=== PATIENT | male | born 1945 | race African-American/Black ===

== ENCOUNTER 2017-01-02 21:20 | Inpatient (IN) | payer OTHER ==
[~2017-01-02] VITALS: Ht 172.7 cm; Wt 103.9 kg
--- NOTE | ~2017-01-02 | O ---
[facility] [place] [address] OPERATIVE REPORT Name: LAURA PEÑA Room #: 241-P ADM IN M.R.#: [id number] Admission: 01/03/17 Attend Phys: Ulises Fall MD Discharge: Date of : 45 Report #: [id number] THIS REPORT FOR: //name// CC: Ava Fall DATE OF SERVICE: 01/12/2017 PREOPERATIVE DIAGNOSES: 1. Abdominal sepsis, status post sigmoid diverticular perforation. 2. Open abdomen. 3. Coronary artery disease. 4. Ischemic cardiomyopathy with decreased ejection fraction. 5. Chronic obstructive pulmonary disease. 7. Obstructive sleep apnea. 8. Left lung mass, suspected to be cancer, status post radiation therapy. 9. Remote history of prostate cancer, status post pelvic irradiation. 10. Obesity. POSTOPERATIVE DIAGNOSES: 1. Abdominal sepsis, status post sigmoid diverticular perforation. 2. Open abdomen. 3. Coronary artery disease. 4. Ischemic cardiomyopathy with decreased ejection fraction. 5. Chronic obstructive pulmonary disease. 7. Obstructive sleep apnea. 8. Left lung mass, suspected to be cancer, status post radiation therapy. 9. Remote history of prostate cancer, status post pelvic irradiation. 10. Obesity. 11. Necrotic cecum. PROCEDURES PERFORMED: 1. Second look exploratory laparotomy with washout. 2. Right hemicolectomy without reestablishment of bowel continuity. 3. Placement of an open abdominal wound VAC (ABThera). SURGEON: Umu Frances MD SUPERVISOR FIBERGLASS BOAT ASSEMBLY: None. ANESTHESIA: General endotracheal anesthesia. ESTIMATED BLOOD LOSS: 20 mL. COMPLICATIONS: None appreciated. [facility] [address] [place] [address] OPERATIVE REPORT Name: LAURA PEÑA Room #: 241-P ADM IN M.R.#: [id number] Admission: 01/03/17 Attend Phys: Ulises Fall MD Discharge: Date of : 45 Report #: [id number] SPECIMEN: Right colon to pathology. INDICATIONS: The patient is a 71-year-old obese -[place] male with the above listed comorbidities who underwent an emergent exploratory laparotomy 2 days ago for perforated sigmoid diverticulitis and intra-abdominal sepsis. The patient was managed with sigmoid colectomy and an open abdomen wound VAC and has been undergoing aggressive resuscitation in the intensive care unit. The patient has made significant improvement over the past 24 hours having come down off of all pressor agents as well as making increased urine and his creatinine is improved. As such, indication was for repeat exploration today with intraoperative findings of patchy necrosis throughout the cecum, which was markedly distended today that necessitated a right hemicolectomy and washout with replacement of the open abdomen wound VAC with plans to repeat operative intervention in 48 hours once again. PROCEDURE: After explaining the risks, benefits and alternatives of the procedure with the patient in detail in the preoperative holding area and obtaining written consent, the patient was brought to the operating room and placed supine on the operating room table. After conducting a thorough timeout procedure, verifying correct patient and procedure, the patient was given general endotracheal anesthesia via his indwelling orotracheal tube. The patient's SCDs were hooked up to pneumatic compression device and he was already on an inpatient regimen of IV antibiotic therapy, which is all in line with the SCIP protocol. The patient's open abdominal wound VAC was now removed leaving just the inner plastic lining, enveloping the intra-abdominal contents. The abdominal domain was then prepped and draped in the standard surgical sterile fashion. Once we were draped out, a sterile blue towel was placed on the abdomen abutting the open wound and the inner plastic lining was removed and thrown in the trash and passed off the field. I now proceeded to reevaluate the intra-abdominal domain. All interloop adhesions were taken down with finger fracture technique, being careful not to injure the small-bowel in any way. There was a moderate amount of murky ascites widespread throughout the abdominal domain once again and this was all suctioned out. Evaluation of the descending colon showed widespread diverticulosis, but no ongoing contamination otherwise. The rectal stump was healthy. The pelvic tissues were markedly woody likely secondary to the acute inflammatory response as well as the desmoplastic response from the external beam pelvic irradiation. Evaluation of the stomach and duodenum appeared healthy. The small-bowel from the ligament of Treitz distally appeared healthy and uninjured all the way down to the distal ileum where the cecum was identified and had overt patchy necrosis throughout a moderately dilated cecum. The appendix was extremely elongated and dilated as well. As there was patchy necrosis, this necessitated resection and I proceeded to perform a formal right hemicolectomy. An appropriate point on the distal ileum was identified and a window was made in the mesentery with electrocautery. A VENUS blue load 75 mm stapler was used to transect the small-bowel at this location. Electrocautery was now used to score along the white line of [place] in [facility] [address] [place] [address] OPERATIVE REPORT Name: CASEY,HILDREN Room #: 241-P ADM IN M.R.#: [id number] Admission: 01/03/17 Attend Phys: Ulises Fall MD Discharge: Date of : 45 Report #: [id number] the right abdomen, which allowed me to medialize the right colon. An appropriate point at the mid transverse colon was identified and a window was made with electrocautery through the mesentery again. Another firing of a VENUS blue load 75 mm stapler was carried out at this location to transect the transverse colon. The LigaSure Impact device was now used to take down all mesentery of the right colon for hemostasis and the specimen was passed off the field. I was able to identify the right ureter in full and it was uninjured and well away from my dissection at all times. The duodenum was seen and was healthy in the retrocolic space near the hepatic flexure. Evaluation of the intra-abdominal domain at this juncture showed a markedly dilated gallbladder, but no other pathology was seen. I copiously irrigated the abdomen with 5 liters of normal saline ensuring that I washed thoroughly in the right and left upper quadrants as well as low in the pelvis. At this juncture, the patient was not suitable for abdominal closure due to the murky contamination and it was my opinion he would necessitate one return trip to the operating room for definitive management. As such, I proceeded to replace the new ABThera device on the abdominal domain. The inner plastic lining was used to envelop the intra-abdominal contents. The blue sponges were then applied as were the Tegaderms in standard fashion. The suction tubing was attached and hooked up to the negative pressure canister and we had excellent suction without a leak to negative 125 mmHg. The patient made 50 mL of slightly concentrated urine, but clear urine throughout the course of the procedure. At the end of the procedure, all instrument, needle, and sponge counts were correct. The patient tolerated the procedure without incident, was transitioned back to the intensive care unit, still intubated and ventilated in stabilizing condition with no apparent complications. <ELECTRONICALLY SIGNED> By: Umu Frances MD, FACS 01/13/17 [id number] Umu Frances MD, FACS /nt
--- NOTE | ~2017-01-02 | S ---
[facility] [place] [address] SURGICAL PATH RPT PROCEDURE Name: CHAY MANZO Room #: 241-P ADM IN M.R.#: [id number] Admission: 01/03/17 Date of : 45 Discharge: Report #: [id number] Path Case #: [id number] PATHOLOGY REPORT COLLECTION DATE: 01/10/2017 RECEIVED DATE: 01/13/2017 SUBMITTING PHYS: Dr. Umu Frances OTHER PHYS: Dr. Ulises Herron SPECIMEN(S) RECEIVED: A.Sigmoid colon * * * * * * * * * * * * FINAL DIAGNOSIS: Colon, sigmoid, segmental resection: - Segment of colon with multiple diverticula with focal perforation and associated acute and chronic serositis. - Viable mucosa present at proximal and distal margins. - Two adjacent lymph nodes with no significant histopathologic diagnosis PATHOLOGIST: Jo Ann Ospina M.D. REPORT ELECTRONICALLY SIGNED BY: Jo Ann Ospina M.D. DATE/TIME: 01/16/2017 10:24 * * * * * * * * * * * * GROSS PATHOLOGY: Received in formalin, labeled "Chay Manzo-sigmoid colon" is a 28 cm segment of forde-brown tissue grossly consistent with colon, ranging in diameter from approximately 2.4 cm up to approximately 4.0 cm. The specimen displays a central area of slight stricture. The serosa features adherent green-forde apparent fibrinous exudate. The attached yellow-harry lobular mesentery displays a focally indurated and ragged appearance. The specimen is opened along the antimesenteric aspect to reveal 2 apparent areas of transmural perforation, located 4.9 cm from the closest resection margin. The tissue surrounding one apparent perforation is inked green, and the tissue surrounding the other apparent perforation is inked blue. Additionally, the specimen reveals numerous engorged diverticula. No discrete masses are grossly identified. The attached mesenteric tissue is palpated to reveal 2 possible lymph nodes. Customer Service Correspondence Clerk sections are submitted as follows: T3-S1-ejwndnwb resection margins I1-J3-jkmorvmjpfimog sections adjacent to aforementioned areas of apparent perforation [address] [address] SURGICAL PATH RPT PROCEDURE Name: CHAY MANZO Room #: 241-P ADM IN M.R.#: [id number] Admission: 01/03/17 Date of : 45 Discharge: Report #: [id number] Path Case #: [id number] A5-additional community service representative section of the specimen A6-2 possible lymph nodes (MORGAN; 01/14/2017) CLINICAL HISTORY: Abdominal sepsis with perforated sigmoid colon INITIAL CPT CODE(S): A; 56485 Professional services performed by [employer], [address] [place] [id number]. Technical services performed by [facility], [address] [place] [address], [address], [place] [address]. [facility] [address] PHONE: [phone] DIRECTOR: Jarocho Ybarra M.D. * * * END OF REPORT * * *
--- NOTE | ~2017-01-02 | S ---
[facility] [place] [address] SURGICAL PATH RPT PROCEDURE Name: CHAY MANZO Room #: 241-P ADM IN M.R.#: [id number] Admission: 01/03/17 Date of : 45 Discharge: Report #: [id number] Path Case #: [id number] PATHOLOGY REPORT COLLECTION DATE: 01/12/2017 RECEIVED DATE: 01/13/2017 SUBMITTING PHYS: Dr. Umu Frances OTHER PHYS: Dr. Ulises Herron SPECIMEN(S) RECEIVED: A.Right hemicolectomy * * * * * * * * * * * * FINAL DIAGNOSIS: Colon, right, hemicolectomy: - Segment of colon with acute and chronic serositis. - Diverticula, multiple, with no definitive evidence of perforation. - Attached segment of small bowel with focal stricture. - Attached omental adipose tissue with focal acute abscess and focal fat necrosis. - Viable mucosa present at margins. - Attached appendix with no pathologic diagnosis. - Four pericolonic lymph nodes with no significant histopathologic diagnosis. PATHOLOGIST: Jo Ann Ospina M.D. REPORT ELECTRONICALLY SIGNED BY: Jo Ann Ospina M.D. DATE/TIME: 01/15/2017 15:36 * * * * * * * * * * * * GROSS PATHOLOGY: Received in formalin, labeled "Chay Manzo-right hemicolectomy" is a 35 cm segment of ascending colon, ranging in diameter from approximately 4 cm up to approximately 10 cm at the cecum. There is an attached segment of terminal ileum measuring 13.5 cm in length by 1.8 cm in average diameter. The serosa is forde-brown, smooth and glistening with areas of apparent adherent pale yellow fibrinous exudate. The specimen is opened along the antimesenteric aspect to reveal numerous diverticula. No discrete masses or areas of perforation are identified grossly. The small bowel grossly appears strictured. Attached to the distal aspect of the specimen, there is a portion of lobular yellow-brown tissue grossly consistent with omentum measuring approximately 18 x 14 by up to 2.5 cm. The apparent omental tissue is sectioned, and no discrete masses are grossly identified. [address] [address] SURGICAL PATH RPT PROCEDURE Name: CHAY MANZO Room #: 241-P ADM IN .R.#: [id number] Admission: 01/03/17 Date of : 45 Discharge: Report #: [id number] Path Case #: [id number] Attached to the base of the cecum, there is a 7.1 cm vermiform appendix, ranging in diameter from 0.7 cm up to 1.1 cm. The appendix is sectioned to reveal a dilated lumen filled with brown fecal material. No discrete masses or areas of perforation are identified grossly. The attached mesenteric tissue is palpated to reveal four possible lymph nodes. Regular sections are submitted as follows: A1-colonic resection margin, en face A2-ileal resection margin, en face T0-F5-nvuiqocblfnhwl sections of diverticula A5-retail sales representative sections of ileum A6-retail sales representative sections of apparent omentum A7-retail sales representative sections of appendix (proximal aspect inked blue) A8-4 possible lymph nodes (MORGAN; 01/14/2017) CLINICAL HISTORY: Bowel perforation INITIAL CPT CODE(S): A; 78178 Professional services performed by [facility] at [facility] [address], [place] [address] Technical services performed by [facility] at [address] [place] [address], [address], [place] [address]. [facility] [address] [place] [address] PHONE: [phone] DIRECTOR: Jarocho Ybarra M.D. * * * END OF REPORT * * *
--- NOTE | ~2017-01-02 | O ---
[facility] [place] [address] OPERATIVE REPORT Name: LAURA PEÑA Room #: 241-P ADM IN M.R.#: [id number] Admission: 01/03/17 Attend Phys: Ulises Fall MD Discharge: Date of : 45 Report #: [id number] THIS REPORT FOR: //name// CC: Ava Fall DATE OF SERVICE: 01/10/2017 PREOPERATIVE DIAGNOSES: 1. Abdominal sepsis with perforated viscus. 2. Coronary artery disease, status post multiple myocardial infarctions. 3. Ischemic cardiomyopathy with significantly decreased ejection fraction. 4. Chronic obstructive pulmonary disease, oxygen dependent at night. 5. Obstructive sleep apnea. 6. Left lung mass, suspected to be cancerous, status post radiation therapy. 7. Remote history of prostatic cancer, status post pelvic radiation. 8. Obesity. POSTOPERATIVE DIAGNOSES: 1. Abdominal sepsis with perforated sigmoid colon. 2. Coronary artery disease, status post multiple myocardial infarctions. 3. Ischemic cardiomyopathy with significantly decreased ejection fraction. 4. Chronic obstructive pulmonary disease, oxygen dependent at night. 5. Obstructive sleep apnea. 6. Left lung mass, suspected to be cancerous, status post radiation therapy. 7. Remote history of prostatic cancer, status post pelvic radiation. 8. Obesity. 9. Dense desmoplastic/inflammatory reaction in the pelvis from perforation and radiation. 10. Umbilical hernia. PROCEDURES PERFORMED: 1. Exploratory laparotomy with washout. 2. Lysis of adhesions. 3. Sigmoid colectomy. 4. Placement of an open abdominal wound VAC device (ABThera). SURGEON: Umu Frances M.D. DISASTER RECOVERY ANALYST: None. ANESTHESIA: General endotracheal anesthesia. ESTIMATED BLOOD LOSS: 200 mL. COMPLICATIONS: None appreciated. [address] [address] OPERATIVE REPORT Name: LAURA PEÑA Room #: 241-P [facility] IN .R.#: [id number] Admission: 01/03/17 Attend Phys: Ulises Fall MD Discharge: Date of : 45 Report #: [id number] SPECIMENS: 1. Culture swabs to microbiology times 2. 2. Sigmoid colon to pathology. COMPLICATIONS: None appreciated. INDICATIONS: The patient is a 71-year-old obese -Nigerien male with a past history of coronary artery disease, status post multiple MIs, as well as resultant ischemic cardiomyopathy with an ejection fraction bordering on 20%. The patient was admitted several days ago for acute exacerbation of his COPD and throughout the course of his hospitalization, began complaining of right lower quadrant abdominal pain for which a CT scan of the abdomen and pelvis was obtained. My partner, Dr. Eliu Palmer saw the patient in consultation 3 days ago with findings of sigmoid diverticulitis, with small microperforation, that was recurrent in nature, as he had been treated on 2 prior occasions as an outpatient by Gastroenterology for acute sigmoid diverticulitis with oral antibiotic therapy. The patient was initiated on IV antibiotic therapy and bowel rest, and Infectious Disease was asked to assist in management of the antibiotics. 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 He was extremely tachycardic and began to become hypotensive, and his labs returned white blood cell count low at 2800 as opposed to it being slightly high yesterday, which is an early indicator of significant sepsis. Stat abdominal x-ray showed free air under the diaphragm and immediately obtained stat CT scan showed, a large amount of free pneumoperitoneum, as well as free fluid. As such, indication was for emergent exploration today with findings of sigmoid colon perforation with marked intra-abdominal contamination and significant adhesions, low in the pelvis that were both inflammatory and desmoplastic, likely secondary to the acute inflammatory response, as well as radiation changes from his prostate cancer. The sigmoid colon was intimately plastered to the left pelvic side wall, as well as to the bladder, and in the face of massive contamination with obesity and a large amount of intra-abdominal fat, it was extremely difficult to identify discrete structures. Indication was for sigmoid colectomy with the washout and due to his overwhelming critical illness, necessitating 3 pressor agents intraoperatively, indication was for washout and open abdomen wound VAC placement with continued resuscitation in the Intensive Care Unit. Now, that the overt offending agent had been removed. DESCRIPTION OF PROCEDURE: After explaining the risks, benefits, and alternatives of the procedure in detail with the patient and obtaining consent, the patient was brought emergently to the operating room and placed supine on the operating room table. After conducting a thorough timeout procedure verifying correct patient and procedure, the patient was given general endotracheal anesthesia. Once adequate anesthesia was obtained, his SCDs were [address] [address] OPERATIVE REPORT Name: LAURA PEÑA Room #: 241-P ADM IN M.R.#: [id number] Admission: 01/03/17 Attend Phys: Ulises Fall MD Discharge: Date of : 45 Report #: [id number] hooked up to pneumatic compression device. He was given his preoperative dose of antibiotics, as it was time for his regularly scheduled inpatient regimen of IV antibiotic therapy, and a Bean catheter was placed. The patient's abdomen was now prepped and draped in the standard surgical sterile fashion. #10 bladed scalpel was used to create a longitudinal midline incision from the subxiphoid location to the suprapubic location, carried to the right of the patient's umbilicus. Electrocautery was used to carry this down through the skin and subcutaneous tissues to ensure hemostasis. Once I arrived upon the fascia, I was able to easily obtain intra-abdominal access through a small umbilical hernia defect. I was able to gain entry into the abdomen through a small umbilical hernia defect and was able to open the fascia in a controlled fashion with my finger in the abdomen to prevent injury to the underlying structures from electrocautery thermal burn. Once I had attained complete entry into the abdominal cavity, there was overt diarrheal stool, widespread throughout the abdominal cavity. A pool suction device was now used to evacuate approximately 1.5 liters of stool, free flowing throughout the abdominal domain. Care was taken to suction out all fluid in the right and left upper quadrants, as well as low in the pelvis and throughout the mid abdomen. The patient was now placed in Trendelenburg position due to hypotension, as well as to allow gravity to shift the bowels into the upper abdomen. Placement of an NG tube was confirmed within the gastric lumen appropriately, and it was secured in place by Anesthesia. Evaluation of the intra-abdominal compartment showed a markedly dilated cecum, containing firm stool; however, I did not see any overt evidence of perforation of the sigmoid or transverse colons. The small bowel was identified, the ligament of Treitz and run distally, breaking up all interloop adhesions. As there was a significant inflammatory response of omentum, plastered to the loops of bowel, as well as interloop adhesions. These were taken down with finger fracture technique, and the bowel was evaluated on 3 separate occasions from the ligament of Treitz to this ileocecal valve to ensure no injury. The small bowel appeared healthy throughout. Evaluation of the descending and sigmoid colon showed that the sigmoid colon was markedly redundant and plastered to the left pelvic side wall, as well as to the bladder, which had both inflammatory changes with edema, as well as more dense desmoplastic reaction consistent with prior radiation changes for his prostate cancer. This was an extremely difficult dissection, necessitated placement of a Bookwalter retractor due to his obesity to attain adequate visualization. Once a Bookwalter was placed, and then bowel was packed in the upper abdomen and the pelvic side wall was splayed out with appropriate retractors. I was able to identify the rectum, and this appeared healthy. At the rectosigmoid juncture, I was able to score the rectum on each side with electrocautery and passed a window through the perirectal tissues posteriorly. I then used the contour stapler with a green load to transect the bowel at the rectosigmoid juncture. I now identified a position at the junction of the descending and sigmoid colons where it appeared healthy, and made a window in the mesentery with electrocautery. A single firing of a VENUS blue load 75 mm stapler was carried out to transect the colon [address] [address] OPERATIVE REPORT Name: LAURA PEÑA Room #: 241-P [facility] IN M.R.#: [id number] Admission: 01/03/17 Attend Phys: Ulises Fall MD Discharge: Date of : 45 Report #: [id number] at this juncture. I now packed the descending colon in the upper abdomen as well, and proceeded to attempt to elevate the sigmoid colon into the abdominal cavity. This was intimately plastered to the dome of the bladder, as well as the left pelvic side wall and careful tedious dissection was undertaken with a combination of finger fracture technique, as well as electrocautery to try and roll this away from any potential structures, such as the left ureter and the bladder itself. There was a very large abscess cavity with a very thick rind, emanating from an overt perforation that was approximately 3 x 3 cm in diameter from the sigmoid colon. I was able to eventually roll this sigmoid colon up and out and transect the mesentery with the LigaSure impact device for hemostasis. There were few areas on the edematous mesentery that had difficulty in maintaining hemostasis with advanced energy, and as such 3-0 PDS sutures were placed in [id number] fashion at those areas of oozing to obtain complete hemostasis along the mesentery. I then also placed FloSeal and gelfoam on top of those areas to assist in hemostasis. Evaluation of the bladder and the left pericolic gutter at this juncture showed no evidence of damage to any critical structures, although the area was so edematous and desmoplastic, it was extremely difficult to identify one structure from another. The urine in the patient's Bean catheter while concentrated and only making 50 mL of urine through the course of the procedure, did not show any evidence of blood tinging whatsoever. There was no evidence of fluid building up in the abdomen as well. I now copiously irrigated the abdomen with 5 liters of normal saline, and suctioned the patient dry, ensuring that all dependent areas in the pelvis, the mid abdomen, as well as both right and left upper quadrants were devoid of contamination. As the patient was critically ill on 3 vasopressors, all while being in Trendelenburg position and receiving 4 liters of fluid intraoperatively. I did elect to place an open abdomen wound VAC device at this juncture for experience and transition back to the Intensive Care Unit for further resuscitation. The inner plastic lining was placed in the standard fashion to envelop the intra-abdominal contents. The blue sponges were then placed on top of that in the subcutaneous wound. The drapes were now let down and removed, and I proceeded to place the large Tegaderms over the abdomen in appropriate fashion. A hole was cut out in the Tegaderm overlying the sponge, and the suction device was attached, and hooked up to the negative suction canister. We had negative suction to 125 mmHg with no evidence of leak. At the completion of the procedure, all instrument, needle, and sponge counts were correct. The patient remained intubated and was transitioned to the Intensive Care Unit directly while mechanically ventilated, still critically ill, where he will necessitate repeat washouts prior to formal placement of an end colostomy in a Anette's procedure fashion, for definitive care, provided his cardiopulmonary status will allow for moving forward. <ELECTRONICALLY SIGNED> By: Umu Frances MD, FACS 01/11/17 [id number] Umu Frances MD, FACS /nt
--- NOTE | ~2017-01-02 | O ---
[facility] [place] [address] OPERATIVE REPORT Name: LAURA PEÑA Room #: 241-P ADM IN M.R.#: [id number] Admission: 01/03/17 Attend Phys: Glenn Saunders MD Discharge: Date of : 45 Report #: [id number] THIS REPORT FOR: //name// CC: Ava Fall DATE OF SERVICE: 01/14/2017 PREOPERATIVE DIAGNOSES: 1. Abdominal sepsis, status post sigmoid diverticular perforation. 2. Open abdomen. 3. Coronary artery disease. 4. Ischemic cardiomyopathy with a decreased ejection fraction. 5. Chronic obstructive pulmonary disease. 6. Obstructive sleep apnea. 7. Left lung mass, suspected to be cancer, status post radiation therapy. 8. Remote history of prostate cancer, status post pelvic radiation. 9. Obesity. 10. Status post right hemicolectomy for necrotic cecum. 11. Ischemic distal ileum with patchy necrosis of remaining colon. PROCEDURES PERFORMED: 1. Third look exploratory laparotomy with washout. 2. Segmental small bowel resection. 3. Completion subtotal colectomy with end ileostomy. 4. Placement of a topical wound VAC device (Prevena). SURGEON: Umu Frances MD. LANDSCAPE ARCHITECT: Eliu Palmer MD. ANESTHESIA: General endotracheal anesthesia. ESTIMATED BLOOD LOSS: 100 mL. COMPLICATIONS: None appreciated. SPECIMENS: 1. Segment of distal ileum to pathology. 2. Completion subtotal colectomy specimen to pathology. INDICATIONS: The patient is a 71-year-old obese -Scottish male with the above listed comorbid conditions, who underwent an emergent exploratory laparotomy, 4 days ago for perforated sigmoid diverticulitis and overt sepsis. The patient was managed with a segmental sigmoid colectomy and an open abdomen wound VAC, and underwent aggressive resuscitative efforts. The patient [address] [address] OPERATIVE REPORT Name: LAURA PEÑA Room #: 241-P [facility] IN M.R.#: [id number] Admission: 01/03/17 Attend Phys: Glenn Saunders MD Discharge: Date of : 45 Report #: [id number] surprisingly made significant improvement in light of his multitude of comorbid conditions and was taken back to the operating room for a second look laparotomy 2 days ago, whereby he was found to have patchy necrosis of the cecum that necessitated a limited right hemicolectomy. At the time of that repeat exploration, I performed a thorough washout of his intra-abdominal domain and replaced the open abdomen wound VAC and indication was for repeat exploration once again today. Intraoperative findings of ischemic distal ileum with the end of the ileum being purple were found that required a segmental small bowel resection in addition to the completion subtotal colectomy, as there was patchy necrosis throughout the remaining colon present. The patient was then left with an end ileostomy in the right mid abdomen with a healthy vascularized rectal stump intact. DESCRIPTION OF PROCEDURE: After explaining the risks, benefits, and alternatives of the procedure with the patient and the patient's family in the preoperative holding area and obtaining consent, the patient was brought to the operating room and placed supine on the operating room table. After conducting a thorough timeout procedure, verifying correct patient and procedure, the patient was given general endotracheal anesthesia via his indwelling orotracheal tube. The patient's SCDs were hooked up to the pneumatic compression device, and he was already on an inpatient regimen of IV antibiotic therapy, which is all in line with the SCIP protocol. The patient's open abdominal wound VAC was now removed leaving just the inner plastic lining that enveloped the intra-abdominal contents in place. The abdominal domain was then prepped and draped in the standard surgical sterile fashion. Once we were fully draped out, sterile blue towel was placed on the abdomen abutting the open edge of the wound and inner plastic lining was removed and thrown into trash and passed off the field. I now proceeded to reevaluate the intra-abdominal domain. All interloop adhesions were taken down with finger fracture technique, being careful not to injure the small bowel in any way. There was much less murky ascites seen throughout the abdominal domain, and this was all suctioned out. Evaluation of the remaining colon showed patchy duskiness, consistent with impending necrosis with widespread diverticulosis throughout. The rectal stump was evaluated. It was healthy and vascularized. The pelvic tissues continued to be markedly woody, secondary to the acute inflammatory response, as well as the desmoplastic response from his external pelvic beam of radiation. Stomach and duodenum appeared healthy once again. The small bowel was now run from the ligament of Treitz distally, which appeared healthy and uninjured, all the way down to the distal ileum, where the distal most 5 cm was overtly dusky, consistent with ischemia. As such, this too necessitate a segmental resection. The VENUS-75 mm stapler with a blue load was now used to transect the unhealthy end of the terminal ileum, was passed off the field as segmental small bowel resection. The remaining small bowel appeared healthy throughout. The colon again was evaluated showing patchy ischemic findings, and widespread diverticulosis, and we elected to perform a completion subtotal colectomy at this time with findings of an extremely high splenic flexure with marked edema in the mesentery [facility] [address] [place] [address] OPERATIVE REPORT Name: LAURA PEÑA Room #: 241-P [facility] IN [facility].#: [id number] Admission: 01/03/17 Attend Phys: Glenn Saunders MD Discharge: Date of : 45 Report #: [id number] throughout. I proceeded to score along the white line of Toldt, on the left lateral pericolic gutter with electrocautery. The EnSeal X1 device was now used to transect the mesentery, staying right along the bowel edge for hemostasis. Once I had came around the splenic flexure, a large amount of omentum remained attached to the colon. We stayed well away from the stomach when coming through the gastrocolic ligament. This freed the entirety of the remaining subtotal colectomy, specimen was passed off the field. Hemostasis was assured throughout. The left pericolic gutter had a few areas of gentle oozing, but no discrete bleeding, and a piece of Surgicel was placed over this for assistance with long-term hemostasis. I now proceeded to copiously irrigate the intra-abdominal domain, using 5 liters of normal saline until it ran clear throughout. One final evaluation of the entire intra-abdominal domain showed healthy stomach and small bowel along its entirety with no serosal injuries, defects, or enterotomies whatsoever. The subtotal colectomy had been performed with a healthy rectal stump. I now selected an appropriate place in the right upper quadrant for an end-ileostomy. This was grasped at the skin level with a Anthony clamp, and a skin defect was made with a #10 bladed scalpel. Electrocautery was used to carry this down through the skin and subcutaneous tissues, until I arrived upon the anterior rectus fascial plain. This was scored in cruciate fashion, revealing the right rectus muscle posteriorly. A tonsil clamp was used to penetrate into the intra-abdominal domain, and I proceeded to dilate the tract to 2 fingerbreadths spread. A Flaco clamp was then placed through this tract, and the distal staple line of the distal ileum was grasped and pulled through, maintaining orientation to prevent twisting to the small bowel. I now placed two 19-Honduran round Gerardo-Wellington drains, one emanating from the left lower quadrant. The other from the right lower quadrant. Both drains were secure to the skin using 2-0 nylon in standard fashion. Both drains were placed low in the pelvis crossing over and running up the opposite pericolic gutter, hence the drain emanating from the left lower quadrant, crossed low in the pelvis, and ran up the right pericolic gutter, and vice versa for the drain emanating from the right lower quadrant. Evaluation of the fascial edges at this time point showed that they could easily be brought together down the midline without tension. I now used two separate looped #1 PDS sutures to close the midline fascial wound in standard running fashion. The first suture was started in the suprapubic location, and run [address], and the second one was started in the subxiphoid location, running inferior to where the 2 sutures met, where they were tied together. Skin wound was copiously irrigated and then closed with skin chauncey. The midline wound was now covered with a blue towel, and the distal staple line of the small bowel was grasped with Allis clamps and was transected with curved Mancera scissors. This revealed a slightly diminutive distal ileum with a very edematous mesentery. Electrocautery was used for hemostasis along the mesentery. I now proceeded to mature the ileostomy in standard [place] fashion using four sutures of 3-0 Vicryl in standard interrupted fashion, for imbricating sutures at the 12, 3, 6, and 9 o'clock positions by grabbing bites of dermis, as well as a seromuscular approach as low on the bowel edge and then full thickness bite on [place] [id number] OPERATIVE REPORT Name: LAURA PEÑA Room #: 241-P [facility] IN .R.#: [id number] Admission: 01/03/17 Attend Phys: Glenn Saunders MD Discharge: Date of : 45 Report #: [id number] the cut edge of the distal ileum. These were each tied down providing a slight [place] appearance to the ileostomy. Each of the four resultant quadrants were then closed at the mucocutaneous junction with short runs of 3-0 Vicryl suture in standard fashion. Digital finger intubation of the ileostomy showed it to be patent to a subfascial level, and it was pink, healthy, and vascularized throughout. Abdominal domain was now cleaned off, and I proceeded to apply topical wound VAC (Prevena) device to the midline wound in standard fashion. A sterile ostomy appliance was then applied to the ostomy. At the end of the procedure, all instrument, needle, and sponge counts were correct. The patient tolerated the procedure without incident and remained intubated and was transitioned back to the Intensive Care Unit in stabilizing condition with no apparent complications. <ELECTRONICALLY SIGNED> By: Umu Frances MD, FACS 01/15/17 [id number] Umu Frances MD, FACS /nt
--- NOTE | ~2017-01-02 | S ---
[facility] [place] [address] SURGICAL PATH RPT PROCEDURE Name: LAURA PEÑA Room #: 204-P ADM IN M.R.#: [id number] Admission: 01/03/17 Date of : 45 Discharge: Report #: [id number] Path Case #: [id number] PATHOLOGY REPORT COLLECTION DATE: 01/14/2017 RECEIVED DATE: 01/15/2017 SUBMITTING PHYS: Dr. Umu Frances OTHER PHYS: Dr. Ulises Herron SPECIMEN(S) RECEIVED: A.Left colon B.Small bowel * * * * * * * * * * * * FINAL DIAGNOSIS: A. "Left colon", resection: - Diverticulosis and diverticulitis with patchy acute serositis with acute and chronic inflammation, necrosis and subserosal fat necrosis; surgical margins without significant inflammation. - Lymph nodes (2) with hyperplasia (2 nodes). B. "Small bowel", resection: - Small bowel mucosa, submucosa and muscular wall with patchy acute serositis showing acute and chronic inflammation, necrosis, reactive mesothelial hyperplasia and dense serosal adhesions; surgical margins with mild acute serositis and reactive mesothelial hyperplasia. PATHOLOGIST: Sydnee Gooden M.D. REPORT ELECTRONICALLY SIGNED BY: Sydnee Gooden M.D. DATE/TIME: 01/19/2017 23:07 * * * * * * * * * * * * GROSS PATHOLOGY: A. The specimen is received in formalin, labeled "Anais, left colon," and consists of a tortuous segment of large bowel with some attached pericolic and mesenteric soft tissue weighing 1652 g. The bowel segment measures 65 cm in length and varies in circumference from 6 to7.5 cm. The bowel segment is unoriented. Serosal surface has has multiple hemorrhagic areas and scattered overlying yellow-harry exudate. The bowel segment is opened to reveal multiple scattered prominent diverticula without polyps or mass lesions. The mucosa is a mottled pink-harry and has a congested red-brown area near one and measuring about 15.5 cm in length which is circumferential. Several diverticula contain impacted fecal material. A definite perforation site is not identified. A few prominent apparent lymph nodes are [address] [address] SURGICAL PATH RPT PROCEDURE Name: LAURA PEÑA Room #: 204-P ADM IN M.R.#: [id number] Admission: 01/03/17 Date of : 45 Discharge: Report #: [id number] Path Case #: [id number] identified within the attached mesenteric soft tissues. Pediatric Clinical Dietician sections are submitted as follows: En face sections of one colonic end resection margin A1, en face sections of opposite end colonic resection margin A2, several diverticula A3-A6, paracolic soft tissue with hemorrhagic areas and overlying exudate A7 and 2 mesenteric apparent lymph nodes in entirety A8. B. The specimen is received in formalin, labeled "Anais, small bowel and consists of a segment of small bowel with some attached fibrofatty tissue weighing 26 g and measuring 3 cm in length and 3.5 cm in circumference. Serosal surface has some scattered hemorrhagic areas and overlying exudate. The bowel lumen is patent and the mucosa is pale-harry without significant gross abnormalities. No lymph nodes are identified within the attached mesenteric soft tissue. Pediatric Clinical Dietician sections are submitted as follows: En face section of one and resection margin B1, en face section of opposite resection margin B2, sections of the bowel wall B3 and mesenteric soft tissue B4. (CWM; 01/16/2017) CLINICAL HISTORY: Pre-op diagnosis: Abdominal sepsis Postop diagnosis: Same INITIAL CPT CODE(S): A; 04300 B; 75911 Professional services performed by [employer] at [facility] [address], [place] [address] Technical services performed by [employer] at [address] [place] [address], [address], [place] [address]. [employer] [address] [place] [address] PHONE: [phone] DIRECTOR: Jarocho Ybarra M.D. * * * END OF REPORT * * *
--- NOTE | ~2017-01-02 | HC ---
[facility] [place] [address] CONSULTATION Name: LAURA PEÑA Room #: 444-P ADM IN M.R.#: [id number] Admission: 01/03/17 Attend Phys: Ulises Fall MD Discharge: Date of : 45 Report #: [id number] THIS REPORT FOR: //name// CC: Ava Fall DATE OF SERVICE: 01/03/2017 REFERRING PROVIDER: , Dr. Ava Herron and Dr. Claritza Nogeuira. REASON FOR CONSULTATION: COPD exacerbation. CHIEF COMPLAINT: Shortness of breath. HISTORY OF PRESENT ILLNESS: Our group was asked to see the patient in consultation while hospitalized at [facility], a pleasant 71-year-old male with a past pulmonary history significant for COPD with an asthmatic component Dulera inhaler twice daily and bronchodilators as well as nocturnal hypoxemia for which he wears supplemental oxygen and nocturnal CPAP for obstructive sleep apnea, been diagnosed with a lung cancer by report. The patient states it was a presumed malignancy, did not feel comfortable biopsying a left lung mass due to patient presumably being high risk for complications, subsequently underwent radiation therapy. He states in late 2014 states most recent evaluation by his oncologist shows of findings. Over the last 2-3 days had increasing shortness of breath, some cough that has been nonproductive. No fevers, chills or sweats, not relieved with use of his nebulized bronchodilators, presented to the Emergency Department yesterday evening, subsequently started on systemic steroids, bronchodilators and Levaquin with some improvement overall to this point. He is able to speak in full sentences, does not appear in any distress at this time. ALLERGIES: No known drug allergies. PAST MEDICAL HISTORY: 1. History of lung mass, presumed to be cancer, status post radiation therapy. 2. Chronic obstructive pulmonary disease. 3. History of prostate cancer. 4. History of coronary artery disease. 5. History of ischemic cardiomyopathy. 6. History of pacemaker placement. 7. Obstructive sleep apnea. 8. Chronic back pain with multiple back surgeries. 9. History of diverticulosis with most recent diverticulitis, sounds like in August of this year. SOCIAL HISTORY: Ex-smoker. 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 [facility] [address] [place] [address] CONSULTATION Name: LAURA PEÑA Room #: 444-P [facility] IN M.R.#: [id number] Admission: 01/03/17 Attend Phys: Ulises Fall MD Discharge: Date of : 45 Report #: [id number] FAMILY HISTORY: Negative for any pulmonary disease. REVIEW OF SYSTEMS: CONSTITUTIONAL: Denies any fevers, chills, sweats, change in weight or appetite. ENT: No upper respiratory congestion, rhinorrhea or dysphagia. CARDIOVASCULAR: No chest pains or palpitations. GASTROINTESTINAL: Diverticulitis earlier this year in August. No nausea, vomiting, diarrhea, constipation or abdominal pain. GENITOURINARY: No dysuria, no frequency. INTEGUMENT: Denies any new rash. MUSCULOSKELETAL: Generalized weakness. No new joint pains or swelling. PHYSICAL EXAMINATION: VITAL SIGNS: Afebrile, pulse 60s, respiratory rate 20, blood pressure 114/50, oxygen saturation 94% on room air. GENERAL: This is a pleasant elderly male, in no distress. HEENT: Mallampati 3 airway, no thrush. NECK: Supple, no lymphadenopathy. LUNGS: Diminished with expiratory wheezes noted throughout. CARDIOVASCULAR: Heart regular. No murmurs noted. ABDOMEN: Soft, nontender, no masses, no hepatosplenomegaly. EXTREMITIES: Without edema. INTEGUMENT: Without rash. LABORATORY DATA: CT scan of the chest for PE protocol did reveal some emphysema, some chronic lingular changes which appears similar on prior radiographs noted, questionable cystic mass in the head of the pancreas. The patient notes has previously been seen, no evidence of pulmonary embolism. White blood cell count 5000, hemoglobin 13, hematocrit 39, platelet count 178. Sodium 139, potassium 4.5, chloride 105, bicarbonate 26, BUN 11, creatinine 1.1, glucose 285. Troponin is negative. Arterial blood gas on room air revealed pH 7.39, pCO2 of 50, pO2 of 62, bicarbonate 30. IMPRESSION: 1. Acute exacerbation of chronic obstructive pulmonary disease. 2. Possible lingular pneumonia, although CT findings seem to correlate with prior history of radiation therapy. Chest radiograph done on 01/02/2017 compared to late August's chest radiograph appears very similar. 3. Emphysema. 4. Obstructive sleep apnea. SUGGESTIONS: 1. Continue with steroid taper. 2. Bronchodilators. [address] [address] CONSULTATION Name: LAURA PEÑA Room #: 444-P ADM IN M.R.#: [id number] Admission: 01/03/17 Attend Phys: Ulises Fall MD Discharge: Date of : 45 Report #: [id number] 3. Finish course of Levaquin. 4. Follow up chest radiographs. 5. Nocturnal CPAP. 6. Ambulate as tolerated. 7. Additional recommendations to follow. Thank you for requesting our suggestions. <ELECTRONICALLY SIGNED> By: Guillermo Medina MD 01/05/17 1454 1835 2333 Guillermo Medina MD /nt
--- NOTE | ~2017-01-02 | HC ---
[facility] [place] [address] CONSULTATION Name: LAURA PEÑA Room #: 241-P ADM IN M.R.#: [id number] Admission: 01/03/17 Attend Phys: Ulises Fall MD Discharge: Date of : 45 Report #: [id number] THIS REPORT FOR: //name// CC: Ava Fall DATE OF SERVICE: 01/07/2017 HISTORY OF PRESENT ILLNESS: I have been asked to evaluate this 71-year-old male who initially presented to the Emergency Room with a chief complaint of shortness of breath. The patient too has a past history of lung cancer, COPD and hypertension. He was admitted 3 to 4 days ago, he was in the process of being evaluated for discharge when he began to complain of worsening and progressive right lower quadrant abdominal pain. The patient has some obstipation and has not been passing flatus for last 24 hours. He denies vomiting. He also denies chills. He has been treated intermittently over the past 2-3 months by GI medicine for recurrent diverticulitis. PAST MEDICAL HISTORY: Consistent with hypertension, COPD, lung cancer, congestive heart failure. Also, reports diverticulosis with recurrent antibiotic therapy x [address] Emiliano Ospina. PAST SURGICAL HISTORY: Includes carpal tunnel syndrome in the 80s, back surgery, has had a heart catheterization, medical illnesses, congestive heart failure, COPD, hypertension, a known pancreatic mass followed by Dr. Vincent at [facility]. He has had a left rotator cuff surgery and knee surgery. Left inguinal hernia repair in the 80s, also prostate cancer in 2008 with multiple radiation therapy treatments. The patient also has dyslipidemia, GERD and multiple MIs, last reported 2014. MEDICATIONS: Are multiple. ALLERGIES: No known drug allergies. SOCIAL HISTORY: and does use alcohol intermittently. REVIEW OF SYSTEMS: A 10-point review of systems, CARDIOPULMONARY: Shortness of breath is improving. ABDOMEN: He denies passing flatus or stool in the last 24 hours. He is somewhat obstipated, has a previous history of diverticulitis with antibiotic therapy, does not remember when he had his last colonoscopy. PHYSICAL EXAMINATION: GENERAL: Reveals -Stateless male who is overweight, afebrile. VITAL SIGNS: Stable. HEENT: Pupils are equal, round, react to light. No scleral icterus. [facility] [address] [place] [address] CONSULTATION Name: LAURA PEÑA Room #: 241-P [facility] IN M.R.#: [id number] Admission: 01/03/17 Attend Phys: Ulises Fall MD Discharge: Date of : 45 Report #: [id number] LUNGS: Clear at the bases bilaterally with some decreased breath sounds. CARDIOVASCULAR: Regular rate and rhythm. ABDOMEN: Obese, tenderness in the right lower quadrant, mild in the right upper quadrant. No tenderness in the left upper quadrant suggestion of mild tenderness in the left lower quadrant. RECTAL: Not performed. NEUROLOGIC: He is oriented x 3, resting comfortably. LABORATORY DATA: Review of laboratory demonstrates slight elevation of the leukocytosis with a left shift of the WBCs. I would recommend proceeding with a CT scan of the abdomen and pelvis with oral contrast today. DIAGNOSTIC IMPRESSION: Probable exacerbation and recurrence of diverticulitis. Thank you for allowing us to participate in his care and we will follow him with you. I would recommend n.p.o. status and IV antibiotics at this time. <ELECTRONICALLY SIGNED> By: Eliu Palmer MD, FACS 01/13/17 0900 1709 0350 Eliu Palmer MD, FACS /nt
--- NOTE | ~2017-01-02 | EKG ---
[address] [address] ELECTROCARDIOGRAM REPORT Name: LAURA PEÑA Room #: 444-P ADM IN M.R.#: [id number] Admission: 01/03/17 Attend Phys: Ulises Fall MD Discharge: Date of : 45 Report #: [id number] THIS REPORT FOR: //name// [facility] ED Test Date: 2017-01-02 Test Time: 21:22:38 Pat Name: LAURA PEÑA Department: Room: [facility] Gender: M Veterinary Epidemiologist: SANDY : 1945 Requested By: Matt Ferrera Order Number: [id number] MD: Dalton Hernandez Measurements Intervals [place] Rate: 91 P: 85 CA: 138 QRS: 132 QRSD: 163 T: 40 QT: 407 QTc: 501 Interpretive Statements Marked baseline artifact Probable Sinus rhythm RBBB and LPFB Compared to ECG 09/12/2016 00:39:50 No significant change was found Electronically Signed On 01-04-2017 11:45:00 CDT by Dalton Hernandez [email or web address] <ELECTRONICALLY SIGNED> By: Dalton Hernandez MD, [facility] 01/04/17 1145 21 21 Dalton Hernandez MD, [facility] /EPI
--- NOTE | ~2017-01-02 | HC ---
[facility] [place] [address] CONSULTATION Name: LAURA PEÑA Room #: 241-P ADM IN M.R.#: [id number] Admission: 01/03/17 Attend Phys: Ulises Fall MD Discharge: Date of : 45 Report #: [id number] THIS REPORT FOR: //name// CC: Ava Fall REASON FOR CONSULTATION: I was asked to evaluate concerning peritonitis. HISTORY OF PRESENT ILLNESS: The patient is a 71-year-old with underlying history of left lung cancer, prostate cancer remotely. Treatment of his left lung mass, presumed cancer, radiation in 2014. He has been relatively stable since then. He was evaluated in the emergency room on 01/03/2017, with exacerbation of his underlying COPD. He remains on inhalers and oxygen 1 liter per nasal cannula at home. He has intermittent doses of corticosteroids. None in the recent past. He has had no significant travel. Placed on Levaquin. Placed on Solu-Medrol. Yesterday early a.m., noticed acute abdominal pain. CT showed evidence of free air in the abdomen. He had inflammatory changes involving the descending and sigmoid colon. Also note, his pancreatic mass has increased in size from his previous CAT scan. This was to be worked up prior to his admission with an ERCP. The patient has had no weight loss. Intermittent nausea, minimal vomiting. He had a normal stool last week, but had a very small stool 2 days ago. PAST MEDICAL HISTORY: Left lung mass, suspected cancer, status post radiation; COPD, remote prostate cancer, coronary artery disease with ischemic cardiomyopathy and permanent pacemaker, obstructive sleep apnea, and diverticular disease. ALLERGIES: None. MEDICATIONS: As noted on his MAR, now on Zosyn and metronidazole, still on Solu-Medrol. FAMILY HISTORY: Noncontributory. SOCIAL HISTORY: Past smoker, no significant alcohol intake. 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 No tuberculosis history. REVIEW OF SYSTEMS: Negative other than that has been described above. PHYSICAL EXAMINATION: VITAL SIGNS: Afebrile, hemodynamically stable. GENERAL: He is alert and cooperative on 1 liter per nasal cannula. He is moderately obese. HEENT: Unremarkable. LUNGS: Decreased breath sounds bilaterally, no consolidation. HEART: Regular, without murmur. [facility] [address] [place] [address] [facility] Room #: [address] [place] [address] IN M.R.#: [id number] Admission: 01/03/17 Attend Phys: Ulises Fall MD Discharge: Date of : 45 Report #: [id number] ABDOMEN: Tympanitic, diffusely tender with rebound, fullness to the right mid lateral abdomen, ecchymosis across the left lower quadrant region. No other masses identified. RECTAL: Not performed. EXTREMITIES: Unremarkable. LABORATORY STUDIES: Sodium 139, potassium 4.5, bicarb of 32, creatinine 1, and blood glucose less than 200. Liver function tests normal. Albumin 3.4. INR 1.1. Hemoglobin 12.9, white count 11.8, platelet count 154,000. Differential, 89% segs, 1% band. Blood cultures pending. Abdominal x-ray today shows free air beneath the right hemidiaphragm, gas and stool seen throughout the entire colon, suspected ileus. IMPRESSION: A 71-year-old with exacerbation of chronic obstructive pulmonary disease, chronic left lung infiltrate, scarring with now acute abdomen with perforation, suspected diverticular disease in etiology. He has had an endoscopy within the last several years with no evidence of cancer. He also has a pancreatic mass concerning for malignancy. General surgery has evaluated and plans observation at this time. Recommend tapering steroids as much as possible. I suspect this is masking some of his toxicity. We will continue with broad antibiotic coverage to include Zosyn for both aerobic and anaerobic coverage. Follow his laboratory studies and x-ray. Discussed with pulmonary medicine. <ELECTRONICALLY SIGNED> By: Fazal Mckeon MD 01/12/17 1003 1024 1338 Fazal Mckeon MD /nt
--- NOTE | ~2017-01-02 | HC ---
[facility] [place] [address] CONSULTATION Name: LAURA PEÑA Room #: 204-P ADM IN M.R.#: [id number] Admission: 01/03/17 Attend Phys: Glenn Saunders MD Discharge: Date of : 45 Report #: [id number] THIS REPORT FOR: //name// CC: Ava Fall HISTORY OF PRESENT ILLNESS: The patient is a 71-year-old male who is known to my partner, Dr. Hernandez, Dr. Quezada. It looks like the patient asked me help medical care here. He is status post a bowel perforation. It looks like he had been in the hospital for one week. He has been followed by Dr. Hernandez for what is predominantly and idiopathic cardiomyopathy and had a pacemaker defibrillator placed by Dr. Quezada. Apparently, he has been finding some sort of GI issue for some time according to his and daughter who I was speaking with here and subsequently admitted and placed on IV antibiotics, developed a painful rigid abdomen and taken emergently to surgery this morning by Dr. Frances. Dr. Quezada looks like he placed a device an ICD in 05/2016 for an ejection fraction of 35%, echo was last done in August of this year with an EF of 25%. Moderate pulmonary hypertension and nuclear stress test was done last February. He is having some issues with blood pressure. He remains borderline tachycardic, but he is on Levophed and vasopressin with an open abdominal wound and a wound VAC. He is responsive, intubated, and partially sedated. There are no complaints of chest pain, but he again only partially responsive. 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 SOCIAL HISTORY: He is . He is retired, he has a and multiple children. Not a current tobacco user. FAMILY HISTORY: Negative for premature coronary disease. ALLERGIES: Negative or no known medical allergies, it looks like he had at some point. MEDICATIONS: Looks like he at some point been on Coreg and lisinopril. Currently those are being held. PHYSICAL EXAMINATION: VITAL SIGNS: Blood pressure has been 90-100, pulse is 100-105, on Levophed and vasopressin drips. He does respond partially sedated. He is on ventilator. HEENT: Pharynx is clear. Eyes: No xanthelasmas. NECK: Upstrokes are preserved. LUNGS: Clear anteriorly. [facility] [address] [place] [address] CONSULTATION Name: LAURA PEÑA Room #: 204-P [facility] IN M.R.#: [id number] Admission: 01/03/17 Attend Phys: Glenn Saunders MD Discharge: Date of : 45 Report #: [id number] ABDOMEN: Open wound with VAC in place. EXTREMITIES: There is mild trace edema. Distal pulses diminished. NEUROLOGIC: Nonfocal. SKIN: Warm and dry with the exception of the abdominal wound and drain. ASSESSMENT: 1. Status post perforated bowel with emergent surgery, now open abdominal wound. 2. Pending sepsis with resultant hypotension, requiring significant pressor support. 3. 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 4. Hypertension. 5. Diabetes. 6. Hypercholesterolemia. RECOMMENDATIONS AND PLAN: He has obviously required significant fluids 7-10 liters so cancino with pressor support. All blood pressure medications and Lasix obviously held, Flagyl, Zosyn, vancomycin, antibiotics. Cardiac priest, I do not have a lot to offer regarding further pressor support here. Urine output is marginal and he is followed by Nephrology. Prognosis is certainly guarded here. I did have some discussion with the and one of the daughters. We will continue to follow with you from cardiac perspective, may repeat the echo after this holiday weekend, although it will not change current regimen and already we know that he is moderately to severely depressed. ADDENDUM: LABORATORY DATA: Sodium 140, potassium 5.2, BUN 35, creatinine 1.5, glucose 229. Liver function tests, total protein 4.5, albumin 1.5, SGPT 14. INR 1.15, fibrinogen 395.5. H and H is 12.7, white count 12.2, platelets 162. We will continue to follow with you. <ELECTRONICALLY SIGNED> By: Chaim Bustamante MD, FACC 01/19/17 1544 09 22 Chaim Bustamante MD, FACC /nt
--- NOTE | ~2017-01-02 | EKG ---
[address] [address] ELECTROCARDIOGRAM REPORT Name: LAURA PEÑA Room #: 444- ADM IN M.R.#: [id number] Admission: 01/03/17 Attend Phys: Ulises Fall MD Discharge: Date of : 45 Report #: [id number] THIS REPORT FOR: //name// [facility] Test Date: 2017-01-07 Test Time: 18:01:06 Pat Name: LAURA PEÑA Department: Room: 444 Gender: M Iphone Developer: Shamika BLANCHARD : 1945 Requested By: Eliu Palmer Order Number: [id number] MD: Dalton Hernandez Measurements Intervals [place] Rate: 90 P: 74 ND: 130 QRS: 152 QRSD: 162 T: 67 QT: 414 QTc: 507 Interpretive Statements Sinus rhythm Probable left atrial enlargement Nonspecific intraventricular conduction delay Compared to ECG 01/02/2017 21:22:38 Premature ventricular complexes no longer present Electronically Signed On 01-08-2017 7:49:56 CDT by Dalton Hernandez [email or web address] <ELECTRONICALLY SIGNED> By: Dalton Hernandez MD, [facility] 01/08/17 0749 180 180 Dalton Hernandez MD, [facility] /EPI
[~2017-01-02 21:20] MED LIST: ACETAMINOPHEN325 M1 PO; ADULT LOW DOSE81 MG PO; ALBUTEROL2.5 MG/0.1 INH; ALBUTEROL2.5 MG/31 INH; ALDACTONE25 MG PO; ALEVE220 MG; ALEVE220 MG PO; ALLEGRA-D 12 H1 EAC1 PO; AMARYL1 MG PO; AMARYL2 MG PO; AMOXICILLIN 50500 M1 PO; ASPIR 8181 M1 PO; ASPIRIN EC81 M1 PO; AVELOX 400 MG400 MG PO; AZITHROMYCIN 2250 MG PO; BENAZEPRIL HCL20 MG PO; CARDIZEM CD120 MG PO; CARTIA XT120 M1 PO; CARVEDILOL12.5 MG PO; CARVEDILOL25 MG; CARVEDILOL25 MG PO; CIPROFLOXACIN500 M1 PO; CIPROFLOXACIN500 M3 PO; COMBIVENT INH; COMBIVENT PO; COREG PO; COREG6.25 MG PO; D-20002000 UNIT PO; DIABETA 5MG TABL5 MG PO; DOXYCYCLINE 10100 M1 PO; DUONEB 2.5-0.5 M3 ML INH; FLAGYL500 MG PO; FLEXERIL PO; FLONASE 0.05%50 MCG NASAL; FUROSEMIDE 40 M40 M1 PO; GLUCOPHAGE500 MG PO; GLYBURIDE 5 MG T5 M1 PO; HYDROCODON-ACE1 EAC4 PO; HYDROCODONE BI473 ML PO; LASIX 20 MG TAB20 MG PO; LEVAQUIN 500 M500 M2 PO; LEVAQUIN 500 M500 M4 PO; LISINOPRIL2.5 MG PO; LISINOPRIL20 MG PO; LOPRESSOR25 PO; MEDROL DOSPAK21 TAB PO; MEDROLDOSEPACK PO; METAMUCIL PAC1 UDPK1 PO; METFORMIN HCL500 MG PO; MIRALAX255 GM PO; MUCINEX600 MG PO; NORCO 5-325 TA1 EACH PO; OMEPRAZOLE20 M2 PO; PERCOCET 10-321 EACH PO; PREDNISONE 10 M10 M1 PO; PREDNISONE 10 M10 MG PO; PREDNISONE 20 M20 MG PO; PROAIR HFA8.5 GM INH; SPIRIVA INH; SPIRONOLACTONE; SYMBICORT160 MCG/4. INH; SYMBICORT80 MCG/4.1; TYLENOL325 MG PO; ULTRAM 50MG TAB50 MG PO; VICODIN 5-5001 EACH PO; VITAMIN B-1001 EACH PO; VITAMIN B-1100 M1 PO; VITAMIN B-12500 MCG PO; VITAMIN E400 UNIT PO; ZESTRIL2.5 MG PO; ZOCOR 20 MG TAB20 M1 PO; ZPAK PO
[2017-01-02 21:29] VITALS: BP 107/83
[2017-01-02 22:11] LABS: HEMATOCRIT 38.5 % (42.0-52.0); MCHC 33.8 g/dL (28.0-37.0); MCV 100.8 fL (80.0-100.0); PLATELET COUNT 180 thou/uL (150-400); RBC 3.81 mil/uL (4.50-6.00); WBC 4.9 thou/uL (4.0-11.0)
[2017-01-02 22:13] LABS: MANUAL DIFF YES
[2017-01-02 22:21] LABS: ANION GAP 7 mmol/L (7-16); BUN 13 mg/dL (7-18); CALCIUM 8.7 mg/dL (8.5-10.1); CHLORIDE 105 mmol/L (98-107); CO2 28 mmol/L (21-32); CREATININE 0.9 mg/dL (0.7-1.3); GLUCOSE 217 mg/dL (74-106); POTASSIUM 4.1 mmol/L (3.5-5.1); SODIUM 140 mmol/L (136-145)
[2017-01-02 22:32] LABS: ALBUMIN 3.5 g/dL (3.4-5.0); ALKALINE PHOSPHATASE 83 U/L (46-116); NT-PRO BRAIN NAT PEPTIDE 192 pg/mL (<300); SGOT 16 U/L (15-37); SGPT 19 U/L (30-65); TOTAL BILIRUBIN 0.6 mg/dL (<0.1-1.0); TOTAL PROTEIN 6.9 g/dL (6.4-8.2); TROPONIN-I < 0.04 ng/mL (<0.04-0.07)
[2017-01-02 22:38] LABS: ABSOLUTE NEUTROPHILS 3.3 thou/uL (1.4-8.2); TOTAL CELL COUNT 100
[2017-01-02 22:54] LABS: ABG SAMPLE TYPE ARTERIAL; BE(vivo) 3.5 mmol/L (-2 to +3); HCO3 29.5 mmol/L (22.0-26.0); LACTATE 1.66 mmol/L (0.5-2.0); O2(CT) 17.1 mL/dL (15.0-23.0); O2Hb 90.7 % (92.0-98.0); PCO2 50.2 mmHg (35.0-45.0); PO2 62.1 mmHg (80.0-100.0); pH 7.387 (7.360-7.450); sO2 91.3 % (92.0-98.0)
[2017-01-02 22:55] LABS: FIO2 21 %; STICK SITE R.RADIAL
[2017-01-03 01:45] VITALS: BP 122/78
[2017-01-03 04:00] VITALS: BP 147/798
[2017-01-03 04:38] LABS: HEMATOCRIT 39.4 % (42.0-52.0); HEMOGLOBIN 13.2 gm/dL (14.0-18.0); MCH 34.2 pg (26.0-34.0); MCHC 33.5 g/dL (28.0-37.0); MCV 102.1 fL (80.0-100.0); RBC 3.86 mil/uL (4.50-6.00); RDW 13.1 % (10.5-14.5)
[2017-01-03 09:13] VITALS: BP 125/83
[2017-01-03 10:36] LABS: ANION GAP 8 mmol/L (7-16); BUN 11 mg/dL (7-18); CALCIUM 8.8 mg/dL (8.5-10.1); CHLORIDE 105 mmol/L (98-107); CO2 26 mmol/L (21-32); CREATININE 1.1 mg/dL (0.7-1.3); GLUCOSE 285 mg/dL (74-106); POTASSIUM 4.5 mmol/L (3.5-5.1); SODIUM 139 mmol/L (136-145); TROPONIN-I < 0.04 ng/mL (<0.04-0.07)
[2017-01-03 16:21] VITALS: BP 114/50
[2017-01-03 20:02] VITALS: BP 129/58
[2017-01-04 04:10] VITALS: BP 120/58
[2017-01-04 05:34] LABS: POTASSIUM 4.6 mmol/L (3.5-5.1)
[2017-01-04 08:43] VITALS: BP 126/66
[2017-01-04 16:43] VITALS: BP 117/61
[2017-01-04 20:22] VITALS: BP 127/76
[2017-01-05 02:55] VITALS: BP 106/57
[2017-01-05 05:58] LABS: HEMATOCRIT 38.3 % (42.0-52.0); HEMOGLOBIN 12.5 gm/dL (14.0-18.0); MCH 33.5 pg (26.0-34.0); MCHC 32.7 g/dL (28.0-37.0); MCV 102.3 fL (80.0-100.0); PLATELET COUNT 177 thou/uL (150-400); RBC 3.74 mil/uL (4.50-6.00); RDW 12.9 % (10.5-14.5); WBC 15.5 thou/uL (4.0-11.0)
[2017-01-05 06:00] LABS: MANUAL DIFF YES
[2017-01-05 06:08] LABS: CALCIUM 8.9 mg/dL (8.5-10.1); POTASSIUM 4.5 mmol/L (3.5-5.1)
[2017-01-05 08:00] VITALS: BP 144/74
[2017-01-05 08:04] LABS: ABSOLUTE NEUTROPHILS 14.1 thou/uL (1.4-8.2); METAMYELOCYTES 1 %; TOTAL CELL COUNT 100
[2017-01-05 08:05] LABS: ANISOCYTOSIS SLIGHT
[2017-01-05 15:53] VITALS: BP 104/66
[2017-01-05 19:58] VITALS: BP 127/63
[2017-01-06 05:10] VITALS: BP 109/64
[2017-01-06 05:25] LABS: HEMATOCRIT 39.6 % (42.0-52.0); HEMOGLOBIN 13.3 gm/dL (14.0-18.0); MCH 34.3 pg (26.0-34.0); MCHC 33.7 g/dL (28.0-37.0); MCV 101.8 fL (80.0-100.0); RBC 3.89 mil/uL (4.50-6.00); RDW 12.8 % (10.5-14.5); WBC 15.5 thou/uL (4.0-11.0)
[2017-01-06 05:44] LABS: CALCIUM 9.3 mg/dL (8.5-10.1); POTASSIUM 4.2 mmol/L (3.5-5.1)
[2017-01-06 09:27] VITALS: BP 144/77
[2017-01-06 16:13] VITALS: BP 130/57
[2017-01-06 20:06] VITALS: BP 120/81
[2017-01-07 04:00] VITALS: BP 145/88
[2017-01-07 07:44] VITALS: BP 118/61
[2017-01-07] MEDS ORDERED: LEVAQUIN 500 M500 M2 PO (09:44)
[2017-01-07] MEDS ORDERED: PREDNISONE 10 M10 MG PO (09:44)
[2017-01-07 16:21] VITALS: BP 129/78
[2017-01-07 18:44] LABS: HEMATOCRIT 44.2 % (42.0-52.0); HEMOGLOBIN 14.7 gm/dL (14.0-18.0); MANUAL DIFF YES; MCH 33.6 pg (26.0-34.0); MCHC 33.3 g/dL (28.0-37.0); MCV 100.6 fL (80.0-100.0); PLATELET COUNT 199 thou/uL (150-400); RBC 4.39 mil/uL (4.50-6.00); WBC 13.9 thou/uL (4.0-11.0)
[2017-01-07 18:54] LABS: INR 1.1
[2017-01-07 19:02] LABS: ALBUMIN 3.4 g/dL (3.4-5.0); CALCIUM 9.4 mg/dL (8.5-10.1); POTASSIUM 4.5 mmol/L (3.5-5.1); TOTAL BILIRUBIN 0.8 mg/dL (<0.1-1.0); TOTAL PROTEIN 7.3 g/dL (6.4-8.2)
[2017-01-07 19:18] VITALS: BP 126/75
[2017-01-07 19:23] LABS: ABSOLUTE NEUTROPHILS 12.1 thou/uL (1.4-8.2); TOTAL CELL COUNT 100
[2017-01-07 19:24] LABS: ANISOCYTOSIS 1+; POLYCHROMASIA OCCASIONAL
[2017-01-08 05:40] VITALS: BP 131/93
[2017-01-08 06:07] LABS: HEMATOCRIT 44.9 % (42.0-52.0); HEMOGLOBIN 15.1 gm/dL (14.0-18.0); MCH 33.6 pg (26.0-34.0); MCHC 33.6 g/dL (28.0-37.0); RBC 4.49 mil/uL (4.50-6.00); WBC 11.1 thou/uL (4.0-11.0)
[2017-01-08 06:08] LABS: POTASSIUM 4.4 mmol/L (3.5-5.1)
[2017-01-08 08:00] VITALS: BP 128/78
[2017-01-08 16:00] VITALS: BP 97/67
[2017-01-08 20:58] VITALS: BP 102/64
[2017-01-09] VITALS: BP 98/51
[2017-01-09 04:30] VITALS: BP 107/46
[2017-01-09 06:28] LABS: HEMATOCRIT 39.7 % (42.0-52.0); MCH 33.5 pg (26.0-34.0); MCHC 32.6 g/dL (28.0-37.0); PLATELET COUNT 154 thou/uL (150-400); RBC 3.85 mil/uL (4.50-6.00); RDW 12.9 % (10.5-14.5); WBC 11.8 thou/uL (4.0-11.0)
[2017-01-09 06:29] LABS: HEMOGLOBIN 12.9 gm/dL (14.0-18.0); MANUAL DIFF YES
[2017-01-09 06:41] LABS: CALCIUM 8.5 mg/dL (8.5-10.1); POTASSIUM 4.5 mmol/L (3.5-5.1)
[2017-01-09 08:00] VITALS: BP 120/81
[2017-01-09 08:08] LABS: ABSOLUTE NEUTROPHILS 10.6 thou/uL (1.4-8.2); MACROCYTES 1+; TOTAL CELL COUNT 100
[2017-01-09 16:00] VITALS: BP 123/63
[2017-01-09 19:35] VITALS: BP 127/68
[2017-01-10] VITALS (26 sets, daily range): BP systolic 65–150; BP diastolic 24–84
[2017-01-10 03:14] LABS: HEMATOCRIT 42.7 % (42.0-52.0); HEMOGLOBIN 14.1 gm/dL (14.0-18.0); MCH 33.7 pg (26.0-34.0); MCHC 33.1 g/dL (28.0-37.0); MCV 101.8 fL (80.0-100.0); PLATELET COUNT 149 thou/uL (150-400); RBC 4.19 mil/uL (4.50-6.00); WBC 2.8 thou/uL (4.0-11.0)
[2017-01-10 03:18] LABS: MANUAL DIFF YES
[2017-01-10 03:22] LABS: CALCIUM 8.3 mg/dL (8.5-10.1); CREATININE 0.8 mg/dL (0.7-1.3); POTASSIUM 4.5 mmol/L (3.5-5.1)
[2017-01-10 04:07] LABS: ABSOLUTE NEUTROPHILS 2.2 thou/uL (1.4-8.2); TOTAL CELL COUNT 100
[2017-01-10 11:03] LABS: HEMATOCRIT 35.6 % (42.0-52.0); MCH 33.9 pg (26.0-34.0); MCV 102.6 fL (80.0-100.0); RBC 3.47 mil/uL (4.50-6.00); RDW 12.8 % (10.5-14.5); WBC 5.7 thou/uL (4.0-11.0)
[2017-01-10 11:06] LABS: HEMOGLOBIN 11.8 gm/dL (14.0-18.0)
[2017-01-10 11:09] LABS: CALCIUM 6.7 mg/dL (8.5-10.1); CREATININE 1.1 mg/dL (0.7-1.3); POTASSIUM 4.1 mmol/L (3.5-5.1)
[2017-01-10 11:13] LABS: ALBUMIN 1.4 g/dL (3.4-5.0); PHOSPHORUS 2.7 mg/dL (2.5-4.9); TOTAL BILIRUBIN 0.7 mg/dL (<0.1-1.0); TOTAL PROTEIN 3.8 g/dL (6.4-8.2)
[2017-01-10 11:23] LABS: APTT 27.9 Seconds (24.5-32.8); INR 1.1; PROTIME 11.9 Seconds (9.3-11.4)
[2017-01-10 11:42] LABS: FIBRINOGEN 395.5 mg/dL (210-360)
[2017-01-10 11:56] LABS: ABG SAMPLE TYPE ARTERIAL; BE(vivo) -4.5 mmol/L (-2 to +3); HCO3 24.8 mmol/L (22.0-26.0); LACTATE 1.72 mmol/L (0.5-2.0); O2(CT) 19.2 mL/dL (15.0-23.0); O2Hb 97.7 % (92.0-98.0); PO2 189.7 mmHg (80.0-100.0); STICK SITE LINE; TIDAL VOLUME 600 ml; pH 7.199 (7.360-7.450); tCO2 26.8 mmol/L (24.0-30.0)
[2017-01-10 13:42] LABS: ABG SAMPLE TYPE ARTERIAL; BE(vivo) -5.6 mmol/L (-2 to +3); HCO3 22.1 mmol/L (22.0-26.0); LACTATE 1.63 mmol/L (0.5-2.0); O2(CT) 17.6 mL/dL (15.0-23.0); PCO2 52.9 mmHg (35.0-45.0); PO2 210.7 mmHg (80.0-100.0); pH 7.239 (7.360-7.450); sO2 99.2 % (92.0-98.0); tCO2 23.7 mmol/L (24.0-30.0)
[2017-01-10 13:43] LABS: STICK SITE LINE; TIDAL VOLUME 600 ml
[2017-01-10 18:46] LABS: HEMATOCRIT 38.8 % (42.0-52.0); HEMOGLOBIN 12.7 gm/dL (14.0-18.0); MCH 33.4 pg (26.0-34.0); MCHC 32.7 g/dL (28.0-37.0); MCV 102.2 fL (80.0-100.0); RBC 3.8 mil/uL (4.50-6.00); RDW 13.3 % (10.5-14.5); WBC 12.2 thou/uL (4.0-11.0)
[2017-01-10 19:01] LABS: ALBUMIN 1.5 g/dL (3.4-5.0); CALCIUM 6.9 mg/dL (8.5-10.1); CREATININE 1.5 mg/dL (0.7-1.3); PHOSPHORUS 3.9 mg/dL (2.5-4.9); TOTAL BILIRUBIN 0.7 mg/dL (<0.1-1.0); TOTAL PROTEIN 4.5 g/dL (6.4-8.2)
[2017-01-10 19:05] LABS: POTASSIUM 5.2 mmol/L (3.5-5.1)
[2017-01-11] VITALS (26 sets, daily range): BP systolic 80–109; BP diastolic 47–88
[2017-01-11 05:32] LABS: ABG SAMPLE TYPE ARTERIAL; BE(vivo) -6.5 mmol/L (-2 to +3); LACTATE 1.92 mmol/L (0.5-2.0); O2(CT) 16.8 mL/dL (15.0-23.0); O2Hb 95.2 % (92.0-98.0); PO2 91.4 mmHg (80.0-100.0); sO2 95.6 % (92.0-98.0); tCO2 22.5 mmol/L (24.0-30.0)
[2017-01-11 05:33] LABS: HEMATOCRIT 36.2 % (42.0-52.0); HEMOGLOBIN 11.7 gm/dL (14.0-18.0); MCH 33.7 pg (26.0-34.0); MCHC 32.3 g/dL (28.0-37.0); MCV 104.6 fL (80.0-100.0); RBC 3.47 mil/uL (4.50-6.00); RDW 13.3 % (10.5-14.5); STICK SITE LINE; TIDAL VOLUME 600 ml; WBC 17.7 thou/uL (4.0-11.0); pH 7.241 (7.360-7.450)
[2017-01-11 05:53] LABS: ALBUMIN 1.4 g/dL (3.4-5.0); CALCIUM 7.3 mg/dL (8.5-10.1); CREATININE 2.1 mg/dL (0.7-1.3); POTASSIUM 5.5 mmol/L (3.5-5.1); TOTAL BILIRUBIN 0.6 mg/dL (<0.1-1.0); TOTAL PROTEIN 4.9 g/dL (6.4-8.2)
[2017-01-12] VITALS (53 sets, daily range): BP systolic 85–138; BP diastolic 63–97
[2017-01-12 05:25] LABS: HEMATOCRIT 29.4 % (42.0-52.0); HEMOGLOBIN 9.8 gm/dL (14.0-18.0); MCH 34.1 pg (26.0-34.0); MCHC 33.4 g/dL (28.0-37.0); MCV 101.9 fL (80.0-100.0); RBC 2.89 mil/uL (4.50-6.00); RDW 13.1 % (10.5-14.5); WBC 11.7 thou/uL (4.0-11.0)
[2017-01-12 05:34] LABS: ABG SAMPLE TYPE ARTERIAL; BE(vivo) -6.7 mmol/L (-2 to +3); HCO3 17.3 mmol/L (22.0-26.0); LACTATE 0.94 mmol/L (0.5-2.0); O2(CT) 10.6 mL/dL (15.0-23.0); PCO2 28.8 mmHg (35.0-45.0); PO2 76.1 mmHg (80.0-100.0); pH 7.397 (7.360-7.450); sO2 95.5 % (92.0-98.0); tCO2 18.2 mmol/L (24.0-30.0)
[2017-01-12 05:35] LABS: ABG COMMENT A/C MODE; STICK SITE LINE; TIDAL VOLUME 600 ml
[2017-01-12 05:41] LABS: ALBUMIN 1.3 g/dL (3.4-5.0); CALCIUM 7.8 mg/dL (8.5-10.1); CREATININE 1.8 mg/dL (0.7-1.3); POTASSIUM 4.3 mmol/L (3.5-5.1); TOTAL BILIRUBIN 0.6 mg/dL (<0.1-1.0); TOTAL PROTEIN 4.9 g/dL (6.4-8.2)
[2017-01-13] VITALS (20 sets, daily range): BP systolic 89–134; BP diastolic 62–120
[2017-01-13 05:17] LABS: ALBUMIN 1.1 g/dL (3.4-5.0); CALCIUM 7.8 mg/dL (8.5-10.1); CREATININE 1.6 mg/dL (0.7-1.3); MAGNESIUM 2.7 mg/dL (1.8-2.4); POTASSIUM 4.4 mmol/L (3.5-5.1); TOTAL BILIRUBIN 0.7 mg/dL (<0.1-1.0); TOTAL PROTEIN 4.6 g/dL (6.4-8.2)
[2017-01-13 05:27] LABS: ABG SAMPLE TYPE ARTERIAL; BE(vivo) 7.2 mmol/L (-2 to +3); HCO3 31.7 mmol/L (22.0-26.0); LACTATE 1.57 mmol/L (0.5-2.0); O2(CT) 15.8 mL/dL (15.0-23.0); O2Hb 92.7 % (92.0-98.0); PCO2 44.1 mmHg (35.0-45.0); PO2 69.3 mmHg (80.0-100.0); pH 7.474 (7.360-7.450); sO2 94.8 % (92.0-98.0)
[2017-01-13 05:28] LABS: ABG COMMENT AC18 600 +5 30%; STICK SITE RRA; TIDAL VOLUME 600 ml
[2017-01-13 05:51] LABS: HEMATOCRIT 30.3 % (42.0-52.0); HEMOGLOBIN 10.1 gm/dL (14.0-18.0); MCH 34.1 pg (26.0-34.0); MCHC 33.2 g/dL (28.0-37.0); MCV 102.6 fL (80.0-100.0); PLATELET COUNT 116 thou/uL (150-400); RBC 2.95 mil/uL (4.50-6.00); RDW 13.1 % (10.5-14.5); WBC 13.1 thou/uL (4.0-11.0)
[2017-01-13 05:53] LABS: MANUAL DIFF YES
[2017-01-13 06:41] LABS: ABSOLUTE NEUTROPHILS 11.9 thou/uL (1.4-8.2); TOTAL CELL COUNT 100; TOXIC GRANULATION 2+
[2017-01-13 06:43] LABS: LARGE PLATELETS FEW
[2017-01-14] VITALS (35 sets, daily range): BP systolic 78–171; BP diastolic 66–132
[2017-01-14 07:21] LABS: HEMATOCRIT 23.7 % (42.0-52.0); MCH 34.4 pg (26.0-34.0); MCHC 33.6 g/dL (28.0-37.0); MCV 102.2 fL (80.0-100.0); PLATELET COUNT 103 thou/uL (150-400); RBC 2.32 mil/uL (4.50-6.00); RDW 13.9 % (10.5-14.5); WBC 10.7 thou/uL (4.0-11.0)
[2017-01-14 07:23] LABS: MANUAL DIFF YES
[2017-01-14 07:36] LABS: CALCIUM 6.7 mg/dL (8.5-10.1); CREATININE 1.2 mg/dL (0.7-1.3); MAGNESIUM 2.5 mg/dL (1.8-2.4); POTASSIUM 3.5 mmol/L (3.5-5.1); TOTAL BILIRUBIN 0.5 mg/dL (<0.1-1.0)
[2017-01-14 08:40] LABS: ABSOLUTE NEUTROPHILS 10.2 thou/uL (1.4-8.2); METAMYELOCYTES 1 %; TOTAL CELL COUNT 100
[2017-01-15] VITALS (42 sets, daily range): BP systolic 90–141; BP diastolic 52–96
[2017-01-15 05:25] LABS: HEMOGLOBIN 10.2 gm/dL (14.0-18.0); MCH 33.6 pg (26.0-34.0); MCHC 32.7 g/dL (28.0-37.0); MCV 102.5 fL (80.0-100.0); PLATELET COUNT 155 thou/uL (150-400); RBC 3.03 mil/uL (4.50-6.00); RDW 13.5 % (10.5-14.5); WBC 14.6 thou/uL (4.0-11.0)
[2017-01-15 05:26] LABS: MANUAL DIFF YES
[2017-01-15 05:32] LABS: CALCIUM 7.4 mg/dL (8.5-10.1); CREATININE 1.7 mg/dL (0.7-1.3); MAGNESIUM 2.9 mg/dL (1.8-2.4); POTASSIUM 4.8 mmol/L (3.5-5.1)
[2017-01-15 06:57] LABS: ABSOLUTE NEUTROPHILS 12.3 thou/uL (1.4-8.2); ANISOCYTOSIS SLIGHT; HYPOCHROMASIA SLIGHT; MACROCYTES SLIGHT; MYELOCYTES 1 %; TOTAL CELL COUNT 100
[2017-01-15 09:14] LABS: ALBUMIN 1.2 g/dL (3.4-5.0); PHOSPHORUS 3.3 mg/dL (2.5-4.9)
[2017-01-15 09:53] LABS: ABG SAMPLE TYPE ARTERIAL; BE(vivo) 5.4 mmol/L (-2 to +3); O2(CT) 14.6 mL/dL (15.0-23.0); O2Hb 95.2 % (92.0-98.0); PCO2 44.4 mmHg (35.0-45.0); PO2 90.5 mmHg (80.0-100.0); pH 7.448 (7.360-7.450); sO2 97.2 % (92.0-98.0); tCO2 31.4 mmol/L (24.0-30.0)
[2017-01-15 09:54] LABS: ABG COMMENT CPAP TRIAL.; Pressure Support 8 cm H20; STICK SITE L.RADIAL
[2017-01-16] VITALS (18 sets, daily range): BP systolic 104–154; BP diastolic 72–96
[2017-01-16 05:07] LABS: HEMATOCRIT 24.7 % (42.0-52.0); MCH 33.6 pg (26.0-34.0); MCHC 32.3 g/dL (28.0-37.0); MCV 104.1 fL (80.0-100.0); PLATELET COUNT 135 thou/uL (150-400); RBC 2.38 mil/uL (4.50-6.00); RDW 13.4 % (10.5-14.5); WBC 13.8 thou/uL (4.0-11.0)
[2017-01-16 05:14] LABS: CALCIUM 7.5 mg/dL (8.5-10.1); CREATININE 1.2 mg/dL (0.7-1.3); MAGNESIUM 2.9 mg/dL (1.8-2.4); POTASSIUM 4.5 mmol/L (3.5-5.1)
[2017-01-16 05:30] LABS: MANUAL DIFF YES
[2017-01-16 07:27] LABS: ABSOLUTE NEUTROPHILS 13.1 thou/uL (1.4-8.2); PLATELET ESTIMATE SLIGHTLY DECREASED; TOTAL CELL COUNT 100
[2017-01-16 07:28] LABS: MACROCYTES 1+
[2017-01-17 03:59] VITALS: BP 139/74
[2017-01-17 05:56] LABS: HEMATOCRIT 25.1 % (42.0-52.0); HEMOGLOBIN 8.2 gm/dL (14.0-18.0); MCH 33.6 pg (26.0-34.0); MCHC 32.5 g/dL (28.0-37.0); MCV 103.4 fL (80.0-100.0); PLATELET COUNT 168 thou/uL (150-400); RBC 2.43 mil/uL (4.50-6.00); RDW 13.6 % (10.5-14.5); WBC 15.2 thou/uL (4.0-11.0)
[2017-01-17 05:57] LABS: MANUAL DIFF YES
[2017-01-17 06:22] LABS: ALBUMIN 1.3 g/dL (3.4-5.0); CALCIUM 7.7 mg/dL (8.5-10.1); CREATININE 1.1 mg/dL (0.7-1.3); MAGNESIUM 2.9 mg/dL (1.8-2.4); PHOSPHORUS 2.2 mg/dL (2.5-4.9); POTASSIUM 4.8 mmol/L (3.5-5.1); TOTAL BILIRUBIN 0.5 mg/dL (<0.1-1.0); TOTAL PROTEIN 4.9 g/dL (6.4-8.2)
[2017-01-17 08:00] VITALS: BP 153/86
[2017-01-17 08:28] LABS: ABSOLUTE NEUTROPHILS 14.6 thou/uL (1.4-8.2); TOTAL CELL COUNT 100
[2017-01-17 08:29] LABS: MACROCYTES 1+
[2017-01-17 11:18] LABS: URINE BILIRUBIN NEGATIVE (Negative); URINE BLOOD TRACE (Negative); URINE COLOR YELLOW; URINE GLUCOSE-RANDOM* NEGATIVE (Negative); URINE KETONES NEGATIVE (Negative); URINE LEUKOCYTES-REFLEX NEGATIVE (Negative); URINE PROTEIN (DIPSTICK) NEGATIVE (Negative); URINE SPECIFIC GRAVITY 1.015 (1.003-1.035); URINE UROBILINOGEN 0.2 E.U./dl (0.2-1.0)
[2017-01-17 12:00] VITALS: BP 154/93
[2017-01-17 16:00] VITALS: BP 144/68
[2017-01-17 19:29] VITALS: BP 148/96
[2017-01-17 23:18] VITALS: BP 130/77
[2017-01-18 03:56] VITALS: BP 154/65
[2017-01-18 06:54] LABS: CALCIUM 7.6 mg/dL (8.5-10.1); CREATININE 1.1 mg/dL (0.7-1.3); MAGNESIUM 2.7 mg/dL (1.8-2.4); PHOSPHORUS 2.1 mg/dL (2.5-4.9); POTASSIUM 4.7 mmol/L (3.5-5.1)
[2017-01-18 08:40] VITALS: BP 146/86
[2017-01-18 13:45] VITALS: BP 139/93
[2017-01-18 17:30] VITALS: BP 143/92
[2017-01-18 19:44] VITALS: BP 123/81
[2017-01-19 05:01] VITALS: BP 140/89
[2017-01-19 05:51] LABS: HEMATOCRIT 25.4 % (42.0-52.0); HEMOGLOBIN 8.3 gm/dL (14.0-18.0); MCH 33.7 pg (26.0-34.0); MCHC 32.7 g/dL (28.0-37.0); MCV 102.9 fL (80.0-100.0); PLATELET COUNT 186 thou/uL (150-400); RBC 2.47 mil/uL (4.50-6.00); RDW 13.1 % (10.5-14.5); WBC 20.2 thou/uL (4.0-11.0)
[2017-01-19 05:54] LABS: MANUAL DIFF YES
[2017-01-19 06:07] LABS: ALBUMIN 1.3 g/dL (3.4-5.0); CALCIUM 7.6 mg/dL (8.5-10.1); CREATININE 1.1 mg/dL (0.7-1.3); MAGNESIUM 2.4 mg/dL (1.8-2.4); PHOSPHORUS 2.6 mg/dL (2.5-4.9); POTASSIUM 4.7 mmol/L (3.5-5.1); TOTAL BILIRUBIN 0.6 mg/dL (<0.1-1.0); TOTAL PROTEIN 4.9 g/dL (6.4-8.2)
[2017-01-19 08:20] VITALS: BP 151/98
[2017-01-19 08:51] LABS: ABSOLUTE NEUTROPHILS 18.8 thou/uL (1.4-8.2); ANISOCYTOSIS 1+; MACROCYTES 2+; PLATELET ESTIMATE NORMAL; TOTAL CELL COUNT 100
[2017-01-19 16:16] VITALS: BP 110/65
[2017-01-19 19:51] VITALS: BP 115/72
[2017-01-20 03:51] VITALS: BP 113/62
[2017-01-20 03:57] LABS: HEMATOCRIT 22.5 % (42.0-52.0); HEMOGLOBIN 7.3 gm/dL (14.0-18.0); MCH 33.6 pg (26.0-34.0); MCHC 32.3 g/dL (28.0-37.0); MCV 103.8 fL (80.0-100.0); PLATELET COUNT 178 thou/uL (150-400); RBC 2.17 mil/uL (4.50-6.00)
[2017-01-20 03:58] LABS: MANUAL DIFF YES
[2017-01-20 04:12] LABS: CALCIUM 7.6 mg/dL (8.5-10.1); POTASSIUM 4.2 mmol/L (3.5-5.1)
[2017-01-20 04:59] LABS: METAMYELOCYTES 1 %; TOTAL CELL COUNT 100
[2017-01-20 05:00] LABS: LARGE PLATELETS RARE; MACROCYTES 1+
[2017-01-20 07:35] VITALS: BP 119/62
[2017-01-20 12:04] VITALS: BP 108/54
[2017-01-20 16:50] VITALS: BP 114/70
[2017-01-20 19:42] VITALS: BP 114/68
[2017-01-21 04:43] VITALS: BP 113/64
[2017-01-21 05:26] LABS: MCV 102.9 fL (80.0-100.0)
[2017-01-21 05:27] LABS: HEMATOCRIT 20.9 % (42.0-52.0); MCH 33.6 pg (26.0-34.0); MCHC 32.6 g/dL (28.0-37.0); PLATELET COUNT 179 thou/uL (150-400); RBC 2.03 mil/uL (4.50-6.00); RDW 13.4 % (10.5-14.5); WBC 12.8 thou/uL (4.0-11.0)
[2017-01-21 05:35] LABS: CALCIUM 7.7 mg/dL (8.5-10.1); POTASSIUM 3.7 mmol/L (3.5-5.1)
[2017-01-21 06:03] LABS: HEMOGLOBIN 6.8 gm/dL (14.0-18.0); MANUAL DIFF YES
[2017-01-21 07:34] VITALS: BP 120/75
[2017-01-21 07:39] LABS: ABSOLUTE NEUTROPHILS 11.8 thou/uL (1.4-8.2); METAMYELOCYTES 1 %; TOTAL CELL COUNT 100
[2017-01-21 07:40] LABS: ANISOCYTOSIS 1+; HYPOCHROMASIA 1+; LARGE PLATELETS FEW
[2017-01-21 09:13] LABS: HEMATOCRIT 21.8 % (42.0-52.0); HEMOGLOBIN 7.3 gm/dL (14.0-18.0)
[2017-01-21 11:24] LABS: MAGNESIUM 1.8 mg/dL (1.8-2.4); PHOSPHORUS 2.7 mg/dL (2.5-4.9)
[2017-01-21 11:38] VITALS: BP 120/71
[2017-01-21 15:10] VITALS: BP 121/78
[2017-01-21 19:15] VITALS: BP 142/83
[2017-01-21 23:27] VITALS: BP 119/77
[2017-01-22 02:43] VITALS: BP 124/78
[2017-01-22 06:12] LABS: HEMATOCRIT 23.5 % (42.0-52.0); HEMOGLOBIN 7.6 gm/dL (14.0-18.0); MCH 33.4 pg (26.0-34.0); MCHC 32.4 g/dL (28.0-37.0); PLATELET COUNT 207 thou/uL (150-400); RBC 2.28 mil/uL (4.50-6.00); RDW 13.6 % (10.5-14.5); WBC 12.3 thou/uL (4.0-11.0)
[2017-01-22 06:14] LABS: MANUAL DIFF YES
[2017-01-22 06:39] LABS: CREATININE 1.1 mg/dL (0.7-1.3)
[2017-01-22 07:10] VITALS: BP 127/78
[2017-01-22 07:52] LABS: ABSOLUTE NEUTROPHILS 10.9 thou/uL (1.4-8.2); METAMYELOCYTES 3 %; TOTAL CELL COUNT 100
[2017-01-22 07:53] LABS: ANISOCYTOSIS 1+; POLYCHROMASIA OCCASIONAL
[2017-01-22 07:54] LABS: MACROCYTES 1+
[2017-01-22 11:11] VITALS: BP 110/80
[2017-01-22 11:56] LABS: MAGNESIUM 1.9 mg/dL (1.8-2.4); PHOSPHORUS 2.6 mg/dL (2.5-4.9)
[2017-01-22 16:10] VITALS: BP 108/75
[2017-01-22 19:29] VITALS: BP 107/72
[2017-01-23 04:09] VITALS: BP 109/68
[2017-01-23 06:35] LABS: HEMATOCRIT 21.2 % (42.0-52.0); MCHC 32.9 g/dL (28.0-37.0); MCV 103.4 fL (80.0-100.0); RBC 2.06 mil/uL (4.50-6.00); RDW 13.8 % (10.5-14.5); WBC 10.5 thou/uL (4.0-11.0)
[2017-01-23 06:37] LABS: MANUAL DIFF YES
[2017-01-23 06:47] LABS: ALBUMIN 1.3 g/dL (3.4-5.0); CALCIUM 7.9 mg/dL (8.5-10.1); MAGNESIUM 1.9 mg/dL (1.8-2.4); PHOSPHORUS 3.2 mg/dL (2.5-4.9); POTASSIUM 3.8 mmol/L (3.5-5.1); TOTAL BILIRUBIN 0.8 mg/dL (<0.1-1.0); TOTAL PROTEIN 4.6 g/dL (6.4-8.2)
[2017-01-23 07:24] LABS: ABSOLUTE NEUTROPHILS 9.2 thou/uL (1.4-8.2); TOTAL CELL COUNT 100
[2017-01-23 07:25] LABS: ANISOCYTOSIS 1+; MACROCYTES 1+; POLYCHROMASIA OCCASIONAL
[2017-01-23 07:48] VITALS: BP 116/74
[2017-01-23 07:50] LABS: PLATELET COUNT 162 thou/uL (150-400)
[2017-01-23 11:52] VITALS: BP 110/61
[2017-01-23 17:47] VITALS: BP 99/61
[2017-01-23 20:06] VITALS: BP 100/62
[2017-01-24 04:47] VITALS: BP 91/63
[2017-01-24 05:36] LABS: ABG SAMPLE TYPE ARTERIAL; HCO3 34.4 mmol/L (22.0-26.0); LACTATE 1.13 mmol/L (0.5-2.0); O2(CT) 8.6 mL/dL (15.0-23.0); O2Hb 84.6 % (92.0-98.0); PCO2 46.8 mmHg (35.0-45.0); PO2 53.3 mmHg (80.0-100.0); pH 7.484 (7.360-7.450); sO2 89.6 % (92.0-98.0); tCO2 35.8 mmol/L (24.0-30.0)
[2017-01-24 05:40] LABS: STICK SITE L.RADIAL
[2017-01-24 07:15] VITALS: BP 100/67
[2017-01-24 10:25] LABS: HEMATOCRIT 21.5 % (42.0-52.0); HEMOGLOBIN 7.1 gm/dL (14.0-18.0); MCH 33.4 pg (26.0-34.0); MCV 101.2 fL (80.0-100.0); PLATELET COUNT 196 thou/uL (150-400); RBC 2.13 mil/uL (4.50-6.00); RDW 13.7 % (10.5-14.5); WBC 7.8 thou/uL (4.0-11.0)
[2017-01-24 10:31] LABS: CALCIUM 7.8 mg/dL (8.5-10.1); POTASSIUM 3.4 mmol/L (3.5-5.1)
[2017-01-24 10:32] LABS: MANUAL DIFF YES
[2017-01-24 11:30] VITALS: BP 103/61
[2017-01-24 11:55] LABS: ABSOLUTE NEUTROPHILS 7.1 thou/uL (1.4-8.2); HYPOCHROMASIA 1+; TOTAL CELL COUNT 100
[2017-01-24 11:57] LABS: ANISOCYTOSIS SLIGHT
[2017-01-24 16:10] VITALS: BP 104/64
[2017-01-24 21:10] VITALS: BP 92/59
[2017-01-25] VITALS (8 sets, daily range): BP systolic 97–125; BP diastolic 62–81
[2017-01-25 06:08] LABS: WBC 7.6 thou/uL (4.0-11.0)
[2017-01-25 06:10] LABS: MCH 32.9 pg (26.0-34.0); MCHC 32.8 g/dL (28.0-37.0); MCV 100.4 fL (80.0-100.0); PLATELET COUNT 220 thou/uL (150-400); RBC 1.97 mil/uL (4.50-6.00)
[2017-01-25 06:14] LABS: MANUAL DIFF YES
[2017-01-25 06:15] LABS: HEMATOCRIT 19.8 % (42.0-52.0); HEMOGLOBIN 6.5 gm/dL (14.0-18.0)
[2017-01-25 06:19] LABS: CALCIUM 7.7 mg/dL (8.5-10.1); POTASSIUM 3.6 mmol/L (3.5-5.1)
[2017-01-25 07:01] LABS: ABSOLUTE NEUTROPHILS 7.2 thou/uL (1.4-8.2); TOTAL CELL COUNT 100
[2017-01-25 07:02] LABS: ANISOCYTOSIS 2+; POLYCHROMASIA OCCASIONAL
[2017-01-25 07:06] LABS: HEMATOCRIT 19.9 % (42.0-52.0); HEMOGLOBIN 6.8 gm/dL (14.0-18.0)
[2017-01-26 03:51] VITALS: BP 116/70
[2017-01-26 06:01] LABS: HEMATOCRIT 25.2 % (42.0-52.0); HEMOGLOBIN 8.6 gm/dL (14.0-18.0); MCH 32.7 pg (26.0-34.0); MCHC 34.1 g/dL (28.0-37.0); MCV 95.9 fL (80.0-100.0); PLATELET COUNT 222 thou/uL (150-400); RBC 2.63 mil/uL (4.50-6.00); RDW 16.4 % (10.5-14.5); WBC 8.6 thou/uL (4.0-11.0)
[2017-01-26 06:17] LABS: ALBUMIN 1.2 g/dL (3.4-5.0); CALCIUM 7.7 mg/dL (8.5-10.1); MAGNESIUM 1.6 mg/dL (1.8-2.4); PHOSPHORUS 2.9 mg/dL (2.5-4.9); POTASSIUM 4.1 mmol/L (3.5-5.1); TOTAL PROTEIN 5.3 g/dL (6.4-8.2)
[2017-01-26 06:19] LABS: MANUAL DIFF YES
[2017-01-26 08:00] VITALS: BP 122/81
[2017-01-26 08:03] LABS: ABSOLUTE NEUTROPHILS 7.3 thou/uL (1.4-8.2); ANISOCYTOSIS 1+; TOTAL CELL COUNT 100
[2017-01-26 12:40] VITALS: BP 122/77
[2017-01-26 17:05] VITALS: BP 109/74
[2017-01-26 20:02] VITALS: BP 105/67
[2017-01-27 04:30] VITALS: BP 92/66
[2017-01-27 05:44] LABS: CALCIUM 8.1 mg/dL (8.5-10.1); CREATININE 0.9 mg/dL (0.7-1.3); MAGNESIUM 1.8 mg/dL (1.8-2.4); POTASSIUM 4.6 mmol/L (3.5-5.1)
[2017-01-27 08:25] VITALS: BP 100/68
[2017-01-27] MEDS ORDERED: ONDANSETRON HCL4 M1 IV PUSH (11:30)
[2017-01-27] MEDS ORDERED: SENOKOT-S1 TA1 PO (11:30)
[2017-01-27] MEDS ORDERED: HUMALOG100 UNIT/1 SUBQ (11:30)
[2017-01-27] MEDS ORDERED: DILAUDID1 MG/1 ML IV PUSH (11:30)
[2017-01-27] MEDS ORDERED: MEROPENEM500 MG IV (11:31)
[2017-01-27] MEDS ORDERED: MYCAMINE100 MG IV (11:31)
[2017-01-27 12:00] VITALS: BP 96/64
== END 2017-01-27 14:25 | DRG 853 ==
LOC: ER 21:20 → 4S 01-03 01:20 → 3N 01-03 01:29 → ICU 01-03 01:29 → 4S 01-03 01:29 → ICU 01-10 10:07 → 2N 01-16 12:58
PROVIDERS: Hospitalist; Internal Medicine; Internal Medicine Endocrinology, Diabetes & Metabolism; Internal Medicine Pulmonary Disease; Nurse Practitioner Family; Physician Assistant; Student in an Organized Health Care Education/Training Program; Surgery
PROC: 03HY32Z Insertion of Monitoring Device into Upper Artery, Percutaneous Approach (ICD-10-PCS; 2017-01-10)
PROC: 02HV33Z Insertion of Infusion Device into Superior Vena Cava, Percutaneous Approach (ICD-10-PCS; 2017-01-10)
PROC: B548ZZA Ultrasonography of Superior Vena Cava, Guidance (ICD-10-PCS; 2017-01-10)
PROC: 5A09357 Assistance with Respiratory Ventilation, Less than 24 Consecutive Hours, Continuous Positive Airway Pressure (ICD-10-PCS; 2017-01-10)
PROC: 0BH17EZ Insertion of Endotracheal Airway into Trachea, Via Natural or Artificial Opening (ICD-10-PCS; 2017-01-10)
PROC: 0DNS0ZZ (ICD-10-PCS; 2017-01-10)
PROC: 0DTN0ZZ Resection of Sigmoid Colon, Open Approach (ICD-10-PCS; 2017-01-10)
PROC: 3E0436Z Introduction of Nutritional Substance into Central Vein, Percutaneous Approach (ICD-10-PCS; 2017-01-10)
PROC: 5A1955Z Respiratory Ventilation, Greater than 96 Consecutive Hours (ICD-10-PCS; 2017-01-10)
PROC: 0DTF0ZZ Resection of Right Large Intestine, Open Approach (ICD-10-PCS; principal; 2017-01-12)
PROC: 0D1B0Z4 Bypass Ileum to Cutaneous, Open Approach (ICD-10-PCS; 2017-01-14)
PROC: 0DBN0ZZ Excision of Sigmoid Colon, Open Approach (ICD-10-PCS; 2017-01-14)
PROC: 0DN80ZZ Release Small Intestine, Open Approach (ICD-10-PCS; 2017-01-14)
PROC: 0DBB0ZZ Excision of Ileum, Open Approach (ICD-10-PCS; 2017-01-14)
PROC: 0DNS0ZZ (ICD-10-PCS; 2017-01-14)
PROC: 30233N1 Transfusion of Nonautologous Red Blood Cells into Peripheral Vein, Percutaneous Approach (ICD-10-PCS; 2017-01-25)
DX: A41.9 Sepsis, unspecified organism (principal); J18.9 Pneumonia, unspecified organism; J96.00 Acute respiratory failure, unspecified whether with hypoxia or hypercapnia; R65.21 Severe sepsis with septic shock; K57.80 Diverticulitis of intestine, part unspecified, with perforation and abscess without bleeding; I42.0 Dilated cardiomyopathy; N17.9 Acute kidney failure, unspecified; D62 Acute posthemorrhagic anemia; E87.0 Hyperosmolality and hypernatremia; J44.0 Chronic obstructive pulmonary disease with (acute) lower respiratory infection; E78.00 Pure hypercholesterolemia, unspecified; G47.33 Obstructive sleep apnea (adult) (pediatric); D69.6 Thrombocytopenia, unspecified; E11.22 Type 2 diabetes mellitus with diabetic chronic kidney disease; N18.9 Chronic kidney disease, unspecified; R65.20 Severe sepsis without septic shock; K86.9 Disease of pancreas, unspecified; D64.9 Anemia, unspecified; E87.6 Hypokalemia; Z95.810 Presence of automatic (implantable) cardiac defibrillator; Z79.899 Other long term (current) drug therapy; Z79.82 Long term (current) use of aspirin
CPT/HCPCS: 10078; 10081; 10100; 27000; 50093; 50101; 50290; 50331; 50386; 50455; 50612; 50804; 50820; 50953; 51412; 51708; 51712; 51751; 56525; 56527; 56529; 56639; 57092; 62110; 62900; 65002; 65020; 65040; 65043

== ENCOUNTER 2017-01-31 14:36 | Inpatient (IN) | payer OTHER ==
[~2017-01-31] VITALS: Ht 172.7 cm; Wt 101.1 kg
--- NOTE | ~2017-01-31 | HC ---
[facility] [place] [place] [address] CONSULTATION Name: LAURA PEÑA Room #: 443-P ADM IN M.R.#: [id number] Admission: 01/31/17 Attend Phys: Davie Black DO Discharge: Date of : 45 Report #: [id number] THIS REPORT FOR: //name// CC: Ava Black DATE OF SERVICE: 02/01/2017 CHIEF COMPLAINT: Small-bowel obstruction. HISTORY OF PRESENT ILLNESS: the patient is a 71-year-old male patient, very well known to general surgery service, having undergone exploratory laparotomy times [address] Frances at the end of December 2016 for perforated sigmoid diverticulitis and peritonitis. He had subsequently been transferred to long-term acute care facility at [facility]. The patient had been recovering and had been weaned off vasopressor support with intraabdominal Rudy drain still in place. Unfortunately, the patient began to develop worsened abdominal distention with decreased output from his ileostomy. This was associated with some shortness of breath and patient has known history of severe COPD. CT scan of the abdomen and pelvis performed at that facility demonstrated a small-bowel obstruction with transition point near the distal ileum. There were also several fluid collections intraabdominal, which were concerning for intraabdominal abscess. The patient had also developed a new leukocytosis, therefore he was transferred back to [facility] for further evaluation and treatment. CT scan was printed on to a CD-ROM disc for evaluation by radiologist at [facility]. General surgery was consulted for small-bowel obstruction and potential intra-abdominal abscess. PAST MEDICAL HISTORY: Positive for nonischemic cardiomyopathy, lung cancer with previous gamma knife therapy, pancreatic mass which has been stable, obstructive sleep apnea, COPD, hypertension, prostate cancer, gastritis, gastroparesis, diabetes mellitus, hyperlipidemia, gastroesophageal reflux disease, dysphagia, previous myocardial infarction with severe coronary artery disease, previous lower GI bleed, previous SVT. PAST SURGICAL HISTORY: Positive for carpal tunnel release, spinal surgery multiple, previous cardiac catheterizations, right knee and left rotator cuff orthopedic surgery, left inguinal hernia repair, previous placement of pacemaker defibrillator, recent exploratory laparotomy with take back times 2 for subtotal colectomy and end ileostomy after development of acute peritonitis from sigmoid diverticulitis with perforation, previous hemodialysis catheter for acute renal failure requiring hemodialysis. ALLERGIES: No known drug allergies. MEDICATIONS: Per the report from long-term acute care facility include TPN, [facility] [address] [place] [address] CONSULTATION Name: LAURA PEÑA Room #: 443-P [facility]#: [id number] Admission: 01/31/17 Attend Phys: Davie Black DO Discharge: Date of : 45 Report #: [id number] zinc sulfate, vitamin C, sliding scale insulin, senna, carvedilol, oxycodone, aspirin, atorvastatin, lisinopril, albuterol, DuoNebs. SOCIAL HISTORY: The patient was a previous smoker, quit in 2007, previous ETOH abuse. The patient now only drinks weekly on a social basis, negative history for illicit drug use. FAMILY HISTORY: Positive for hypertension, asthma, diabetes, COPD. REVIEW OF SYSTEMS: Ten-point review of systems otherwise negative except for that mentioned in the HPI. PHYSICAL EXAMINATION: GENERAL: The patient was uncomfortable and nontoxic in appearance. He is awake, but somnolent. The gives a great deal of the history. VITAL SIGNS: The patient is maintaining saturation on room air. HEENT: Head is atraumatic, normocephalic. No icterus is appreciated. Mucosae are pink and moist. NECK: Supple, no jugular venous distention. HEART: Regular rate and rhythm. LUNGS: Slightly coarse bilateral. ABDOMEN: Distended and mildly diffusely tender to palpation. No andria peritoneal signs. Midline incision well approximated. Ileostomy viable with approximately 50 mL of liquid brown stool. EXTREMITIES: 1+ edema. Distal pulses are intact. Skin of extremities well perfused. NEUROLOGIC: No focal deficits. LABORATORY DATA: Reviewed. Creatinine of 1, AST of 20, ALT of 22, alkaline phosphatase 97, potassium 4.6. White count of 8.2, hemoglobin of 7.6, platelets of 245, pH of 7.38, pCO2 of 64, pO2 of 128. IMPRESSION: 71-year-old male patient status post recent exploratory laparotomy on emergent basis for andria peritonitis and perforated sigmoid diverticulitis. This required multiple return trips to the operating room for eventual subtotal colectomy, small bowel resection, lysis of adhesions, eventual abdominal closure with end-ileostomy placement. New problem of development of small-bowel obstruction with transition point reported in the distal ileum. CT scan unable to be visualized by myself at this time; however, CD-ROM copy was obtained and this was sent to radiology for uploading for review by interventional radiologist. Report of development of intraabdominal fluid collections consistent with small abscesses. This could contribute to ileus versus partial small bowel obstruction clinical picture. PLAN: 1. Will discuss with interventional radiologist and to review outside CT findings, to determine whether percutaneous drainage of intra-abdominal abscess may be beneficial. 2. Place nasogastric tube to low intermittent wall suction to decompress the GI tract, with patient kept NPO with IVF hydration and TPN ongoing. 3. IV antibiotic coverage in the form of Zosyn 3.375g q. 6 hours. [facility] [address] [place] [address] CONSULTATION Name: JOJO PEÑAGAYLE Room #: 443-P ADM IN M.R.#: [id number] Admission: 01/31/17 Attend Phys: Davie Black DO Discharge: Date of : 45 Report #: [id number] Consultation very much appreciated. Will continue to follow closely and make further recommendations based upon clinical status. <ELECTRONICALLY SIGNED> By: Mau Carrillo MD 02/03/17 1026 1308 2125 Mau Carirllo MD /nt
--- NOTE | ~2017-01-31 | H ---
[facility] [place] [address] [place] [address] HISTORY AND PHYSICAL Name: LAURA PEÑA Room #: 443-P ADM IN M.R.#: [id number] Admission: 01/31/17 Attend Phys: Davie Black DO Discharge: Date of : 45 Report #: [id number] THIS REPORT FOR: //name// CC: Ava Vega DATE OF SERVICE: 01/31/2017 ATTENDING PHYSICIAN: Moses Vega M.D. PRIMARY CARE PHYSICIAN: Unknown. CHIEF COMPLAINT: Abdominal abscess. HISTORY OF PRESENT ILLNESS: The patient is a 71-year-old -Ivorian male who was recently hospitalized here at [facility] after a 24-day hospital stay which was initially for COPD exacerbation. He ended up developing a perforated diverticulitis and went septic and underwent an emergent surgery. He did develop peritonitis and at one point acute respiratory failure and acute renal failure. He never did require hemodialysis. He was on the ventilator. He went back to surgery a total of two more times and subsequently had a right hemicolectomy as well as left hemicolectomy and small bowel resection. He was weaned off the vent and pressors and was improving and he was sent to LTAC facility just 3 days ago. He has a MARLEN drain in place. He says yesterday he started having increasing abdominal distention and pain. Abdominal pain was causing him to have some shortness of breath as well. He had a CT done which showed partial small bowel obstruction as well as abdominal abscess and he was sent back to [facility] as a direct admission for further surgical evaluation. On arrival, he was very nauseated and requesting pain medication as well. He has been mainly taking clear liquids but also has been on TPN. He had not been having fevers up until this afternoon when he started having low-grade temp. He has noticed decreased stool out of his ostomy but he has not noticed any blood as far as he is aware. PAST MEDICAL HISTORY: Significant for nonischemic cardiomyopathy with an EF of 30%, lung cancer with gamma knife treatment, pancreatic mass which is followed outpatient, obstructive sleep apnea, COPD, hypertension, prostate cancer, gastritis and gastroparesis, diabetes, hyperlipidemia, GERD, dysphagia, multiple MIs, lower GI bleed and SVT. PAST SURGICAL HISTORY: Carpal tunnel surgery bilaterally, low back surgery x 4, multiple heart catheterizations, left rotator cuff, right knee, left inguinal hernia repair, pacemaker defibrillator placement and a total of 3 abdominal surgeries during his hospitalization for peritonitis which included lysis of adhesions and right hemicolectomy, left hemicolectomy and small bowel resection. He also had a hemodialysis catheter placed at that time. [facility] [address] [place] [address] HISTORY AND PHYSICAL Name: LAURA PEÑA Room #: 443-P ADM IN M.R.#: [id number] Admission: 01/31/17 Attend Phys: Davie Black DO Discharge: Date of : 45 Report #: [id number] ALLERGIES: No known drug allergies. HOME MEDICATIONS: According to the LTAC, he has been receiving TPN with lipids, zinc sulfate, vitamin C, Zofran, albuterol, DuoNebs, Tylenol, oxycodone, aspirin, atorvastatin, lisinopril, sliding scale insulin, senna and carvedilol. SOCIAL HISTORY: The patient is an ex-smoker, quitting in 2007. He does have history of alcohol use, heavier in the past, but now only drinks on a weekly social basis. Denies any drug use. FAMILY HISTORY: Significant for asthma, COPD, diabetes and hypertension. REVIEW OF SYSTEMS: Twelve-point review of systems as well as LTAC records reviewed and otherwise negative unless stated in the HPI. PHYSICAL EXAMINATION: GENERAL: The patient is an alert male in no acute distress. VITAL SIGNS: Reviewed. HEENT: PERRLA. Sclerae are nonicteric. Oral mucosa is pink and dry. NECK: Supple. No JVD noted. CARDIOVASCULAR: Normal S1, S2. No murmurs, rubs or gallops. RESPIRATORY: Breath sounds are clear in bilateral upper lobes. It is very diminished in the right lower lobe. Breathing is somewhat labored and tachypneic. ABDOMEN: Round, firm, distended. He does have rare bowel sounds. There is a midline abdominal incision with a small opening below the umbilicus that is dry. There is a MARLEN drain in place with no drainage, and there is a colostomy in the right with pink stoma and some liquid greenish brown stool. VASCULAR: 1+ bilateral lower extremity edema. Pedal pulses are 2+. NEUROLOGIC: The patient is alert and oriented x 3. Speech is clear. He is answering questions appropriately and following commands. No focal deficits noted. LABORATORY DATA: Labs from subspecialty were reviewed. He did have elevated D-dimer of 20. Labs from here are pending. CT angio of the chest and abdomen done today as subspecialty showed no pulmonary embolism. There was a small ascending thoracic aortic aneurysm. There was a small left pleural effusion. There was a plate like area of density in the left upper lobe which is not in the dependent portion of the lung. This represents a mild infection, atypical distribution for volume loss with less likely scarring. There is a 33 x 35 x 62 mm abscess in the lateral left mid abdomen. There is distended gallbladder filled with a single dome sludge, correlate ____ scanning the side of the gallbladder and there is subcentimeter apparently loculated fluid seen along the spleen at several spots said to be inflammatory but too small to be drained. There is a mild partial small bowel obstruction with transition point in the [facility] [address] [place] [address] HISTORY AND PHYSICAL Name: LAURA PEÑA Room #: 443-P ADM IN M.R.#: [id number] Admission: 01/31/17 Attend Phys: Davie Black DO Discharge: Date of : 45 Report #: [id number] right mid to lower abdomen. There is a small infrarenal abdominal aortic aneurysm. ASSESSMENT AND PLAN: 1. Abdominal abscess. Dr. Carrillo is aware. continue w Zosyn. We will keep him n.p.o., continue with pain control and antiemetic. 2. History of recent renal failure. Creatinine is now back to baseline. Continue to follow labs. 3. Diabetes. His blood sugars are elevated. Resume insulin regimen and add sliding scale insulin with q. 6 hour blood sugar as well n.p.o. 4. Ischemic cardiomyopathy with known ejection fraction of 30%. He does have a defibrillator in place. Continue to monitor the patient's fluid overload. 5. Chronic obstructive pulmonary disease with history of recent acute respiratory failure. His symptoms have improved back to baseline. 6. Recent perforated diverticulitis with sepsis and peritonitis, status post multiple abdominal surgeries. Surgery will be consulted. 7. History of lung cancer. The patient is in remission. 8. History of hypertension. Blood pressure is running on the lower side. Continue with IV fluids. 9. Obstructive sleep apnea. Continue CPAP at night. 10. Deep venous thrombosis prophylaxis. Place sequential compression devices. We will continue to follow the patient closely throughout the hospitalization and make changes based on clinical status. <ELECTRONICALLY SIGNED> By: LIZ Carreon 02/03/17 0907 0801 1044 LIZ Carreon /nt
--- NOTE | ~2017-01-31 | EKG ---
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 : 1945 Requested By: Carol Muir Order Number: [id number] MD: Graham Quezada Measurements Intervals [place] Rate: 98 P: 42 ND: 129 QRS: 123 QRSD: 144 T: 23 QT: 374 QTc: 478 Interpretive Statements Sinus tachycardia Ventricular premature complex Nonspecific intraventricular conduction delay Compared to ECG 01/07/2017 18:01:06 Ventricular premature complex(es) now present Sinus rhythm no longer present Electronically Signed On 02-07-2017 16:06:07 CDT by Graham Quezada [email or web address] <ELECTRONICALLY SIGNED> By: Graham Quezada MD 02/07/17 1606 0646 Graham Quezada MD /EPI
--- NOTE | ~2017-01-31 | HC ---
[facility] [place] [place] [address] CONSULTATION Name: LAURA PEÑA Room #: 464-P ADM IN M.R.#: [id number] Admission: 01/31/17 Attend Phys: Davie Black DO Discharge: Date of : 45 Report #: [id number] THIS REPORT FOR: //name// CC: Ava Black DATE OF SERVICE: 01/31/2017 REFERRAL PHYSICIAN: Dr. Lechuga. REASON FOR REFERRAL: Hypoxia. HISTORY OF PRESENT ILLNESS: The patient is a 71-year-old -Maltese male who was admitted on 01/31/2017 for abdominal access. The patient has had intermittent hypoxia. For that reason, a pulmonary consultation was requested. He is currently being treated for his abdominal access conservatively. NG tube is in place. According to family, the patient has had episodic hypoxia. He has been using noninvasive positive pressure ventilation intermittently. His chest x-ray performed earlier today revealed left lower lobe atelectasis. The patient has known history of severe COPD. Currently, he feels somewhat better. Denies any chest pain or productive cough. PAST MEDICAL HISTORY: Notable for COPD; history of lung cancer, undergoing CyberKnife, treatment back in 2014; coronary artery disease; ischemic cardiomyopathy, ejection fraction of 25%; history of chronic back pain, prior multiple back surgeries, CULLEN, on BiPAP; recent perforated colitis, undergoing exploratory laparotomy, subtotal colectomy and end ileostomy. PAST SURGICAL HISTORY: As mentioned above. ALLERGIES: None to medications. HOME MEDICATIONS: List reviewed and is in the MAR. FAMILY HISTORY: Noncontributory. SOCIAL HISTORY: The patient is , has smoked for many years, but quit over 10 years ago. REVIEW OF SYSTEMS: [facility] [address] [place] [address] CONSULTATION Name: LAURA PEÑA Room #: 464-P [facility] IN .R.#: [id number] Admission: 01/31/17 Attend Phys: Davie Black DO Discharge: Date of : 45 Report #: [id number] As mentioned above, otherwise 10-point system review negative. PHYSICAL EXAMINATION: GENERAL: He is awake, in no distress. VITAL SIGNS: Temperature is 98 degrees Fahrenheit, pulse is 94, respiratory rate is 27, blood pressure is 105/67 mmHg, saturation 100%. HEENT: Normocephalic and atraumatic. NECK: Supple, without any lymphadenopathy or thyromegaly. CHEST: Breath sounds are fair due to poor effort. No obvious wheezes or rales. CARDIOVASCULAR: Normal S1, S2. No murmurs or gallop. There is no JVD. There is no carotid bruit. Pulses are 2+/4+ bilaterally. ABDOMEN: Soft, mildly tender, no masses felt. GENITOURINARY: Deferred. RECTAL: Deferred. EXTREMITIES: There is no edema, cyanosis or clubbing. LABORATORY DATA: Chest x-ray as mentioned above. KUB from earlier today shows improvement in bowel distention along with left lower lobe atelectasis, possible infiltrates. Electrolytes unremarkable except for creatinine of 1.5. Baseline creatinine was normal at 1, bicarbonate of 30, WBC 9500, hemoglobin is 8.0. There is no bandemia. Platelets are normal. Arterial blood gas revealed pH 7.31, pCO2 of 57, pO2 86 on 2 liters of O2 that was performed on 02/06/2017, arterial blood gas performed on 02/05/2017 revealed pH 7.27, pCO2 of 69, pO2 of 89. IMPRESSION: 1. Acute on chronic hypoxic hypercapnic respiratory failure in this 71-year-old -Maltese male. This is probably related to underlying sleep apnea, hypoventilation. He has atelectasis along with current comorbid condition is likely contributing to poor chest mechanics. I do not think the patient has pneumonia. Probably has atelectasis. 2. Abdominal access, management per primary team and surgery. 3. Recent abdominal surgery, undergoing subtotal colectomy. 4. Underlying chronic obstructive pulmonary disease, severity unknown. This is contributing to his hypoxia. RECOMMENDATION: We will continue noninvasive positive pressure ventilation p.r.n., especially during sleeping. Continue bronchodilators. Chest physiotherapy is recommended along with incentive spirometry. Increasing activity, staying out of bed, ambulation will also help. Thank you for this consultation. <ELECTRONICALLY SIGNED> By: Juan J Summers MD 02/09/17 1151 1504 1713 Juan J Summers MD /nt
--- NOTE | ~2017-01-31 | EKG ---
[address] [address] ELECTROCARDIOGRAM REPORT Name: CASEYLAURA Room #: 464-P ADM IN M.R.#: [id number] Admission: 01/31/17 Attend Phys: Davie Black DO Discharge: Date of : 45 Report #: [id number] THIS REPORT FOR: //name// [facility] Test Date: 2017-02-05 Test Time: 14:48:15 Pat Name: LAURA PEÑA Department: Room: 464 Gender: M Building Associate: Shamika BLANCHARD : 1945 Requested By: Carol Muir Order Number: [id number] MD: Graham Quezada Measurements Intervals [place] Rate: 110 P: 48 RI: 127 QRS: 160 QRSD: 145 T: 7 QT: 359 QTc: 486 Interpretive Statements Sinus tachycardia RBBB Electronically Signed On 02-07-2017 15:57:06 CDT by Graham Quezada [email or web address] <ELECTRONICALLY SIGNED> By: Graham Quezada MD 02/07/17 1557 1448 1448 MD DOMINGA Hussein
--- NOTE | ~2017-01-31 | HC ---
[facility] [place] [place] [address] CONSULTATION Name: LAURA PEÑA Room #: 464-P ADM IN M.R.#: [id number] Admission: 01/31/17 Attend Phys: Davie Black DO Discharge: Date of : 45 Report #: [id number] THIS REPORT FOR: //name// CC: Ava Black DATE OF SERVICE: 02/03/2017 HISTORY OF PRESENT ILLNESS: The patient is a 71-year-old male who was originally hospitalized 01/03/2017 through 01/27/2017, initially for a COPD exacerbation. He ended up developing a perforated diverticulitis, went septic, underwent eventual surgery. He developed peritonitis and one point acute respiratory failure and acute renal failure. He never did require hemodialysis. He went back to surgery a total of 2 more times and subsequently had a right hemicolectomy as well as left hemicolectomy and a small bowel resection. He was weaned off the went and the pressors, was sent to an LTAC. He was at the LTAC for 3 days at [facility]. He ended up being readmitted with worsening abdominal distention and pain. He is noted to have a small intra-abdominal abscess and Surgery is currently following. He also has an ileus versus a partial small-bowel obstruction and an NG-tube is in place. He is on TPN. We are seeing him in rehabilitation medicine consultation. PAST MEDICAL HISTORY: Includes nonischemic cardiomyopathy, lung cancer with gamma knife treatment, pancreatic mass which is followed as an outpatient, obstructive sleep apnea, COPD, hypertension, prostate cancer, gastritis and gastroparesis, diabetes, hyperlipidemia, GERD, dysphagia, multiple MIs, lower GI bleed, SVT. PAST SURGICAL HISTORY: Low back surgery x 4, carpal tunnel surgery bilaterally, multiple heart catheterizations, left rotator cuff, right knee pacemaker defibrillator placement. ALLERGIES: No known drug allergies. MEDICATIONS: Please see the full medication listing. FAMILY HISTORY: Significant for asthma, COPD, diabetes, hypertension. SOCIAL HISTORY: Lives with his , house, premorbid cane ambulator, split level. The patient and are retired. Son is in the area. could be of some assistance if warranted. REVIEW OF SYSTEMS: Did not offer any current complaints of abdominal pain. He has the NG tube in place. No complaints of chest pain or shortness of breath. Denies any voiding issues and does have the Bean catheter. No complaints of headache. Complains of overall generalized weakness. [facility] [address] [place] [address] CONSULTATION Name: LAURA PEÑA Room #: 464-P [facility] IN ..#: [id number] Admission: 01/31/17 Attend Phys: Davie Black DO Discharge: Date of : 45 Report #: [id number] PHYSICAL EXAMINATION: GENERAL: He is a 71-year-old male in no obvious distress. VITAL SIGNS: Last recorded temperature 98.5, pulse 109, respirations 20, blood pressure 134/79. NEUROLOGIC: The patient is alert. He is oriented, follows basic commands. NG tube is in place. ABDOMEN: He has the ostomy in place, indwelling Bean catheter. EXTREMITIES: Functional range of motion of both upper and lower extremities. Strength is probably a grade 3+/5 may be 4-. 1+ distal lower extremity edema. No clonus. ASSESSMENT: A 71-year-old male with the following problem list: 1. Medical complexity with generalized debilitation. 2. Likely critical illness myopathy with his prolonged critical care stay and significant decreased functional level. 3. Recent diverticulitis with perforation, sepsis, and peritonitis status post hemicolectomy and ileostomy. 4. Ileus versus small-bowel obstruction and small intra-abdominal abscess near ileum. Surgery is following. 5. Chronic obstructive pulmonary disease. 6. History of pancreatic mass. 7. History of liver mass. 8. Diabetes mellitus. 9. Ischemic cardiomyopathy. 10. History of lung cancer. PLAN: The patient does not meet criteria for an acute in-hospital inpatient rehabilitation stay at this time. He is on TPN. He has the NG tube. Agree with physical therapy evaluation to work with him and see how he progresses. We will also add occupational therapy. He was most recently at an LTAC, but just for 3 days. We will be glad to follow along with you regarding his rehab therapy needs. <ELECTRONICALLY SIGNED> By: Brad He MD 02/10/17 1822 1426 1939 Brad He MD /nt
--- NOTE | ~2017-01-31 | CNG ---
[facility] [place] [address] [place] [address] CYTO-NONGYN REPORT PROCEDURE Name: CHAY MANZO Room #: 464-P DIS IN M.R.#: [id number] Admission: 01/31/17 Date of : 45 Discharge: 02/11/17 Report #: [id number] Path Case #: [id number] CYTOPATHOLOGY REPORT COLLECTION DATE: 02/10/2017 RECEIVED DATE: 02/10/2017 SUBMITTING PHYS: Dr. Davie Black OTHER PHYS: Dr. Ava Herron CLINICAL HISTORY: Nausea. SPECIMEN(S) RECEIVED: A.Pleural fluid * * * * * * * * * * * * FINAL DIAGNOSIS: A. Pleural fluid: - No malignant cells identified. Reactive mesothelial and predominantly chronic inflammatory cells are present in a background of debris. COMMENT: Properly controlled immunohistochemical stains are performed on the cell block. Block A1 Calretinin - Stains rare scattered mesothelial cells. CD68 - Highlights the scattered histocytes BerEP4 - Nonreactive (CLW:pit; 02/12/2017) PATHOLOGIST: Sydnee Gooden M.D. REPORT ELECTRONICALLY SIGNED BY: Sydnee Gooden M.D. DATE/TIME: 02/12/2017 23:04 * * * * * * * * * * * * GROSS PATHOLOGY: A. Pleural fluid: The specimen is submitted unfixed, labeled "Chay Manzo". Received by the Cytology Department is 35 mL of cloudy yellow fluid. One ThinPrep slide and a cell block were prepared. (clt 6.27.2017) PORT CAPTAIN(S): HEATHER Gilliland(ASCP) INITIAL CPT CODE(S): A; 82932, 54340, 47710, 67045, 43019 Professional services performed by [facility] at [facility] [address], [place] [address] [facility] [address] [place] [address] CYTO-NONGYN REPORT PROCEDURE Name: CHAY MANZO Room #: 464-P DIS IN M.R.#: [id number] Admission: 01/31/17 Date of : 45 Discharge: 02/11/17 Report #: [id number] Path Case #: [id number] [facility] at [address] [place] [address], [address], [place] [address]. [address], [address] [place] [address] PHONE: [phone] DIRECTOR: Jarocho Ybarra M.D. * * * END OF REPORT * * *
[~2017-01-31 14:36] MED LIST changes: +DILAUDID1 MG/1 ML IV PUSH; +HUMALOG100 UNIT/1 SUBQ; +MEROPENEM500 MG IV; +MYCAMINE100 MG IV; +ONDANSETRON HCL4 M1 IV PUSH; +SENOKOT-S1 TA1 PO
[2017-01-31 19:16] VITALS: BP 155/92
[2017-01-31 21:24] LABS: HEMATOCRIT 22.6 % (42.0-52.0); HEMOGLOBIN 7.6 gm/dL (14.0-18.0); MCH 31.6 pg (26.0-34.0); MCHC 33.5 g/dL (28.0-37.0); MCV 94.1 fL (80.0-100.0); PLATELET COUNT 245 thou/uL (150-400); RDW 16.4 % (10.5-14.5); WBC 8.2 thou/uL (4.0-11.0)
[2017-01-31 21:40] LABS: ALBUMIN 1.4 g/dL (3.4-5.0); CREATININE 0.9 mg/dL (0.7-1.3); POTASSIUM 4.6 mmol/L (3.5-5.1); TOTAL BILIRUBIN 0.5 mg/dL (<0.1-1.0); TOTAL PROTEIN 6.5 g/dL (6.4-8.2)
[2017-01-31 21:58] LABS: MANUAL DIFF YES
[2017-01-31 23:28] LABS: ABG SAMPLE TYPE ARTERIAL; BE(vivo) 10.5 mmol/L (-2 to +3); HCO3 37.1 mmol/L (22.0-26.0); LACTATE 1.42 mmol/L (0.5-2.0); O2(CT) 11.7 mL/dL (15.0-23.0); O2Hb 97.1 % (92.0-98.0); PCO2 64.3 mmHg (35.0-45.0); STICK SITE L.RADIAL; pH 7.379 (7.360-7.450); sO2 98.4 % (92.0-98.0); tCO2 39.1 mmol/L (24.0-30.0)
[2017-02-01 00:08] LABS: ABSOLUTE NEUTROPHILS 7.1 thou/uL (1.4-8.2); ANISOCYTOSIS 1+; TOTAL CELL COUNT 100
[2017-02-01] MEDS ORDERED: ZINC SULFATE 2220 MG PO (01:47)
[2017-02-01] MEDS ORDERED: JUVEN PACKET1 EACH PO (01:48)
[2017-02-01] MEDS ORDERED: VITAMIN C500 M1 PO (01:48)
[2017-02-01] MEDS ORDERED: ONDANSETRON4 MG/2 M1 IV PUSH (01:49)
[2017-02-01] MEDS ORDERED: TYLENOL325 MG PO (01:51)
[2017-02-01] MEDS ORDERED: OXYCODONE HCL 55 MG PO (01:53)
[2017-02-01] MEDS ORDERED: ROXICODONE5 M2 PO (01:54)
[2017-02-01] MEDS ORDERED: LIPITOR10 MG PO (01:55)
[2017-02-01 05:07] VITALS: BP 139/81
[2017-02-01 05:34] LABS: HEMATOCRIT 24.4 % (42.0-52.0); HEMOGLOBIN 8.1 gm/dL (14.0-18.0)
[2017-02-01 08:00] VITALS: BP 100/60
[2017-02-01 15:44] VITALS: BP 110/66
[2017-02-01 20:17] VITALS: BP 105/68
[2017-02-02 04:15] VITALS: BP 138/77
[2017-02-02 05:01] LABS: HEMOGLOBIN 6.9 gm/dL (14.0-18.0); MCHC 33.6 g/dL (28.0-37.0); WBC 6.6 thou/uL (4.0-11.0)
[2017-02-02 05:03] LABS: HEMATOCRIT 20.6 % (42.0-52.0); MCH 31.7 pg (26.0-34.0); MCV 94.4 fL (80.0-100.0); PLATELET COUNT 284 thou/uL (150-400); RBC 2.18 mil/uL (4.50-6.00); RDW 16.6 % (10.5-14.5)
[2017-02-02 05:04] LABS: MANUAL DIFF YES
[2017-02-02 05:20] LABS: CALCIUM 8.4 mg/dL (8.5-10.1); MAGNESIUM 1.6 mg/dL (1.8-2.4); PHOSPHORUS 4.1 mg/dL (2.5-4.9); POTASSIUM 4.3 mmol/L (3.5-5.1)
[2017-02-02 05:35] LABS: ABSOLUTE NEUTROPHILS 5.3 thou/uL (1.4-8.2); ANISOCYTOSIS 1+; TOTAL CELL COUNT 100
[2017-02-02 05:36] LABS: PLATELET ESTIMATE NORMAL; POLYCHROMASIA OCCASIONAL
[2017-02-02 07:59] LABS: HEMATOCRIT 21.2 % (42.0-52.0)
[2017-02-02 09:05] VITALS: BP 120/77
[2017-02-02 11:36] VITALS: BP 117/66
[2017-02-02 17:22] VITALS: BP 117/80
[2017-02-02 19:56] VITALS: BP 121/80
[2017-02-03 04:42] LABS: HEMATOCRIT 23.1 % (42.0-52.0); HEMOGLOBIN 7.9 gm/dL (14.0-18.0); MCH 31.8 pg (26.0-34.0); MCHC 34.2 g/dL (28.0-37.0); RBC 2.48 mil/uL (4.50-6.00); WBC 6.9 thou/uL (4.0-11.0)
[2017-02-03 04:55] LABS: % SATURATION 20 % (20-39); CALCIUM 8.3 mg/dL (8.5-10.1); IRON 20 ug/dL (65-175); MAGNESIUM 1.9 mg/dL (1.8-2.4); PHOSPHORUS 4.4 mg/dL (2.5-4.9); POTASSIUM 4.2 mmol/L (3.5-5.1); TIBC 100 ug/dL (250-450); UIBC 80 ug/dL
[2017-02-03 05:28] VITALS: BP 134/79
[2017-02-03 16:50] VITALS: BP 124/79
[2017-02-03 19:42] VITALS: BP 125/71
[2017-02-04 04:30] VITALS: BP 124/69
[2017-02-04 08:47] VITALS: BP 134/80
[2017-02-04 09:19] LABS: HEMATOCRIT 23.2 % (42.0-52.0); HEMOGLOBIN 7.7 gm/dL (14.0-18.0); MCH 31.7 pg (26.0-34.0); MCHC 33.2 g/dL (28.0-37.0); MCV 95.3 fL (80.0-100.0); RBC 2.43 mil/uL (4.50-6.00); RDW 17.3 % (10.5-14.5); WBC 7.6 thou/uL (4.0-11.0)
[2017-02-04 09:30] LABS: CALCIUM 8.4 mg/dL (8.5-10.1); POTASSIUM 4.2 mmol/L (3.5-5.1)
[2017-02-04 11:01] LABS: PHOSPHORUS 4.1 mg/dL (2.5-4.9)
[2017-02-04 11:08] LABS: MAGNESIUM 1.7 mg/dL (1.8-2.4)
[2017-02-04 16:51] VITALS: BP 114/67
[2017-02-04 19:20] VITALS: BP 113/73
[2017-02-05] VITALS (7 sets, daily range): BP systolic 101–167; BP diastolic 63–89
[2017-02-05 10:41] LABS: HEMOGLOBIN 7.9 gm/dL (14.0-18.0); MCH 31.3 pg (26.0-34.0); MCHC 32.8 g/dL (28.0-37.0); MCV 95.4 fL (80.0-100.0); RBC 2.52 mil/uL (4.50-6.00); RDW 17.4 % (10.5-14.5); WBC 8.9 thou/uL (4.0-11.0)
[2017-02-05 10:48] LABS: CALCIUM 8.2 mg/dL (8.5-10.1); CREATININE 1.1 mg/dL (0.7-1.3); POTASSIUM 4.2 mmol/L (3.5-5.1)
[2017-02-05 23:22] LABS: ABG SAMPLE TYPE ARTERIAL; BE(vivo) 3.7 mmol/L (-2 to +3); HCO3 31.2 mmol/L (22.0-26.0); LACTATE 0.68 mmol/L (0.5-2.0); O2(CT) 9.6 mL/dL (15.0-23.0); O2Hb 94.1 % (92.0-98.0); PO2 89.7 mmHg (80.0-100.0); sO2 95.4 % (92.0-98.0); tCO2 33.4 mmol/L (24.0-30.0)
[2017-02-05 23:23] LABS: PCO2 69.4 mmHg (35.0-45.0); STICK SITE RRA; pH 7.271 (7.360-7.450)
[2017-02-06 00:56] LABS: ABG SAMPLE TYPE ARTERIAL; BE(vivo) 2.1 mmol/L (-2 to +3); HCO3 25.8 mmol/L (22.0-26.0); LACTATE 1.17 mmol/L (0.5-2.0); O2Hb 93.9 % (92.0-98.0); PCO2 35.4 mmHg (35.0-45.0); tCO2 26.9 mmol/L (24.0-30.0)
[2017-02-06 00:57] LABS: PO2 0 mmHg (80.0-100.0); STICK SITE RRA
[2017-02-06 00:58] LABS: ABG COMMENT POST BIPAP 1HR; Pressure Support 12 cm H20
[2017-02-06 01:14] LABS: ABG SAMPLE TYPE ARTERIAL; BE(vivo) 4.8 mmol/L (-2 to +3); HCO3 31.3 mmol/L (22.0-26.0); LACTATE 0.81 mmol/L (0.5-2.0); O2(CT) 11.6 mL/dL (15.0-23.0); O2Hb 96.7 % (92.0-98.0); PCO2 59.3 mmHg (35.0-45.0); PO2 107.3 mmHg (80.0-100.0); pH 7.341 (7.360-7.450); sO2 97.5 % (92.0-98.0); tCO2 33.2 mmol/L (24.0-30.0)
[2017-02-06 01:15] LABS: STICK SITE RBA
[2017-02-06 01:16] LABS: ABG COMMENT BIPAP12/6 40%; Pressure Support 12 cm H20
[2017-02-06 04:45] VITALS: BP 96/61
[2017-02-06 06:07] LABS: HEMATOCRIT 21.9 % (42.0-52.0); HEMOGLOBIN 7.1 gm/dL (14.0-18.0); MCH 30.7 pg (26.0-34.0); MCHC 32.2 g/dL (28.0-37.0); MCV 95.5 fL (80.0-100.0); PLATELET COUNT 304 thou/uL (150-400); RDW 17.9 % (10.5-14.5); WBC 7.6 thou/uL (4.0-11.0)
[2017-02-06 06:09] LABS: MANUAL DIFF YES
[2017-02-06 06:15] LABS: CALCIUM 8.1 mg/dL (8.5-10.1); CREATININE 1.3 mg/dL (0.7-1.3); MAGNESIUM 2.1 mg/dL (1.8-2.4); PHOSPHORUS 4.1 mg/dL (2.5-4.9); POTASSIUM 4.6 mmol/L (3.5-5.1)
[2017-02-06 08:50] LABS: ABSOLUTE NEUTROPHILS 6.3 thou/uL (1.4-8.2); TOTAL CELL COUNT 100
[2017-02-06 08:52] LABS: ANISOCYTOSIS 1+; HYPOCHROMASIA 1+; LARGE PLATELETS OCCASIONAL; POIKILOCYTOSIS SLIGHT; POLYCHROMASIA SLIGHT
[2017-02-06 08:55] VITALS: BP 106/70
[2017-02-06 12:13] VITALS: BP 110/76
[2017-02-06 15:51] VITALS: BP 111/71
[2017-02-06 20:03] VITALS: BP 96/65
[2017-02-06 21:22] LABS: ABG SAMPLE TYPE ARTERIAL; BE(vivo) 1.8 mmol/L (-2 to +3); HCO3 28.5 mmol/L (22.0-26.0); LACTATE 0.94 mmol/L (0.5-2.0); O2(CT) 10.7 mL/dL (15.0-23.0); PCO2 57.4 mmHg (35.0-45.0); PO2 86.1 mmHg (80.0-100.0); STICK SITE L.RADIAL; pH 7.314 (7.360-7.450); sO2 95.5 % (92.0-98.0); tCO2 30.3 mmol/L (24.0-30.0)
[2017-02-07 03:10] VITALS: BP 122/76
[2017-02-07 06:08] LABS: HEMOGLOBIN 6.8 gm/dL (14.0-18.0); WBC 7.8 thou/uL (4.0-11.0)
[2017-02-07 06:10] LABS: HEMATOCRIT 21.5 % (42.0-52.0); MCH 30.3 pg (26.0-34.0); MCHC 31.8 g/dL (28.0-37.0); MCV 95.3 fL (80.0-100.0); PLATELET COUNT 304 thou/uL (150-400); RBC 2.26 mil/uL (4.50-6.00); RDW 17.5 % (10.5-14.5)
[2017-02-07 06:17] LABS: CREATININE 1.5 mg/dL (0.7-1.3); POTASSIUM 4.4 mmol/L (3.5-5.1)
[2017-02-07 06:34] LABS: MANUAL DIFF YES
[2017-02-07 08:05] VITALS: BP 114/68
[2017-02-07 09:01] LABS: ANISOCYTOSIS 1+; NUCLEATED RBCS 1 /100WBC; TOTAL CELL COUNT 100
[2017-02-07 09:03] LABS: ABSOLUTE NEUTROPHILS 6.6 thou/uL (1.4-8.2); METAMYELOCYTES 3 %
[2017-02-07 11:20] VITALS: BP 106/72
[2017-02-07 13:40] VITALS: BP 107/66; BP 144/98; BP 154/72
[2017-02-07 15:39] VITALS: BP 110/72
[2017-02-07 19:08] VITALS: BP 136/85
[2017-02-08 04:04] VITALS: BP 129/90
[2017-02-08 06:50] LABS: HEMATOCRIT 24.3 % (42.0-52.0); MCH 30.5 pg (26.0-34.0); MCHC 32.7 g/dL (28.0-37.0); MCV 93.2 fL (80.0-100.0); PLATELET COUNT 336 thou/uL (150-400); RBC 2.61 mil/uL (4.50-6.00); WBC 9.5 thou/uL (4.0-11.0)
[2017-02-08 07:18] LABS: MANUAL DIFF YES
[2017-02-08 08:10] VITALS: BP 105/67
[2017-02-08 10:06] LABS: ABSOLUTE NEUTROPHILS 7.9 thou/uL (1.4-8.2); METAMYELOCYTES 3 %; TOTAL CELL COUNT 100
[2017-02-08 10:07] LABS: ANISOCYTOSIS 1+
[2017-02-08 12:00] VITALS: BP 110/69
[2017-02-08 16:10] VITALS: BP 132/87
[2017-02-08 19:59] VITALS: BP 150/88
[2017-02-09 03:29] VITALS: BP 143/94
[2017-02-09 07:16] VITALS: BP 167/101
[2017-02-09 09:55] LABS: ABG SAMPLE TYPE ARTERIAL; LACTATE 0.79 mmol/L (0.5-2.0); O2Hb 95.5 % (92.0-98.0); PO2 92.3 mmHg (80.0-100.0); STICK SITE L.RADIAL; pH 7.309 (7.360-7.450); sO2 96.2 % (92.0-98.0); tCO2 30.8 mmol/L (24.0-30.0)
[2017-02-09 10:53] LABS: HEMATOCRIT 24.3 % (42.0-52.0); MCHC 32.8 g/dL (28.0-37.0); MCV 94.6 fL (80.0-100.0); RBC 2.57 mil/uL (4.50-6.00); RDW 17.8 % (10.5-14.5); WBC 9.7 thou/uL (4.0-11.0)
[2017-02-09 10:56] LABS: CALCIUM 8.5 mg/dL (8.5-10.1); CREATININE 1.5 mg/dL (0.7-1.3)
[2017-02-09 12:37] VITALS: BP 132/83
[2017-02-09 15:45] VITALS: BP 146/90
[2017-02-09 19:17] VITALS: BP 137/89
[2017-02-10 04:09] VITALS: BP 139/78
[2017-02-10 05:22] LABS: APTT 27.8 Seconds (24.5-32.8); INR 1.1; PROTIME 11.8 Seconds (9.3-11.4)
[2017-02-10 05:31] LABS: CALCIUM 8.4 mg/dL (8.5-10.1); CREATININE 1.6 mg/dL (0.7-1.3); MAGNESIUM 1.6 mg/dL (1.8-2.4); PHOSPHORUS 4.5 mg/dL (2.5-4.9); POTASSIUM 4.4 mmol/L (3.5-5.1)
[2017-02-10 07:55] VITALS: BP 138/82
[2017-02-10 11:04] LABS: CLARITY CLOUDY; COLOR YELLOW; TOTAL VOLUME 60 mL
[2017-02-10 11:17] LABS: BF NUCLEATED CELLS 1556; BF RBC 3387
[2017-02-10 11:20] VITALS: BP 140/78
[2017-02-10 12:38] LABS: BF MACROPHAGE 53; BF NEUTROPHILS 21; MANUAL DIFF YES
[2017-02-10 15:00] VITALS: BP 134/71
[2017-02-10 19:39] VITALS: BP 124/81
[2017-02-11 04:48] VITALS: BP 115/81
[2017-02-11 06:33] LABS: CALCIUM 8.5 mg/dL (8.5-10.1); CREATININE 1.7 mg/dL (0.7-1.3); MAGNESIUM 1.3 mg/dL (1.8-2.4); PHOSPHORUS 3.6 mg/dL (2.5-4.9); POTASSIUM 4.1 mmol/L (3.5-5.1)
[2017-02-11 08:00] VITALS: BP 146/99
[2017-02-11 12:09] LABS: BODY FLUID ALBUMIN 1.2 g/dL (()); BODY FLUID AMYLASE 29 U/L (()); BODY FLUID GLUCOSE 166 mg/dL (()); BODY FLUID LDH 134 IU/L (()); BODY FLUID PROTEIN 3.1 g/dL (())
[2017-02-11] MEDS ORDERED: ZOSYN 3.3753.375 GM IV (16:23)
[2017-02-11] MEDS ORDERED: FUROSEMIDE20 MG/2 ML IV PUSH (16:24)
== END 2017-02-11 17:34 | DRG 871 ==
LOC: 4S 14:36 → 4W 02-05 12:15
PROVIDERS: Family Medicine; Hospitalist; Internal Medicine Gastroenterology; Internal Medicine Pulmonary Disease; Nurse Practitioner Acute Care; Nurse Practitioner Adult Health; Nurse Practitioner Family
PROC: 3E0336Z Introduction of Nutritional Substance into Peripheral Vein, Percutaneous Approach (ICD-10-PCS; 2017-02-01)
PROC: B548ZZA Ultrasonography of Superior Vena Cava, Guidance (ICD-10-PCS; 2017-02-01)
PROC: 02HV33Z Insertion of Infusion Device into Superior Vena Cava, Percutaneous Approach (ICD-10-PCS; 2017-02-01)
PROC: 5A09357 Assistance with Respiratory Ventilation, Less than 24 Consecutive Hours, Continuous Positive Airway Pressure (ICD-10-PCS; principal; 2017-02-02)
PROC: 30233N1 Transfusion of Nonautologous Red Blood Cells into Peripheral Vein, Percutaneous Approach (ICD-10-PCS; 2017-02-07)
PROC: BB4BZZZ Ultrasonography of Pleura (ICD-10-PCS; 2017-02-10)
PROC: 0W9B3ZZ Drainage of Left Pleural Cavity, Percutaneous Approach (ICD-10-PCS; 2017-02-10)
DX: A41.9 Sepsis, unspecified organism (principal); E43 Unspecified severe protein-calorie malnutrition; J96.21 Acute and chronic respiratory failure with hypoxia; J96.22 Acute and chronic respiratory failure with hypercapnia; J18.9 Pneumonia, unspecified organism; J90 Pleural effusion, not elsewhere classified; K56.60 Unspecified intestinal obstruction; K57.80 Diverticulitis of intestine, part unspecified, with perforation and abscess without bleeding; Z68.33 Body mass index [BMI] 33.0-33.9, adult; I25.5 Ischemic cardiomyopathy; E11.9 Type 2 diabetes mellitus without complications; K21.9 Gastro-esophageal reflux disease without esophagitis; I25.10 Atherosclerotic heart disease of native coronary artery without angina pectoris; E78.5 Hyperlipidemia, unspecified; G47.33 Obstructive sleep apnea (adult) (pediatric); Z96.89 Presence of other specified functional implants; G89.29 Other chronic pain; M54.9 Dorsalgia, unspecified; D64.9 Anemia, unspecified; R79.89 Other specified abnormal findings of blood chemistry; I11.0 Hypertensive heart disease with heart failure; M19.90 Unspecified osteoarthritis, unspecified site; J44.9 Chronic obstructive pulmonary disease, unspecified; I50.9 Heart failure, unspecified; Z85.46 Personal history of malignant neoplasm of prostate; I25.2 Old myocardial infarction; Z85.118 Personal history of other malignant neoplasm of bronchus and lung; Z90.49 Acquired absence of other specified parts of digestive tract; Z93.2 Ileostomy status; Z87.891 Personal history of nicotine dependence; Z82.49 Family history of ischemic heart disease and other diseases of the circulatory system; Z83.3 Family history of diabetes mellitus; Z82.5 Family history of asthma and other chronic lower respiratory diseases; Z79.899 Other long term (current) drug therapy; Z79.82 Long term (current) use of aspirin
CPT/HCPCS: 10045; 10195; 27000

== ENCOUNTER 2017-03-02 13:57 | Inpatient (IN) | payer OTHER ==
[~2017-03-02] VITALS: Ht 172.7 cm; Wt 87.4 kg
--- NOTE | ~2017-03-02 | EKG ---
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 Compared to ECG 03/04/2017 01:22:33 Ventricular premature complex(es) no longer present Electronically Signed On 03-08-2017 10:44:36 CDT by Dalton Hernandez [email or web address] <ELECTRONICALLY SIGNED> By: Dalton Hernandez MD, [facility] 03/08/17 1044 1145 1145 Dalton Hernandez MD, [facility] /EPI
--- NOTE | ~2017-03-02 | HC ---
[facility] [place] [address] [place] [address] CONSULTATION Name: LAURA PEÑA Room #: 510-P [facility] IN M.R.#: [id number] Admission: 03/02/17 Attend Phys: Brad He MD Discharge: 03/13/17 Date of : 45 Report #: [id number] THIS REPORT FOR: //name// CC: Ava He NEUROBEHAVIORAL STATUS EXAM DATE OF CONSULTATION: 03/09/2017. AGE: 71. ATTENDING PHYSICIAN: Brad He M.D. POLICY CANCELLATION CLERK: Brett Lama, PhD. CLINICAL PRESENTATION: The patient is a 71-year-old male admitted to [facility] rehabilitation unit for a comprehensive inpatient rehabilitation program to improve functional mobility, activities of daily living and self-care and mental status secondary to critical illness myopathy, medical complexity and general debilitation. A complete description of his medical condition, history and medications can be found in his medical record. Neuropsychological consultation was requested to provide assistance in the assessment of cognitive and emotional status and to provide recommendations and services. Prior to this most recent medical event, he was living independently in his own home. The patient and his daughter report that he was driving, and managing without assistance instrumental activities of daily living. 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 He has 5 children. The patient is from a family of 10 siblings. There is no reported history of alcohol/drug abuse or depression or anxiety. TECHNIQUES UTILIZED: Clinical interview, review of medical records, staff consultation and behavioral observation, mini mental status exam 2 standard version, category fluency and clock drawing. EXAMINATION FINDINGS: The patient was alert and cooperative with the assessment. He describes amnesia surrounding the events of his hospitalization and extended treatment. Periods of delirium are reported. His daughter indicates that he not yet back to normal, but much improved. The patient reports his memory has improved and he is wanting to return home as soon as possible. He described his symptoms to include sleep, appetite and anxiety. His family is described him is experiencing depression. The patient has required a bed alarm to maintain safety. He indicates frustration with use of a bed alarm. [facility] [address] [place] [address] CONSULTATION Name: LAURA PEÑA Room #: 510-P [facility] IN M.R.#: [id number] Admission: 03/02/17 Attend Phys: Brad He MD Discharge: 03/13/17 Date of : 45 Report #: [id number] His performance on the MMSE 2 brief version suggests impairment with memory. He was 12 of 16. The patient was 3/3 for initial registration, 4/5 for orientation to time and 5/[address]. He was 0/3 for immediate recall of 3 items after a brief time delay and distraction. His performance improved on the standard version of the MMSE 2 raw score 25, which is a T score of 47. The patient does show impairment and visual spatial construction. Clock drawing was within normal limits. Category fluency was within normal limits with a raw score of 12 and a T score of 48. 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 Adjustment disorder with anxiety and depressed mood. RECOMMENDATIONS: The patient is wanting to return home. He will likely perform better in a more familiar environment and with normalizing his routine. However, the patient is lacking insight into the severity of cognitive deficits which places him at increased safety risk. The patient should be discouraged from driving. A followup neuropsych assessment as indicated to clarify the severity of his cognitive impairment. Thank you very much for allowing me to provide the consultation on this patient. <ELECTRONICALLY SIGNED> By: Brett Lama, PhD 03/14/17 1331 0802 1014 Brett Lama, PhD /nt
--- NOTE | ~2017-03-02 | EKG ---
[address] [address] ELECTROCARDIOGRAM REPORT Name: LAURA PEÑA Room #: 510-P ADM IN M.R.#: [id number] Admission: 03/02/17 Attend Phys: Brad He MD Discharge: Date of : 45 Report #: [id number] THIS REPORT FOR: //name// 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 : 1945 Requested By: Lindsay Curtis Order Number: [id number] MD: Dalton Hernandez Measurements Intervals [place] Rate: 106 P: 63 NV: 133 QRS: 149 QRSD: 147 T: 35 QT: 378 QTc: 502 Interpretive Statements Sinus tachycardia Ventricular premature complex Nonspecific intraventricular conduction delay Compared to ECG 02/06/2017 06:46:30 No significant changes Electronically Signed On 03-05-2017 17:21:28 CDT by Dalton Hernandez [email or web address] <ELECTRONICALLY SIGNED> By: Dalton Hernandez MD, [facility] 03/05/17 1721 0122 012 Dalton Hernandez MD, [facility] /EPI
[~2017-03-02 13:57] MED LIST changes: +FUROSEMIDE20 MG/2 ML IV PUSH; +JUVEN PACKET1 EACH PO; +LIPITOR10 MG PO; +NORMAL SALINE FL5 ML IJ; +ONDANSETRON4 MG/2 M1 IV PUSH; +OXYCODONE HCL 55 MG PO; +ROXICODONE5 M2 PO; +TRAMADOL 50 MG50 MG PO; +VITAMIN C500 M1 PO; +ZINC SULFATE 2220 MG PO; +ZOSYN 3.3753.375 GM IV
[2017-03-02 14:05] VITALS: BP 119/81
[2017-03-02 16:59] LABS: ABSOLUTE NEUTROPHILS 7.1 thou/uL (1.4-8.2); BASOPHILS 0.3 % (0.0-2.0); EOSINOPHILS 1.8 % (0.0-3.0); HEMATOCRIT 22.9 % (42.0-52.0); HEMOGLOBIN 7.5 gm/dL (14.0-18.0); LYMPHOCYTES 11.5 % (24.0-44.0); MCH 29.5 pg (26.0-34.0); MCHC 32.8 g/dL (28.0-37.0); MCV 89.8 fL (80.0-100.0); MONOCYTES 11.1 % (1.0-8.0); PLATELET COUNT 290 thou/uL (150-400); POLYS 75.3 % (36.0-66.0); RBC 2.55 mil/uL (4.50-6.00); WBC 9.4 thou/uL (4.0-11.0)
[2017-03-02 17:03] LABS: MANUAL DIFF NO
[2017-03-02 17:05] LABS: URINE BILIRUBIN NEGATIVE (Negative); URINE BLOOD 2+ (Negative); URINE COLOR YELLOW; URINE GLUCOSE-RANDOM* NEGATIVE (Negative); URINE KETONES NEGATIVE (Negative); URINE NITRITE NEGATIVE (Negative); URINE PROTEIN (DIPSTICK) 1+ (Negative); URINE SPECIFIC GRAVITY <= 1.005 (1.003-1.035); URINE UROBILINOGEN 0.2 E.U./dl (0.2-1.0)
[2017-03-02 17:07] LABS: CALCIUM 9.2 mg/dL (8.5-10.1); POTASSIUM 4.3 mmol/L (3.5-5.1)
[2017-03-02 17:28] LABS: SQUAMOUS None Seen /LPF (0-3)
[2017-03-02 17:29] LABS: BACTERIA 1-9 Few /HPF (None Seen); CASTS None Seen /LPF (None Seen); CRYSTALS None Seen /LPF (None Seen); URINE RBC 3-10 Few /HPF (0-2); URINE WBC 0-5 Rare /HPF (0-5)
[2017-03-02 18:53] LABS: % SATURATION 16 % (20-39); IRON 23 ug/dL (65-175); TIBC 143 ug/dL (250-450); UIBC 120 ug/dL
[2017-03-02 19:20] LABS: FOLIC ACID 10.5 ng/mL (8.6-58.9)
[2017-03-03 04:00] VITALS: BP 121/72
[2017-03-03 06:01] LABS: CALCIUM 9.4 mg/dL (8.5-10.1); MAGNESIUM 1.5 mg/dL (1.8-2.4); POTASSIUM 4.3 mmol/L (3.5-5.1); TOTAL BILIRUBIN 0.3 mg/dL (<0.1-1.0); TOTAL PROTEIN 7.7 g/dL (6.4-8.2)
[2017-03-03 08:00] VITALS: BP 111/83
[2017-03-03 16:00] VITALS: BP 117/76
[2017-03-03 20:20] VITALS: BP 145/78
[2017-03-04 00:50] VITALS: BP 137/89
[2017-03-04 05:41] VITALS: BP 131/90
[2017-03-04 08:00] VITALS: BP 132/85
[2017-03-04 16:00] VITALS: BP 133/61
[2017-03-05 05:34] VITALS: BP 118/68
[2017-03-05 15:53] VITALS: BP 119/64
[2017-03-06 03:57] VITALS: BP 123/71
[2017-03-06 06:37] LABS: HEMATOCRIT 22.6 % (42.0-52.0); HEMOGLOBIN 7.5 gm/dL (14.0-18.0); MCH 29.8 pg (26.0-34.0); MCHC 33.4 g/dL (28.0-37.0); MCV 89.4 fL (80.0-100.0); RBC 2.53 mil/uL (4.50-6.00); RDW 18.3 % (10.5-14.5); WBC 9.2 thou/uL (4.0-11.0)
[2017-03-06 06:47] LABS: CALCIUM 8.8 mg/dL (8.5-10.1); CREATININE 1.2 mg/dL (0.7-1.3); MAGNESIUM 1.5 mg/dL (1.8-2.4); POTASSIUM 3.9 mmol/L (3.5-5.1)
[2017-03-06 15:05] VITALS: BP 105/78
[2017-03-07 03:33] VITALS: BP 117/66
[2017-03-07 15:54] VITALS: BP 119/73
[2017-03-08 04:40] VITALS: BP 137/88
[2017-03-08 09:42] VITALS: BP 97/71
[2017-03-08 16:00] VITALS: BP 135/90
[2017-03-09 00:36] LABS: URINE BILIRUBIN NEGATIVE (Negative); URINE BLOOD TRACE (Negative); URINE COLOR YELLOW; URINE GLUCOSE-RANDOM* NEGATIVE (Negative); URINE KETONES NEGATIVE (Negative); URINE LEUKOCYTES-REFLEX NEGATIVE (Negative); URINE PROTEIN (DIPSTICK) NEGATIVE (Negative); URINE UROBILINOGEN 0.2 E.U./dl (0.2-1.0)
[2017-03-09 04:41] VITALS: BP 120/84
[2017-03-09 08:59] VITALS: BP 125/77
[2017-03-09 12:59] LABS: HEMATOCRIT 23.8 % (42.0-52.0); HEMOGLOBIN 7.6 gm/dL (14.0-18.0); MCH 28.7 pg (26.0-34.0); MCHC 31.9 g/dL (28.0-37.0); RBC 2.65 mil/uL (4.50-6.00); RDW 17.9 % (10.5-14.5); WBC 8.2 thou/uL (4.0-11.0)
[2017-03-09 13:15] LABS: CALCIUM 9.2 mg/dL (8.5-10.1); CREATININE 1.1 mg/dL (0.7-1.3); MAGNESIUM 1.6 mg/dL (1.8-2.4); POTASSIUM 4.5 mmol/L (3.5-5.1)
[2017-03-09 15:30] VITALS: BP 116/89
[2017-03-10 04:37] VITALS: BP 150/95
[2017-03-10 15:30] VITALS: BP 126/65
[2017-03-11 05:26] VITALS: BP 131/84
[2017-03-11 15:15] VITALS: BP 120/77
[2017-03-11 17:08] VITALS: BP 120/77
[2017-03-12 05:17] VITALS: BP 130/88
[2017-03-12 16:00] VITALS: BP 118/76
[2017-03-13 06:10] VITALS: BP 117/71
[2017-03-13 08:00] VITALS: BP 121/79
[2017-03-13 09:01] VITALS: BP 120/77
[2017-03-13] MEDS ORDERED: TRAMADOL 50 MG50 MG PO (09:26)
[2017-03-13] MEDS ORDERED: ALPRAZOLAM 0.0.25 M1 PO (09:26)
[2017-03-13 09:58] LABS: HEMATOCRIT 24.8 % (42.0-52.0); HEMOGLOBIN 8.2 gm/dL (14.0-18.0); MCH 29.4 pg (26.0-34.0); MCHC 32.9 g/dL (28.0-37.0); MCV 89.4 fL (80.0-100.0); RBC 2.77 mil/uL (4.50-6.00); RDW 18.3 % (10.5-14.5); WBC 8.8 thou/uL (4.0-11.0)
[2017-03-13 11:23] VITALS: BP 120/77
== END 2017-03-13 14:01 | disposition home health service (06) | DRG 92 ==
PROVIDERS: Family Medicine; Nurse Practitioner; Nurse Practitioner Acute Care; Physical Medicine & Rehabilitation; Registered Nurse
DX: G72.81 Critical illness myopathy (principal); I42.9 Cardiomyopathy, unspecified; J98.11 Atelectasis; J90 Pleural effusion, not elsewhere classified; R53.81 Other malaise; G31.84 Mild cognitive impairment of uncertain or unknown etiology; F43.23 Adjustment disorder with mixed anxiety and depressed mood; J44.9 Chronic obstructive pulmonary disease, unspecified; R13.10 Dysphagia, unspecified; G47.33 Obstructive sleep apnea (adult) (pediatric); K21.9 Gastro-esophageal reflux disease without esophagitis; E11.9 Type 2 diabetes mellitus without complications; E78.5 Hyperlipidemia, unspecified; D63.8 Anemia in other chronic diseases classified elsewhere; G89.29 Other chronic pain; M54.9 Dorsalgia, unspecified; I25.10 Atherosclerotic heart disease of native coronary artery without angina pectoris; E83.42 Hypomagnesemia; G47.00 Insomnia, unspecified; I50.9 Heart failure, unspecified; I12.9 Hypertensive chronic kidney disease with stage 1 through stage 4 chronic kidney disease, or unspecified chronic kidney disease; Z85.118 Personal history of other malignant neoplasm of bronchus and lung; Z85.46 Personal history of malignant neoplasm of prostate; I25.2 Old myocardial infarction; Z90.49 Acquired absence of other specified parts of digestive tract; Z95.810 Presence of automatic (implantable) cardiac defibrillator; Z82.5 Family history of asthma and other chronic lower respiratory diseases; Z82.49 Family history of ischemic heart disease and other diseases of the circulatory system; Z83.3 Family history of diabetes mellitus; Z87.891 Personal history of nicotine dependence; Z93.2 Ileostomy status
CPT/HCPCS: 10112

== ENCOUNTER 2017-03-25 17:37 | Inpatient (IN) | payer OTHER ==
[~2017-03-25] VITALS: Ht 172.7 cm; Wt 83.7 kg
--- NOTE | ~2017-03-25 | HC ---
[facility] [address] [address] CONSULTATION Name: LAURA PEÑA Room #: 216-P ADM IN M.R.#: [id number] Admission: 03/25/17 Attend Phys: Damien Erickson MD Discharge: Date of : 45 Report #: [id number] THIS REPORT FOR: //name// CC: Manpreet Vincent MD REASON FOR CONSULTATION: Anemia. 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 Note the patient has had several hospitalizations is recently, he originally came in with a chest pain with pain radiating into his ribs, neck and back per others, deep breathing made it worse. He has a history of chest pains, also has a defibrillator pacemaker in place, also had a bowel preparation diverticulitis in January of this year, had a prolonged hospital stay with the left hemicolectomy, it was noted by respiratory failure, sepsis, ileostomy replacement. The patient states that he has never seen a blood doctor before he may have received his first transfusion about a year ago complications from diverticulitis. According to his family member note that on his lab here, his BUN on admission here was 14 with a creatinine of 1.0. His glucose has been advanced between 59 and 236, transaminases normal. Alkaline phosphatase normal. Albumin was 2.3. LDH 186, iron tests on 03/30/2017 at 0345 before transfusion with iron of 61, TIBC saturation of 13, coags back in early 01/2017 were normal. White cell count recently this 7, 6 range. Hemoglobin recently this admission were 7.9. Note going back into December the last time as above 10 was back in 01/15/2017 and that if he go back to 2013, he was in a 13 and 14 range, during the same time, his MCV most recently it has been in 95 range, though note if you go back in December he was back around 103, RDW of lately on admission was 18.2 earlier back in 2008 is 11.9 and platelet count recently 217. Differential nonacute did show metamyelocyte and myelocyte in early January, those have resolved recently, observed retic count on 03/30/2017 at 0345 showed an absolute retic count of 32 with immature reticulocyte fraction of 0.63, haptoglobin earlier was high at 314, ferritin back on 03/30/2017 was 480, folate was 10.9, B12 was 515, UA did show 1+ red cells with 0-2 rare on micro. Radiologic review, he has recently had a CT head on the 03/31/2017, because of dizziness, this showed unchanged atrophy and microvascular disease with no acute changes. CT abdomen and pelvis was done on 03/10/2017, there showed cystic structure involving the head of pancreas measuring 4.7 x 4.5 cm, unchanged but however they thought as gradually enlargement since 09/05/2006. There was also noted to be a cyst like mass with [facility] [address] [place] [address] CONSULTATION Name: LAURA PEÑA Room #: 216-P ADM IN Shamika.R.#: [id number] Admission: 03/25/17 Attend Phys: Damien Erickson MD Discharge: Date of : 45 Report #: [id number] direct communication with adjacent bowel in the pelvis, their impression was that as a fluid filled sac like structure within the lower abdomen, which appears to communicate with the bowel, did increase in size since last visualized. They thought that this was likely terminal section of the small bowel. We also talked about cyst like structure at the head of the pancreas since 2006. 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 Vincent at [facility] in the past. The past history is notable for carpal tunnel was surgery in early s, left, 05/2005 low back surgery, 1992, 1993 and 1995. In 2014, heart catheterization, echocardiogram. In 2016, had showed an EF of 35%. There is also question of the prostate cancer from the past. There is also history of chronic obstructive pulmonary disease, hypertension, rotator cuff surgery, there is a question about lung cancer treated I need to clarify 07/2015, also duodenitis and gastroparesis in the past and diabetes, dyslipidemia and GERD and atrial tachycardia and lower GI bleed, quit smoking in 2007 and a pacemaker defibrillator, he had undergone [employer] for the lung cancer in 2014. The patient is not aware of any blood in the stool recently. MEDICATIONS: At this time in the hospital currently include insulin, pantoprazole, amiodarone, linagliptin, oxycodone immediate release, nitroglycerin p.r.n., atorvastatin, calcium 10 mg, ipratropium and albuterol 3 mL, respiratory therapy, Tylenol, electrolyte supplements, Zosyn 3.375 IV q. 6 hours, carvedilol 6.25 b.i.d., aspirin 81 mg daily, lisinopril 2.5 daily, Zithromax 250 mg daily, furosemide 40 mg daily. PHYSICAL EXAMINATION: GENERAL: The patient appears his stated age. VITAL SIGNS: Height is 5 feet 8 inches, 172.7 cm, weight 188 pounds, 85.4 kilograms. MOOD: The patient is alert and pleasant. NEUROLOGIC: He appears moving all extremities, is a reliable historian though slightly slow from fatigue. LUNGS: Appear to be mostly clear. HEART: Regular rate. No enlarged lymph nodes in the supraclavicular, cervical, axillary or inguinal region. ABDOMEN: Obese. No masses, ileostomy present. EXTREMITIES: Without clubbing or cyanosis. ASSESSMENT AND PLAN: 1. Hypoproliferative anemia, with what appear to be adequate iron, B12, folate replace. We will check erythropoietin to see if this is contributing to his anemia, since this appears to be fairly new phenomena and I doubt that a bone marrow biopsy would be indicated. Also, above noted that the patient received IV iron 200 mg for 5 doses between 03/03/2017 and 03/07/2017, will wait erythropoietin level. [address] [address] CONSULTATION Name: LAURA PEÑA Room #: 216-P [facility] IN M.R.#: [id number] Admission: 03/25/17 Attend Phys: Damien Erickson MD Discharge: Date of : 45 Report #: [id number] 2. History of lung cancer, not known to be recurrent. 3. 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 4. History diverticular bleed, status post hemicolectomy in the past. 5. Cardiac arrhythmias, pacemaker defibrillator in place. 6. Emphysema, chronic obstructive pulmonary disease, inhalers in place. 7. Hyperlipidemia, statins. 8. Heart failure. Continuing Coreg, other meds per Cardiology. 9. History of prostate cancer, not known to be recurrent. We will follow with you. <ELECTRONICALLY SIGNED> By: Adam Awan MD 04/02/17 0718 0805 1009 Adam Awan MD /nt
--- NOTE | ~2017-03-25 | 2DMMODE ---
[facility] [address] [place] [address] 2 D/M-MODE ECHOCARDIOGRAM Name: LAURA PEÑA Room #: 216-P ADM IN M.R.#: [id number] Admission: 03/25/17 Attend Phys: Davie Black, Discharge: Date of : 45 Date of Service: 03/26/17 1633 Report #: [id number] THIS REPORT FOR: //name// APPROVED REPORT Study performed: 03/26/2017 14:12:37 EXAM: Comprehensive 2D, Doppler, and color-flow Echocardiogram Patient Location: Bedside Room #: 216 Status: routine BSA: 1.99 HR: 89 bpm BP: 112/60 mmHg Indications Arrhythmia Chest Pain Hx CHF, Cardiomyopathy, HTN, DM 2D Dimensions RVDd: 45.00 mm LVEF(%): 53.21 (>50%) IVSd: 8.65 (7-11mm) LVOT Diam: 24.85 (18-24mm) LVDd: 65.20 mm PWd: 10.91 (7-11mm) Ascending Ao: 38.10 (22-36mm) LVDs: 46.88 (25-40mm) Aortic Root: 41.16 mm IVC: 2.50 mm Meek's LVEF: 53.21 % Volumes Left Atrial Volume (Systole) Single Plane 4CH: 63.01 mL Single Plane 2CH: 81.45 mL LA ESV Index: 41.00 mL/m2 Aortic Valve AoV Peak Braxton.: 1.47 m/s AO Peak Gr.: 8.68 mmHg LVOT Max P.76 mmHg LVOT Max V: 0.83 m/s MARILU Vmax: 2.73 cm2 Mitral Valve IVRT: 110.73 ms Pulmonary Valve PV Peak Braxton.: 0.89 m/s PV Peak Gr.: 3.14 mmHg [facility] [place] [address] [place] [address] 2 D/M-MODE ECHOCARDIOGRAM Name: LAURA PEÑA Room #: 216-P [facility] IN ..#: [id number] Admission: 03/25/17 Attend Phys: Davie Black, Discharge: Date of : 45 Date of Service: 03/26/17 1633 Report #: [id number] Tricuspid Valve TR Peak Braxton.: 2.92 m/s RAP Estimate: 10.00 mmHg TR Peak Gr.: 34.09 mmHg PA Pressure: 44.00 mmHg Left Ventricle Left ventricle is dilated. Borderline concentric left ventricular hypertrophy. Left ventricular systolic function is severely decreased. LVEF is 25-30%. This study is not technically sufficient to allow evaluation of the LV diastolic function. Right Ventricle Right ventricle is dilated. Atria Left atrium is dilated. Right atrium is dilated. Aortic Valve Aortic valve is calcified. No aortic regurgitation is present. There is no aortic valvular stenosis. Mitral Valve Mitral valve leaflets are mildly thickened. Moderate mitral regurgitation. No evidence of mitral valve stenosis. Tricuspid Valve The tricuspid valve is normal in structure. There is trace to mild tricuspid regurgitation. The right atrial pressure is estimated at 10 mmHg. There is moderate pulmonary hypertension with an estimated PAP of 44 mmHg. Pulmonic Valve The pulmonary valve is normal in structure. Trace pulmonic regurgitation. Great Vessels Aortic root is borderline dilated. IVC is dilated and collapses >50% with inspiration. Pericardium There is no pericardial effusion. <Conclusion> Left ventricle is dilated. Left ventricular systolic function is severely decreased. [facility] [address] [place] [address] 2 D/M-MODE ECHOCARDIOGRAM Name: LAURA PEÑA Room #: 216-P [facility] IN .R.#: [id number] Admission: 03/25/17 Attend Phys: Davie Black, Discharge: Date of : 45 Date of Service: 03/26/17 1633 Report #: [id number] LVEF is 25-30%. Right ventricle is dilated. Left atrium is dilated. Right atrium is dilated. Aortic valve is calcified. Mitral valve leaflets are mildly thickened. Moderate mitral regurgitation. The tricuspid valve is normal in structure. There is trace to mild tricuspid regurgitation. The right atrial pressure is estimated at 10 mmHg. There is moderate pulmonary hypertension with an estimated PAP of 44 mmHg. Trace pulmonic regurgitation. <ELECTRONICALLY SIGNED> By: Morgan Farah MD 03/26/17 1633 163 [id number] Morgan Farah MD /INF
--- NOTE | ~2017-03-25 | CATHLAB ---
[facility] [address] [place] [address] INVASIVE PROCEDURE REPORT Name: LAURA PEÑA Room #: 216-P ADM IN .R.#: [id number] Admission: 03/25/17 Attend Phys: Davie Black, Discharge: Date of : 45 Date of Service: 03/26/17 1533 Report #: [id number] THIS REPORT FOR: //name// APPROVED REPORT Patient Details Patient Status: In-Patient Room #: The patient is a 72 year-old male Event Personnel Mayito Baptiste Head Of Transport Logistics, Sabrina Beltre RN RN, , Aly Wallace RN, Usha Erickson, Brad Graham Monitor Procedures Performed Art Access - R femoral artery* Left Heart Cath w/or w/o Coronaries [id number] [facility] Hemostasis w/ Mynx Indication Arrhythmia, Chest pain, VF arrest Risk Factors Hypercholesterolemia, Coronary Artery DiseaseHypertension Procedure Narrative The Right Groin^ was infiltrated with 1% Lidocaine subcutaneous anesthesia. A PINNACLE 5FR Sheath #[id number] sheath was inserted into the RFA^. Coronary angiography was performed using coronary diagnostic catheters. The right coronary system was accessed and visualized with a JR 4 catheter. The left coronary system was accessed and visualized with a 5FR JL5 #[id number] catheter. The left ventricle was accessed and visualized with a Pigtail catheter. Left ventricular/Aortic Valve gradient assessed via catheter pullback. Left ventriculogram was performed in 30 degree projection. Pre-demployment femoral angiogram was performed . The patient tolerated the procedure well and there were no complications associated with the procedure. There was no hematoma. Intraoperative Conscious Sedation Sedation start time: 11:54 Case end Time: 12:10 Fentanyl 25 mcg Versed 1 mg Fluoro Time: 1.54 minutes Dose: 552 mGy [facility] [place] [address] INVASIVE PROCEDURE REPORT Name: LAURA PEÑA Room #: 216-P [facility] IN M.R.#: [id number] Admission: 03/25/17 Attend Phys: Davie Black, Discharge: Date of : 45 Date of Service: 03/26/17 1533 Report #: [id number] Contrast Type and Amount: Omnipaque 130 ml Coronary Angiography The patient's coronary anatomy is right dominant. Diagnostic Cath Left Main Large-caliber vessel, with no flow-limiting lesions LAD Moderate to large caliber vessel, traveling down the anterior wall and wrapping around the apex. There is mild to moderate disease in the mid segment, 30-40%. Circumflex Mild plaquing noted in the proximal segment, 20%. OM2 Moderate size caliber vessel, no flow limiting lesions. Right Coronary Dominant vessel with minimal plaquing proximally. R PDA Patent, no flow limiting lesions. RPLV Patent, no flow limiting lesions. Left Ventriculography The left ventricle is moderately dilated in size with decreased contractility. The left ventricular ejection fraction is estimated to be 20%. Hemodynamics The aortic pressure is 110/65 mmHg with a mean of 80 mmHg. The left ventricular pressure is 121/8 mmHg with a mean of mmHg. The left ventricular end diastolic pressure is 24 mmHg. Conclusion 1. Severe, nonischemic cardiomyopathy. 2. Mild to moderate, nonobstructive CAD. 3. Recommend medical therapy. Recommendations Aggressive Medical Therapy <ELECTRONICALLY SIGNED> By: Mayito Baptiste MD 03/26/17 1533 1533 1533 Mayito Baptiste MD /INF
--- NOTE | ~2017-03-25 | EKG ---
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 : 1945 Requested By: Samuel Horton Order Number: [id number] MD: Graham Quezada Measurements Intervals [place] Rate: 109 P: 70 MT: 138 QRS: 155 QRSD: 146 T: 51 QT: 366 QTc: 494 Interpretive Statements Sinus tachycardia Multiform ventricular premature complexes Probable left atrial enlargement Nonspecific intraventricular conduction delay Compared to ECG 03/06/2017 11:45:32 Ventricular premature complex(es) now present Intraventricular conduction delay now present Incomplete right bundle-branch block no longer present Electronically Signed On 03-29-2017 21:53:57 CDT by Graham Quezada [email or web address] <ELECTRONICALLY SIGNED> By: Graham Quezada MD 03/29/17 2153 1747 174 Graham Quezada MD /EPI
[~2017-03-25 17:37] MED LIST changes: +ALPRAZOLAM 0.0.25 M1 PO
[2017-03-25] MEDS ORDERED: GLYBURIDE 5 MG T5 M1 PO (17:47)
[2017-03-25] MEDS ORDERED: AZITHROMYCIN 2250 MG PO (17:48)
[2017-03-25] MEDS ORDERED: MACROBID 100 M100 M2 PO (17:49)
[2017-03-25] MEDS ORDERED: OMEPRAZOLE20 M1 PO (17:51)
[2017-03-25] MEDS ORDERED: LASIX 40 MG TAB40 M2 PO (17:52)
[2017-03-25] MEDS ORDERED: OXYCONTIN10 M1 PO (17:52)
[2017-03-25 20:02] LABS: HEMATOCRIT 24.3 % (42.0-52.0); HEMOGLOBIN 7.9 gm/dL (14.0-18.0); MCH 29.7 pg (26.0-34.0); MCHC 32.6 g/dL (28.0-37.0); PLATELET COUNT 237 thou/uL (150-400); RBC 2.67 mil/uL (4.50-6.00); RDW 18.2 % (10.5-14.5); WBC 8.4 thou/uL (4.0-11.0)
[2017-03-25 20:05] LABS: MANUAL DIFF YES
[2017-03-25 20:24] LABS: ANION GAP 4 mmol/L (7-16); BUN 14 mg/dL (7-18); CALCIUM 9.4 mg/dL (8.5-10.1); CHLORIDE 108 mmol/L (98-107); CO2 30 mmol/L (21-32); CREATININE 1.1 mg/dL (0.7-1.3); GLUCOSE 59 mg/dL (74-106); SODIUM 142 mmol/L (136-145)
[2017-03-25 20:36] LABS: ABSOLUTE NEUTROPHILS 5.3 thou/uL (1.4-8.2); ATYPICAL LYMPHS 2 %; TOTAL CELL COUNT 100
[2017-03-25 20:39] LABS: ANISOCYTOSIS 1+; NT-PRO BRAIN NAT PEPTIDE 2677 pg/mL (<300); TROPONIN-I < 0.04 ng/mL (<0.04-0.07)
[2017-03-25 20:40] LABS: POIKILOCYTOSIS 2+
[2017-03-25 22:02] VITALS: BP 128/74
[2017-03-25 22:47] VITALS: BP 128/74
[2017-03-25 23:00] VITALS: BP 133/79
[2017-03-25 23:35] VITALS: BP 133/79
[2017-03-26] VITALS (7 sets, daily range): BP systolic 108–128; BP diastolic 46–79
[2017-03-26 01:53] LABS: MAGNESIUM 1.5 mg/dL (1.8-2.4); TROPONIN-I < 0.04 ng/mL (<0.04-0.07)
[2017-03-26 20:39] LABS: URINE BILIRUBIN NEGATIVE (Negative); URINE BLOOD 1+ (Negative); URINE COLOR YELLOW; URINE GLUCOSE-RANDOM* NEGATIVE (Negative); URINE KETONES NEGATIVE (Negative); URINE LEUKOCYTES-REFLEX NEGATIVE (Negative); URINE PROTEIN (DIPSTICK) 2+ (Negative); URINE UROBILINOGEN 0.2 E.U./dl (0.2-1.0)
[2017-03-26 21:18] LABS: CASTS None Seen /LPF (None Seen); SQUAMOUS None Seen /LPF (0-3)
[2017-03-26 21:19] LABS: URINE RBC 0-2 Rare /HPF (0-2); URINE WBC-REFLEX 0-5 Rare /HPF (0-5)
[2017-03-27 04:43] VITALS: BP 98/69
[2017-03-27 07:50] VITALS: BP 119/66
[2017-03-27 10:03] LABS: ABSOLUTE NEUTROPHILS 5.6 thou/uL (1.4-8.2); BASOPHILS 0.2 % (0.0-2.0); HEMATOCRIT 26.5 % (42.0-52.0); HEMOGLOBIN 8.2 gm/dL (14.0-18.0); LYMPHOCYTES 13.5 % (24.0-44.0); MCH 28.4 pg (26.0-34.0); MCHC 30.9 g/dL (28.0-37.0); MCV 91.7 fL (80.0-100.0); MONOCYTES 11.1 % (1.0-8.0); PLATELET COUNT 212 thou/uL (150-400); POLYS 73.2 % (36.0-66.0); RBC 2.89 mil/uL (4.50-6.00); RDW 18.2 % (10.5-14.5); WBC 7.7 thou/uL (4.0-11.0)
[2017-03-27 10:04] LABS: MANUAL DIFF NO
[2017-03-27 10:12] LABS: CREATININE 1.2 mg/dL (0.7-1.3); POTASSIUM 4.2 mmol/L (3.5-5.1)
[2017-03-27 12:03] VITALS: BP 119/66
[2017-03-27 19:57] VITALS: BP 109/62
[2017-03-27 22:21] LABS: MAGNESIUM 1.5 mg/dL (1.8-2.4); POTASSIUM 3.8 mmol/L (3.5-5.1)
[2017-03-28 03:20] LABS: HEMATOCRIT 23.6 % (42.0-52.0); HEMOGLOBIN 7.3 gm/dL (14.0-18.0); MCH 28.4 pg (26.0-34.0); MCHC 30.9 g/dL (28.0-37.0); MCV 91.9 fL (80.0-100.0); PLATELET COUNT 199 thou/uL (150-400); RBC 2.57 mil/uL (4.50-6.00); RDW 17.6 % (10.5-14.5); WBC 7.7 thou/uL (4.0-11.0)
[2017-03-28 03:24] LABS: CALCIUM 8.5 mg/dL (8.5-10.1); CREATININE 1.3 mg/dL (0.7-1.3); MANUAL DIFF YES; POTASSIUM 3.8 mmol/L (3.5-5.1)
[2017-03-28 04:13] VITALS: BP 113/889
[2017-03-28 04:45] LABS: ABSOLUTE NEUTROPHILS 4.9 thou/uL (1.4-8.2); TOTAL CELL COUNT 100
[2017-03-28 04:46] LABS: ANISOCYTOSIS 1+
[2017-03-28 12:10] VITALS: BP 112/60
[2017-03-28 15:44] VITALS: BP 93/53
[2017-03-28 19:16] VITALS: BP 104/52
[2017-03-29] VITALS (7 sets, daily range): BP systolic 83–129; BP diastolic 44–79
[2017-03-29 06:07] LABS: HEMATOCRIT 22.9 % (42.0-52.0); HEMOGLOBIN 7.4 gm/dL (14.0-18.0); MCH 29.4 pg (26.0-34.0); MCHC 32.1 g/dL (28.0-37.0); MCV 91.4 fL (80.0-100.0); RBC 2.51 mil/uL (4.50-6.00); RDW 17.6 % (10.5-14.5); WBC 8.4 thou/uL (4.0-11.0)
[2017-03-29 06:21] LABS: ALBUMIN 2.3 g/dL (3.4-5.0); CALCIUM 8.5 mg/dL (8.5-10.1); CREATININE 1.1 mg/dL (0.7-1.3); POTASSIUM 3.8 mmol/L (3.5-5.1); TOTAL BILIRUBIN 0.9 mg/dL (<0.1-1.0); TOTAL PROTEIN 7.1 g/dL (6.4-8.2)
[2017-03-30] VITALS (8 sets, daily range): BP systolic 102–136; BP diastolic 60–86
[2017-03-30 04:01] LABS: HEMOGLOBIN 6.8 gm/dL (14.0-18.0)
[2017-03-30 04:03] LABS: HEMATOCRIT 21.5 % (42.0-52.0); MCH 28.9 pg (26.0-34.0); MCHC 31.5 g/dL (28.0-37.0); PLATELET COUNT 201 thou/uL (150-400); RBC 2.34 mil/uL (4.50-6.00); RDW 17.1 % (10.5-14.5); WBC 7.6 thou/uL (4.0-11.0)
[2017-03-30 04:10] LABS: MANUAL DIFF YES
[2017-03-30 04:19] LABS: CALCIUM 8.4 mg/dL (8.5-10.1); CREATININE 1.1 mg/dL (0.7-1.3); POTASSIUM 3.7 mmol/L (3.5-5.1)
[2017-03-30 05:22] LABS: ABSOLUTE NEUTROPHILS 5.1 thou/uL (1.4-8.2); ANISOCYTOSIS 1+; TOTAL CELL COUNT 100
[2017-03-30 10:55] LABS: ABSOLUTE RETIC COUNT 0.032 10^6/uL; OBSERVED RETIC COUNT 1.38 % (0.6-2.6)
[2017-03-30 11:01] LABS: % SATURATION 37 % (20-39); IRON 61 ug/dL (65-175); TIBC 165 ug/dL (250-450); UIBC 104 ug/dL
[2017-03-30 11:28] LABS: FOLIC ACID 10.9 ng/mL (8.6-58.9)
[2017-03-30 16:13] LABS: HEMATOCRIT 24.6 % (42.0-52.0); HEMOGLOBIN 7.9 gm/dL (14.0-18.0)
[2017-03-31 01:37] LABS: CALCIUM 8.7 mg/dL (8.5-10.1); CREATININE 1.1 mg/dL (0.7-1.3); POTASSIUM 3.8 mmol/L (3.5-5.1)
[2017-03-31 01:38] LABS: MAGNESIUM 1.3 mg/dL (1.8-2.4)
[2017-03-31 04:09] LABS: HEMATOCRIT 24.3 % (42.0-52.0); HEMOGLOBIN 7.8 gm/dL (14.0-18.0); MCH 29.2 pg (26.0-34.0); MCV 91.4 fL (80.0-100.0); PLATELET COUNT 219 thou/uL (150-400); RBC 2.66 mil/uL (4.50-6.00); RDW 17.8 % (10.5-14.5); WBC 8.2 thou/uL (4.0-11.0)
[2017-03-31 04:11] LABS: MANUAL DIFF YES
[2017-03-31 04:19] VITALS: BP 117/82
[2017-03-31 05:25] LABS: ABSOLUTE NEUTROPHILS 5.7 thou/uL (1.4-8.2); ANISOCYTOSIS SLIGHT; TOTAL CELL COUNT 100
[2017-03-31 07:21] VITALS: BP 131/90
[2017-03-31 11:30] VITALS: BP 123/91
[2017-03-31 19:39] VITALS: BP 119/69
[2017-04-01 03:41] VITALS: BP 121/85
[2017-04-01 04:37] LABS: HEMOGLOBIN 7.3 gm/dL (14.0-18.0); MCH 29.3 pg (26.0-34.0); MCHC 31.8 g/dL (28.0-37.0); MCV 92.2 fL (80.0-100.0); PLATELET COUNT 217 thou/uL (150-400); RDW 17.6 % (10.5-14.5); WBC 8.4 thou/uL (4.0-11.0)
[2017-04-01 04:43] LABS: MANUAL DIFF YES
[2017-04-01 04:59] LABS: MAGNESIUM 1.7 mg/dL (1.8-2.4); POTASSIUM 3.6 mmol/L (3.5-5.1)
[2017-04-01 07:31] VITALS: BP 121/70
[2017-04-01 08:43] LABS: ABSOLUTE NEUTROPHILS 6.1 thou/uL (1.4-8.2); HYPOCHROMASIA 2+; PLATELET ESTIMATE NORMAL; TOTAL CELL COUNT 100
[2017-04-01 11:27] VITALS: BP 109/70
[2017-04-01 15:19] VITALS: BP 125/68
[2017-04-01 20:30] VITALS: BP 97/67
[2017-04-02 03:28] VITALS: BP 126/74
[2017-04-02 07:07] LABS: HEMATOCRIT 22.8 % (42.0-52.0); HEMOGLOBIN 7.3 gm/dL (14.0-18.0); MCH 29.6 pg (26.0-34.0); MCHC 31.9 g/dL (28.0-37.0); MCV 92.5 fL (80.0-100.0); PLATELET COUNT 231 thou/uL (150-400); RBC 2.46 mil/uL (4.50-6.00); RDW 17.9 % (10.5-14.5); WBC 8.7 thou/uL (4.0-11.0)
[2017-04-02 07:12] LABS: MAGNESIUM 1.6 mg/dL (1.8-2.4); POTASSIUM 3.7 mmol/L (3.5-5.1)
[2017-04-02 07:23] VITALS: BP 124/76
[2017-04-02 07:27] LABS: MANUAL DIFF YES
[2017-04-02 08:05] LABS: ABSOLUTE NEUTROPHILS 6.1 thou/uL (1.4-8.2); ANISOCYTOSIS 1+; POLYCHROMASIA OCCASIONAL; TOTAL CELL COUNT 100
[2017-04-02] MEDS ORDERED: PACERONE 200 M200 M1 PO (10:35)
[2017-04-02] MEDS ORDERED: TRADJENTA5 MG PO (10:35)
[2017-04-02] MEDS ORDERED: LANTUSSOLASTAR SUBQ (10:35)
[2017-04-02] MEDS ORDERED: AUGMENTIN 875875 MG PO (10:35)
[2017-04-02] MEDS ORDERED: OXYCODONE HCL 55 MG PO (10:35)
[2017-04-02] MEDS ORDERED: ASPIR 8181 M1 PO (10:35)
[2017-04-02] MEDS ORDERED: PANTOPRAZOLE SO40 M1 PO (10:35)
[2017-04-02 11:24] VITALS: BP 93/63
[2017-04-02 17:43] VITALS: BP 119/66
[2017-04-02 18:41] VITALS: BP 119/66
== END 2017-04-02 18:44 | disposition home health service (06) | DRG 871 ==
LOC: ER 17:37 → EROBS 21:26 → 2N 21:26 → 4S 21:26 → 2N 03-26 11:53
PROVIDERS: Emergency Medicine; Hospitalist; Internal Medicine; Internal Medicine Endocrinology, Diabetes & Metabolism; Nurse Practitioner Acute Care
DX: A41.9 Sepsis, unspecified organism (principal); J15.6 Pneumonia due to other Gram-negative bacteria; I49.01 Ventricular fibrillation; K63.1 Perforation of intestine (nontraumatic); D61.9 Aplastic anemia, unspecified; I50.22 Chronic systolic (congestive) heart failure; I42.9 Cardiomyopathy, unspecified; E44.0 Moderate protein-calorie malnutrition; J44.0 Chronic obstructive pulmonary disease with (acute) lower respiratory infection; J44.9 Chronic obstructive pulmonary disease, unspecified; E78.5 Hyperlipidemia, unspecified; K21.9 Gastro-esophageal reflux disease without esophagitis; K57.90 Diverticulosis of intestine, part unspecified, without perforation or abscess without bleeding; G47.33 Obstructive sleep apnea (adult) (pediatric); I11.0 Hypertensive heart disease with heart failure; E11.65 Type 2 diabetes mellitus with hyperglycemia; I49.9 Cardiac arrhythmia, unspecified; E83.42 Hypomagnesemia; M19.90 Unspecified osteoarthritis, unspecified site; K86.9 Disease of pancreas, unspecified; I25.10 Atherosclerotic heart disease of native coronary artery without angina pectoris; E11.649 Type 2 diabetes mellitus with hypoglycemia without coma; Z85.46 Personal history of malignant neoplasm of prostate; Z87.891 Personal history of nicotine dependence; I25.2 Old myocardial infarction; Z95.0 Presence of cardiac pacemaker; Z90.49 Acquired absence of other specified parts of digestive tract; Z85.118 Personal history of other malignant neoplasm of bronchus and lung; Z82.5 Family history of asthma and other chronic lower respiratory diseases; Z83.3 Family history of diabetes mellitus; Z82.49 Family history of ischemic heart disease and other diseases of the circulatory system; Z68.28 Body mass index [BMI] 28.0-28.9, adult
CPT/HCPCS: 10081; 10100; 27000; 27001

== ENCOUNTER 2017-04-13 17:56 | Inpatient (IN) | payer OTHER ==
[~2017-04-13] VITALS: Ht 172.7 cm; Wt 84.4 kg
--- NOTE | ~2017-04-13 | HC ---
[facility] [place] [address] CONSULTATION Name: LAURA PEÑA Room #: 418-P ADM IN M.R.#: [id number] Admission: 04/13/17 Attend Phys: Davie Black DO Discharge: Date of : 45 Report #: [id number] THIS REPORT FOR: //name// CC: Ava Black DATE OF SERVICE: 04/14/2017 REFERRING PROVIDER: Davie Black DO REASON FOR CONSULT: Abdominal pain. HISTORY OF PRESENT ILLNESS: The patient is a 72-year-old -Bhutanese male known to me as he is slightly greater than 3 months status post emergent exploration for perforated diverticulitis requiring numerous explorations and ultimately a subtotal colectomy with end ileostomy. The patient ultimately did surprisingly well from his acute septic episode and transitioned to an LTAC and ultimately to home. The patient was recently admitted due to cardiac arrhythmias and was discharged home once again. The patient presents back to the hospital at this juncture with a 2-week history of worsening left flank to left upper quadrant pain. The patient was evaluated in the emergency room last evening with laboratories and a CT scan of the abdomen and pelvis. The patient's labs showed a very low level leukocytosis with a white blood cell count of 12.8 thousand; however, he had a normal differential and appears slightly dehydrated with a creatinine of 1.4, which is above his baseline. His liver function enzymes and lipase were normal. His albumin was low at 2.9, however. The patient's lactic acid was normal at 0.6 and his urinalysis was negative. CT scan of the abdomen and pelvis showed extensive intra-abdominal findings including pancreatic mass, questionable prostate cancer involving the posterior aspect of the bladder as well as trace edema of the small-bowel and ascites. There is also a nonenhancing fluid collection in the left pelvis that has been present all the way back from his preoperative standpoint that appears cystic in nature. I am asked to evaluate secondary to the new findings of abnormality within the intra-abdominal domain coupled with his new onset abdominal pain. PAST MEDICAL HISTORY: Extensive and includes CHF with an ejection fraction of 20%, COPD, pancreatic mass, prostate cancer, prior acute kidney injury, and obesity. HOME MEDICATIONS: Carvedilol, lisinopril, DuoNeb, Tylenol, albuterol, Lasix, Lipitor, insulin, aspirin, linagliptin, Protonix, oxycodone IR, amiodarone, and alprazolam. ALLERGIES: No known drug allergies. [address] [address] CONSULTATION Name: LAURA PEÑA Room #: 418-P [facility] IN .R.#: [id number] Admission: 04/13/17 Attend Phys: Davie Black DO Discharge: Date of : 45 Report #: [id number] SOCIAL HISTORY: The patient does not utilize tobacco, alcohol, or illicit drugs. FAMILY HISTORY: Reviewed and noncontributory. REVIEW OF SYSTEMS: GENERAL: The patient denies nocturnal fevers or chills. HEENT: No change in vision or change in hearing. NECK: No swelling or difficulty swallowing. HEART: No chest pain or palpitations. LUNGS: No cough or shortness of breath. ABDOMEN: Mild abdominal pain, but no nausea or vomiting. GENITOURINARY: No dysuria or hematuria. ENDOCRINE: No polyuria or polydipsia. HEMATOLOGIC: No history of bleeding or easy bruising. EXTREMITIES: No history of weakness or limited range of motion. NEUROLOGIC: No history of syncope or near syncopal episodes. SKIN AND INTEGUMENT: No history of abnormal lesions or moles. PSYCHIATRIC: No history of anxiety or depression. PHYSICAL EXAMINATION: VITAL SIGNS: Temperature 98.0, pulse 84, respirations 18, blood pressure 106/63, he stands 5 feet 8 inches tall and weighs 187 pounds now. GENERAL: He is alert and oriented, in no acute distress. HEENT: Normocephalic, atraumatic. Pupils are equal, round, and reactive to light. NECK: Supple without lymphadenopathy. Trachea is midline. HEART: Regular rate and rhythm. LUNGS: Clear to auscultation bilaterally. ABDOMEN: Soft, nondistended. He has very minimal tenderness to deep palpation in the left upper quadrant, but no guarding, rebound or peritoneal signs or symptoms. His ileostomy is pink, patent, and functional. GENITOURINARY: Normal external male genitalia. EXTREMITIES: No clubbing, cyanosis, or edema. NEUROLOGIC: Cranial nerves 2-12 are grossly intact. PSYCHIATRIC: Normal mood and affect. SKIN AND INTEGUMENT: No abnormal lesions or moles. LABORATORY AND X-RAY DATA: CBC last evening showed white blood cell count 12.8 thousand, hemoglobin 8.5, platelets 362,000, he has a normal differential coupled with dehydration as his creatinine is 1.4. Liver function enzymes are normal as his lipase. Lactic acid normal at 0.6. CT scan of the abdomen and pelvis as per HPI. ASSESSMENT AND PLAN: A 72-year-old -Bhutanese male, slightly greater than 3 months status post an intra-abdominal catastrophe with sigmoid perforation [address] [address] CONSULTATION Name: LAURA PEÑA Room #: 418-P [facility] IN Mari#: [id number] Admission: 04/13/17 Attend Phys: Davie Black DO Discharge: Date of : 45 Report #: [id number] that required multiple explorations and a subtotal colectomy with end ileostomy. The patient had been doing exceptionally well until the past 2 weeks where he complains of left upper quadrant pain and he presented with new findings of small-bowel thickening as well as his known pancreatic mass and thickened posterior bladder wall and pelvic cystic structure. At this time, there is no discrete change to his intra-abdominal CT scan and this was reviewed in detail with Dr. Hoyt of the interventional radiology service and nothing appears to be drainable at this time nor would be prudent, as any potential bowel perforation at the time of attempted percutaneous drainage would be catastrophic in this patient. At this time, I recommend continued IV fluid rehydration and regular diet as tolerated and checking labs as I suspect his white blood cell count will have normalized with hydration. I did spend greater than 60 minutes discussing with the patient and his as well as reviewing images with Dr. Hoyt and discussing with the nursing staff the plan of care being conservative expectant management at this point moving forward. I sincerely appreciate this consult. I will follow and leave any further recommendations in the patient's chart as appropriate. <ELECTRONICALLY SIGNED> By: Umu Frances MD, FACS 04/15/17 0843 0923 0958 Umu Frances MD, FACS /nt
[~2017-04-13 17:56] MED LIST changes: +AUGMENTIN 875875 MG PO; +LANTUSSOLASTAR SUBQ; +LASIX 40 MG TAB40 M2 PO; +MACROBID 100 M100 M2 PO; +OMEPRAZOLE20 M1 PO; +OXYCONTIN10 M1 PO; +PACERONE 200 M200 M1 PO; +PANTOPRAZOLE SO40 M1 PO; +TRADJENTA5 MG PO
[2017-04-13 17:57] VITALS: BP 122/83
[2017-04-13 18:51] LABS: HEMOGLOBIN 8.5 gm/dL (14.0-18.0); MCH 30.1 pg (26.0-34.0); PLATELET COUNT 362 thou/uL (150-400)
[2017-04-13 18:52] LABS: HEMATOCRIT 26.1 % (42.0-52.0); MCHC 32.5 g/dL (28.0-37.0); MCV 92.6 fL (80.0-100.0); RBC 2.81 mil/uL (4.50-6.00); RDW 18.6 % (10.5-14.5); WBC 12.8 thou/uL (4.0-11.0)
[2017-04-13 18:57] LABS: CALCIUM 9.5 mg/dL (8.5-10.1); CREATININE 1.4 mg/dL (0.7-1.3); POTASSIUM 4.8 mmol/L (3.5-5.1)
[2017-04-13 19:03] LABS: ALBUMIN 2.9 g/dL (3.4-5.0); TOTAL BILIRUBIN 0.3 mg/dL (<0.1-1.0)
[2017-04-13 19:09] LABS: MANUAL DIFF YES
[2017-04-13 19:20] LABS: ABSOLUTE NEUTROPHILS 8.7 thou/uL (1.4-8.2); ANISOCYTOSIS 2+; PLATELET ESTIMATE NORMAL; TOTAL CELL COUNT 100
[2017-04-13 21:35] VITALS: BP 122/83
[2017-04-13 22:13] VITALS: BP 126/78
[2017-04-13 22:15] LABS: URINE BILIRUBIN NEGATIVE (Negative); URINE BLOOD NEGATIVE (Negative); URINE COLOR YELLOW; URINE GLUCOSE-RANDOM* NEGATIVE (Negative); URINE KETONES NEGATIVE (Negative); URINE NITRITE NEGATIVE (Negative); URINE PROTEIN (DIPSTICK) NEGATIVE (Negative); URINE SPECIFIC GRAVITY <= 1.005 (1.003-1.035); URINE UROBILINOGEN 0.2 E.U./dl (0.2-1.0)
[2017-04-13 22:25] VITALS: BP 120/82
[2017-04-14 04:03] VITALS: BP 118/73
[2017-04-14 07:04] VITALS: BP 118/73
[2017-04-14 08:00] VITALS: BP 106/63
[2017-04-14 16:00] VITALS: BP 92/58
[2017-04-14 20:00] VITALS: BP 89/48
[2017-04-15 04:30] VITALS: BP 96/60
[2017-04-15 06:39] LABS: HEMATOCRIT 25.7 % (42.0-52.0); HEMOGLOBIN 8.3 gm/dL (14.0-18.0); MCH 30.5 pg (26.0-34.0); MCHC 32.4 g/dL (28.0-37.0); MCV 94.2 fL (80.0-100.0); RBC 2.73 mil/uL (4.50-6.00); RDW 18.5 % (10.5-14.5); WBC 5.9 thou/uL (4.0-11.0)
[2017-04-15 06:53] LABS: CALCIUM 8.6 mg/dL (8.5-10.1); CREATININE 1.3 mg/dL (0.7-1.3); POTASSIUM 4.1 mmol/L (3.5-5.1)
[2017-04-15 08:01] VITALS: BP 130/81
[2017-04-15 08:38] VITALS: BP 133/80
[2017-04-16 03:34] VITALS: BP 113/69
[2017-04-16 07:17] VITALS: BP 133/86
[2017-04-16 08:32] VITALS: BP 133/86
[2017-04-16 14:27] VITALS: BP 133/86
== END 2017-04-16 16:48 | disposition home health service (06) | DRG 392 ==
LOC: ER 17:56 → EROBS 21:20 → 4E 21:20 → ENTRNSPT 04-16 16:35 → 4E 04-16 16:48
PROVIDERS: Nurse Practitioner Acute Care; Physician Assistant
DX: R10.9 Unspecified abdominal pain (principal); N17.9 Acute kidney failure, unspecified; I42.8 Other cardiomyopathies; J96.10 Chronic respiratory failure, unspecified whether with hypoxia or hypercapnia; J44.9 Chronic obstructive pulmonary disease, unspecified; I10 Essential (primary) hypertension; E11.9 Type 2 diabetes mellitus without complications; E78.5 Hyperlipidemia, unspecified; K21.9 Gastro-esophageal reflux disease without esophagitis; G47.33 Obstructive sleep apnea (adult) (pediatric); F41.9 Anxiety disorder, unspecified; E66.9 Obesity, unspecified; K86.89 Other specified diseases of pancreas; D64.9 Anemia, unspecified; Z87.891 Personal history of nicotine dependence; I25.2 Old myocardial infarction; Z95.810 Presence of automatic (implantable) cardiac defibrillator; Z68.28 Body mass index [BMI] 28.0-28.9, adult; Z79.4 Long term (current) use of insulin; Z79.82 Long term (current) use of aspirin; Z79.899 Other long term (current) drug therapy; Z93.2 Ileostomy status; Z85.46 Personal history of malignant neoplasm of prostate; Z85.118 Personal history of other malignant neoplasm of bronchus and lung; Z92.3 Personal history of irradiation
CPT/HCPCS: 10183; 27001

== ENCOUNTER 2017-05-13 17:10 | Inpatient (IN) | payer OTHER ==
[~2017-05-13] VITALS: Ht 172.7 cm; Wt 84.2 kg
--- NOTE | ~2017-05-13 | HC ---
[facility] [place] [address] CONSULTATION Name: LAURA PEÑA Room #: 428-P ADM IN M.R.#: [id number] Admission: 05/14/17 Attend Phys: Moses Vega Discharge: Date of : 45 Report #: [id number] THIS REPORT FOR: //name// CC: Ava Vega REASON FOR CONSULTATION: TIA and stroke. HISTORY OF PRESENT ILLNESS: The patient is a 72-year-old patient of mine with a history of a nonischemic cardiomyopathy, status post MRI-compatible Biotronik ICD implanted in the past. Apparently, he came in with new-onset left-sided weakness. He had a CT scan of the brain. He was seen by Neurology who wants me to evaluate the patient for requirements of either anticoagulation versus Plavix therapy. Speaking with the patient, he denies any active chest pain. He reports that his shortness of breath is stable. He denies any PND or orthopnea. He denies presyncope or syncope. REVIEW OF SYSTEMS: GENERAL: No fevers or chills. HEENT: No blurred vision. CARDIOVASCULAR: As above. PULMONARY: No productive cough. GASTROINTESTINAL: No nausea or vomiting. GENITOURINARY: No dysuria. MUSCULOSKELETAL: No myalgias or arthralgias. ENDOCRINE: No heat or cold intolerance. NEUROLOGIC: He has left-sided weakness, which appears to be improving. PAST MEDICAL HISTORY: 1. Nonischemic cardiomyopathy, EF of 35% back on 10/28/2015 with an echo in January 2016 showing an EF of 30%. 2. Frequent PVCs. 3. COPD. 4. Lung cancer, status post gamma knife because poor surgical candidate, stable on recurrent scans. 5. Atrial tachycardia, status post successful ablation performed by myself. 6. Diabetes mellitus. 7. Hypertension. 8. Pancreatic mass, status post prior biopsy. 9. Biotronik ICD, MRI compatible. 10. Ventricular fibrillation induced by PVCs in March 2017, cath performed at that time requiring no intervention, and amiodarone was started. 11. Echocardiogram on 03/26/2017, EF of 25-30% with moderate mitral regurgitation. 12. Coronary artery disease. 13. Hospitalization for perforated bowel in the past requiring rehab, currently with an ostomy bag. [facility] [address] [place] [address] CONSULTATION Name: LAURA PEÑA Room #: 428-P ADM IN M.R.#: [id number] Admission: 05/14/17 Attend Phys: Moses Vega Discharge: Date of : 45 Report #: [id number] SOCIAL HISTORY: He does not smoke. FAMILY HISTORY: Noncontributory. No known drug allergies. HOME MEDICATIONS: Include: 1. Albuterol. 2. Amiodarone 400 mg a day. 3. Aspirin 81 mg a day. 4. Symbicort. 5. Coreg 6.25 mg twice a day. 6. Ciprofloxacin. 7. Lasix 40 mg by mouth 2 times a day. 8. Lantus. 9. Ipratropium/albuterol. 10. Tradjenta 5 mg a day. 11. Lisinopril 2.5 mg a day. 12. Flagyl. 13. Omeprazole 20 mg a day. 14. Oxycodone 5 mg q. 4 hours p.r.n. pain. 15. Pantoprazole. 16. Simvastatin 10 mg a day. PHYSICAL EXAMINATION: VITAL SIGNS: Temp is 36.6, pulse 76, respiration 18, blood pressure 108/70. GENERAL: He is in no acute distress, up in the chair. HEENT: Pupils are equal and reactive to light. Oropharynx is clear. His neck is supple with no thyromegaly. HEART: Regular rate and rhythm with noted ectopy. LUNGS: Clear bilaterally. ABDOMEN: Soft, nontender, nondistended with no hepatosplenomegaly. EXTREMITIES: There is no clubbing, cyanosis or edema. NEUROLOGIC: Cranial nerves 2 through 12 are intact. He does have the left-sided weakness, which is notable on exam. His EKG shows sinus rhythm with frequent ventricular ectopy. Telemetry shows sinus rhythm with frequent PVCs. LABORATORIES: White count 5.7, hemoglobin 10. Platelets are 208. Coags: INR is 1.0 Chemistries: Sodium is 143, potassium 4.0. Creatinine is 1.0. Troponin is negative. CRP is up at 53. LDL is 65. TSH is 2.6. IMAGING: CT of the head showed no acute process. ASSESSMENT: 1. Transient ischemic attack/stroke. [address] [address] CONSULTATION Name: LAURA PEÑA Room #: 428-P ADM IN M.R.#: [id number] Admission: 05/14/17 Attend Phys: Moses Vega Discharge: Date of : 45 Report #: [id number] 2. Coronary artery disease. 3. Nonischemic cardiomyopathy. 4. MRI-compatible implantable cardioverter-defibrillator. 5. History of ventricular arrhythmias. PLAN: In summary, the patient presents with new-onset left-sided weakness with no findings on CT scan. The patient does have an MRI-compatible device that is made by [employer]. If he is to undergo an MRI, the company can be called, and they can deactivate the device prior to the MRI. In terms of Plavix, I am okay with him starting on this. He has not had any documented atrial fibrillation in the past. I would not recommend blood thinners at this time. I will continue to follow, and I have discontinued IV fluids, so he does not go on to heart failure. By: 1606 1753 Graham Quezada MD /nt
--- NOTE | ~2017-05-13 | EKG ---
[address] [address] ELECTROCARDIOGRAM REPORT Name: LAURA PEÑA Room #: 207-P [facility] M.R.#: [id number] Admission: 05/13/17 Attend Phys: Moses Vega Discharge: Date of : 45 Report #: [id number] THIS REPORT FOR: //name// [facility] ED Test Date: 2017-05-13 Test Time: 17:39:58 Pat Name: LAURA PEÑA Department: Room: 207 Gender: M Denial Resolution Specialist: pierce : 1945 Requested By: Fazal Claros Order Number: [id number] MD: Graham Quezada Measurements Intervals [place] Rate: 85 P: 65 DC: 52 QRS: 145 QRSD: 170 T: 53 QT: 478 QTc: 569 Interpretive Statements Sinus rhythm Ventricular premature complex Short DC interval Nonspecific intraventricular conduction delay Compared to ECG 03/25/2017 17:47:21 Short DC interval now present Sinus tachycardia no longer present Electronically Signed On 05-14-2017 7:45:49 CDT by Graham Quezada [email or web address] <ELECTRONICALLY SIGNED> By: Graham Quezada MD 05/14/17 0745 1739 1739 Graham Quezada MD /EPI
--- NOTE | ~2017-05-13 | 2DMMODE ---
[facility] [address] [place] [address] 2 D/M-MODE ECHOCARDIOGRAM Name: LAURA PEÑA Room #: 428-P ADM IN M.R.#: [id number] Admission: 05/14/17 Attend Phys: Moses Pitts Discharge: Date of : 45 Date of Service: 05/15/17 1740 Report #: [id number] THIS REPORT FOR: //name// APPROVED REPORT Study performed: 05/15/2017 13:42:01 EXAM: Comprehensive 2D, Doppler, and color-flow Echocardiogram Patient Location: Echo lab Room #: 428 Status: routine BSA: 1.98 HR: 74 bpm BP: 110/65 mmHg Other Information Study Quality: Good Indications TIA, CHF, rule out apical thrombus. Hx: Cardiomyopathy, ICD, COPD Echo Enhancing Agent Indication: Rule out thrombus/Rule out shunt Agent(s) / Amount(s) Used: Agitated Saline 6 cc Optison 3 cc 2D Dimensions RVDd: 48.32 mm LVEF(%): 26.17 (>50%) IVSd: 9.58 (7-11mm) LVOT Diam: 24.49 (18-24mm) LVDd: 70.81 mm PWd: 10.43 (7-11mm) Ascending Ao: 44.70 (22-36mm) LVDs: 61.94 (25-40mm) Aortic Root: 39.69 mm Meek's LVEF: 26.17 % Volumes Left Atrial Volume (Systole) Single Plane 4CH: 51.91 mL Single Plane 2CH: 71.24 mL LA ESV Index: 34.00 mL/m2 Aortic Valve AoV Peak Braxton.: 1.68 m/s AO Peak Gr.: 11.25 mmHg LVOT Max P.12 mmHg LVOT Max V: 1.01 m/s [facility] [place] [address] 2 D/M-MODE ECHOCARDIOGRAM Name: LAURA PEÑA Room #: 428-P [facility] IN M.R.#: [id number] Admission: 05/14/17 Attend Phys: Moses Pitts Discharge: Date of : 45 Date of Service: 05/15/17 1740 Report #: [id number] MARILU Vmax: 2.85 cm2 Mitral Valve E/A Ratio: 0.5 MV Decel. Time: 254.21 ms MV E Max Braxton.: 0.54 m/s MV A Braxton.: 0.99 m/s MV PHT: 73.72 ms IVRT: 114.19 ms Pulmonary Valve PV Peak Braxton.: 0.94 m/s PV Peak Gr.: 3.53 mmHg Pulmonary Vein P Vein S: 0.53 m/s P Vein D: 0.46 m/s P Vein S/D Ratio: 1.15 Tricuspid Valve TR Peak Braxton.: 3.17 m/s RAP Estimate: 5.00 mmHg TR Peak Gr.: 40.11 mmHg PA Pressure: 45.00 mmHg Left Ventricle Left ventricle is moderate to severely dilated. There is normal left ventricular wall thickness. Left ventricular systolic function is severely decreased. LVEF 30%. Mild diastolic dysfunction is present (impaired relaxation pattern). Right Ventricle Right ventricle is dilated. Right ventricle is mildly hypokinetic. Device lead is present in the right ventricle. Atria Left atrium is mildly dilated. Injection of bubbles documented no interatrial shunt. Right atrium is mildly dilated. Aortic Valve The aortic valve is normal in structure, trileaflet No aortic regurgitation is present. There is no aortic valvular stenosis. Mitral Valve Mitral valve leaflets are mildly thickened. Moderate mitral regurgitation. [address] [address] 2 D/M-MODE ECHOCARDIOGRAM Name: LAURA PEÑA Room #: 428-P [facility] IN ..#: [id number] Admission: 05/14/17 Attend Phys: Moses Pitts Discharge: Date of : 45 Date of Service: 05/15/17 1740 Report #: [id number] Tricuspid Valve The tricuspid valve is normal in structure. Mild tricuspid regurgitation. Estimated PAP of 45mmHg. Pulmonic Valve The pulmonary valve is normal in structure. Mild to moderate pulmonic regurgitation. Great Vessels Aortic root is mildly dilated at 4.0cm. Ascending aorta is dilated at 4.5cm. IVC is normal in size and collapses >50% with inspiration. Pericardium There is no pericardial effusion. <Conclusion> Left ventricular systolic function is severely decreased. LVEF 30%. Mild diastolic dysfunction is present (impaired relaxation pattern). Both atria are mildly dilated. No shunting by contrast bubble injection. The aortic valve is normal in structure, trileaflet. No aortic regurgitation or stenosis. Mitral valve leaflets are mildly thickened. Moderate mitral regurgitation. Pulmonary artery pressure of 45mmHg There is no pericardial effusion. Ascending aorta is dilated at 4.5cm. ICD wires in right heart <ELECTRONICALLY SIGNED> By: Dalton Hernandez MD, FACC 05/15/171739 39 39 Dalton Hernandez MD, FACC /INF
[2017-05-13 17:20] VITALS: BP 119/78
[2017-05-13 17:31] LABS: POC CREATININE 1.3 mg/dL (0.6-1.3); POC HEMOGLOBIN 11.2 g/dL (14.0-18.0); POC POTASSIUM 4.1 mmol/L (3.5-5.1)
[2017-05-13 17:36] LABS: HEMATOCRIT 31.9 % (42.0-52.0); HEMOGLOBIN 10.3 gm/dL (14.0-18.0); MANUAL DIFF YES; MCH 30.2 pg (26.0-34.0); MCHC 32.4 g/dL (28.0-37.0); MCV 93.3 fL (80.0-100.0); PLATELET COUNT 243 thou/uL (150-400); RBC 3.42 mil/uL (4.50-6.00); RDW 17.9 % (10.5-14.5); WBC 6.7 thou/uL (4.0-11.0)
[2017-05-13 17:38] LABS: ANION GAP 6 mmol/L (7-16); BUN 25 mg/dL (7-18); CALCIUM 9.2 mg/dL (8.5-10.1); CHLORIDE 105 mmol/L (98-107); CO2 28 mmol/L (21-32); CREATININE 1.3 mg/dL (0.7-1.3); GLUCOSE 119 mg/dL (74-106); POTASSIUM 4.3 mmol/L (3.5-5.1); SODIUM 139 mmol/L (136-145)
[2017-05-13 17:43] LABS: APTT 24.8 Seconds (24.5-32.8); PROTIME 10.7 Seconds (9.3-11.4)
[2017-05-13 17:47] LABS: ALBUMIN 3.1 g/dL (3.4-5.0); ALKALINE PHOSPHATASE 81 U/L (46-116); MAGNESIUM 1.5 mg/dL (1.8-2.4); SGOT 33 U/L (15-37); SGPT 54 U/L (30-65); TOTAL BILIRUBIN 0.4 mg/dL (<0.1-1.0); TOTAL PROTEIN 8.2 g/dL (6.4-8.2); TROPONIN-I < 0.04 ng/mL (<0.04-0.07)
[2017-05-13 18:31] LABS: ABSOLUTE NEUTROPHILS 4.2 thou/uL (1.4-8.2); TOTAL CELL COUNT 100
[2017-05-13 18:32] LABS: ANISOCYTOSIS 1+
[2017-05-13 19:21] LABS: URINE BILIRUBIN NEGATIVE (Negative); URINE BLOOD 1+ (Negative); URINE COLOR YELLOW; URINE GLUCOSE-RANDOM* NEGATIVE (Negative); URINE KETONES NEGATIVE (Negative); URINE NITRITE NEGATIVE (Negative); URINE PROTEIN (DIPSTICK) NEGATIVE (Negative); URINE UROBILINOGEN 0.2 E.U./dl (0.2-1.0)
[2017-05-13 19:28] LABS: AMP/METHAMP Negative (Negative); BARBITURATES Negative (Negative); BENZODIAZEPINES Negative (Negative); COCAINE Negative (Negative); METHADONE Negative (Negative); OPIATES POSITIVE (Negative); PCP Negative (Negative); THC Negative (Negative)
[2017-05-13 19:34] LABS: BACTERIA None Seen /HPF (None Seen); CASTS None Seen /LPF (None Seen); CRYSTALS None Seen /LPF (None Seen); SQUAMOUS 0-3 Few /LPF (0-3); URINE WBC 0-5 Rare /HPF (0-5)
[2017-05-13 19:35] LABS: URINE RBC 3-10 Few /HPF (0-2)
[2017-05-13 19:45] VITALS: BP 124/77
[2017-05-13 20:19] VITALS: BP 124/77
[2017-05-13 21:02] VITALS: BP 111/79
[2017-05-13 23:27] VITALS: BP 114/77
[2017-05-14 03:48] VITALS: BP 118/81
[2017-05-14 06:26] LABS: HEMATOCRIT 29.7 % (42.0-52.0); MCH 31.2 pg (26.0-34.0); MCHC 33.5 g/dL (28.0-37.0); MCV 93.3 fL (80.0-100.0); RBC 3.19 mil/uL (4.50-6.00); RDW 17.7 % (10.5-14.5); WBC 5.7 thou/uL (4.0-11.0)
[2017-05-14 06:42] LABS: ANION GAP 5 mmol/L (7-16); BUN 21 mg/dL (7-18); CHLORIDE 107 mmol/L (98-107); CHOLESTEROL 132 mg/dL (<200); CO2 31 mmol/L (21-32); GLUCOSE 115 mg/dL (74-106); HDL CHOLESTEROL 51 mg/dL (>40); LDL CHOLESTEROL 65 mg/dL (<100); SODIUM 143 mmol/L (136-145); TC:HDL 2.6 Ratio (Not establshd); TRIGLYCERIDE 82 mg/dL (<150); VLDL 16 mg/dL (<40)
[2017-05-14 07:30] VITALS: BP 117/71
[2017-05-14 08:40] VITALS: BP 121/80
[2017-05-14 11:50] VITALS: BP 114/74
[2017-05-14 15:35] VITALS: BP 108/70
[2017-05-15 03:50] VITALS: BP 109/57
[2017-05-15 08:26] VITALS: BP 110/65
[2017-05-15 16:00] VITALS: BP 119/57
[2017-05-15 16:24] VITALS: BP 119/57
[2017-05-15 19:45] VITALS: BP 111/72
[2017-05-16 03:35] VITALS: BP 104/76
[2017-05-16 07:49] VITALS: BP 121/79
[2017-05-16 15:13] VITALS: BP 117/72
[2017-05-16 20:00] VITALS: BP 115/74
[2017-05-17 04:30] VITALS: BP 112/74
[2017-05-17 05:41] LABS: HEMATOCRIT 29.1 % (42.0-52.0); HEMOGLOBIN 9.5 gm/dL (14.0-18.0); MCH 30.2 pg (26.0-34.0); MCHC 32.7 g/dL (28.0-37.0); MCV 92.4 fL (80.0-100.0); RBC 3.15 mil/uL (4.50-6.00); RDW 16.9 % (10.5-14.5)
[2017-05-17 05:51] LABS: ALBUMIN 2.7 g/dL (3.4-5.0); CREATININE 1.1 mg/dL (0.7-1.3); POTASSIUM 3.7 mmol/L (3.5-5.1); TOTAL BILIRUBIN 0.4 mg/dL (<0.1-1.0)
[2017-05-17 07:30] VITALS: BP 109/78
[2017-05-17] MEDS ORDERED: PLAVIX 75 MG TA75 M1 PO (08:56)
[2017-05-17 11:01] VITALS: BP 119/57
== END 2017-05-17 14:37 | disposition home or self-care (01) | DRG 69 ==
LOC: ER 17:10 → EROBS 19:19 → 2N 19:19 → 4E 05-14 16:29
PROVIDERS: Emergency Medicine; Hospitalist; Nurse Practitioner Family
PROC: 5A09357 Assistance with Respiratory Ventilation, Less than 24 Consecutive Hours, Continuous Positive Airway Pressure (ICD-10-PCS; principal; 2017-05-14)
DX: G45.9 Transient cerebral ischemic attack, unspecified (principal); I47.1 Supraventricular tachycardia; I42.9 Cardiomyopathy, unspecified; J44.9 Chronic obstructive pulmonary disease, unspecified; I10 Essential (primary) hypertension; E11.9 Type 2 diabetes mellitus without complications; E78.5 Hyperlipidemia, unspecified; K21.9 Gastro-esophageal reflux disease without esophagitis; K57.90 Diverticulosis of intestine, part unspecified, without perforation or abscess without bleeding; G47.33 Obstructive sleep apnea (adult) (pediatric); K86.9 Disease of pancreas, unspecified; Z96.89 Presence of other specified functional implants; F41.9 Anxiety disorder, unspecified; E83.42 Hypomagnesemia; I25.10 Atherosclerotic heart disease of native coronary artery without angina pectoris; Z82.49 Family history of ischemic heart disease and other diseases of the circulatory system; Z83.3 Family history of diabetes mellitus; Z82.5 Family history of asthma and other chronic lower respiratory diseases; Z87.891 Personal history of nicotine dependence; Z85.46 Personal history of malignant neoplasm of prostate; Z90.49 Acquired absence of other specified parts of digestive tract; Z85.118 Personal history of other malignant neoplasm of bronchus and lung; Z79.82 Long term (current) use of aspirin; Z79.899 Other long term (current) drug therapy
CPT/HCPCS: 10183

== ENCOUNTER 2017-06-26 16:44 | Inpatient (IN) | payer OTHER ==
[~2017-06-26] VITALS: Ht 172.7 cm; Wt 82.8 kg
--- NOTE | ~2017-06-26 | EKG ---
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 : 1945 Requested By: Yun Grimaldo Order Number: [id number] MD: Dalton Hernandez Measurements Intervals [place] Rate: 114 P: 92 MT: 146 QRS: 148 QRSD: 176 T: 14 QT: 387 QTc: 534 Interpretive Statements Sinus tachycardia Nonspecific intraventricular conduction delay Compared to ECG 05/13/2017 17:39:58 Ventricular premature complex(es) no longer present Electronically Signed On 06-27-2017 9:51:48 BONSAI CULTURIST by Dalton Hernandez [email or web address] <ELECTRONICALLY SIGNED> By: Dalton Hernandez MD, [facility] 06/27/17 0951 01 01 Dalton Hernandez MD, [facility]GED [facility] /EPI
[~2017-06-26 16:44] MED LIST changes: +PLAVIX 75 MG TA75 M1 PO
[2017-06-26 16:45] VITALS: BP 153/76
[2017-06-26 17:17] LABS: URINE BILIRUBIN NEGATIVE (Negative); URINE BLOOD TRACE (Negative); URINE COLOR YELLOW; URINE GLUCOSE-RANDOM* NEGATIVE (Negative); URINE KETONES NEGATIVE (Negative); URINE NITRITE NEGATIVE (Negative); URINE PROTEIN (DIPSTICK) NEGATIVE (Negative); URINE SPECIFIC GRAVITY 1.015 (1.003-1.035); URINE UROBILINOGEN 0.2 E.U./dl (0.2-1.0)
[2017-06-26 17:20] LABS: HEMATOCRIT 35.6 % (42.0-52.0); HEMOGLOBIN 11.5 gm/dL (14.0-18.0); MANUAL DIFF YES; MCH 30.7 pg (26.0-34.0); MCHC 32.3 g/dL (28.0-37.0); PLATELET COUNT 223 thou/uL (150-400); RBC 3.74 mil/uL (4.50-6.00); RDW 16.8 % (10.5-14.5)
[2017-06-26 17:28] LABS: ANION GAP 7 mmol/L (7-16); BUN 28 mg/dL (7-18); CALCIUM 9.3 mg/dL (8.5-10.1); CHLORIDE 102 mmol/L (98-107); CO2 29 mmol/L (21-32); CREATININE 1.6 mg/dL (0.7-1.3); GLUCOSE 189 mg/dL (74-106); POTASSIUM 4.1 mmol/L (3.5-5.1); SODIUM 138 mmol/L (136-145)
[2017-06-26 17:29] LABS: ABG SAMPLE TYPE ARTERIAL; BE(vivo) -0.1 mmol/L (-2 to +3); HCO3 24.8 mmol/L (22.0-26.0); LACTATE 1.78 mmol/L (0.5-2.0); O2(CT) 16.3 mL/dL (15.0-23.0); O2Hb 94.8 % (92.0-98.0); PCO2 41.7 mmHg (35.0-45.0); PO2 82.6 mmHg (80.0-100.0); STICK SITE L.RADIAL; pH 7.393 (7.360-7.450); sO2 96.1 % (92.0-98.0); tCO2 26.1 mmol/L (24.0-30.0)
[2017-06-26 17:36] LABS: ABSOLUTE NEUTROPHILS 10.1 thou/uL (1.4-8.2); ALBUMIN 3.6 g/dL (3.4-5.0); ALKALINE PHOSPHATASE 103 U/L (46-116); SGOT 38 U/L (15-37); SGPT 63 U/L (30-65); TOTAL BILIRUBIN 0.7 mg/dL (<0.1-1.0); TOTAL CELL COUNT 100; TOTAL PROTEIN 8.5 g/dL (6.4-8.2); TROPONIN-I < 0.04 ng/mL (<0.06)
[2017-06-26 20:10] VITALS: BP 105/63
[2017-06-26 20:22] VITALS: BP 99/62
[2017-06-27 00:46] VITALS: BP 96/70
[2017-06-27 04:15] VITALS: BP 92/65
[2017-06-27 08:13] VITALS: BP 110/72
[2017-06-27 12:16] VITALS: BP 98/63
[2017-06-27 16:30] VITALS: BP 79/45
[2017-06-27 20:01] VITALS: BP 103/62
[2017-06-28 06:46] LABS: ALBUMIN 2.8 g/dL (3.4-5.0); CREATININE 1.7 mg/dL (0.7-1.3); PHOSPHORUS 2.8 mg/dL (2.5-4.9); POTASSIUM 4.3 mmol/L (3.5-5.1)
[2017-06-28 07:36] VITALS: BP 110/68
[2017-06-28 15:18] VITALS: BP 131/74
[2017-06-28 19:08] VITALS: BP 112/61
[2017-06-29 05:15] VITALS: BP 109/63
[2017-06-29 08:39] VITALS: BP 131/66
[2017-06-29] MEDS ORDERED: LEVAQUIN 500 M500 M2 PO (09:00)
[2017-06-29] MEDS ORDERED: PREDNISONE 10 M10 M1 PO (09:01)
[2017-06-29 11:40] VITALS: BP 146/83
[2017-06-29 11:50] VITALS: BP 146/83
[2017-06-29 12:27] VITALS: BP 146/83
== END 2017-06-29 12:27 | disposition home or self-care (01) | DRG 871 ==
LOC: ER 16:44 → 3W 18:28 → EROBS 18:28 → 3W 20:10 → ENTRNSPT 06-29 12:16 → EDTRNSPTSTS 06-29 12:21 → 3W 06-29 12:27
PROVIDERS: Hospitalist; Nurse Practitioner Family
PROC: 5A09357 Assistance with Respiratory Ventilation, Less than 24 Consecutive Hours, Continuous Positive Airway Pressure (ICD-10-PCS; principal; 2017-06-27)
DX: A41.9 Sepsis, unspecified organism (principal); J96.20 Acute and chronic respiratory failure, unspecified whether with hypoxia or hypercapnia; J18.9 Pneumonia, unspecified organism; J44.1 Chronic obstructive pulmonary disease with (acute) exacerbation; J44.0 Chronic obstructive pulmonary disease with (acute) lower respiratory infection; I42.9 Cardiomyopathy, unspecified; I10 Essential (primary) hypertension; E78.5 Hyperlipidemia, unspecified; K21.9 Gastro-esophageal reflux disease without esophagitis; K57.90 Diverticulosis of intestine, part unspecified, without perforation or abscess without bleeding; E11.9 Type 2 diabetes mellitus without complications; G47.33 Obstructive sleep apnea (adult) (pediatric); F41.9 Anxiety disorder, unspecified; Z85.46 Personal history of malignant neoplasm of prostate; Z95.0 Presence of cardiac pacemaker; Z90.49 Acquired absence of other specified parts of digestive tract; Z85.118 Personal history of other malignant neoplasm of bronchus and lung; Z79.899 Other long term (current) drug therapy; Z87.891 Personal history of nicotine dependence; Z86.73 Personal history of transient ischemic attack (TIA), and cerebral infarction without residual deficits
CPT/HCPCS: 10779

== ENCOUNTER 2017-09-25 14:24 | Emergency (ER) | payer OTHER ==
[~2017-09-25] VITALS: Ht 172.7 cm; Wt 87.5 kg
--- NOTE | ~2017-09-25 | EKG ---
[address] [address] ELECTROCARDIOGRAM REPORT Name: LAURA PEÑA [id number] Admission: 09/25/17 Attend Phys: Discharge: 09/25/17 Date of : 45 Report #: [id number] THIS REPORT FOR: //name// [facility] ED Test Date: 2017-09-25 Test Time: 15:11:53 Pat Name: LAUAR PEÑA Department: Room: Gender: M [employer]ix Architect: SAMIRA : 1945 Requested By: Stefany Montenegro Order Number: [id number] MD: Dalton Hernandez Measurements Intervals [place] Rate: 71 P: 65 NE: 162 QRS: 149 QRSD: 185 T: 54 QT: 516 QTc: 561 Interpretive Statements Sinus rhythm Nonspecific intraventricular conduction delay Compared to ECG 06/26/2017 17:02:49 Sinus tachycardia no longer present Electronically Signed On 09-28-2017 7:15:04 BEHAVIORAL HEALTH COUNSELOR by Dalton Hernandez [email or web address] <ELECTRONICALLY SIGNED> By: Dalton Hernandez MD, [facility] 09/28/17 0715 1511 10 Dalton Hernandez MD, FACC /EPI
[2017-09-25] MEDS ORDERED: ZOCOR20 MG PO (14:51)
[2017-09-25] MEDS ORDERED: LANTUS100 UNIT/M SUBQ (14:54)
[2017-09-25] MEDS ORDERED: PERCOCET 10-321 EACH PO (14:55)
[2017-09-25] MEDS ORDERED: AZITHROMYCIN 2250 MG PO (14:55)
[2017-09-25] MEDS ORDERED: ASPIR 8181 MG PO (14:56)
[2017-09-25 15:16] VITALS: BP 117/78
[2017-09-25 15:20] LABS: HEMATOCRIT 34.3 % (42.0-52.0); HEMOGLOBIN 11.4 gm/dL (14.0-18.0); MCH 34.1 pg (26.0-34.0); MCHC 33.4 g/dL (28.0-37.0); MCV 102.1 fL (80.0-100.0); PLATELET COUNT 181 thou/uL (150-400); RBC 3.36 mil/uL (4.50-6.00); RDW 14.1 % (10.5-14.5); WBC 6.2 thou/uL (4.0-11.0)
[2017-09-25 15:32] LABS: ANION GAP 7 mmol/L (7-16); BUN 19 mg/dL (7-18); CALCIUM 8.7 mg/dL (8.5-10.1); CHLORIDE 106 mmol/L (98-107); CO2 30 mmol/L (21-32); CREATININE 1.4 mg/dL (0.7-1.3); GLUCOSE 122 mg/dL (74-106); POTASSIUM 4.4 mmol/L (3.5-5.1); SODIUM 143 mmol/L (136-145)
[2017-09-25 15:38] LABS: DIRECT BILIRUBIN < 0.1 mg/dL (<0.1-0.3); LIPASE 115 U/L (73-393); SGOT 35 U/L (15-37); SGPT 51 U/L (30-65); TOTAL BILIRUBIN 0.5 mg/dL (<0.1-1.0); TOTAL PROTEIN 6.4 g/dL (6.4-8.2)
[2018-04-02] MEDS ORDERED: PULMICORT0.5 MG/21 INH (08:57)
== END 2017-09-25 17:22 | disposition home or self-care (01) ==
LOC: ER 14:24
PROVIDERS: Emergency Medicine
DX: R42 Dizziness and giddiness (principal); J44.1 Chronic obstructive pulmonary disease with (acute) exacerbation; I10 Essential (primary) hypertension; E11.9 Type 2 diabetes mellitus without complications; E78.5 Hyperlipidemia, unspecified; K21.9 Gastro-esophageal reflux disease without esophagitis; Z85.46 Personal history of malignant neoplasm of prostate; Z87.891 Personal history of nicotine dependence; Z79.4 Long term (current) use of insulin

== ENCOUNTER 2017-10-17 18:09 | Inpatient (IN) | payer OTHER ==
[~2017-10-17] VITALS: Ht 172.7 cm; Wt 88.9 kg
--- NOTE | ~2017-10-17 | HC ---
[facility] [place] [place] [address] CONSULTATION Name: LAURA PEÑA Room #: 447-P [facility] IN M.R.#: [id number] Admission: 10/17/17 Attend Phys: Isaias Fernandez MD Discharge: 10/19/17 Date of : 45 Report #: [id number] THIS REPORT FOR: //name// CC: Isaias Herron DATE OF SERVICE: 10/18/2017 HISTORY OF PRESENT ILLNESS: This is a 72-year-old male patient who was admitted with somewhat of unusual symptoms. This patient had paresthesias in both upper extremities. They came spontaneously. He also had some paresthesias in the lips area. They were severe. They are somewhat better. He does not know any aggravating or relieving factors for that. He did not have any TIRE CARE MANAGER symptoms from that. REVIEW OF SYSTEMS: Indicate that this patient had a recent admission. During that admission, the patient was worked up for the possibility of stroke-like symptom by Dr. Stuart. He did have an MRI in spite of his pacemaker and defibrillator. Apparently, his pacemaker and defibrillator are compatible with MRI. He has multiple vascular risk factors, which include chronic obstructive pulmonary disease, hypertension, diabetes, coronary artery disease. Last time his symptoms were more focal. He also had some headache at that time. From him as well as from the record, it looks like he has been admitted with multiple problems sometimes and that include abdominal pain, chest pain, chronic obstructive pulmonary disease, congestive heart failure, cardiomyopathy, coronary artery disease, diabetes, hypertension, abnormality of magnesium, pancreas and lung problem. The last time he was admitted, it does not look like any cerebrovascular accident was documented. He had hemicolectomy. He has a history of lung carcinoma and diverticulosis. He also has a history of gastroparesis. The patient also has a history of sleep apnea. I carried out his 14-point review of systems and this was his relevant 14-point review of systems. PAST MEDICAL HISTORY: Positive for transient ischemic attack-like spells. FAMILY HISTORY: Unremarkable. SOCIAL HISTORY: He is a former smoker. PHYSICAL EXAMINATION: Indicate he is alert, responsive, oriented. His speech, concentration, fund of knowledge and memory is at his baseline. His cranial nerve examination 2-12 looks unremarkable. He has symmetrical strength, sensation, reflexes and tones in all 4 extremities. There is no cerebellar sign or papilledema. He is a reasonably well-built individual. His pulses are difficult to feel. There is no edema, cyanosis or jaundice. Hearing and vision look adequate. He has no thyroid mass. Cardiac examination indicates he has a [facility] [address] [place] [address] CONSULTATION Name: LAURA PEÑA Room #: 447-P [facility] IN ..#: [id number] Admission: 10/17/17 Attend Phys: Isaias Fernandez MD Discharge: 10/19/17 Date of : 45 Report #: [id number] pacemaker and defibrillator, but is otherwise unremarkable. No respiratory difficulty or rhonchi. His blood pressure is 134/82, his pulse is 61, and his temperature is 97.4. LABORATORY DATA: Indicate white count of 7.8 and his creatinine is high at 1.6 and it was 1.3 last time. IMPRESSION: It is not clear what the patient's symptoms are from. I think he needs some more workup for transient ischemic attack. We do need a study of his vasculature. I was told by Emergency Room doctor that his defibrillator and pacemaker is MRI compatible. That is a possibility, although it is unusual for the defibrillator to be compatible in my experience. Therefore, I asked the nurses to check with MRI people before he goes for MRI. I think he needs a spine workup too, especially if MRI of the brain comes out to be unremarkable. The easiest way will be to obtain a cervical spine MRI on him, but we must make sure that his defibrillator and pacemaker are compatible, which is unusual, but I guess is possible and the radiologist must make sure of that. RECOMMENDATION: If MRI can be done, then we can do an MRA of the head and neck and subsequently then do an MRI of the C-spine if the other workup is negative. If not, then I think we need to do the cervical spine evaluation by some other means and then we will do a carotid Doppler and may consider a CT angiogram. Although his GFR is 52, I am somewhat reluctant because his creatinine is 1.6. Nurses will find out from MRI if the patient has an MRI compatible defibrillator and pacemaker and then we will go from there. Thank you very much for this referral. <ELECTRONICALLY SIGNED> By: Idris Becker MD 10/24/17 1549 1053 1139 Idris Becker MD /nt
--- NOTE | ~2017-10-17 | EKG ---
[address] [address] ELECTROCARDIOGRAM REPORT Name: LAURA PEÑA Room #: 447-P ADM IN M.R.#: [id number] Admission: 10/17/17 Attend Phys: Isaias Fernandez MD Discharge: Date of : 45 Report #: [id number] THIS REPORT FOR: //name// [facility] ED Test Date: 2017-10-17 Test Time: 18:56:41 Pat Name: LAURA PEÑA Department: Room: [facility] Gender: M Box Car Bracer: killian : 1945 Requested By: Stefany Montenegro Order Number: [id number] MD: Graham Quezada Measurements Intervals [place] Rate: 74 P: 57 FL: 163 QRS: 156 QRSD: 190 T: 57 QT: 514 QTc: 571 Interpretive Statements Sinus rhythm Nonspecific intraventricular conduction delay Compared to ECG 09/25/2017 15:11:53 No significant changes Electronically Signed On 10-18-2017 10:23:34 CLAIMS ASSOCIATE by Graham Quezada [email or web address] <ELECTRONICALLY SIGNED> By: Graham Quezada MD 10/18/17 1023 55 55 Graham Quezada MD /LIZ
[~2017-10-17 18:09] MED LIST changes: +ASPIR 8181 MG PO; +LANTUS100 UNIT/M SUBQ; +ZOCOR20 MG PO
[2017-10-17 18:13] VITALS: BP 116/71
[2017-10-17] MEDS ORDERED: DOXYCYCLINE 10100 M1 PO (18:30)
[2017-10-17] MEDS ORDERED: FLONASE 0.05%50 MCG NASAL (18:31)
[2017-10-17] MEDS ORDERED: ZYRTEC10 M5 PO (18:31)
[2017-10-17 18:44] LABS: HEMATOCRIT 38.9 % (42.0-52.0); HEMOGLOBIN 13.1 gm/dL (14.0-18.0); MCH 34.3 pg (26.0-34.0); MCHC 33.6 g/dL (28.0-37.0); PLATELET COUNT 216 thou/uL (150-400); RBC 3.82 mil/uL (4.50-6.00); RDW 14.1 % (10.5-14.5); WBC 7.8 thou/uL (4.0-11.0)
[2017-10-17 18:50] LABS: CALCIUM 9.1 mg/dL (8.5-10.1); CREATININE 1.6 mg/dL (0.7-1.3)
[2017-10-17 21:04] VITALS: BP 139/85
[2017-10-18 08:00] VITALS: BP 134/82
[2017-10-18 08:23] VITALS: BP 127/77
[2017-10-18 11:18] LABS: CALCIUM 9.1 mg/dL (8.5-10.1); CREATININE 1.3 mg/dL (0.7-1.3); POTASSIUM 3.9 mmol/L (3.5-5.1)
[2017-10-18 16:00] VITALS: BP 116/75
[2017-10-18 20:17] VITALS: BP 116/77
[2017-10-19 04:25] VITALS: BP 124/62
[2017-10-19 08:00] VITALS: BP 112/69
[2017-10-19 16:00] VITALS: BP 96/52
[2017-10-19 17:38] VITALS: BP 96/52
[2018-04-02] MEDS ORDERED: PULMICORT0.5 MG/21 INH (08:57)
== END 2017-10-19 18:00 | disposition home or self-care (01) | DRG 91 ==
LOC: ER 18:09 → EROBS 21:02 → 4S 21:02
PROVIDERS: Emergency Medicine; Nurse Practitioner Family
DX: R20.2 Paresthesia of skin (principal); E43 Unspecified severe protein-calorie malnutrition; N17.0 Acute kidney failure with tubular necrosis; I42.8 Other cardiomyopathies; J44.9 Chronic obstructive pulmonary disease, unspecified; K21.9 Gastro-esophageal reflux disease without esophagitis; K57.90 Diverticulosis of intestine, part unspecified, without perforation or abscess without bleeding; G47.33 Obstructive sleep apnea (adult) (pediatric); F41.9 Anxiety disorder, unspecified; I25.10 Atherosclerotic heart disease of native coronary artery without angina pectoris; G89.29 Other chronic pain; M54.9 Dorsalgia, unspecified; K86.9 Disease of pancreas, unspecified; I10 Essential (primary) hypertension; Z85.46 Personal history of malignant neoplasm of prostate; E11.9 Type 2 diabetes mellitus without complications; E78.5 Hyperlipidemia, unspecified; Z95.0 Presence of cardiac pacemaker; Z90.49 Acquired absence of other specified parts of digestive tract; Z85.118 Personal history of other malignant neoplasm of bronchus and lung; Z87.891 Personal history of nicotine dependence; Z86.73 Personal history of transient ischemic attack (TIA), and cerebral infarction without residual deficits; Z83.3 Family history of diabetes mellitus; Z82.49 Family history of ischemic heart disease and other diseases of the circulatory system; Z82.5 Family history of asthma and other chronic lower respiratory diseases; Z68.29 Body mass index [BMI] 29.0-29.9, adult
CPT/HCPCS: 10100

== ENCOUNTER 2018-01-24 22:47 | Emergency (ER) | payer OTHER ==
[~2018-01-24] VITALS: Ht 172.7 cm; Wt 92.5 kg
--- NOTE | ~2018-01-24 | EKG ---
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 : 1945 Requested By: Lionel Lockett Order Number: [id number] MD: Graham Quezada Measurements Intervals [place] Rate: 80 P: 68 NM: 180 QRS: 163 QRSD: 192 T: 43 QT: 520 QTc: 600 Interpretive Statements Sinus rhythm Probable left atrial enlargement Nonspecific intraventricular conduction delay Compared to ECG 10/17/2017 18:56:41 No significant changes Electronically Signed On 01-25-2018 8:02:01 CDT by Graham Quezada [email or web address] <ELECTRONICALLY SIGNED> By: Graham Quezada MD 01/25/18 0802 34 34 Graham Quezada MD /LIZ
[~2018-01-24 22:47] MED LIST changes: +ZYRTEC10 M5 PO
[2018-01-24] MEDS ORDERED: AUGMENTIN 875-1 EACH PO (23:15)
[2018-01-24] MEDS ORDERED: STIOLTO RESPIMAT4 GM (23:18)
[2018-01-24 23:32] LABS: HEMOGLOBIN 12.4 gm/dL (14.0-18.0); MCHC 33.4 g/dL (28.0-37.0); MCV 101.9 fL (80.0-100.0); PLATELET COUNT 212 thou/uL (150-400); RBC 3.64 mil/uL (4.50-6.00); WBC 4.8 thou/uL (4.0-11.0)
[2018-01-24 23:40] LABS: ANION GAP 6 mmol/L (7-16); BUN 18 mg/dL (7-18); CALCIUM 8.6 mg/dL (8.5-10.1); CHLORIDE 107 mmol/L (98-107); CO2 31 mmol/L (21-32); CREATININE 1.4 mg/dL (0.7-1.3); GLUCOSE 206 mg/dL (74-106); POTASSIUM 4.3 mmol/L (3.5-5.1); SODIUM 144 mmol/L (136-145)
[2018-01-24 23:49] LABS: TROPONIN-I < 0.04 ng/mL (<0.06)
[2018-01-24 23:57] LABS: ABSOLUTE NEUTROPHILS 2.7 thou/uL (1.4-8.2); ATYPICAL LYMPHS 1 %
[2018-01-25] MEDS ORDERED: PREDNISONE 20 M20 MG PO (02:54)
== END 2018-01-25 03:10 | disposition home or self-care (01) ==
LOC: ER 22:47
PROVIDERS: Emergency Medicine
DX: R06.02 Shortness of breath (principal); R07.9 Chest pain, unspecified; J44.9 Chronic obstructive pulmonary disease, unspecified; F41.9 Anxiety disorder, unspecified; E11.9 Type 2 diabetes mellitus without complications; I11.0 Hypertensive heart disease with heart failure; I50.9 Heart failure, unspecified; I25.2 Old myocardial infarction; Z85.46 Personal history of malignant neoplasm of prostate; Z85.118 Personal history of other malignant neoplasm of bronchus and lung; Z86.79 Personal history of other diseases of the circulatory system; Z90.89 Acquired absence of other organs; Z87.891 Personal history of nicotine dependence

== ENCOUNTER 2018-02-13 22:36 | Inpatient (IN) | payer OTHER ==
[~2018-02-13] VITALS: Ht 172.7 cm; Wt 93.0 kg
--- NOTE | ~2018-02-13 | EKG ---
[place] [address] 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 : 1945 Requested By: Fazal Claros Order Number: [id number] MD: Dalton Hernandez Measurements Intervals [place] Rate: 97 P: 0 ME: 45 QRS: 133 QRSD: 186 T: QT: 395 QTc: 502 Interpretive Statements Baseline artifact limits interpretation probable sinus rhythm intraventricular conduction delay no previous ECGs available for comparison recommend repeat tracing in the absence of artifact Electronically Signed On 02-15-2018 16:56:34 CDT by Dalton Hernandez [email or web address] <ELECTRONICALLY SIGNED> By: Dalton Hrenandez MD, [facility] 02/15/18 1656 35 35 Dalton Hernandez MD, [facility] /EPI
[~2018-02-13 22:36] MED LIST changes: +AUGMENTIN 875-1 EACH PO; +STIOLTO RESPIMAT4 GM
[2018-02-13 23:00] VITALS: BP 122/79
[2018-02-13 23:29] LABS: BE(vivo) 1.4 mmol/L (-2 to +3); HCO3 28.9 mmol/L (22.0-26.0); PCO2 59.1 mmHg (35.0-45.0); PO2 71.4 mmHg (80.0-100.0); pH 7.307 (7.360-7.450); sO2 92.5 % (92.0-98.0)
[2018-02-13] MEDS ORDERED: PACERONE 200 M200 M1 PO (23:35)
[2018-02-13] MEDS ORDERED: VENTOLIN HFA 1818 GM INH (23:38)
[2018-02-13] MEDS ORDERED: AZITHROMYCIN 2250 MG PO (23:39)
[2018-02-13 23:47] LABS: HEMATOCRIT 35.7 % (42.0-52.0); HEMOGLOBIN 12.3 gm/dL (14.0-18.0); MCH 34.7 pg (26.0-34.0); MCHC 34.6 g/dL (28.0-37.0); MCV 100.3 fL (80.0-100.0); PLATELET COUNT 159 thou/uL (150-400); RBC 3.55 mil/uL (4.50-6.00); WBC 7.4 thou/uL (4.0-11.0)
[2018-02-13 23:56] LABS: ANION GAP 2 mmol/L (7-16); BUN 16 mg/dL (7-18); CALCIUM 9.3 mg/dL (8.5-10.1); CHLORIDE 105 mmol/L (98-107); CO2 33 mmol/L (21-32); CREATININE 1.7 mg/dL (0.7-1.3); GLUCOSE 208 mg/dL (74-106); POTASSIUM 3.9 mmol/L (3.5-5.1); SODIUM 140 mmol/L (136-145)
[2018-02-14 00:04] LABS: ALBUMIN 3.5 g/dL (3.4-5.0); MAGNESIUM 1.7 mg/dL (1.8-2.4); SGOT 43 U/L (15-37); SGPT 77 U/L (30-65); TOTAL BILIRUBIN 0.6 mg/dL (<0.1-1.0); TOTAL PROTEIN 7.1 g/dL (6.4-8.2); TROPONIN-I <0.06 ng/mL (<0.06)
[2018-02-14 00:22] LABS: ABSOLUTE NEUTROPHILS 4.9 thou/uL (1.4-8.2); LARGE PLATELETS OCCASIONAL
[2018-02-14 01:13] VITALS: BP 116/75
[2018-02-14 02:30] VITALS: BP 108/73
[2018-02-14 05:07] VITALS: BP 119/78
[2018-02-14 07:52] LABS: HCO3 28.3 mmol/L (22.0-26.0); PCO2 51.8 mmHg (35.0-45.0); PO2 98.5 mmHg (80.0-100.0); pH 7.356 (7.360-7.450); sO2 97.1 % (92.0-98.0)
[2018-02-14 08:45] VITALS: BP 119/84
[2018-02-14 16:30] VITALS: BP 113/73
[2018-02-14 20:00] VITALS: BP 113/66
[2018-02-15 05:36] VITALS: BP 124/76
[2018-02-15 07:03] LABS: ALBUMIN 3.1 g/dL (3.4-5.0); ANION GAP 2 mmol/L (7-16); BUN 16 mg/dL (7-18); CALCIUM 9.2 mg/dL (8.5-10.1); CHLORIDE 104 mmol/L (98-107); CO2 33 mmol/L (21-32); CREATININE 1.2 mg/dL (0.7-1.3); GLUCOSE 204 mg/dL (74-106); PHOSPHORUS 3.7 mg/dL (2.5-4.9); SODIUM 139 mmol/L (136-145); TROPONIN-I <0.06 ng/mL (<0.06)
[2018-02-15 07:20] VITALS: BP 107/65
[2018-02-15 16:29] VITALS: BP 110/65
[2018-02-15 19:40] VITALS: BP 123/75
[2018-02-16 04:07] VITALS: BP 128/89
[2018-02-16 08:36] VITALS: BP 121/79
[2018-02-16 19:52] VITALS: BP 146/85
[2018-02-17 02:11] LABS: ADENOVIRUS Negative (Negative); INFLUENZA A Negative (Negative); INFLUENZA B Negative (Negative); METAPNEUMOVIRUS Negative (Negative); PARAINFLUENZA 1 Negative (Negative); PARAINFLUENZA 2 Negative (Negative); PARAINFLUENZA 3 Negative (Negative); RHINOVIRUS Negative (Negative); RSV A Negative (Negative); RSV B Negative (Negative)
[2018-02-17 03:40] VITALS: BP 123/66; BP 127/84
[2018-02-17 09:00] VITALS: BP 132/37
[2018-02-17 16:42] VITALS: BP 132/37
[2018-02-17 20:30] VITALS: BP 127/83
[2018-02-17 23:00] VITALS: BP 122/72
[2018-02-18 04:30] VITALS: BP 114/69
[2018-02-18] MEDS ORDERED: LEVAQUIN 500 M500 M2 PO (09:33)
[2018-02-18] MEDS ORDERED: PREDNISONE 10 M10 MG PO (09:34)
[2018-02-18 11:39] VITALS: BP 147/78
== END 2018-02-18 13:00 | disposition home or self-care (01) | DRG 682 ==
LOC: ER 22:36 → EROBS 02-14 00:53 → 4E 02-14 00:53 → ENTRNSPT 02-18 11:44 → EDTRNSPTSTS 02-18 11:46 → 4E 02-18 13:00
PROVIDERS: Emergency Medicine; Nurse Practitioner Acute Care
PROC: 5A09357 Assistance with Respiratory Ventilation, Less than 24 Consecutive Hours, Continuous Positive Airway Pressure (ICD-10-PCS; principal; 2018-02-14)
PROC: 5A09357 Assistance with Respiratory Ventilation, Less than 24 Consecutive Hours, Continuous Positive Airway Pressure (ICD-10-PCS; 2018-02-15)
PROC: 5A09357 Assistance with Respiratory Ventilation, Less than 24 Consecutive Hours, Continuous Positive Airway Pressure (ICD-10-PCS; 2018-02-17)
PROC: 5A09357 Assistance with Respiratory Ventilation, Less than 24 Consecutive Hours, Continuous Positive Airway Pressure (ICD-10-PCS; 2018-02-18)
DX: N17.9 Acute kidney failure, unspecified (principal); J96.20 Acute and chronic respiratory failure, unspecified whether with hypoxia or hypercapnia; J44.1 Chronic obstructive pulmonary disease with (acute) exacerbation; I50.22 Chronic systolic (congestive) heart failure; I42.8 Other cardiomyopathies; E87.2 Acidosis; I13.0 Hypertensive heart and chronic kidney disease with heart failure and stage 1 through stage 4 chronic kidney disease, or unspecified chronic kidney disease; I25.10 Atherosclerotic heart disease of native coronary artery without angina pectoris; G47.33 Obstructive sleep apnea (adult) (pediatric); F41.9 Anxiety disorder, unspecified; E11.22 Type 2 diabetes mellitus with diabetic chronic kidney disease; R74.0 Nonspecific elevation of levels of transaminase and lactic acid dehydrogenase [LDH]; E83.42 Hypomagnesemia; N18.3 Chronic kidney disease, stage 3 (moderate); K21.9 Gastro-esophageal reflux disease without esophagitis; K57.90 Diverticulosis of intestine, part unspecified, without perforation or abscess without bleeding; E78.5 Hyperlipidemia, unspecified; Z85.46 Personal history of malignant neoplasm of prostate; Z85.118 Personal history of other malignant neoplasm of bronchus and lung; Z90.49 Acquired absence of other specified parts of digestive tract; Z87.891 Personal history of nicotine dependence; Z82.5 Family history of asthma and other chronic lower respiratory diseases; Z82.49 Family history of ischemic heart disease and other diseases of the circulatory system; Z83.3 Family history of diabetes mellitus; Z79.82 Long term (current) use of aspirin; Z79.899 Other long term (current) drug therapy; Z99.81 Dependence on supplemental oxygen
CPT/HCPCS: 10183

== ENCOUNTER 2018-06-01 09:41 | Inpatient (IN) | payer OTHER ==
[2018-06-01] VITALS (7 sets, daily range): BP systolic 114–141; BP diastolic 58–87
[~2018-06-01] VITALS: Ht 172.7 cm; Wt 97.2 kg
--- NOTE | ~2018-06-01 | HC ---
[facility] [place] [place] [address] CONSULTATION Name: LAURA PEÑA Room #: 357-P ADM IN M.R.#: [id number] Admission: 06/01/18 Attend Phys: Isaias Fernandez MD Discharge: Date of : 45 Report #: [id number] THIS REPORT FOR: //name// CC: Isaias Herron DATE OF SERVICE: 06/09/2018 HISTORY OF PRESENT ILLNESS: The patient is a 73-year-old -[place] male admitted with acute on chronic hypoxic hypercarbic respiratory failure, noted to have pneumonia, COPD. He has nonischemic cardiomyopathy. He has been on decreasing corticosteroids. He has been diagnosed with a COPD exacerbation. He has chronic kidney disease with Nephrology involved. He has bilateral nodular infiltrate with pneumonia and is on IV antibiotics. He has a nonischemic cardiomyopathy with a left ventricular ejection fraction of about 20%. He is noted to have atypical chest pain, which is musculoskeletal and noted to be stable. We are seeing him in rehabilitation medicine consultation. PAST MEDICAL HISTORY: Extensive. He has a history of CHF, COPD, prostate CA, bronchitis, gastroparesis, insulin-dependent diabetes, GERD, dyslipidemia, multiple MIs last one in , lung cancer last radiation treatment on 08/05/2015, pacemaker defibrillator placed in 05/2016. He had a prior subtotal colectomy and has an ostomy. ALLERGIES: No known drug allergies. MEDICATIONS: Please see the full medication listing this includes vitamins, herbals, and supplements. HABITS: Tobacco use 50 years, quit greater than a year ago. History of alcohol use monthly. FAMILY HISTORY: Positive for asthma, COPD, diabetes mellitus and hypertension. SOCIAL HISTORY: Lives in a house with his , 4 steps in, 13 inside, was on 2 liters nasal prong O2 at home, had a cane on occasion that he would utilize, is retired. REVIEW OF SYSTEMS: Did not offer any current complaints of chest pain, shortness of breath, abdominal discomfort. He has had some prior chest discomfort, noted to be musculoskeletal that has resolved. No focal extremity pain complaints. GENERAL: He is a pleasant 73-year-old -[place] male, in no obvious distress. VITAL SIGNS: Last recorded temperature 98.1, pulse 66, respirations 18, blood pressure 117/75. He is alert, currently on 3 liters nasal cannula. [address] [address] CONSULTATION Name: LAURA PEÑA Room #: 357-P [facility] IN M.R.#: [id number] Admission: 06/01/18 Attend Phys: Isaias Fernandez MD Discharge: Date of : 45 Report #: [id number] NEUROLOGIC: Facies are symmetric. EXTREMITIES: He has functional range of motion of the upper extremity strength is grade 4-/5. DTRs are trace to 1. Lower extremities, no focal calf swelling, functional range of motion, strength is grade 3 to 4-/5. Tone is intact. He is standby assistance with sit to stand. Gait was min assist short distances with a front-wheeled walker, 2.5 liters nasal cannula. ASSESSMENT: A 73-year-old white male with the following problem list: 1. Pulmonary rehabilitation. 2. Acute on chronic hypoxic and hypercarbic respiratory failure. 3. Atypical chest pain, musculoskeletal. 4. Chronic obstructive pulmonary disease exacerbation. 5. Bilateral nodular infiltrates with pneumonia. 6. Medical complexity with generalized debilitation. 7. Chronic kidney disease. 8. Nonischemic cardiomyopathy. 9. Hypertension. 10. Coronary artery disease. 11. Obstructive sleep apnea. PLAN: We are assessing the patient to see if he would meet diagnostic and functional criteria for an acute in-hospital inpatient rehabilitation stay. We will be glad to follow along with you regarding his rehab therapy needs. By: 1135 1311 Brad He MD /MEENU
--- NOTE | ~2018-06-01 | HC ---
[facility] [place] [address] [address] CONSULTATION Name: LAURA PEÑA Room #: 357-P ADM IN M.R.#: [id number] Admission: 06/01/18 Attend Phys: Isaias Fernandez MD Discharge: Date of : 45 Report #: [id number] THIS REPORT FOR: //name// CC: Isaias Herron DATE OF SERVICE: 06/02/2018 NEPHROLOGY CONSULTATION REASON FOR CONSULTATION: Elevated creatinine. HISTORY OF PRESENT ILLNESS: A 73-year-old patient with multiple medical problems, has COPD, presented with an exacerbation. He has had mildly progressive increase in serum creatinine since the time of a total colectomy and ileostomy. His creatinine marginally up a little further this time from 1.3 to 1.5. We were asked to see the patient. PAST MEDICAL HISTORY: He had lung cancer in 2011, treated with a gamma knife apparently without recurrence. He has rather severe COPD. He has ischemic cardiomyopathy with an pacemaker and ICD in place. 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 There is also some history of obstructive sleep apnea as well as severe progressive COPD and some glucose intolerance as well. ALLERGIES: REPORTEDLY TO LISINOPRIL, WHICH CAUSED AN ANGIOEDEMA REACTION. PAST SURGICAL HISTORY: Addendum includes rotator cuff surgery, carpal tunnel surgery. FAMILY HISTORY: Positive for only cirrhosis and father with emphysema. No diabetes or kidney disease in the family. SOCIAL HISTORY: Was a very heavy smoker, but he quit. REVIEW OF SYSTEMS: GENERAL: He has been having trouble with his breathing. EYES: His vision is okay. ENT: Hearing okay, swallows okay. ENDOCRINE: Positive for the diabetes. RESPIRATORY: Easily short-winded. CARDIAC: No chest pain or arrhythmia. GASTROINTESTINAL: No nausea, vomiting or diarrhea. GENITOURINARY: Reasonably good stream. [facility] [address] [place] [address] CONSULTATION Name: LAURA PEÑA Room #: 357-P ADM IN M.R.#: [id number] Admission: 06/01/18 Attend Phys: Isaias Fernandez MD Discharge: Date of : 45 Report #: [id number] NEUROLOGIC: No seizure, syncope, stroke or evidence of peripheral neuropathy. HEMATOLOGIC: No easy bruising. PHYSICAL EXAMINATION: GENERAL: This is a reasonably comfortable appearing gentleman. He is comfortable at rest, not short winded, seen in bed. SKIN: Unremarkable. SKELETAL: Well developed, well nourished. HEENT: Extraocular movements are full. Vision intact. No scleral icterus. Hearing intact. Mucous membranes moist. NECK: Supple, no carotid bruits or JVD. CHEST: Shows slightly diminished breath sounds. HEART: Regular. ABDOMEN: Soft. Ileostomy in place. EXTREMITIES: Show no edema. NEUROLOGIC: Intact. LABORATORY DATA: No urinalysis done this admission. Hemoglobin is 12.7, platelets 150. Sodium 141, potassium 4, chloride 105, bicarbonate 32, creatinine 1.5, BUN 19. ASSESSMENT: 1. Elevated creatinine, almost certainly a volume problem compounded by likely some degree of right-sided congestive heart failure and left-sided congestive heart failure due to his bad heart and chronic obstructive pulmonary disease and likely the renal insufficiency is of a secondary nature. We will send some urinary studies for completeness as well as paraprotein studies for completeness and renal sonogram for completeness 2. Chronic obstructive pulmonary disease with exacerbation. 3. Subtotal colectomy and partial small bowel resection with ileostomy. 4. History of lung cancer, treated with gamma knife. 5. History of prostate cancer, treated with radiation. By: 1029 40 Chaim Mojica MD /nt
--- NOTE | ~2018-06-01 | EKG ---
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 : 1945 Requested By: Fazal Claros Order Number: [id number] MD: Graham Quezada Measurements Intervals [place] Rate: 80 P: 38 MO: 193 QRS: 163 QRSD: 188 T: 30 QT: 490 QTc: 566 Interpretive Statements Sinus rhythm Ventricular premature complex Probable left atrial enlargement Nonspecific intraventricular conduction delay Compared to ECG 03/30/2018 20:42:47 Electronically Signed On 06-01-2018 17:16:30 CDT by Graham Quezada [email or web address] <ELECTRONICALLY SIGNED> By: Graham Quezada MD 06/01/18 1716 Graham Quezada MD /LIZ
[~2018-06-01 09:41] MED LIST changes: +PULMICORT0.5 MG/21 INH; +VENTOLIN HFA 1818 GM INH
[2018-06-01 10:03] LABS: BE(vivo) 3.4 mmol/L (-2 to +3); HCO3 30.8 mmol/L (22.0-26.0); PCO2 59.3 mmHg (35.0-45.0); pH 7.333 (7.360-7.450); sO2 97.1 % (92.0-98.0)
[2018-06-01 10:12] LABS: HEMATOCRIT 38.3 % (42.0-52.0); HEMOGLOBIN 12.7 gm/dL (14.0-18.0); MCH 33.9 pg (26.0-34.0); MCHC 33.3 g/dL (28.0-37.0); MCV 101.8 fL (80.0-100.0); PLATELET COUNT 150 thou/uL (150-400); RBC 3.76 mil/uL (4.50-6.00); RDW 13.1 % (10.5-14.5); WBC 5.8 thou/uL (4.0-11.0)
[2018-06-01 10:23] LABS: ANION GAP 4 mmol/L (7-16); BUN 19 mg/dL (7-18); CALCIUM 9.2 mg/dL (8.5-10.1); CHLORIDE 105 mmol/L (98-107); CO2 32 mmol/L (21-32); CREATININE 1.5 mg/dL (0.7-1.3); GLUCOSE 149 mg/dL (74-106); SODIUM 141 mmol/L (136-145)
[2018-06-01 10:32] LABS: ALBUMIN 3.3 g/dL (3.4-5.0); SGOT 54 U/L (15-37); SGPT 93 U/L (30-65); TOTAL BILIRUBIN 0.5 mg/dL (<0.1-1.0); TOTAL PROTEIN 7.2 g/dL (6.4-8.2); TROPONIN-I <0.06 ng/mL (<0.06)
[2018-06-01 11:07] LABS: ABSOLUTE NEUTROPHILS 3.6 thou/uL (1.4-8.2); ANISOCYTOSIS SLIGHT; METAMYELOCYTES 2 %
[2018-06-02 04:17] VITALS: BP 107/70
[2018-06-02 07:51] VITALS: BP 118/78
[2018-06-02 11:45] LABS: URINE BILIRUBIN NEGATIVE (Negative); URINE BLOOD 1+ (Negative); URINE CLARITY CLEAR; URINE COLOR YELLOW; URINE GLUCOSE-RANDOM* TRACE (Negative); URINE KETONES NEGATIVE (Negative); URINE LEUKOCYTES TRACE (Negative); URINE NITRITE NEGATIVE (Negative); URINE PROTEIN (DIPSTICK) NEGATIVE (Negative); URINE UROBILINOGEN 0.2 E.U./dl (0.2-1.0)
[2018-06-02 11:51] LABS: PROT/CREAT RATIO 0.2; URINE CREATININE-RANDOM* 46.5 mg/dL; URINE PROTEIN-RANDOM* 8.9 mg/dL (<11.9)
[2018-06-02 12:00] LABS: BACTERIA 1-9 Few /HPF (None Seen); CASTS None Seen /LPF (None Seen); CRYSTALS None Seen /LPF (None Seen); SQUAMOUS None Seen /LPF (0-3); URINE RBC None Seen /HPF (0-2); URINE WBC 0-5 Rare /HPF (0-5)
[2018-06-02 15:20] VITALS: BP 104/74
[2018-06-02 19:09] VITALS: BP 124/88
[2018-06-03 03:58] VITALS: BP 103/65
[2018-06-03 05:43] LABS: ABSOLUTE NEUTROPHILS 10.5 thou/uL (1.4-8.2); HEMATOCRIT 35.9 % (42.0-52.0); HEMOGLOBIN 11.7 gm/dL (14.0-18.0); MCH 33.2 pg (26.0-34.0); MCHC 32.6 g/dL (28.0-37.0); MCV 101.8 fL (80.0-100.0); MONOCYTES 3.4 % (1.0-8.0); PLATELET COUNT 163 thou/uL (150-400); POLYS 93.6 % (36.0-66.0); RBC 3.53 mil/uL (4.50-6.00); RDW 13.4 % (10.5-14.5); WBC 11.3 thou/uL (4.0-11.0)
[2018-06-03 05:53] LABS: ALBUMIN 2.9 g/dL (3.4-5.0); CALCIUM 8.5 mg/dL (8.5-10.1); CREATININE 1.2 mg/dL (0.7-1.3); MAGNESIUM 2.1 mg/dL (1.8-2.4); POTASSIUM 4.5 mmol/L (3.5-5.1)
[2018-06-03 08:17] VITALS: BP 143/96
[2018-06-03 15:11] LABS: KAPPA FREE LIGHT CHAINS 23.2 mg/L (3.3-19.4); KAPPA/LAMBDA RATIO 1.29 (0.26-1.65)
[2018-06-03 16:14] VITALS: BP 126/82
[2018-06-03 19:20] VITALS: BP 103/71
[2018-06-04 04:10] VITALS: BP 102/70
[2018-06-04 05:42] LABS: HEMATOCRIT 36.1 % (42.0-52.0); HEMOGLOBIN 11.9 gm/dL (14.0-18.0); MCH 33.9 pg (26.0-34.0); MCHC 32.8 g/dL (28.0-37.0); MCV 103.2 fL (80.0-100.0); RBC 3.5 mil/uL (4.50-6.00); RDW 13.5 % (10.5-14.5); WBC 9.4 thou/uL (4.0-11.0)
[2018-06-04 06:07] LABS: ALBUMIN 2.9 g/dL (3.4-5.0); CALCIUM 8.7 mg/dL (8.5-10.1); CREATININE 1.5 mg/dL (0.7-1.3); PHOSPHORUS 3.4 mg/dL (2.5-4.9); POTASSIUM 5.1 mmol/L (3.5-5.1)
[2018-06-04 07:10] VITALS: BP 110/67
[2018-06-04 12:15] VITALS: BP 92/68
[2018-06-04 13:53] VITALS: BP 92/68
[2018-06-04 17:31] VITALS: BP 130/80
[2018-06-04 19:01] VITALS: BP 119/83
[2018-06-05 03:15] VITALS: BP 111/73
[2018-06-05 06:34] LABS: HEMATOCRIT 36.6 % (42.0-52.0); HEMOGLOBIN 12.1 gm/dL (14.0-18.0); MCH 34.3 pg (26.0-34.0); MCHC 33.1 g/dL (28.0-37.0); MCV 103.6 fL (80.0-100.0); RBC 3.54 mil/uL (4.50-6.00); RDW 13.3 % (10.5-14.5); WBC 8.2 thou/uL (4.0-11.0)
[2018-06-05 06:53] LABS: CALCIUM 9.1 mg/dL (8.5-10.1); CREATININE 1.5 mg/dL (0.7-1.3); POTASSIUM 4.9 mmol/L (3.5-5.1)
[2018-06-05 07:40] VITALS: BP 127/78
[2018-06-05 12:02] VITALS: BP 130/76
[2018-06-05 16:23] VITALS: BP 118/79
[2018-06-05 19:17] VITALS: BP 123/80
[2018-06-06 04:33] VITALS: BP 105/74
[2018-06-06 07:59] VITALS: BP 110/72
[2018-06-06 11:49] VITALS: BP 109/82
[2018-06-06 15:26] VITALS: BP 121/84
[2018-06-06 19:50] VITALS: BP 117/84
[2018-06-07 03:41] VITALS: BP 117/80
[2018-06-07 04:20] LABS: ALBUMIN 2.7 g/dL (3.4-5.0); CALCIUM 8.5 mg/dL (8.5-10.1); CREATININE 1.3 mg/dL (0.7-1.3); PHOSPHORUS 3.4 mg/dL (2.5-4.9); POTASSIUM 5.3 mmol/L (3.5-5.1)
[2018-06-07 07:13] VITALS: BP 115/75
[2018-06-07 16:47] VITALS: BP 101/70
[2018-06-07 19:17] VITALS: BP 125/75
[2018-06-08 03:31] VITALS: BP 129/86
[2018-06-08 08:21] VITALS: BP 149/96
[2018-06-08 16:58] VITALS: BP 124/69
[2018-06-08 17:12] LABS: GLOBULIN TOTAL 2.9 g/dL (2.2-3.9); M-SPIKE Not Observed g/dL (Not Observed)
[2018-06-08 19:52] VITALS: BP 134/85
[2018-06-09 05:22] VITALS: BP 108/75
[2018-06-09 06:08] LABS: ALBUMIN 2.6 g/dL (3.4-5.0); CALCIUM 8.5 mg/dL (8.5-10.1); CREATININE 1.1 mg/dL (0.7-1.3); PHOSPHORUS 3.3 mg/dL (2.5-4.9); POTASSIUM 4.8 mmol/L (3.5-5.1)
[2018-06-09 08:59] VITALS: BP 117/75
== END 2018-06-09 16:24 | DRG 871 ==
LOC: ER 09:41 → EROBS 11:32 → 3W 11:32
PROVIDERS: Emergency Medicine; Hospitalist; Internal Medicine; Internal Medicine Nephrology
PROC: 5A09357 Assistance with Respiratory Ventilation, Less than 24 Consecutive Hours, Continuous Positive Airway Pressure (ICD-10-PCS; principal; 2018-06-02)
PROC: 5A09357 Assistance with Respiratory Ventilation, Less than 24 Consecutive Hours, Continuous Positive Airway Pressure (ICD-10-PCS; 2018-06-03)
PROC: 5A09357 Assistance with Respiratory Ventilation, Less than 24 Consecutive Hours, Continuous Positive Airway Pressure (ICD-10-PCS; 2018-06-04)
PROC: 5A09357 Assistance with Respiratory Ventilation, Less than 24 Consecutive Hours, Continuous Positive Airway Pressure (ICD-10-PCS; 2018-06-05)
PROC: 5A09357 Assistance with Respiratory Ventilation, Less than 24 Consecutive Hours, Continuous Positive Airway Pressure (ICD-10-PCS; 2018-06-09)
DX: A41.9 Sepsis, unspecified organism (principal); J18.9 Pneumonia, unspecified organism; J96.21 Acute and chronic respiratory failure with hypoxia; J96.22 Acute and chronic respiratory failure with hypercapnia; J44.0 Chronic obstructive pulmonary disease with (acute) lower respiratory infection; J44.1 Chronic obstructive pulmonary disease with (acute) exacerbation; I13.0 Hypertensive heart and chronic kidney disease with heart failure and stage 1 through stage 4 chronic kidney disease, or unspecified chronic kidney disease; N17.9 Acute kidney failure, unspecified; I25.10 Atherosclerotic heart disease of native coronary artery without angina pectoris; F41.9 Anxiety disorder, unspecified; I25.5 Ischemic cardiomyopathy; G47.33 Obstructive sleep apnea (adult) (pediatric); E78.5 Hyperlipidemia, unspecified; R07.89 Other chest pain; K57.90 Diverticulosis of intestine, part unspecified, without perforation or abscess without bleeding; K21.9 Gastro-esophageal reflux disease without esophagitis; N18.9 Chronic kidney disease, unspecified; I50.9 Heart failure, unspecified; E11.22 Type 2 diabetes mellitus with diabetic chronic kidney disease; M62.84 Sarcopenia; E86.0 Dehydration; I25.2 Old myocardial infarction; Z93.2 Ileostomy status; Z92.3 Personal history of irradiation; Z95.810 Presence of automatic (implantable) cardiac defibrillator; Z85.46 Personal history of malignant neoplasm of prostate; Z99.81 Dependence on supplemental oxygen; Z85.118 Personal history of other malignant neoplasm of bronchus and lung; Z93.3 Colostomy status; Z87.891 Personal history of nicotine dependence; Z79.51 Long term (current) use of inhaled steroids; Z79.82 Long term (current) use of aspirin; Z79.899 Other long term (current) drug therapy; Z88.8 Allergy status to other drugs, medicaments and biological substances; Z83.79 Family history of other diseases of the digestive system; Z82.5 Family history of asthma and other chronic lower respiratory diseases; Z82.49 Family history of ischemic heart disease and other diseases of the circulatory system; Z83.3 Family history of diabetes mellitus; Z23 Encounter for immunization
CPT/HCPCS: 10779

== ENCOUNTER 2018-06-09 13:12 | Inpatient (IN) | payer OTHER ==
[~2018-06-09] VITALS: Ht 172.7 cm; Wt 98.0 kg
--- NOTE | ~2018-06-09 | H ---
[facility] [place] [address] HISTORY AND PHYSICAL Name: LAURA PEÑA Room #: 509-P ADM IN M.R.#: [id number] Admission: 06/09/18 Attend Phys: Brad He MD Discharge: Date of : 45 Report #: [id number] THIS REPORT FOR: //name// CC: Ava He DATE OF SERVICE: 06/09/2018 HISTORY OF PRESENT ILLNESS: This is a 73-year-old male who is now admitted to acute inpatient rehabilitation unit. He had an acute hospital stay for fxrbg-ps-xobsaae hypoxic respiratory failure, pneumonia, acute exacerbation of COPD. He was treated with nebulizer treatments, oxygen and corticosteroids. Also noted to have some chronic kidney disease, Nephrology had been managing. He also had reported atypical chest pain, which was felt to be musculoskeletal and stable. Due to his generalized weakness, he is admitted to an acute rehabilitation unit for further therapies. PAST MEDICAL HISTORY: CHF, COPD, prostate cancer, bronchitis, gastroparesis, insulin-dependent diabetes, GERD, dyslipidemia, multiple MIs, lung cancer status post radiation in 07/2015, pacemaker defibrillator placed on 05/2016. He had a prior subtotal colectomy with colostomy that was done in 12/2017, nonischemic cardiomyopathy with most recent ejection fraction of about 20%. ALLERGIES: LISINOPRIL. CURRENT MEDICATIONS: Tradjenta 5 mg daily, Lasix 40 mg daily, Flonase both nares daily, amiodarone 400 mg daily, carvedilol 6.25 mg twice a day, Protonix 40 mg twice a day, MiraLax 17 grams twice a day, Humalog sliding scale insulin a.c. and at bedtime, Colace 100 mg twice a day, Lipitor 10 mg at bedtime, aspirin 81 mg twice a day, budesonide 0.5 mg twice a day inhalation, senna 8.6 mg daily, Percocet 1 tablet twice a day p.r.n. pain, albuterol p.r.n. shortness of air, Tylenol 650 mg q.4 hours scheduled. HABITS: The patient is a former cigarette smoker for approximately 50 years. He quit smoking over 1 year ago. He uses alcohol on rare social occasions. SOCIAL HISTORY: The patient is a full code status. He lives in a house with his . There are 4 entry stairs, 13 stairs once inside. He utilized a cane before he was on the oxygen. He reports relying on his O2 tank for stabilization with ambulation. He does have a front-wheel walker at home for longer distances out of the house. He was on home O2 at 2 liters, premorbid. REVIEW OF SYSTEMS: The patient denies dizziness, headache. He does have shortness of air with activity. He does report the musculoskeletal chest pain that does seem worse with therapy, resolves with rest and pain medication. He has a cough that is slowly improving, mostly nonproductive. He denies nausea, [address] [address] HISTORY AND PHYSICAL Name: LAURA PEÑA Room #: 509-P [facility] IN M.R.#: [id number] Admission: 06/09/18 Attend Phys: Brad He MD Discharge: Date of : 45 Report #: [id number] abdominal pain, diarrhea or constipation. He denies dysuria, urinary retention. He has chronic low back pain, occasionally radiation down his legs. He denies significant numbness or tingling. He denies any lower extremity edema. Denies any wounds. PHYSICAL EXAMINATION: VITAL SIGNS: Blood pressure 134/89, respirations 18, pulse is 68, temperature 97.6, 95% oxygen on 3 liters nasal cannula. HEAD: Normocephalic. EYES: EOMs are intact. No icterus. ENT: No sinus tenderness. CHEST: Lungs are very diminished and very tight throughout. No significant crackles or wheeze. CARDIAC: S1, S2. Regular rate and rhythm. ABDOMEN: Bowel sounds are positive. Soft, nontender, nondistended. GENITOURINARY: No CVA tenderness. EXTREMITIES: He has no lower extremity edema. He has negative Homans sign. Able to lift lower extremities antigravity. Bilateral upper extremities, equal hyperion analyst strength. He does have decreased range of motion of the right upper extremity. He has functional range of motion of the left upper extremity. Strength grossly 4/5 bilateral. SKIN: Warm, dry, and intact. NEUROLOGIC: Cranial nerves 2-12 grossly intact. PSYCHIATRIC: Pleasant affect. He is currently sit to stand, standby assist. He is able to ambulate 250 feet with a front-wheel walker and contact guard assist. He also requires assist with his portable O2 tank. Bed mobility is modified independent, supervision for bathing. With activity, his O2 sats do drop into the 80s. He does recover in less than 60 seconds. LABORATORY DATA: From 06/10/2018, WBC is 7.6, hemoglobin 11.6, hematocrit 35.6, platelets 133. Sodium 140, potassium 4.5, BUN 25, creatinine 1.1, glucose 206. On 06/09/2018, his proBNP is 6217. ASSESSMENT: 1. Medical complexity with generalized debilitation. 2. Uhlek-qt-mskgmdm hypoxic and hypercarbic respiratory failure. 3. Acute exacerbation of chronic obstructive pulmonary disease. 4. Bilateral nodular infiltrates with pneumonia, resolved. 5. Atypical chest pain consistent with musculoskeletal etiology. 6. Chronic kidney disease. 7. Nonischemic cardiomyopathy with ejection fraction 20%. 8. Coronary artery disease. 9. Hypertension. 10. Obstructive sleep apnea with home CPAP. [facility] [address] [place] [address] HISTORY AND PHYSICAL Name: LAURA PEÑA Room #: 509-P ADM IN M.R.#: [id number] Admission: 06/09/18 Attend Phys: Brad He MD Discharge: Date of : 45 Report #: [id number] PLAN: The patient has been admitted to acute inpatient rehabilitation for physical and occupational therapies with a goal to return back home as independent as possible. We will continue to follow along. If the patient continues to require use of a walker, it would be more appropriate to find him a small backpack style portable O2 tank that he can better managed at home, especially with the stairs he has to do. He will have his hospital physician followup for acute medical issues. He will also have Pulmonary and Nephrology continue to manage acute issues. He will have neuropsychology testing done. Plan for team conference on Thursday. Please see extensive orders. <ELECTRONICALLY SIGNED> By: LIZ Joiner 06/15/18 1353 1112 1227 Micaela Morel, CHILD AND YOUTH PROGRAM ASSISTANT /nt
--- NOTE | ~2018-06-09 | EKG ---
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: : 1945 Requested By: Isaias Fernandez Order Number: [id number] MD: Dalton Hernandez Measurements Intervals [place] Rate: 69 P: 60 [place]: 165 QRS: 164 QRSD: 192 T: 64 QT: 520 QTc: 557 Interpretive Statements Sinus rhythm Probable left atrial enlargement Nonspecific intraventricular conduction delay Compared to ECG 06/01/2018 09:47:39 Ventricular premature complex(es) no longer present Electronically Signed On 06-14-2018 9:00:51 CDT by Dalton Hernandez [email or web address] <ELECTRONICALLY SIGNED> By: Dalton Hernandez MD, [facility] 06/14/18 0900 1248 1248 Dalton Hernandez MD, [facility] /EPI
--- NOTE | ~2018-06-09 | PLAN ---
[facility] [place] [address] [place] [address] REHAB UNIT PLAN OF CARE Name: LAURA PEÑA Room #: 509-P ADM IN M.R.#: [id number] Admission: 06/09/18 Attend Phys: Brad He MD Discharge: Date of : 45 Report #: [id number] THIS REPORT FOR: //name// CC: Ava He DATE OF SERVICE: 06/11/2018 PROGRESS NOTE/OVERALL PLAN OF CARE: SUBJECTIVE: The patient was seen back today in followup. He is in no distress. Last recorded temperature 97.7, pulse 70, respirations 18, blood pressure 119/93. No calf swelling. Transfers are supervision. Gait supervision 200 feet front-wheeled walker. He started working on stairs. Lower body dressing, min assist. He continues on 2 liters nasal prong O2. He was not on O2 during the day premorbidly. ASSESSMENT: 1. Medical complexity with generalized debilitation. 2. Acute on chronic hypoxic and hypercarbic respiratory failure. 3. Acute exacerbation of chronic obstructive pulmonary disease. 4. Bilateral nodular infiltrates with pneumonia, resolved. 5. Atypical chest pain consistent with musculoskeletal etiology. 6. Chronic kidney disease. 7. Nonischemic cardiomyopathy with ejection fraction 20%. 8. Coronary artery disease. 9. Hypertension. 10. Obstructive sleep apnea. PLAN: The overall plan of care is based on the preadmission screen, post-admission physician evaluation and information garnered from therapy assessments. 1. Estimated length of stay is probably quite short 7-10 days. 2. Medical prognosis is reasonably good. 3. Anticipated interventions includes the interdisciplinary acute inpatient rehabilitation program with PT, OT, rehab nursing assisting regarding medication management, skin care prophylaxis, bowel and bladder issues and nursing education. Case management is involved as well as the interdisciplinary acute inpatient rehabilitation team. 4. Anticipated functional outcomes would be for the patient to become modified independent with transfers, mobility, ADLs, so that he can hopefully return back to his prior living situation. 5. Discharge destination would be back to the home setting where he lives with his . 6. Expected therapy by discipline includes PT and OT 1 and 1-1/2 hours per day [address] [address] REHAB UNIT PLAN OF CARE Name: LAURA PEÑA Room #: 509-P ADM IN [facility].#: [id number] Admission: 06/09/18 Attend Phys: Brad He MD Discharge: Date of : 45 Report #: [id number] each five days a week throughout the duration of the acute inpatient rehabilitation stay. By: 1 0821 Brad He MD /nt
--- NOTE | ~2018-06-09 | H ---
[facility] [place] [address] HISTORY AND PHYSICAL Name: LAURA PEÑA Room #: 509-P ADM IN M.R.#: [id number] Admission: 06/09/18 Attend Phys: Brad He MD Discharge: Date of : 45 Report #: [id number] THIS REPORT FOR: //name// CC: Ava He DATE OF SERVICE: 06/10/2018 POST-ADMISSION PHYSICIAN EVALUATION HISTORY OF PRESENT ILLNESS: This is a 73-year-old male, originally admitted on 06/01/2018 with zumbl-mt-fflhziq hypoxic hypercarbic respiratory failure, noted to have pneumonia and COPD. He has nonischemic cardiomyopathy. He has been on decreasing corticosteroids. He was diagnosed with COPD exacerbation. He has chronic kidney disease with Nephrology involved. He has bilateral nodular infiltrate with pneumonia and has been on IV antibiotics. He has nonischemic cardiomyopathy with decreased ejection fraction of around 20%. The patient was noted to warrant pulmonary rehabilitation with nnqtm-uf-ktqptyd respiratory failure and COPD exacerbation and medical complexity with generalized debilitation. He has been admitted for acute in-hospital inpatient rehabilitation. As far as past medical, allergies, habits, family history and social history, see my consultation from yesterday and see Micaela Morel's, nurse practitioner, history and physical. MEDICATIONS: Please see the full medication listing. This includes vitamins, herbals, and supplements. REVIEW OF SYSTEMS: No current complaints of chest pain, shortness of breath or abdominal discomfort. No focal extremity pain complaints. He has colostomy, which is old and he notes that he and his were involved in caring for it at home. PHYSICAL EXAMINATION: GENERAL: The patient is a pleasant 73-year-old male, in no obvious distress. He is alert, pleasant. VITAL SIGNS: Last recorded temperature 97.6, pulse 60, respirations 18, blood pressure 134/89. HEENT: Appeared benign. Cranial nerves grossly intact. CHEST: Some decreased breath sounds diffusely. CARDIOVASCULAR: Regular rate and rhythm. ABDOMEN: He has the ostomy. Bowel sounds positive. GENITOURINARY: Deferred. RECTAL: Deferred. NEUROLOGIC: Functional range of motion of upper extremity strength, grade 4-/5. [address] [address] HISTORY AND PHYSICAL Name: LAURA PEÑA Room #: 509-P [facility] IN .R.#: [id number] Admission: 06/09/18 Attend Phys: Brad He MD Discharge: Date of : 45 Report #: [id number] DTRs are trace to 1. Lower extremities, no focal calf swelling, functional range of motion, strength grade 3+ to 4-/5. Tone is intact. He has been min assist for short distances with a front-wheeled walker. ASSESSMENT: The patient has been admitted for an acute in-hospital inpatient rehabilitation stay. From a post-admission physician evaluation perspective, there are no relevant changes since the preadmission screening. Please see the above review of prior and current medical and functional conditions and comorbidities. Please see the patient's previous and current functional status. As far as risk of complications, the patient has multiple medical comorbidities as noted above. Initial plan of care involves the interdisciplinary acute inpatient rehabilitation program with goal of maximizing the patient's functional independence so that he can hopefully return back to his prior living situation. Measurable functional goals would be for the patient to become modified independent with transfers, mobility, ADLs and to improve as far as his overall medical stability so that he can return back to the home setting. Prognosis is reasonably good with estimated length of stay probably at least 10 days to 2 weeks pending progress. Potential barriers would include the patient's multiple medical comorbidities and decreased functional status. The patient meets diagnostic criteria for an acute in-hospital inpatient rehabilitation stay. He meets medical necessity criteria and we will have the parts consultant physicians continue to follow regarding his multiple medical comorbidities. He does have the tolerance for therapies and has appropriate discharge goals back to the home setting. <ELECTRONICALLY SIGNED> By: Brad He MD 06/16/18 1319 1136 1155 Brad He MD /nt
--- NOTE | ~2018-06-09 | HC ---
[facility] [place] [address] CONSULTATION Name: LAURA PEÑA Room #: 509-P ADM IN M.R.#: [id number] Admission: 06/09/18 Attend Phys: Brad He MD Discharge: Date of : 45 Report #: [id number] THIS REPORT FOR: //name// CC: Ava He DATE OF SERVICE: 06/13/2018 NEUROBEHAVIORAL STATUS EXAM: ATTENDING PHYSICIAN: Brad He MD. BUSINESS SEGMENT MANAGER: Brett Lama, PhD. CLINICAL PRESENTATION: The patient is a 73-year-old male admitted to the rehabilitation unit at [facility] for a comprehensive inpatient rehabilitation program to improve functional mobility, activities of daily living and self-care and mental status secondary to deficits from acute on chronic hypoxic respiratory failure, pneumonia and acute exacerbation of COPD. The patient has an admitting diagnosis to rehab that includes medical complexity and generalized debility, acute on chronic hypoxic and hypercarbic respiratory failure, acute exacerbation of COPD, bilateral nodular infiltrates with pneumonia that have resolved, atypical chest pain consistent with musculoskeletal etiology, chronic kidney disease, nonischemic cardiomyopathy, coronary artery disease, hypertension and obstructive sleep apnea with use of a CPAP at home. A complete description of his medical condition and history can be found in his medical records. Neuropsychological consultation was requested to provide assistance in the assessment of cognitive and emotional status and to provide recommendations and services. Prior to this most recent hospitalization, he was living independently with his in their home. He was driving and independent with instrumental activities of daily living. He has an 11th grade education. 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 He has 5 children. The patient's described his past medical history and the severity of his medical well being with several instances of her being informed that he may not survive. His medical condition has been quite chronic and he spent several months in long-term care last year after a perforated colon and becoming septic. He also is reported to have had a defibrillator incident in which he had a fatal heart rhythm and that the defibrillator shock knocked him from his bed onto the floor. He has had intermittent periods of confusion during his acute hospital stay. TECHNIQUES UTILIZED: Clinical interview, review of medical records, staff consultation and behavioral observation, family interview -- , mini mental status exam 2 standard version and clock drawing. [address] [address] CONSULTATION Name: LAURA PEÑA Room #: 509-P [facility] IN M.R.#: [id number] Admission: 06/09/18 Attend Phys: Brad He MD Discharge: Date of : 45 Report #: [id number] EXAMINATION FINDINGS: The patient was alert and cooperative with the assessment. He accurately described the reason for his hospitalization. There is no evidence of aphasia. His thoughts are logical and goal oriented. There is no evidence of thought disorder. He does not report auditory or visual hallucinations. As indicated, his reported that he had a period of delirium during aspects of his earlier hospitalization. Intermittent confusion and disorientation was attributed to variability in his medical well being. Symptoms have included difficulty with memory, word finding and a slower processing of information. His mood is described as good without noticeable anxiety or depression. His performance on the MMSE 2 brief version was within normal limits with a raw score of 13/16, which is a T score of 40 and percentile rank of 16. He was 3/3 for initial registration, 5/5 for orientation to time and 5/[address]. He was 0/3 for immediate recall of 3 items after a brief time delay and distraction. Performance on the MMSE 2 standard version is within normal limits with a raw score 25 of 30 and a T score of 47. The patient was 4/5 for serial 7's. He was 2/2 for naming, 1/1 for repetition, 3/3 for comprehension, 1/1 for reading and writing a simple sentence. The patient was unable to accurately copy a simple geometric design. He also had difficulty with clock drawing, both with spatial orientation and subtle difficulty with hand placement. Decreased visual spatial construction is noted along with visual spatial organization. Additional mild deficit in immediate recall is suggested. He is alert and well oriented with satisfactory concentration and attention. DIAGNOSTIC IMPRESSION: Mild neurocognitive disorder, unspecified, without behavior disorder. RECOMMENDATIONS: The patient would benefit from environmental support to assist in compensation for areas of decreased cognition. Assistance for in memory and aspects of executive functioning and visual spatial organization are suggested. Assistance will be needed in the management of medication, nutrition and financial decision making to ensure safety. A followup neuropsychological evaluation may be of benefit approximately 2-3 weeks after discharge to clarify this level of neurocognitive functioning. Thank you very much for allowing me to provide the consultation on this patient. By: [id number] Brett Lama, PhD /nt
[2018-06-09 16:30] VITALS: BP 119/81
[2018-06-09 19:05] VITALS: BP 118/73
[2018-06-10 05:04] LABS: CALCIUM 8.7 mg/dL (8.5-10.1); CREATININE 1.1 mg/dL (0.7-1.3); POTASSIUM 4.5 mmol/L (3.5-5.1)
[2018-06-10 05:12] LABS: HEMATOCRIT 35.6 % (42.0-52.0); HEMOGLOBIN 11.6 gm/dL (14.0-18.0); MCH 33.1 pg (26.0-34.0); MCHC 32.6 g/dL (28.0-37.0); MCV 101.6 fL (80.0-100.0); RBC 3.5 mil/uL (4.50-6.00); RDW 12.9 % (10.5-14.5); WBC 7.6 thou/uL (4.0-11.0)
[2018-06-10 09:14] VITALS: BP 134/89
[2018-06-10 19:15] VITALS: BP 119/83
[2018-06-10 21:12] LABS: GLYCOHEMOGLOBIN (HGB A1C) 6.9 % (4.8-5.6)
[2018-06-11 07:30] VITALS: BP 105/62
[2018-06-11 17:00] VITALS: BP 113/67
[2018-06-11 19:10] VITALS: BP 109/60
[2018-06-12 15:13] VITALS: BP 122/74
[2018-06-12 19:37] VITALS: BP 115/67
[2018-06-13 07:30] VITALS: BP 116/68
[2018-06-13 16:45] VITALS: BP 131/83
[2018-06-13 19:20] VITALS: BP 124/69
[2018-06-14 07:15] VITALS: BP 120/66
[2018-06-14 19:20] VITALS: BP 115/66
[2018-06-15 04:07] LABS: CALCIUM 8.6 mg/dL (8.5-10.1); CREATININE 1.2 mg/dL (0.7-1.3); POTASSIUM 4.2 mmol/L (3.5-5.1)
[2018-06-15 04:18] LABS: HEMATOCRIT 34.7 % (42.0-52.0); HEMOGLOBIN 11.3 gm/dL (14.0-18.0); MCH 33.4 pg (26.0-34.0); MCHC 32.7 g/dL (28.0-37.0); MCV 102.1 fL (80.0-100.0); PLATELET COUNT 105 thou/uL (150-400); RBC 3.39 mil/uL (4.50-6.00); RDW 13.1 % (10.5-14.5); WBC 5.1 thou/uL (4.0-11.0)
[2018-06-15 05:15] LABS: ABSOLUTE NEUTROPHILS 3.7 thou/uL (1.4-8.2); ATYPICAL LYMPHS 1 %
[2018-06-15 05:16] LABS: TOXIC GRANULATION 1+
[2018-06-15 08:47] VITALS: BP 109/63
[2018-06-15 16:06] VITALS: BP 109/68
[2018-06-15 16:10] VITALS: BP 109/68
[2018-06-15 19:15] VITALS: BP 123/73
[2018-06-16 07:06] VITALS: BP 114/63
[2018-06-16 20:50] VITALS: BP 131/88
[2018-06-17 07:38] VITALS: BP 108/66
[2018-06-17] MEDS ORDERED: VOLTAREN GEL 1100 G2 TOP (11:34)
[2018-06-17] MEDS ORDERED: MUCINEX600 MG PO (11:34)
[2018-06-17 13:13] VITALS: BP 109/68
== END 2018-06-17 15:30 | disposition home health service (06) | DRG 189 ==
PROVIDERS: Nurse Practitioner; Physical Medicine & Rehabilitation
DX: J96.21 Acute and chronic respiratory failure with hypoxia (principal); J18.9 Pneumonia, unspecified organism; J44.0 Chronic obstructive pulmonary disease with (acute) lower respiratory infection; I50.20 Unspecified systolic (congestive) heart failure; I42.8 Other cardiomyopathies; J44.1 Chronic obstructive pulmonary disease with (acute) exacerbation; I13.0 Hypertensive heart and chronic kidney disease with heart failure and stage 1 through stage 4 chronic kidney disease, or unspecified chronic kidney disease; J96.22 Acute and chronic respiratory failure with hypercapnia; R91.8 Other nonspecific abnormal finding of lung field; R53.81 Other malaise; N18.9 Chronic kidney disease, unspecified; K31.84 Gastroparesis; E11.43 Type 2 diabetes mellitus with diabetic autonomic (poly)neuropathy; K21.9 Gastro-esophageal reflux disease without esophagitis; E78.5 Hyperlipidemia, unspecified; I25.10 Atherosclerotic heart disease of native coronary artery without angina pectoris; R07.89 Other chest pain; G47.33 Obstructive sleep apnea (adult) (pediatric); G31.84 Mild cognitive impairment of uncertain or unknown etiology; I77.819 Aortic ectasia, unspecified site; E11.22 Type 2 diabetes mellitus with diabetic chronic kidney disease; K86.9 Disease of pancreas, unspecified; E11.65 Type 2 diabetes mellitus with hyperglycemia; Z99.81 Dependence on supplemental oxygen; Z85.46 Personal history of malignant neoplasm of prostate; I25.2 Old myocardial infarction; Z85.118 Personal history of other malignant neoplasm of bronchus and lung; Z95.0 Presence of cardiac pacemaker; Z90.49 Acquired absence of other specified parts of digestive tract; Z93.3 Colostomy status; Z88.8 Allergy status to other drugs, medicaments and biological substances; Z87.891 Personal history of nicotine dependence
CPT/HCPCS: 10112

== ENCOUNTER 2018-06-21 11:04 | Inpatient (IN) | payer OTHER ==
[~2018-06-21] VITALS: Ht 172.7 cm; Wt 93.3 kg
--- NOTE | ~2018-06-21 | EKG ---
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: DIALLO : 1945 Requested By: Stormy Coy Order Number: [id number] MD: Morgan Farah Measurements Intervals [place] Rate: 78 P: 53 VA: 164 QRS: 171 QRSD: 186 T: 41 QT: 485 QTc: 553 Interpretive Statements Sinus rhythm Left atrial enlargement Nonspecific intraventricular conduction delay Compared to ECG 06/12/2018 12:48:07 No significant changes Electronically Signed On 06-21-2018 15:01:29 POTATO INSPECTOR by Morgan Farah [email or web address] <ELECTRONICALLY SIGNED> By: Morgan Farah MD 06/21/18 1501 1118 1118 Morgan Farah MD /EPI
--- NOTE | ~2018-06-21 | HC ---
[facility] [place] [address] CONSULTATION Name: LAURA PEÑA Room #: 449-I ADM IN M.R.#: [id number] Admission: 06/21/18 Attend Phys: Danie Coleman MD Discharge: Date of : 45 Report #: [id number] THIS REPORT FOR: //name// CC: Ava Coleman DATE OF SERVICE: 06/22/2018 INFECTIOUS DISEASE CONSULTATION: REASON FOR CONSULTATION: I was asked to evaluate concerning respiratory compromise and healthcare-associated pneumonia. HISTORY OF PRESENT ILLNESS: The patient was a 73-year-old recently hospitalized at [facility] with exacerbation of COPD with suspected pneumonia and pulmonary infiltrates. He was treated from 06/09/2018 through 06/17/2018. Received azithromycin and ceftriaxone. After discharge, he noticed over the last 3 days increased chest discomfort, right-sided pain, mostly in the anterior lower portion of his chest with cough, small amount of sputum production without hemoptysis. Marked weakness, inability to walk across the room without becoming short of breath on 2 liters of oxygen per nasal cannula. He returned back to [facility] for further evaluation. His oxygen requirements went up to 4 liters. There has been no fever, chills or sweats. He has been given diuresis as well as started on vancomycin and Zosyn. REVIEW OF SYSTEMS: CONSTITUTIONAL: The patient denies any skin rashes or decubiti. HEENT: No lymphadenopathy. Eyes without change in vision. Hearing unchanged. Mouth wears dentures. PULMONARY: As above. CARDIOVASCULAR: Some lower extremity edema. No definite PND or orthopnea. No presyncopal symptoms. GASTROINTESTINAL: Negative. GENITOURINARY: Negative. MUSCULOSKELETAL: Negative. NEUROLOGIC: Without evidence of seizure, stroke with unilateral weakness or change in mentation. PSYCHIATRIC: Negative. HEMATOLOGIC: Negative. ALLERGIC: Negative. ALLERGIES: LISINOPRIL. MEDICATIONS: As noted on his OCT, now including vancomycin and Zosyn. PAST MEDICAL HISTORY: Degenerative arthritis, right knee surgery, left inguinal [facility] [address] [place] [address] CONSULTATION Name: JOJO PEÑADARCY Room #: 449-I [facility] IN .R.#: [id number] Admission: 06/21/18 Attend Phys: Danie Coleman MD Discharge: Date of : 45 Report #: [id number] herniorrhaphy, right carpal tunnel surgery, multiple low back surgeries, left rotator cuff surgery, coronary artery disease, atrial tachycardia status post ablation 30% FiO2 with moderate mitral regurgitation, permanent pacemaker defibrillator, COPD, chronic bronchitis, obstructive sleep apnea, anxiety, hypertension, gastroparesis, diabetes, hyperlipidemia, pancreatic mass, prostate cancer status post radiation, lung cancer with gamma knife procedure, diverticulosis, lower GI bleed, perforated diverticulitis with sigmoid colectomy, right hemicolectomy, now with colostomy. Past smoker, past alcohol use. FAMILY HISTORY: Diabetes, COPD, hypertension, asthma, aneurysm. SOCIAL HISTORY: Past smoker, no significant alcohol intake currently. PHYSICAL EXAMINATION: GENERAL: The patient was alert and cooperative, appeared his stated age. No acute distress, on 2 liters of oxygen per nasal cannula. HEENT: Eyes without scleral icterus or conjunctivitis. MOUTH: Dentures. No mucositis or ulceration. NECK: Supple, with no thyromegaly. Mild JVD. SKIN: Without rash or decubiti. No palpable adenopathy. LUNGS: Basilar crackles. HEART: Regular with a 1/6 systolic murmur heard at left sternal border. ABDOMEN: Soft, nontender. Colostomy was unremarkable. No hepatosplenomegaly or mass. BACK: Nontender spine with no CVA tenderness. EXTREMITIES: No peripheral edema or cyanosis. NEUROLOGIC: Cranial nerves intact. Strength in the upper and lower extremity is normal with normal sensation to touch. Mood normal. LABORATORY STUDIES: Chest x-ray, left lower lobe infiltrate. MRSA screen negative. Blood culture is negative to date. Sodium 144, potassium 3.8, bicarbonate 32, creatinine 1, hemoglobin 11.1, platelet count 105,000, WBC 4.5. Procalcitonin 0.09, lactate 1.6. Troponin negative. BNP 4543. IMPRESSION: A 73-year-old with multiple comorbidities presents now with dyspnea, left lower lobe infiltrate, shortness of breath without fever or leukocytosis. I suspect exacerbation of chronic obstructive pulmonary disease, possible aspiration component, healthcare-associated organisms to be considered, component of congestive heart failure. 1. Nonischemic cardiomyopathy. 2. Hypertension. 3. Diabetes. 4. Obstructive sleep apnea. 5. Chronic pancreatic mass. 6. Previous cancer, prostate and lung. [address] [address] CONSULTATION Name: LAURA PEÑA Room #: 449-I ADM IN [facility].#: [id number] Admission: 06/21/18 Attend Phys: Danie Coleman MD Discharge: Date of : 45 Report #: [id number] RECOMMENDATIONS: We will continue antibiotic coverage with Zosyn for healthcare-associated infection. MRSA screen was negative, making MRSA infection less likely. Continue with diuresis and treatment for exacerbation of COPD. Obtain sputum culture. Urine antigen. Viral respiratory panel. We will need to monitor platelet count while on Zosyn. If further drop, we will change from this medication. <ELECTRONICALLY SIGNED> By: Fazal Mckeon MD 06/23/18 1400 1802 2347 Fazal Mckeon MD /nt
--- NOTE | ~2018-06-21 | HC ---
[facility] [place] [address] CONSULTATION Name: LAURA PEÑA Room #: 225-P [facility] IN M.R.#: [id number] Admission: 06/21/18 Attend Phys: Danie Coleman MD Discharge: 06/26/18 Date of : 45 Report #: [id number] THIS REPORT FOR: //name// CC: Ava Coleman REASON FOR CONSULTATION: Shortness of breath. HISTORY OF PRESENT ILLNESS: The patient is a 73-year-old patient who I follow in the Cardiology Clinic. He has a history of nonischemic cardiomyopathy status post Biotronik ICD implantation, has mild nonobstructive coronary artery disease, atrial tachycardia status post prior ablation as well as COPD, lung cancer status post gamma knife and a history of VT on amiodarone therapy, who was recently discharged with shortness of breath. At that time, I did not feel that he was in acute congestive heart failure. He presents with worsening exertional dyspnea, still has some chest pain, which he always has, which is sharp in nature and has been going on for years. Not really concerned about this chest pain. He has previously undergone a heart catheterization back in 03/2017 as previously mentioned. He denies any fevers or chills. He denies any PND or orthopnea. He denies presyncope or syncope. PAST MEDICAL HISTORY: As above. SOCIAL HISTORY: Does not smoke. FAMILY HISTORY: Noncontributory. ALLERGIES: INCLUDE LISINOPRIL. MEDICATIONS: Have been reviewed. PHYSICAL EXAMINATION: VITAL SIGNS: Temperature is 36.4, pulse 67, respirations 16, blood pressure 119/74, sats are 95%. GENERAL: He is in no acute distress. HEENT: Oropharynx is clear. NECK: Supple, no thyromegaly. HEART: Regular rate and rhythm. He has elevated jugular venous pressure on exam. LUNGS: Clear to auscultation bilaterally. ABDOMEN: Soft, nontender, nondistended with no hepatosplenomegaly. EXTREMITIES: There is no clubbing, cyanosis or edema. NEUROLOGIC: Cranial nerves 2-12 are intact. LABORATORY DATA: White count 4.5, hemoglobin 11, platelets 105. Chemistries: Sodium 144, potassium 3.8, BUN 11, creatinine 1.0. Troponin is normal. ProBNP is 4543. His chest x-ray shows no acute process. I reviewed his prior CT scan [address] [address] CONSULTATION Name: LAURA PEÑA Room #: 225-P [facility] IN .R.#: [id number] Admission: 06/21/18 Attend Phys: Danie Coleman MD Discharge: 06/26/18 Date of : 45 Report #: [id number] performed at the last hospitalization, which showed some mild infiltrates. His EKG today demonstrates normal sinus rhythm with no ischemic changes. Telemetry shows no significant findings. ASSESSMENT: Acute on chronic systolic heart failure. PLAN: We will continue with the same home medications, but will increase his diuretics. I do think we need to obtain another echo as he had one in March. I would recommend that we obtain some pulmonary function tests given his chronic amiodarone therapy and known COPD. We will continue to follow. <ELECTRONICALLY SIGNED> By: Graham Quezada MD 06/30/18 1610 0853 2131 Graham Quezada MD /nt
--- NOTE | ~2018-06-21 | EKG ---
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 06/24/18 0808 11 11 Dalton Hernandez MD, [facility] /EPI
[~2018-06-21 11:04] MED LIST changes: +VOLTAREN GEL 1100 G2 TOP
[2018-06-21 11:06] VITALS: BP 139/74
[2018-06-21 11:42] LABS: ABSOLUTE NEUTROPHILS 6.7 thou/uL (1.4-8.2); BASOPHILS 0.5 % (0.0-2.0); EOSINOPHILS 0.8 % (0.0-3.0); HEMATOCRIT 37.9 % (42.0-52.0); HEMOGLOBIN 12.3 gm/dL (14.0-18.0); LYMPHOCYTES 7.7 % (24.0-44.0); MCH 32.9 pg (26.0-34.0); MCHC 32.5 g/dL (28.0-37.0); MCV 101.4 fL (80.0-100.0); MONOCYTES 8.9 % (1.0-8.0); PLATELET COUNT 121 thou/uL (150-400); POLYS 82.1 % (36.0-66.0); RBC 3.74 mil/uL (4.50-6.00); RDW 13.3 % (10.5-14.5); WBC 8.2 thou/uL (4.0-11.0)
[2018-06-21 11:50] LABS: ANION GAP 8 mmol/L (7-16); BUN 11 mg/dL (7-18); CALCIUM 9.2 mg/dL (8.5-10.1); CHLORIDE 102 mmol/L (98-107); CO2 32 mmol/L (21-32); CREATININE 1.3 mg/dL (0.7-1.3); GLUCOSE 206 mg/dL (74-106); POTASSIUM 3.9 mmol/L (3.5-5.1); SODIUM 142 mmol/L (136-145)
[2018-06-21 12:00] LABS: TROPONIN-I <0.06 ng/mL (<0.06)
[2018-06-21 13:39] VITALS: BP 127/69
[2018-06-21 14:56] VITALS: BP 120/64
[2018-06-21 15:00] VITALS: BP 118/68
[2018-06-21 19:05] VITALS: BP 132/79
[2018-06-22 03:45] VITALS: BP 104/69
[2018-06-22 06:19] LABS: HEMATOCRIT 34.1 % (42.0-52.0); HEMOGLOBIN 11.1 gm/dL (14.0-18.0); MCH 33.1 pg (26.0-34.0); MCHC 32.4 g/dL (28.0-37.0); RBC 3.34 mil/uL (4.50-6.00); RDW 13.6 % (10.5-14.5); WBC 4.5 thou/uL (4.0-11.0)
[2018-06-22 06:28] LABS: CALCIUM 8.3 mg/dL (8.5-10.1); POTASSIUM 3.8 mmol/L (3.5-5.1)
[2018-06-22 07:24] VITALS: BP 119/74
[2018-06-22 14:00] VITALS: BP 103/58
[2018-06-22 19:14] VITALS: BP 119/77
[2018-06-23 03:08] LABS: CALCIUM 8.2 mg/dL (8.5-10.1); CREATININE 1.3 mg/dL (0.7-1.3); HEMATOCRIT 34.1 % (42.0-52.0); HEMOGLOBIN 11.1 gm/dL (14.0-18.0); MCH 32.9 pg (26.0-34.0); MCHC 32.4 g/dL (28.0-37.0); MCV 101.5 fL (80.0-100.0); PLATELET COUNT 118 thou/uL (150-400); POTASSIUM 3.8 mmol/L (3.5-5.1); RBC 3.36 mil/uL (4.50-6.00); RDW 13.5 % (10.5-14.5); WBC 4.2 thou/uL (4.0-11.0)
[2018-06-23 04:07] LABS: ABSOLUTE NEUTROPHILS 2.8 thou/uL (1.4-8.2); ATYPICAL LYMPHS 4 %; METAMYELOCYTES 1 %; MYELOCYTES 1 %
[2018-06-23 04:08] LABS: LARGE PLATELETS OCCASIONAL; TOXIC GRANULATION 1+
[2018-06-23 04:44] VITALS: BP 113/74
[2018-06-23 07:27] VITALS: BP 110/64
[2018-06-23 10:49] LABS: SGOT 27 U/L (15-37); SGPT 62 U/L (30-65)
[2018-06-23 15:52] VITALS: BP 116/77
[2018-06-23 18:35] VITALS: BP 116/71
[2018-06-23 23:04] VITALS: BP 106/73
[2018-06-24 00:12] VITALS: BP 108/68
[2018-06-24 04:38] VITALS: BP 124/77
[2018-06-24 08:13] VITALS: BP 129/78
[2018-06-24 08:14] LABS: CALCIUM 9.2 mg/dL (8.5-10.1); CREATININE 1.6 mg/dL (0.7-1.3); POTASSIUM 3.8 mmol/L (3.5-5.1)
[2018-06-24 09:50] VITALS: BP 129/78
[2018-06-24 18:59] VITALS: BP 121/78
[2018-06-24 19:57] VITALS: BP 112/76
[2018-06-25 07:25] VITALS: BP 107/72
[2018-06-25 07:41] LABS: CALCIUM 8.4 mg/dL (8.5-10.1); CREATININE 1.4 mg/dL (0.7-1.3)
[2018-06-25 21:04] VITALS: BP 117/74
[2018-06-26 01:11] LABS: ADENOVIRUS Negative (Negative); INFLUENZA A Negative (Negative); INFLUENZA B Negative (Negative); METAPNEUMOVIRUS Negative (Negative); PARAINFLUENZA 1 Negative (Negative); PARAINFLUENZA 2 Negative (Negative); PARAINFLUENZA 3 Negative (Negative); RHINOVIRUS Negative (Negative); RSV A Negative (Negative); RSV B Negative (Negative)
[2018-06-26 07:56] VITALS: BP 105/60
[2018-06-26 09:25] VITALS: BP 105/60
[2018-06-26] MEDS ORDERED: DEMADEX20 MG PO (11:11)
[2018-06-26] MEDS ORDERED: PACERONE 200 M200 M1 PO (11:11)
[2018-06-26] MEDS ORDERED: AUGMENTIN 875-1 EACH PO (11:12)
== END 2018-06-26 16:53 | disposition home health service (06) | DRG 682 ==
LOC: ER 11:04 → EROBS 12:57 → 4W 12:57 → SICU 06-23 18:35
PROVIDERS: Hospitalist; Nurse Practitioner; Specialist; Student in an Organized Health Care Education/Training Program
PROC: 5A09357 Assistance with Respiratory Ventilation, Less than 24 Consecutive Hours, Continuous Positive Airway Pressure (ICD-10-PCS; principal; 2018-06-21)
PROC: 5A09357 Assistance with Respiratory Ventilation, Less than 24 Consecutive Hours, Continuous Positive Airway Pressure (ICD-10-PCS; 2018-06-22)
PROC: 5A09357 Assistance with Respiratory Ventilation, Less than 24 Consecutive Hours, Continuous Positive Airway Pressure (ICD-10-PCS; 2018-06-23)
PROC: 5A09357 Assistance with Respiratory Ventilation, Less than 24 Consecutive Hours, Continuous Positive Airway Pressure (ICD-10-PCS; 2018-06-25)
DX: N17.9 Acute kidney failure, unspecified (principal); J96.22 Acute and chronic respiratory failure with hypercapnia; J18.9 Pneumonia, unspecified organism; I50.43 Acute on chronic combined systolic (congestive) and diastolic (congestive) heart failure; I47.2 Ventricular tachycardia; I47.1 Supraventricular tachycardia; J44.0 Chronic obstructive pulmonary disease with (acute) lower respiratory infection; I42.8 Other cardiomyopathies; I11.0 Hypertensive heart disease with heart failure; I25.10 Atherosclerotic heart disease of native coronary artery without angina pectoris; G47.33 Obstructive sleep apnea (adult) (pediatric); F41.9 Anxiety disorder, unspecified; E11.9 Type 2 diabetes mellitus without complications; E78.5 Hyperlipidemia, unspecified; K21.9 Gastro-esophageal reflux disease without esophagitis; K57.90 Diverticulosis of intestine, part unspecified, without perforation or abscess without bleeding; M19.90 Unspecified osteoarthritis, unspecified site; K86.9 Disease of pancreas, unspecified; G89.29 Other chronic pain; M54.9 Dorsalgia, unspecified; Z85.46 Personal history of malignant neoplasm of prostate; Z85.118 Personal history of other malignant neoplasm of bronchus and lung; Z90.49 Acquired absence of other specified parts of digestive tract; Z93.3 Colostomy status; Z95.0 Presence of cardiac pacemaker; Z88.8 Allergy status to other drugs, medicaments and biological substances; Z87.891 Personal history of nicotine dependence; Z92.3 Personal history of irradiation; Z83.3 Family history of diabetes mellitus; Z83.6 Family history of other diseases of the respiratory system
CPT/HCPCS: 10045; 15002

== ENCOUNTER 2018-08-26 23:03 | Inpatient (IN) | payer OTHER ==
[~2018-08-26] VITALS: Ht 172.7 cm; Wt 86.6 kg
[~2018-08-26 23:03] MED LIST changes: +DEMADEX20 MG PO
[2018-08-26 23:09] VITALS: BP 120/81
--- NOTE | 2018-08-26 23:39 | EKG ---
[place] [place] [address] [facility] [place] [address] ELECTROCARDIOGRAM REPORT Name: CASEYCOLINDARCY Room #: [facility] M.R.#: [id number] Admission: Attend Phys: Discharge: Date of : 45 Report #: [id number] THIS REPORT FOR: //name// ED Test Date: 2018-08-26 Test Time: 23:16:45 Pat Name: LAURA PEÑA Department: Room: Gender: Platform Consultant: LAITH : 1945 Requested By: Stormy Coy Order Number: [id number] MD: Graham Quezada Measurements Intervals [place] Rate: 82 P: 61 MO: 169 QRS: 163 QRSD: 185 T: 46 QT: 488 QTc: 570 Interpretive Statements Sinus rhythm Atrial premature complex Probable left atrial enlargement RBBB Compared to ECG 06/23/2018 23:12:02 Atrial premature complex(es) now present Electronically Signed On 08-26-2018 23:39:35 DIP UNIT OPERATOR by Graham Quezada [email or web address] <ELECTRONICALLY SIGNED> By: Graham Quezada MD 08/26/18 2339 2316 15 Graham Quezada MD /LIZ
[2018-08-26 23:50] LABS: ABSOLUTE NEUTROPHILS 8.8 thou/uL (1.4-8.2); BASOPHILS 0.3 % (0.0-2.0); HEMATOCRIT 41.9 % (42.0-52.0); LYMPHOCYTES 4.3 % (24.0-44.0); MCH 34.1 pg (26.0-34.0); MCHC 33.4 g/dL (28.0-37.0); MONOCYTES 7.8 % (1.0-8.0); PLATELET COUNT 152 thou/uL (150-400); POLYS 87.6 % (36.0-66.0); RBC 4.11 mil/uL (4.50-6.00); RDW 13.7 % (10.5-14.5); WBC 10.1 thou/uL (4.0-11.0)
[2018-08-26 23:53] LABS: ANION GAP 7 mmol/L (7-16); BUN 32 mg/dL (7-18); CALCIUM 9.1 mg/dL (8.5-10.1); CHLORIDE 102 mmol/L (98-107); CO2 32 mmol/L (21-32); CREATININE 1.8 mg/dL (0.7-1.3); GLUCOSE 294 mg/dL (74-106); POTASSIUM 4.2 mmol/L (3.5-5.1); SODIUM 141 mmol/L (136-145)
[2018-08-27 00:02] LABS: ALBUMIN 3.4 g/dL (3.4-5.0); SGOT 56 U/L (15-37); SGPT 141 U/L (30-65); TOTAL BILIRUBIN 0.4 mg/dL (<0.1-1.0); TOTAL PROTEIN 7.2 g/dL (6.4-8.2); TROPONIN-I <0.06 ng/mL (<0.06)
[2018-08-27 02:16] VITALS: BP 115/71
[2018-08-27 02:27] VITALS: BP 124/87
[2018-08-27 02:57] VITALS: BP 114/68
--- NOTE | 2018-08-27 03:00 | NUR ---
Pt. arrived to the unit from the emergency room accompanied by staff. Admission assessment and history was completed. He offers no complaints. No c/o shortness of air.
[2018-08-27 05:35] LABS: HEMATOCRIT 39.5 % (42.0-52.0); HEMOGLOBIN 12.8 gm/dL (14.0-18.0); MCH 33.3 pg (26.0-34.0); MCHC 32.4 g/dL (28.0-37.0); MCV 102.7 fL (80.0-100.0); RBC 3.84 mil/uL (4.50-6.00); RDW 13.7 % (10.5-14.5); WBC 8.5 thou/uL (4.0-11.0)
[2018-08-27 05:52] LABS: CREATININE 1.6 mg/dL (0.7-1.3); POTASSIUM 4.3 mmol/L (3.5-5.1)
[2018-08-27 08:00] VITALS: BP 116/70
[2018-08-27] MEDS ORDERED: PREDNISONE 10 M10 MG PO (09:27)
[2018-08-27] MEDS ORDERED: PLAVIX 75 MG TA75 M1 PO (09:27)
[2018-08-27] MEDS ORDERED: COMBIVENT RESPIM4 GM INH (09:28)
--- NOTE | 2018-08-27 09:35 | NUR ---
ostomy care; pouch on x1 week, requested assist w/ changing, new pouch rj convex precut 02/21' applied, stoma red viable budded w/ mushy brown stool, peristomal skin intact, extra pouch placed at bs but states to bring in more today, cooperative w/ care, yadira, staff development nurse informed of care, will cont to follow prn
--- NOTE | 2018-08-27 10:30 | NUR ---
cm visited with pt at bedside. intro to cm and transition of care, ie home health, and rehab. " i have been all over. can not remember all the placed. been to [facility], [facility], [facility], and rehab here. i would live to go home when dc. live with 4 steps to enter home, 5 to the kitchen and 7 stairs up to bedroom. have cane, walker, shower chair. oxygen, bipap and nebulizer. still drive. manage own medciation."/deana. will cont following as needed for dc needs. " home health is ok if i need it, [facility]"/pt. referral sent to [facility] if needed for hh.
--- NOTE | 2018-08-27 15:40 | NUR ---
QUIET UNEVENTFUL DAY FOR THIS PLEASANT GENTLEMAN. HAS RESTED QUIETLY IN BED MOST OF THE DAY. BLOOD SUGAR RUNNING HIGH SO INCREASED TO MODERATE DOSE SLIDING SCALE. DENIES PAIN. CONTINUING WITH RESPIRATORY TREATMENTS. O2 SAT 95% ON 2L/NC. PRODUCTIVE COUGH NOTED. WEARS BIPAP AT NIGHT. USING URINAL AT BEDSIDE. PROGRESSING TOWARDS DISCHARGE GOALS.
[2018-08-27 16:00] VITALS: BP 117/70
[2018-08-27 20:04] VITALS: BP 97/68
[2018-08-28 03:51] VITALS: BP 98/66
--- NOTE | 2018-08-28 04:45 | NUR ---
ASSUMED CARE OF PT APPROX 1900HRS PT A&O X4 ABLE TO MAKE NEEDS KNOWN. CALM AND COOPERATIVE. C/O CHRONIC BACK PAIN PRN PAIN MEDS AVAILABLE. PT WEARS 2L O2 PER NC BIPAP NOC. PT HAS A PACEMAKER. ACCU CHECKS ACHS. PT HAS A COLOSTOMY NEEDS ASSISTANCE EMPTYING.
[2018-08-28 07:20] VITALS: BP 100/58
[2018-08-28 15:12] VITALS: BP 92/59
[2018-08-28 19:24] VITALS: BP 124/57
--- NOTE | 2018-08-28 19:51 | NUR ---
Pt buck thorugh out the shift, Spent most of the day on his chair, still on 2L of O2. Ostomy is intact, pt uses urinal and makes his needs known. No issues or concers vebalized. Pt was moved to 460 since 454 needed to be repaired.
[2018-08-29 04:37] VITALS: BP 115/79
[2018-08-29 05:31] LABS: HEMOGLOBIN 13.5 gm/dL (14.0-18.0); MCH 32.4 pg (26.0-34.0); MCHC 31.4 g/dL (28.0-37.0); MCV 103.4 fL (80.0-100.0); RBC 4.16 mil/uL (4.50-6.00); RDW 13.7 % (10.5-14.5); WBC 12.7 thou/uL (4.0-11.0)
[2018-08-29 05:54] LABS: ALBUMIN 2.9 g/dL (3.4-5.0); CALCIUM 9.2 mg/dL (8.5-10.1); CREATININE 1.5 mg/dL (0.7-1.3); POTASSIUM 4.1 mmol/L (3.5-5.1); TOTAL BILIRUBIN 0.5 mg/dL (<0.1-1.0); TOTAL PROTEIN 6.6 g/dL (6.4-8.2)
[2018-08-29 08:00] VITALS: BP 117/73
--- NOTE | 2018-08-29 08:17 | NUR ---
progress pt a/o x 4 up with sba, voiding per urinal, changed colostomy bag to one his brought from home as he scratched himself with clip on our bag and his testicles were bleeding. cleansed and bleeding stopped. taking oxycodone for pain slept throughout night continue to monitor.
[2018-08-29 15:00] VITALS: BP 98/59
[2018-08-29 19:31] VITALS: BP 108/62
--- NOTE | 2018-08-29 20:05 | NUR ---
Pt stable, blood sugar monitored. Pt was on his chair for most of the day. OStomy care given. Pt voids in his urinal. No complaints or issues verbalized. Uses call light appropriately.
[2018-08-30 04:24] VITALS: BP 100/71
[2018-08-30 05:49] LABS: MCH 33.3 pg (26.0-34.0); MCHC 32.5 g/dL (28.0-37.0); MCV 102.5 fL (80.0-100.0); RBC 3.91 mil/uL (4.50-6.00); RDW 13.6 % (10.5-14.5); WBC 10.6 thou/uL (4.0-11.0)
[2018-08-30 06:12] LABS: ALBUMIN 2.7 g/dL (3.4-5.0); CALCIUM 8.9 mg/dL (8.5-10.1); CREATININE 1.4 mg/dL (0.7-1.3); TOTAL BILIRUBIN 0.6 mg/dL (<0.1-1.0); TOTAL PROTEIN 6.2 g/dL (6.4-8.2)
[2018-08-30 07:34] VITALS: BP 121/71
--- NOTE | 2018-08-30 08:12 | NUR ---
Assumed care at 1845. Pt is resting in bed. Denies chest pain. No identified needs at the moment. Will continue to monitor.
--- NOTE | 2018-08-30 13:49 | NUR ---
SW reviewed chart and spoke with nursing and attending physician. Pt is slowly progressing towards goals for discharge. SW updated intake at [facility]. Plan is for pt to d/c home with [facility] when medically stable. SW is following to assist as needed with discharge planning.
[2018-08-30 13:50] VITALS: BP 107/63
[2018-08-30 19:19] VITALS: BP 98/71
--- NOTE | 2018-08-30 20:27 | NUR ---
PATIENT DECREASED FROM 3L TO 2L NC THIS SHIFT. O2 SATS REMAIN >91% THIS SHIFT. PT DENIES SOA, HOWEVER SOB OBSERVED WITH EXERTION. REPORTS CHRONIC PAIN MANAGED WITH MEDICATION, REPOSITIONING, & GETTING OUT OF BED. PATIENT AMBULATES WITH STANDBY ASSIST, CALLS FOR ASSIST. AOX4. BLOOD GLUCOSE MONITORED, ALLOWED DINNER TIME DOSE OF INSULIN AFTER EDUCATION PROVIDED AT [facility] LUNCH.
[2018-08-31 03:34] VITALS: BP 104/71
--- NOTE | 2018-08-31 04:49 | NUR ---
PATIENT IS PROGRESSING IN HER CARE PLAN. VITAL SIGNS STABLE WITH PATIENT HAVING NO COMPLAINTS OF NAUSEA. PATIENT DID COMPLAIN OF CHRONIC PAIN WHICH WAS TREATED EFFECTIVELY WITH PRN MEDICATION. PATIENTS BREATHING REMAINED STABLE EVIDENCED BY READING ON CONTINUOUS SAT MONITOR. HE WAS ABLE TO TOLERATE CPAP WELL WAS ON IT FOR MOST OF THE NIGHT. PATIENT IS ORIENTED AND ABLE TO PARTICIPATE IN CARE PLAN AND CALL APPROPRIATELY FOR NEEDS. PATIENT HAS BEEN UP MULTIPLE TIMES WITH ASSISTANCE INCIDENT FREE. CONTINUE PLAN OF CARE.
[2018-08-31 07:30] VITALS: BP 102/64
[2018-08-31 07:39] LABS: FOLIC ACID 10.1 ng/mL (8.6-58.9)
--- NOTE | 2018-08-31 13:19 | NUR ---
CARE TEAM INDICATED THAT PT IS PROGRESSIGN TOWARD GOAL OF DISCHARGING HOME. PT WILL HAVE [facility] HH SERVICES UPON DC. PT HAS ALL RECOMMENDED DME. PT IS TO MOVE TO SENIOR SUITES TODAY. CM TO FOLLOW INDICATED WITH DC PLANNING.
[2018-08-31 14:21] VITALS: BP 117/82
--- NOTE | 2018-08-31 14:32 | NUR ---
Pt stable, still on 2L of O2. Colostomy care done, uses his urinal. No issues or concerns verbalized. Ostomy care given. 500 cc or urine as of this am. Blood sugars monitored and insulin given as needed, all po meds given. Report given to sr suites nurse , pt transferred to room 221
--- NOTE | 2018-08-31 16:50 | NUR ---
PATIENT ARRIVE TO SENIOR SUITES AT 1345 FROM 4 WEST ROOM 460.PATIENT WAS ORIENTED TO ROOM.PT HAS PERSONAL BELONGINGS, AND CHART.PATIENT TRANSFERED FROM W/C TO BED ON HIS OWN.IV IS INACT AND SALINE LOCKED.PT HAS CALL LIGHT,AND PHONE, WITHIN REACH.WILL CONTINUE TO MONITOR.
[2018-08-31 20:55] VITALS: BP 117/82
--- NOTE | 2018-09-01 02:57 | NUR ---
ASSESSMENT: PT REMAIN ALERT AND ORIENT TIMES FOUR. UP AD JAMAL. C/O BACK PAIN, PRN PAIN MEDICATION GIVEN WITH PARTIAL RELIEF. ON BIPAP AT NIGHT, TOLEARTING WELL. VSS, AFEBRILE. FAMILY MEMBER CAME TO VISIT LATE (2200) BUT DID NOT STAY LONG AT THE BEDSIDE. HS SNACK GIVEN, BS WAS 258 AT BEDTIME. PACE MAKER NOTED. ITS NOT FIRING PER REPORT. LIDO PATCH WAS TAKEN OFF OF RIGHT SHOULDER. SLOW PROGRESS TOWARDS DC GOALS. WILL CONTINUE TO MONITOR.
[2018-09-01 08:00] VITALS: BP 117/82
[2018-09-01 13:09] VITALS: BP 109/76
--- NOTE | 2018-09-01 14:26 | NUR ---
AAOX4. CALM, COOPERATIVE. APPETITE BRISK. BLOOD GLUCOSE AND SLIDING SCALE ORDERED. VOIDING PER URINAL. HAS BEEN UP IN CHAIR MOST OF THE DAY. SATS GOOD ON O2. FREQUENT CHECKS; WILL CONTINUE TO MONITOR.
[2018-09-01 19:36] VITALS: BP 102/68
--- NOTE | 2018-09-02 04:42 | NUR ---
PATIENTS CARES WERE ASSUMED AT SHIFT CHANGE. PATIENT WAS ASSESSED AND MEDS WERE PASSED. PATIENT HAD A SEPERATION OF HIS COLOSTOMY BAG AT 0300. PATIENT WAS WASHED. LINEN WAS CHANGED AND A NEW COLOSTOMY BAG WAS PLACED. THERE WAS A LARGE SOFT BROWN STOOL IN THE BAG. HOURLY ROUNDING WAS DONE. PATIENT DID SLEEP WELL WITH HIS C-PAP ON. THE BED IS IN A LOW AND LOCKED POSITION.
[2018-09-02 07:28] VITALS: BP 95/61
--- NOTE | 2018-09-02 07:33 | NUR ---
ASSUMED PT CARE AT 0700. ASSESSMENT COMPLETED AND IS CHARTED AT 0730. VITAL SIGNS STABLE WITH EXCEPTION OF LOW BP AT 95/61. PT UP IN CHAIR. AWAKE,ALERT/ORIENTED X4. REPORTS PAIN 5/10 IN BACK, STATES PAIN MEDICATION GIVEN ON TIE UP WORKER HELPED. REPORTS PRODUCTIVE COUGH PRODUCING GREEN SPUTUM. DENIES ANY SHORTNESS OF BREATH AT THIS TIME. PT DOES NOT APPEAR IN DISTRESS. WILL CONTINUE TO MONITOR AND CONTINUE CURRENT PLAN OF CARE.
[2018-09-02 08:12] LABS: HEMATOCRIT 41.4 % (42.0-52.0); HEMOGLOBIN 13.3 gm/dL (14.0-18.0); MCH 32.9 pg (26.0-34.0); MCHC 32.2 g/dL (28.0-37.0); MCV 102.1 fL (80.0-100.0); RBC 4.05 mil/uL (4.50-6.00); RDW 13.7 % (10.5-14.5); WBC 9.1 thou/uL (4.0-11.0)
[2018-09-02 08:20] LABS: CALCIUM 8.9 mg/dL (8.5-10.1); CREATININE 1.3 mg/dL (0.7-1.3); POTASSIUM 4.2 mmol/L (3.5-5.1)
[2018-09-02] MEDS ORDERED: PREDNISONE 20 M20 M1 PO (08:59)
[2018-09-02] MEDS ORDERED: TRADJENTA5 MG PO (08:59)
[2018-09-02 10:06] VITALS: BP 95/61
--- NOTE | 2018-09-02 10:52 | NUR ---
DISCHARGED PT IN STABLE CONDITION WITH 3L O2. DISCHARGED VIA WHEELCHAIR AND VOLUNTEER SERVICES.
--- NOTE | 2018-09-02 12:39 | NUR ---
DISCHARGE NOTE: SW reviewed chart and spoke with nursing and attending physician. Pt was discharged home earler today. Per attending physician, pt declined services. SW updated intake at [facility]. Pt already discharged home prior to SW visit. Pt's family provided transportation home. No additional SW needs identified at this time, but is available to assist should needs arise.
== END 2018-09-02 11:00 | disposition home or self-care (01) | DRG 682 ==
LOC: ER 23:03 → EROBS 08-27 01:24 → 4W 08-27 01:24 → SICU 08-31 14:22 → ENTRNSPT 09-02 10:44 → EDTRNSPTSTS 09-02 10:46 → SICU 09-02 11:00
PROVIDERS: Hospitalist; Internal Medicine; Nurse Practitioner Family; Student in an Organized Health Care Education/Training Program; ADMIT Internal Medicine
PROC: 5A09357 Assistance with Respiratory Ventilation, Less than 24 Consecutive Hours, Continuous Positive Airway Pressure (ICD-10-PCS; principal; 2018-08-29)
PROC: 5A09357 Assistance with Respiratory Ventilation, Less than 24 Consecutive Hours, Continuous Positive Airway Pressure (ICD-10-PCS; 2018-08-30)
PROC: 5A09357 Assistance with Respiratory Ventilation, Less than 24 Consecutive Hours, Continuous Positive Airway Pressure (ICD-10-PCS; 2018-09-01)
PROC: 5A09357 Assistance with Respiratory Ventilation, Less than 24 Consecutive Hours, Continuous Positive Airway Pressure (ICD-10-PCS; 2018-09-02)
DX: N17.9 Acute kidney failure, unspecified (principal); J96.21 Acute and chronic respiratory failure with hypoxia; I50.43 Acute on chronic combined systolic (congestive) and diastolic (congestive) heart failure; J44.1 Chronic obstructive pulmonary disease with (acute) exacerbation; I42.9 Cardiomyopathy, unspecified; E46 Unspecified protein-calorie malnutrition; I13.0 Hypertensive heart and chronic kidney disease with heart failure and stage 1 through stage 4 chronic kidney disease, or unspecified chronic kidney disease; G47.33 Obstructive sleep apnea (adult) (pediatric); F41.9 Anxiety disorder, unspecified; K57.90 Diverticulosis of intestine, part unspecified, without perforation or abscess without bleeding; N18.9 Chronic kidney disease, unspecified; G89.29 Other chronic pain; M54.9 Dorsalgia, unspecified; E11.22 Type 2 diabetes mellitus with diabetic chronic kidney disease; K21.9 Gastro-esophageal reflux disease without esophagitis; Z79.4 Long term (current) use of insulin; Z95.0 Presence of cardiac pacemaker; Z85.46 Personal history of malignant neoplasm of prostate; Z90.49 Acquired absence of other specified parts of digestive tract; Z93.3 Colostomy status; Z88.8 Allergy status to other drugs, medicaments and biological substances; Z87.891 Personal history of nicotine dependence; Z86.73 Personal history of transient ischemic attack (TIA), and cerebral infarction without residual deficits; Z85.118 Personal history of other malignant neoplasm of bronchus and lung; Z82.5 Family history of asthma and other chronic lower respiratory diseases; Z83.3 Family history of diabetes mellitus; I25.2 Old myocardial infarction; Z68.29 Body mass index [BMI] 29.0-29.9, adult
CPT/HCPCS: 10045; 15002

== ENCOUNTER 2018-10-22 09:23 | Emergency (ER) | payer OTHER ==
[~2018-10-22] VITALS: Ht 172.7 cm; Wt 83.9 kg
[~2018-10-22 09:23] MED LIST changes: +COMBIVENT RESPIM4 GM INH; +PREDNISONE 20 M20 M1 PO
[2018-10-22 10:12] LABS: HEMATOCRIT 34.4 % (42.0-52.0); HEMOGLOBIN 11.4 gm/dL (14.0-18.0); MCH 34.3 pg (26.0-34.0); MCHC 33.1 g/dL (28.0-37.0); MCV 103.8 fL (80.0-100.0); RBC 3.31 mil/uL (4.50-6.00); RDW 15.8 % (10.5-14.5); WBC 6.4 thou/uL (4.0-11.0)
[2018-10-22 10:15] LABS: ANION GAP 9 mmol/L (7-16); BUN 19 mg/dL (7-18); CALCIUM 9.2 mg/dL (8.5-10.1); CHLORIDE 102 mmol/L (98-107); CO2 30 mmol/L (21-32); CREATININE 1.7 mg/dL (0.7-1.3); GLUCOSE 140 mg/dL (74-106); POTASSIUM 4.4 mmol/L (3.5-5.1); SODIUM 141 mmol/L (136-145)
[2018-10-22 10:25] LABS: TROPONIN-I <0.06 ng/mL (<0.06)
[2018-10-22 12:24] VITALS: BP 92/63
--- NOTE | 2018-10-22 18:28 | EKG ---
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: : 1945 Requested By: Lionel Lockett Order Number: [id number] MD: Morgan Farah Measurements Intervals [place] Rate: 81 P: 69 NV: 172 QRS: 151 QRSD: 193 T: 45 QT: 497 QTc: 577 Interpretive Statements Sinus rhythm RBBB Compared to ECG 08/26/2018 23:16:45 Atrial premature complex(es) no longer present Electronically Signed On 10-22-2018 18:28:25 PARTS BACK COUNTER MAN by Morgan Farah [email or web address] ��������������������������������������������� <ELECTRONICALLY SIGNED> ���������������������������������������� By: Morgan Farah MD ��������������������������������������������� 10/22/18 1828 0938 7 Morgan Farah MD /LIZ
== END 2018-10-22 12:25 | disposition home or self-care (01) ==
LOC: ER 09:23
PROVIDERS: Emergency Medicine
DX: J44.9 Chronic obstructive pulmonary disease, unspecified (principal); G47.33 Obstructive sleep apnea (adult) (pediatric); F41.9 Anxiety disorder, unspecified; E78.5 Hyperlipidemia, unspecified; K21.9 Gastro-esophageal reflux disease without esophagitis; Z85.46 Personal history of malignant neoplasm of prostate; Z85.118 Personal history of other malignant neoplasm of bronchus and lung; I12.9 Hypertensive chronic kidney disease with stage 1 through stage 4 chronic kidney disease, or unspecified chronic kidney disease; E11.22 Type 2 diabetes mellitus with diabetic chronic kidney disease; N18.9 Chronic kidney disease, unspecified; Z87.891 Personal history of nicotine dependence; Z88.8 Allergy status to other drugs, medicaments and biological substances

== ENCOUNTER 2018-11-19 09:43 | Inpatient (IN) | payer OTHER ==
[~2018-11-19] VITALS: Ht 172.7 cm; Wt 86.2 kg
[2018-11-19 09:46] VITALS: BP 107/69
[2018-11-19 10:22] LABS: HEMATOCRIT 39.3 % (42.0-52.0); MCHC 33.2 g/dL (28.0-37.0); MCV 105.3 fL (80.0-100.0); PLATELET COUNT 180 thou/uL (150-400); RBC 3.73 mil/uL (4.50-6.00); RDW 14.2 % (10.5-14.5); WBC 6.6 thou/uL (4.0-11.0)
[2018-11-19 10:30] LABS: ANION GAP 8 mmol/L (7-16); BUN 26 mg/dL (7-18); CALCIUM 9.1 mg/dL (8.5-10.1); CHLORIDE 104 mmol/L (98-107); CO2 29 mmol/L (21-32); CREATININE 1.4 mg/dL (0.7-1.3); GLUCOSE 156 mg/dL (74-106); POTASSIUM 3.4 mmol/L (3.5-5.1); SODIUM 141 mmol/L (136-145)
[2018-11-19 10:38] LABS: ALBUMIN 3.3 g/dL (3.4-5.0); SGOT 21 U/L (15-37); SGPT 41 U/L (30-65); TOTAL BILIRUBIN 0.4 mg/dL (<0.1-1.0); TOTAL PROTEIN 6.9 g/dL (6.4-8.2); TROPONIN-I <0.06 ng/mL (<0.06)
[2018-11-19 10:40] LABS: ABSOLUTE NEUTROPHILS 5.1 thou/uL (1.4-8.2); PLATELET ESTIMATE NORMAL
[2018-11-19] MEDS ORDERED: PREDNISONE 10 M10 MG PO (10:43)
[2018-11-19] MEDS ORDERED: MUCUS ER600 M1 PO (13:29)
[2018-11-19 16:17] LABS: ALBUMIN 3.1 g/dL (3.4-5.0); TOTAL PROTEIN 6.4 g/dL (6.4-8.2)
[2018-11-19 16:43] LABS: TSH 1.101 uIU/mL (0.358-3.740)
[2018-11-19 16:44] VITALS: BP 137/82
[2018-11-19 17:05] VITALS: BP 137/77
[2018-11-19 18:08] VITALS: BP 158/88
[2018-11-19 20:34] VITALS: BP 144/94
--- NOTE | 2018-11-20 01:44 | NUR ---
PT ORIENTATED TO ROOM AND CALL LIGHT PT GIVEN DILAUDED AND OXYCODONE FOR PAIN PT USED CALL LIGHT EFFECTIVELY NO ISSUES OVERNIGHT.
[2018-11-20 04:31] VITALS: BP 112/77
[2018-11-20 06:34] LABS: HEMATOCRIT 38.4 % (42.0-52.0); HEMOGLOBIN 12.8 gm/dL (14.0-18.0); MCH 34.7 pg (26.0-34.0); MCHC 33.4 g/dL (28.0-37.0); MCV 103.7 fL (80.0-100.0); RBC 3.7 mil/uL (4.50-6.00); RDW 13.8 % (10.5-14.5); WBC 5.7 thou/uL (4.0-11.0)
[2018-11-20 06:48] LABS: CALCIUM 8.9 mg/dL (8.5-10.1); MAGNESIUM 1.8 mg/dL (1.8-2.4); POTASSIUM 3.2 mmol/L (3.5-5.1)
[2018-11-20 08:30] VITALS: BP 104/77
[2018-11-20 16:48] VITALS: BP 111/71
--- NOTE | 2018-11-20 17:31 | NUR ---
PT STABLE THROUGHOUT SHIFT. PT C/O PAIN, TREATED WITH MEDICATION WHICH OFFERED RELIEF. PT RESTING COMFORTABLY, WILL CONTINUE TO MONITOR.
[2018-11-20 19:35] VITALS: BP 104/62
--- NOTE | 2018-11-21 02:08 | NUR ---
PTS OSTOMY BAG CHANGED PT NOT COMPLAINING OF ANY PAIN OR NAUSEA PT USED CALL LIGHT EFFECTIVELY NO ISSUES OVERNIGHT.
[2018-11-21 03:50] VITALS: BP 93/60
[2018-11-21 05:16] LABS: HEMOGLOBIN 12.4 gm/dL (14.0-18.0); MCH 34.3 pg (26.0-34.0); MCHC 32.5 g/dL (28.0-37.0); MCV 105.4 fL (80.0-100.0); RBC 3.6 mil/uL (4.50-6.00); RDW 13.9 % (10.5-14.5); WBC 6.1 thou/uL (4.0-11.0)
[2018-11-21 05:30] LABS: CALCIUM 8.5 mg/dL (8.5-10.1); MAGNESIUM 1.6 mg/dL (1.8-2.4); POTASSIUM 3.5 mmol/L (3.5-5.1)
[2018-11-21 07:35] VITALS: BP 143/75
--- NOTE | 2018-11-21 13:14 | EKG ---
[address] [place] [address] ELECTROCARDIOGRAM REPORT Name: LAURA PEÑA Room #: 459-P ADM IN M.R.#: [id number] ������������������ Admission: 11/19/18 ������������������ Attend Phys: Ulises Fall MD Discharge: ������������������ Date of : 45 Report #: [id number] ����������������������������������������������������������������� [id number] THIS REPORT FOR: //name// [facility] ED Test Date: 2018-11-19 Test Time: 09:53:33 Pat Name: LAURA PEÑA Department: Room: [facility] Gender: M Electrical Design Technician: LORENZO : 1945 Requested By: Izzy Bang Order Number: [id number] MD: Dalton Hernandez Measurements Intervals [place] Rate: 79 P: 55 PA: 164 QRS: 155 QRSD: 185 T: 43 QT: 510 QTc: 585 Interpretive Statements Sinus rhythm Rightward axis Right bundle branch block Compared to ECG 10/22/2018 09:38:39 no significant change was found Electronically Signed On 11-21-2018 13:14:15 CDT by Dalton Hernandez [email or web address] ��������������������������������������������� <ELECTRONICALLY SIGNED> ���������������������������������������� By: Dalton Hernandez MD, [facility] ��������������������������������������������� 11/21/18 1314 0953 0953 Dalton Hernandez MD, [facility] /EPI
[2018-11-21 13:54] VITALS: BP 102/63
--- NOTE | 2018-11-21 15:26 | NUR ---
TOWARDS POC PT A/O X4, VSS, AFEBRILE, PAIN MANAGED BY MEDS. NO CONCERNS VOICED. WILL CONTINUE TO MONITOR.
[2018-11-21 20:14] VITALS: BP 112/69
[2018-11-22 04:14] VITALS: BP 109/65
--- NOTE | 2018-11-22 05:54 | NUR ---
Assumed care at 1845. Pt resting in bed. Denies pain. Empitied colostomy bag. VSS. Still on 3L NC. No identified needs at the moment. Will continue to monitor.
[2018-11-22 05:57] LABS: HEMATOCRIT 35.1 % (42.0-52.0); HEMOGLOBIN 11.5 gm/dL (14.0-18.0); MCH 34.6 pg (26.0-34.0); MCHC 32.9 g/dL (28.0-37.0); MCV 105.2 fL (80.0-100.0); RBC 3.34 mil/uL (4.50-6.00); RDW 14.1 % (10.5-14.5); WBC 4.9 thou/uL (4.0-11.0)
[2018-11-22 06:19] LABS: CALCIUM 8.8 mg/dL (8.5-10.1); CREATININE 1.1 mg/dL (0.7-1.3); POTASSIUM 3.4 mmol/L (3.5-5.1)
[2018-11-22 08:00] VITALS: BP 119/72
--- NOTE | 2018-11-22 13:01 | NUR ---
INITIAL ASSESSMENT: SW reviewed chart and spoke with nursing and attending physician. Pt was admitted from home due to back pain. Pt currently on IV pain meds. Pt with hx of COPD/HTN/DM. SW met with pt and at bedside. Introduced role of SW. Pt is alert/orientated x 4. Pt reports he lives at home with his and family. Prior to admission, pt was independent with ADLs. Pt does have a cane/walker and home O2/nebulizer provided by [facility]. Pt has used [facility] in the past for HH services and has been to [facility] acute rehab and [facility]. Pt's PCP is Dr. Ava Herron. Pulm: Dr. Marcial. Cardio: Dr. Quezada. Pt's plan is to return home. At this time, pt does not think he needs HH services, but is agreeable with using [facility] if needed. SW is following to assist as needed with discharge planning.
[2018-11-22 15:00] VITALS: BP 103/65
[2018-11-22 19:19] VITALS: BP 110/66
--- NOTE | 2018-11-22 20:01 | NUR ---
Pt stable through out the shift, slowly progressing towards goal. Had no comlpaints of pain for the shift but still requested for acetamenophen to be given as scheduled, though one dose was given late since pt was asleep and pt was ok with this. Colostomy bag was not full by the end of the shift, planned to change at night, endorsed bianca night nurse. POC followed.
[2018-11-23 03:57] VITALS: BP 104/72
[2018-11-23 06:22] LABS: HEMATOCRIT 32.5 % (42.0-52.0); MCH 34.9 pg (26.0-34.0); MCHC 33.7 g/dL (28.0-37.0); MCV 103.7 fL (80.0-100.0); RBC 3.14 mil/uL (4.50-6.00); RDW 13.9 % (10.5-14.5); WBC 4.7 thou/uL (4.0-11.0)
[2018-11-23 06:27] LABS: CALCIUM 8.6 mg/dL (8.5-10.1); CREATININE 0.9 mg/dL (0.7-1.3); MAGNESIUM 1.7 mg/dL (1.8-2.4); POTASSIUM 3.3 mmol/L (3.5-5.1)
--- NOTE | 2018-11-23 07:55 | NUR ---
PROGRESS PT A/OX4, DENIES PAIN IVF'S INFUSING ORDERED IV ANTIBIOTICS CONTINUE 3 LITERS O2 AND RT TX'S GIVEN, LUNGS COARSE IN UPPER LOBES AND DIMINISHED IN BASES. VOIDING PER URINAL WEARS BIPAP AT HS, COLOSTOMY INTACT DRAINING LIQUID BROWN STOOL.
[2018-11-23 08:33] VITALS: BP 109/70
--- NOTE | 2018-11-23 15:37 | NUR ---
SW reviewed chart and spoke with nursing and attending physician. Pt is progressing towards goals for discharge. Discharge home is anticipated for tomorrow. SW updated intake at [facility] to follow if pt needs HH at time of discharge. Pt refused HH services during last hospitalization. Plan is for pt to discharge home when medically stable. SW is following to assist as needed with discharge planning.
--- NOTE | 2018-11-23 16:02 | NUR ---
Pt is progressing well towards goals. Pain was verbalized in the afternoon, hydromorphone given, relief was noted. Pt uses a bipap at night, colostomy intact and draining soft liquid stools. Pt was able to work with PT and was able to ambulate, pt is able to transfer from bed to chair with minimal assists. Still of 3L of O2 via NC, and able to use the urinal when needed. POC followed. No other issues or vebalizations identified for this shift.
[2018-11-23 16:06] VITALS: BP 117/68
[2018-11-23 19:35] VITALS: BP 107/65
[2018-11-24 03:08] VITALS: BP 133/79
[2018-11-24 07:23] VITALS: BP 133/77
--- NOTE | 2018-11-24 08:06 | NUR ---
progress pt slept throughout shift, reported pain that was relieved with a dose of diluadid iv and an oxycodone slept remainder of shift, ivf's infusing as ordered, iv antibiotics o2 and rt tx continue cpa at hs vss tele intact continue poc.
[2018-11-24] MEDS ORDERED: CYCLOBENZAPRINE5 MG PO (14:51)
[2018-11-24] MEDS ORDERED: LIDOPATCH1 EACH TRANSDERM (14:52)
[2018-11-24 15:29] VITALS: BP 133/77
--- NOTE | 2018-11-24 15:37 | NUR ---
CARE TEAM INDICATED THAT PT IS MEDICALLY STABLE TO DISCHARGE HOME THIS DAY. PT INDICATED HE DIDN'T WANT HH SERVICES UPON DC. PT IS TO DC HOME WITH NO NEEDS. NO OTHER CM INTERVENTION INDICATED AT THIS TIME. CASE CLOSED.
--- NOTE | 2018-11-24 16:30 | NUR ---
Pt was able to work with pt and ot today, still on O2 via NC. Only complained of pain once, pain medication given relief noted. POC followed. DC orders and instructions given, prescriptions called to the pharmacy of choice. IV removed. Family is here to supervisor opening and picking the pt. Pt is now DC.
[2018-11-25] MEDS ORDERED: LIDODERM1 EACH TRANSDERM (01:35)
[2018-11-25] MEDS ORDERED: CYCLOBENZAPRINE5 MG PO (01:36)
== END 2018-11-24 16:49 | disposition home or self-care (01) | DRG 551 ==
LOC: ER 09:43 → 4W 15:14 → EROBS 15:14 → 4W 17:07 → ENTRNSPT 11-24 16:17 → 4W 11-24 16:49
PROVIDERS: Physician Assistant; ADMIT Internal Medicine
DX: M54.5 Low back pain (principal); N17.0 Acute kidney failure with tubular necrosis; J96.10 Chronic respiratory failure, unspecified whether with hypoxia or hypercapnia; I42.9 Cardiomyopathy, unspecified; M94.0 Chondrocostal junction syndrome [Tietze]; J44.9 Chronic obstructive pulmonary disease, unspecified; F41.9 Anxiety disorder, unspecified; K21.9 Gastro-esophageal reflux disease without esophagitis; E78.5 Hyperlipidemia, unspecified; R26.2 Difficulty in walking, not elsewhere classified; E11.22 Type 2 diabetes mellitus with diabetic chronic kidney disease; I12.9 Hypertensive chronic kidney disease with stage 1 through stage 4 chronic kidney disease, or unspecified chronic kidney disease; N18.9 Chronic kidney disease, unspecified; Z79.899 Other long term (current) drug therapy; Z93.3 Colostomy status; Z88.8 Allergy status to other drugs, medicaments and biological substances
CPT/HCPCS: 10045

== ENCOUNTER 2018-11-24 20:59 | Inpatient (IN) | payer OTHER ==
[~2018-11-24] VITALS: Ht 172.7 cm; Wt 87.0 kg
[~2018-11-24 20:59] MED LIST changes: +CYCLOBENZAPRINE5 MG PO; +LIDOPATCH1 EACH TRANSDERM; +MUCUS ER600 M1 PO
[2018-11-24 21:14] VITALS: BP 136/81
[2018-11-24 21:44] LABS: BE(vivo) 8.3 mmol/L (-2 to +3); HCO3 34.6 mmol/L (22.0-26.0); PCO2 55.5 mmHg (35.0-45.0); pH 7.413 (7.360-7.450); sO2 96.6 % (92.0-98.0)
[2018-11-24 22:01] LABS: HEMATOCRIT 36.8 % (42.0-52.0); HEMOGLOBIN 12.3 gm/dL (14.0-18.0); MCH 34.5 pg (26.0-34.0); MCHC 33.3 g/dL (28.0-37.0); MCV 103.5 fL (80.0-100.0); PLATELET COUNT 156 thou/uL (150-400); RBC 3.56 mil/uL (4.50-6.00); RDW 13.8 % (10.5-14.5); WBC 5.4 thou/uL (4.0-11.0)
[2018-11-24 22:38] LABS: ANION GAP 5 mmol/L (7-16); BUN 10 mg/dL (7-18); CALCIUM 8.9 mg/dL (8.5-10.1); CHLORIDE 102 mmol/L (98-107); CO2 36 mmol/L (21-32); CREATININE 1.1 mg/dL (0.7-1.3); GLUCOSE 188 mg/dL (74-106); POTASSIUM 3.4 mmol/L (3.5-5.1); SODIUM 143 mmol/L (136-145)
[2018-11-24 22:41] LABS: ABSOLUTE NEUTROPHILS 3.6 thou/uL (1.4-8.2)
[2018-11-24 22:42] LABS: ANISOCYTOSIS 1+; MACROCYTES 1+; PLATELET ESTIMATE NORMAL
[2018-11-24 22:47] LABS: TROPONIN-I <0.06 ng/mL (<0.06)
[2018-11-24 23:31] VITALS: BP 133/83
[2018-11-25 00:59] VITALS: BP 143/94
[2018-11-25] MEDS ORDERED: LIDODERM1 EACH TRANSDERM (01:35)
[2018-11-25] MEDS ORDERED: CYCLOBENZAPRINE5 MG PO (01:36)
[2018-11-25 03:35] VITALS: BP 123/83
--- NOTE | 2018-11-25 03:57 | NUR ---
PT ARRIVED UNIT FROM ER AT ABOUT 0020. PT A/OX4, ON 2L O2, LABOURED BREATHING. VITAL SIGNS STABLE, ASSESSMENT CHARTED. ADMISSION COMPLETED. CONSENTS SIGNED. FALL PRECAUTIONS ACTIVATED. PT ON CPAP AT HS. PAIN ADEQAUTELY MANAGED WITH PAIN MEDICATION. PT RESTING COMFORTABLY IN BED. PROGRESSING TOWARD PLAN OF CARE. WILL CONTINUE TO MONITOR.
[2018-11-25 04:57] LABS: CALCIUM 8.8 mg/dL (8.5-10.1); POTASSIUM 3.1 mmol/L (3.5-5.1)
[2018-11-25 08:28] VITALS: BP 117/72
--- NOTE | 2018-11-25 09:28 | EKG ---
[address] [place] [address] ELECTROCARDIOGRAM REPORT Name: LAURA PEÑA Room #: 212-P ADM IN M.R.#: [id number] ������������������ Admission: 11/24/18 ������������������ Attend Phys: Adi Xavier MD Discharge: ������������������ Date of : 45 Report #: [id number] ����������������������������������������������������������������� [id number] THIS REPORT FOR: //name// [facility] ED Test Date: 2018-11-24 Test Time: 22:02:14 Pat Name: LAURA PEÑA Department: Room: [facility] Gender: M Customer Sales Service Manager: LAITH : 1945 Requested By: Emiliano Rausch Order Number: [id number] MD: Dalton Hernandez Measurements Intervals [place] Rate: 94 P: 59 PA: 174 QRS: 163 QRSD: 181 T: 27 QT: 447 QTc: 560 Interpretive Statements Sinus rhythm Rightward axis Nonspecific intraventricular conduction delay Baseline wander in lead(s) V1 Compared to ECG 11/19/2018 09:53:33 No significant change was found Electronically Signed On 11-25-2018 9:28:05 CDT by Dalton Hernandez [email or web address] ��������������������������������������������� <ELECTRONICALLY SIGNED> ���������������������������������������� By: Dalton Hernandez MD, [facility] ��������������������������������������������� 11/25/18 0928 01 01 Dalton Hernandez MD, [facility] /EPI
[2018-11-25 12:22] VITALS: BP 126/82
--- NOTE | 2018-11-25 13:23 | NUR ---
patient dc from [facility] and readmitted within 24 hours for chf exacerbation. Patient resides at home with . He has 4 steps to enter, 5 steps to Kitchen and 7 steps to bedroom. He uses a cane, walker. He has oxygen, nebulizer and BIPAP at home. he reports he qualifies for [employer] oxygen at home. He is awaiting delivary of new oxygen. Discussed HH, PCP is Dr Ava Herron. He is agreeable to HH if needed, "lets just see if needed." He is agreeable to [facility] have used in past.
[2018-11-25 16:00] VITALS: BP 103/69
[2018-11-25 19:30] VITALS: BP 100/61
--- NOTE | 2018-11-26 03:08 | NUR ---
ASSUMED PT CARE AT 1900. PT A/OX4, VITAL SIGNS STABLE, ASSESSMENT CHARTED. NO COMPLAINTS OF CHEST PAIN OR SOB. NC ON 2L WHEN AWAKE, CPAP AT HS. CALLS APPROPRIATELY, FALL PRECAUTIONS IN PLACE. RESTED WELL THROUGH THE NIGHT. PAIN ADEQAUTELY MANAGED WITH PAIN MEDICATION. PROGRESSING TOWARD PLAN OF CARE. WILL CONTINUE TO MONITOR.
[2018-11-26 04:47] VITALS: BP 100/67
[2018-11-26 05:03] LABS: HEMATOCRIT 35.5 % (42.0-52.0); HEMOGLOBIN 11.7 gm/dL (14.0-18.0); MCH 34.4 pg (26.0-34.0); MCV 104.3 fL (80.0-100.0); RBC 3.4 mil/uL (4.50-6.00); RDW 13.6 % (10.5-14.5); WBC 4.7 thou/uL (4.0-11.0)
[2018-11-26 05:12] LABS: CALCIUM 9.2 mg/dL (8.5-10.1); CREATININE 1.1 mg/dL (0.7-1.3); POTASSIUM 3.9 mmol/L (3.5-5.1)
[2018-11-26 08:15] VITALS: BP 103/68
[2018-11-26 12:28] VITALS: BP 99/60
--- NOTE | 2018-11-26 14:45 | NUR ---
[facility] aware of possible wkend dc. They can accept if pt agreeable. Hh orders will need to be faxed to [phone] and the oncall nurse notified at [phone]. Pt has needed dme inplace.
[2018-11-26 14:46] VITALS: BP 99/60
--- NOTE | 2018-11-26 15:09 | 2DMMODE ---
[facility] [address] [place] [address] 2 D/M-MODE ECHOCARDIOGRAM Name: LAURA PEÑA Room #: 212-P ADM IN M.R.#: [id number] ������������� Admission: 11/24/18 ������������� Attend Phys: Prem Ron MD Discharge: ��� ������������� ��� Date of : 45 Date of Service: 11/26/18 1509 �� Report #: [id number] �������� ��������������������������������������������[id number] THIS REPORT FOR: //name// APPROVED REPORT Study performed: 11/26/2018 14:13:23 EXAM: Comprehensive 2D, Doppler, and color-flow Echocardiogram Patient Location: Echo lab Room #: [facility] Status: routine BSA: 2.00 HR: 75 bpm BP: 99/60 mmHg Rhythm: Pacemaker Other Information Study Quality: Good Indications Congestive Heart Failure Dyspnea Chest Pain Hx: Cardiomyopathy, CHF, COPD, ICD 2D Dimensions RVDd: 44.45 mm IVSd: 12.82 (7-11mm) LVOT Diam: 23.61 (18-24mm) LVDd: 72.49 mm PWd: 12.09 (7-11mm) Ascending Ao: 41.51 (22-36mm) LVDs: 64.36 (25-40mm) Aortic Root: 41.13 mm Volumes Left Atrial Volume (Systole) Single Plane 4CH: 61.66 mL Single Plane 2CH: 100.18 mL LA ESV Index: 41.00 mL/m2 Aortic Valve AoV Peak Braxton.: 1.48 m/s AO Peak Gr.: 8.72 mmHg LVOT Max P.61 mmHg LVOT Max V: 0.81 m/s MARILU Vmax: 2.40 cm2 Mitral Valve [facility] [address] [place] [address] 2 D/M-MODE ECHOCARDIOGRAM Name: LAURA PEÑA Room #: 212-P [facility] IN [facility].#: [id number] ������������� Admission: 11/24/18 ������������� Attend Phys: Prem Ron MD Discharge: ��� ������������� ��� Date of : 45 Date of Service: 11/26/18 1509 �� Report #: [id number] �������� ��������������������������������������������[id number] E/A Ratio: 0.7 MV Decel. Time: 170.28 ms MV E Max Braxton.: 0.82 m/s MV A Braxton.: 1.25 m/s MV PHT: 49.38 ms IVRT: 115.34 ms Pulmonary Valve PV Peak Braxton.: 0.72 m/s PV Peak Gr.: 2.09 mmHg Tricuspid Valve TR Peak Braxton.: 3.81 m/s RAP Estimate: 5.00 mmHg TR Peak Gr.: 57.94 mmHg PA Pressure: 63.00 mmHg Left Ventricle Left ventricle is severely dilated. multiple segemental wall motion abnormalities Mild concentric left ventricular hypertrophy. Left ventricular systolic function is severely decreased. LVEF is 20-25%. Mild diastolic dysfunction is present (impaired relaxation pattern). Right Ventricle The right ventricle is normal size. Right ventricle is mildly hypokinetic. Pacemaker lead is present in the right ventricle. Atria Left atrium is moderately dilated. The right atrium size is normal. Aortic Valve Aortic valve is trileaflet. No aortic regurgitation is present. There is no aortic valvular stenosis. Mitral Valve The mitral valve is normal in structure. Severe mitral regurgitation. Tricuspid Valve The tricuspid valve is normal in structure. Mild to moderate tricuspid regurgitation. Estimated PAP is 60-65mmHg. Pulmonic Valve The pulmonary valve is normal in structure. Mild to moderate pulmonic regurgitation. [place] [facility] [address] [place] [address] 2 D/M-MODE ECHOCARDIOGRAM Name: LAURA PEÑA Room #: 212-P [facility] IN .R.#: [id number] ������������� Admission: 11/24/18 ������������� Attend Phys: Prem Ron MD Discharge: ��� ������������� ��� Date of : 45 Date of Service: 11/26/18 1509 �� Report #: [id number] �������� ��������������������������������������������[id number] Aortic root is dilated at 4.1cm. Ascending aorta is dilated at 4.2cm. IVC is normal in size and collapses >50% with inspiration. Pericardium There is no pericardial effusion. <Conclusion> Left ventricle is severely dilated. multiple segemental wall motion abnormalities LVEF is 20-25%. The right ventricle is normal size. Right ventricle is mildly hypokinetic. Pacemaker lead is present in the right ventricle. Left atrium is moderately dilated. Aortic valve is trileaflet. The mitral valve is normal in structure. Severe mitral regurgitation. The tricuspid valve is normal in structure. Mild to moderate tricuspid regurgitation. Estimated PAP is 60-65mmHg. The pulmonary valve is normal in structure. Mild to moderate pulmonic regurgitation. Aortic root is dilated at 4.1cm. Ascending aorta is dilated at 4.2cm. There is no pericardial effusion. ��������������������������������������������� <ELECTRONICALLY SIGNED> ���������������������������������������� By: Morgan Farah MD ��������������������������������������������� 11/26/18 1509 1509 1509 Morgan Farah MD /INF
[2018-11-26 16:54] VITALS: BP 94/63
[2018-11-26 20:15] VITALS: BP 107/70
[2018-11-27 01:25] VITALS: BP 122/82
--- NOTE | 2018-11-27 03:45 | NUR ---
19:00> ASSUMED CARE WITH PATIENT SITTING ON THE CHAIR, AOX4, PPM/AICD, SR WITH BBB ON THE MONITOR, BILATERAL NON PITTING EDEMA ON BOTH ANKLES, PULSES 2+/1+. ON 2 L/NC, CLEAR LUNG SOUNDS, DIMINISHED ON THE BASES. DENIES SOA. USES CPAP AT NIGHT. (+) OCCASIONAL COUGH, PATIENT VERBALIZED THAT HE WAS ABLE TO EXPECTORATE [place] PHLEGHM. COMPLAINT OF PAIN ACROSS THE CHEST WHEN COUGHING DESCRIBED PINS AND NEEDLES, 6/10 BUT DENIES ANY PAIN WHEN NOT COUGHING, MANAGED WITH PRN PAIN MEDS. COLOSTOMY ON RIGHT UPPER QUADRANT, C/D/I. USES URINAL. SKIN INTACT. IV ON THE RIGHT HAND INTACT AND FLUSHES WELL. MAINTAINED ON FALL PRECAUTION. FF UP POC.
[2018-11-27 04:27] VITALS: BP 107/71
[2018-11-27 07:00] VITALS: BP 108/67
[2018-11-27 11:20] VITALS: BP 107/71
[2018-11-27 11:37] LABS: CALCIUM 9.5 mg/dL (8.5-10.1); CREATININE 1.1 mg/dL (0.7-1.3); POTASSIUM 3.4 mmol/L (3.5-5.1)
[2018-11-27 15:40] VITALS: BP 107/73
--- NOTE | 2018-11-27 18:50 | NUR ---
ASSUMED CARE OF PT AT 0700. PT A&OX4, UP WITH STANDBY. PT AMBULATED HALLWAYS TODAY WITH STANDBY, GAITBELT AND WALKER. PT VITALS WNL, PT WAS SINUS RHYTHM ON TELEMETRY. PT COMPLAINED OF SHORTNESS OF BREATH AND NAUSEA THAT WAS RELIEVED WITH ZOFRAN AND RESP TX. DR. MOODY AND DR. PARISH NOTIFIED OF PTS DISCOMFORT WITH NO NEW ORDERS. PT STATED HE FELT MUCH BETTER THIS AFTERNOON. WILL CONT WITH POC.
[2018-11-27 19:57] VITALS: BP 112/69
--- NOTE | 2018-11-28 02:37 | NUR ---
ASSESSMENT DOCUMENTED. DENIES SOA, N/V. ONE PIECE COLOSTOMY CARE DONE, COLOSTOMY BAG CHANGED. COMPLAINT OF THROBBING HEADACHE, 5/10, MANAGED WITH PRN PAIN MEDS. BIPAP AT NIGHT DONE. MAINTAINED ON FALL PRECAUTION. FF UP POC.
[2018-11-28 05:19] LABS: HEMATOCRIT 34.1 % (42.0-52.0); HEMOGLOBIN 11.4 gm/dL (14.0-18.0); MCH 34.4 pg (26.0-34.0); MCHC 33.5 g/dL (28.0-37.0); MCV 102.7 fL (80.0-100.0); RBC 3.32 mil/uL (4.50-6.00); RDW 13.4 % (10.5-14.5); WBC 4.4 thou/uL (4.0-11.0)
[2018-11-28 05:26] LABS: CALCIUM 9.2 mg/dL (8.5-10.1); CREATININE 1.1 mg/dL (0.7-1.3); POTASSIUM 3.7 mmol/L (3.5-5.1)
[2018-11-28 07:50] VITALS: BP 96/64
[2018-11-28 11:40] VITALS: BP 95/60
[2018-11-28 15:30] VITALS: BP 99/62
--- NOTE | 2018-11-28 16:02 | NUR ---
ASSUMED CARE OF PT AT 0700. PT A&OX4, UP WITH WALKER AND STANDBY. PT AMBULATED AROUND UNIT TODAY. PT DENIED SHORTNESS OF BREATH OR PAIN. PT'S BLOOD PRESSURE SLIGHTLY LOW AND ISOSORBIDE AND HYDRALAZINE HELD. PT WAS OTHERWISE ASYMPTOMATIC FROM LOW BLOOD PRESSURE. PT WAS SINUS RHYTHM WITH BBB ON TELEMETRY. WILL CONT WITH POC. POSSIBLE HOME TOMORROW PER DR. PARISH.
[2018-11-28 19:45] VITALS: BP 95/57
[2018-11-29 04:48] VITALS: BP 113/73
--- NOTE | 2018-11-29 06:04 | NUR ---
ASSESSMENT DOCUMENTED. COMPLAINT OF BACK PAIN, 01/24, MANAGED WITH PRN MEDS. DENIES SOA. ABLE TO SLEEP WELL. FF UP POC.
[2018-11-29 08:05] VITALS: BP 113/61
[2018-11-29 09:38] LABS: CALCIUM 9.5 mg/dL (8.5-10.1); POTASSIUM 3.4 mmol/L (3.5-5.1)
[2018-11-29 12:00] VITALS: BP 93/55
[2018-11-29] MEDS ORDERED: HYDRALAZINE 10M10 MG PO (12:33)
[2018-11-29] MEDS ORDERED: ISORDIL10 MG PO (12:34)
[2018-11-29 12:51] VITALS: BP 99/60
[2018-11-29 12:56] VITALS: BP 93/55
--- NOTE | 2018-11-29 13:56 | NUR ---
ASSESSMENT CHARTED - MEDS PER OCT - NO CO'S OF PAIN OR NAUSEA. DEJA DIET AND FLUIDS. PT UP IN THE CHAIR - AMBULATING TO THE BATHROOM- ACCUCHECKS NOT NEEDING TO BE COEVERED. PT HOME THIS AFTERNOON - INSTRUCTION RE HOME MEDS/ CARE AND FOLLOW UP GIVEN TO PATIENT - STATED UNDERSTANDING OF INSTRUCTION GIVEN. INFORMED PATIENT THAT HOME HEALTH WOULD BE CALLING HIM. MONITOR AND IV REMOVED PRIOR TO D/C. PT LWFT UNIT VIA WHEELCHAIR - HOME VIA PVT VEHICLE ACCOMPANIED BY - PRESCRIPTIONS CALLED INTO THE [facility] REQUSTED BY PATIENT. NO CO'S AT TIME OF D/C.
--- NOTE | 2018-11-29 15:38 | NUR ---
PT. DISCHARGING TODAY TO HOME WITH [facility] NOTIFIED LIU IN ADM. AT [facility] OF DISCHARGE AND SHE HAS DC ORDERS AND WILL NOTIFY PT. TIME OF VISITS.
== END 2018-11-29 13:50 | disposition home health service (06) | DRG 291 ==
LOC: ER 20:59 → EROBS 23:06 → 2N 23:06 → ENTRNSPT 11-29 13:41 → EDTRNSPTSTS 11-29 13:47 → 2N 11-29 13:50
PROVIDERS: Emergency Medicine; Nurse Practitioner Family; ADMIT Hospitalist
PROC: 5A09357 Assistance with Respiratory Ventilation, Less than 24 Consecutive Hours, Continuous Positive Airway Pressure (ICD-10-PCS; principal; 2018-11-25)
PROC: 5A09357 Assistance with Respiratory Ventilation, Less than 24 Consecutive Hours, Continuous Positive Airway Pressure (ICD-10-PCS; 2018-11-26)
PROC: 5A09357 Assistance with Respiratory Ventilation, Less than 24 Consecutive Hours, Continuous Positive Airway Pressure (ICD-10-PCS; 2018-11-27)
PROC: 5A09357 Assistance with Respiratory Ventilation, Less than 24 Consecutive Hours, Continuous Positive Airway Pressure (ICD-10-PCS; 2018-11-28)
PROC: 5A09357 Assistance with Respiratory Ventilation, Less than 24 Consecutive Hours, Continuous Positive Airway Pressure (ICD-10-PCS; 2018-11-29)
DX: I13.0 Hypertensive heart and chronic kidney disease with heart failure and stage 1 through stage 4 chronic kidney disease, or unspecified chronic kidney disease (principal); I50.43 Acute on chronic combined systolic (congestive) and diastolic (congestive) heart failure; N17.0 Acute kidney failure with tubular necrosis; J96.21 Acute and chronic respiratory failure with hypoxia; I25.10 Atherosclerotic heart disease of native coronary artery without angina pectoris; J44.9 Chronic obstructive pulmonary disease, unspecified; G47.33 Obstructive sleep apnea (adult) (pediatric); F41.9 Anxiety disorder, unspecified; E78.5 Hyperlipidemia, unspecified; K21.9 Gastro-esophageal reflux disease without esophagitis; N18.9 Chronic kidney disease, unspecified; E11.22 Type 2 diabetes mellitus with diabetic chronic kidney disease; M54.9 Dorsalgia, unspecified; G89.29 Other chronic pain; I27.20 Pulmonary hypertension, unspecified; I25.5 Ischemic cardiomyopathy; D64.9 Anemia, unspecified; I34.0 Nonrheumatic mitral (valve) insufficiency; W18.39XA Other fall on same level, initial encounter; Y93.89 Activity, other specified; Y92.89 Other specified places as the place of occurrence of the external cause; Y99.8 Other external cause status; Z85.46 Personal history of malignant neoplasm of prostate; I25.2 Old myocardial infarction; Z95.810 Presence of automatic (implantable) cardiac defibrillator; Z85.118 Personal history of other malignant neoplasm of bronchus and lung; Z92.3 Personal history of irradiation; Z99.81 Dependence on supplemental oxygen; Z86.73 Personal history of transient ischemic attack (TIA), and cerebral infarction without residual deficits; Z87.891 Personal history of nicotine dependence; Z90.49 Acquired absence of other specified parts of digestive tract; Z93.3 Colostomy status; Z79.02 Long term (current) use of antithrombotics/antiplatelets; Z79.51 Long term (current) use of inhaled steroids; Z79.82 Long term (current) use of aspirin; Z79.899 Other long term (current) drug therapy; Z88.8 Allergy status to other drugs, medicaments and biological substances; Z82.5 Family history of asthma and other chronic lower respiratory diseases; Z83.3 Family history of diabetes mellitus; Z82.49 Family history of ischemic heart disease and other diseases of the circulatory system
CPT/HCPCS: 10081

== ENCOUNTER → 2018-12-23 | Outpatient (CLI) | payer OTHER ==
[~2018-12-23] MED LIST changes: +HYDRALAZINE 10M10 MG PO; +ISORDIL10 MG PO; +LIDODERM1 EACH TRANSDERM
--- NOTE | 2018-12-26 20:43 | SLE ---
[facility] [place] [address] POLYSOMNOGRAPHY STUDY Name: LAURA PEÑA Room #: REG [place] Lopez.#: [id number] Admission: 12/23/18 ������������������ Attend Phys: Ike Rasmussen MD Discharge: ������������������ Date of : 45 Report #: [id number] THIS REPORT FOR: //name// CC: Ike Herron DATE OF SERVICE: 12/23/2018 SLEEP STUDY ATTENDING PHYSICIAN: Dr. Fernie Marcial. The patient is 73 years old who weighs 190 pounds with a BMI of 28.9. The patient's [place] score was 12. The patient had a last sleep study in 2011 and was found to have severe CULLEN at an AHI of 33 per hour. The patient has been on BiPAP at a pressure of 20/14. The patient was 219 Lbs in 2015 at the time of the study and now he weighs 190 pounds. The patient also has severe COPD, on oxygen and also has severe cardiomyopathy with an EF of 25-30%. A BiPAP titration study was requested by the patient's physician. The patient was also requested to be on oxygen during the night study. The patient spent 371 minutes in bed and slept for 267 minutes with a low sleep efficiency of 72%. Sleep latency was 100 minutes, which was prolonged with a REM latency of 54 minutes, which was short. Overall, sleep architecture showed normal stage 1 sleep, increased stage 2 sleep, absent N3 sleep and normal REM sleep. EKG monitoring revealed occasional PVCs. There was also paced rhythm. Average heart rate was 82 beats per minute. PLMS were seen at an index of 8 per hour and 3 per hour caused EEG arousals. The patient was started on BiPAP at a pressure of 16/12 and titrated up to 18/13. Backup rate was also added at 12 beats per minute along with 2 liters of oxygen was continued. However, the best results were seen at a BiPAP pressure of 17/12. The patient slept for 97 minutes. The patient had supine sleep throughout as well as REM sleep observed. A total of 36 minutes of REM sleep was observed at this pressure. The patient's AHI was 3.7 per hour and oxygen saturation remained above 92% with a lowest of 90%. IMPRESSION: 1. Sleep apnea diagnosed by previous sleep study. 2. No clinically significant periodic limb movements of sleep. RECOMMENDATIONS: 1. Best results were seen at the BiPAP pressure of 17/12 with 2 liters of supplemental oxygen and a backup rate of 12. The patient should use this [facility] [address] [place] [address] POLYSOMNOGRAPHY STUDY Name: LAURA PEÑA Room #: REG [facility]#: [id number] Admission: 12/23/18 ������������������ Attend Phys: Ike Rasmussen MD Discharge: ������������������ Date of : 45 Report #: [id number] pressure on a nightly basis and follow up in 4-6 weeks to assess compliance and to document clinical improvement. 2. Further weight loss is strongly advised. 3. 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 4. Cautioned regarding driving until symptoms of sleep apnea resolve with above recommendation. 5. If patient's hypersomnia persists, then other factors should be looked into as a cause of hypersomnia such as effect of medications. The patient does take chronic narcotics. ��������������������������������������������� <ELECTRONICALLY SIGNED> ���������������������������������������� By: Ike Rasmussen MD ��������������������������������������������� 12/26/18 2043 1414 1701 Ike Rasmussen MD /nt
== END ==
LOC: SLEEPLAB 10-24 11:32
DX: G47.33 Obstructive sleep apnea (adult) (pediatric) (principal); J44.9 Chronic obstructive pulmonary disease, unspecified

== ENCOUNTER 2019-01-30 14:53 | Inpatient (IN) | payer OTHER ==
[~2019-01-30] VITALS: Ht 152.4 cm; Wt 85.3 kg
[2019-01-30 16:07] LABS: URINE BILIRUBIN NEGATIVE (Negative); URINE BLOOD 3+ (Negative); URINE CLARITY CLEAR; URINE COLOR YELLOW; URINE GLUCOSE-RANDOM* 1+ (Negative); URINE KETONES NEGATIVE (Negative); URINE LEUKOCYTES-REFLEX NEGATIVE (Negative); URINE NITRITE-REFLEX NEGATIVE (Negative); URINE PROTEIN (DIPSTICK) NEGATIVE (Negative); URINE UROBILINOGEN 0.2 E.U./dl (0.2-1.0)
[2019-01-30 16:10] LABS: ABSOLUTE NEUTROPHILS 8.4 thou/uL (1.4-8.2); BASOPHILS 0.3 % (0.0-2.0); BE(vivo) 6.9 mmol/L (-2 to +3); EOSINOPHILS 0.1 % (0.0-3.0); HCO3 34.9 mmol/L (22.0-26.0); HEMATOCRIT 41.1 % (42.0-52.0); HEMOGLOBIN 13.3 gm/dL (14.0-18.0); LYMPHOCYTES 4.8 % (24.0-44.0); MCH 33.2 pg (26.0-34.0); MCHC 32.5 g/dL (28.0-37.0); MCV 102.3 fL (80.0-100.0); PCO2 VENOUS 64.5 mmHg (41.0-51.0); PLATELET COUNT 198 thou/uL (150-400); PO2 VENOUS 79.1 mmHg (35.0-45.0); POLYS 90.8 % (36.0-66.0); RBC 4.01 mil/uL (4.50-6.00); RDW 13.5 % (10.5-14.5); WBC 9.2 thou/uL (4.0-11.0)
[2019-01-30 16:19] LABS: ANION GAP 4 mmol/L (7-16); BUN 23 mg/dL (7-18); CALCIUM 9.3 mg/dL (8.5-10.1); CHLORIDE 101 mmol/L (98-107); CO2 36 mmol/L (21-32); CREATININE 1.4 mg/dL (0.7-1.3); GLUCOSE 311 mg/dL (74-106); POTASSIUM 4.2 mmol/L (3.5-5.1); SODIUM 141 mmol/L (136-145)
[2019-01-30 16:20] LABS: CASTS None Seen /LPF (None Seen); SQUAMOUS 0-3 Few /LPF (0-3)
[2019-01-30 16:21] LABS: BACTERIA-REFLEX None Seen /HPF (None Seen); CRYSTALS None Seen /LPF (None Seen); URINE WBC-REFLEX 0-5 Rare /HPF (0-5)
[2019-01-30 16:28] LABS: TROPONIN-I <0.06 ng/mL (<0.06)
[2019-01-30] MEDS ORDERED: AMOX TR-K CLV1 EAC3 PO ×2 (18:43)
[2019-01-30] MEDS ORDERED: PREDNISONE 10 M10 MG PO ×2 (18:44)
[2019-01-30] MEDS ORDERED: LIDOCAINE1 EACH TRANSDERM ×2 (18:44)
[2019-01-30] MEDS ORDERED: PROMETHAZINE-C473 ML PO ×2 (18:46)
[2019-01-30 19:13] VITALS: BP 110/80; BP 115/82
[2019-01-30 21:00] VITALS: BP 129/87
--- NOTE | 2019-01-31 06:04 | NUR ---
Pt. rested quietly during the night when checked on during frequent rounds. Pain meds given for c/o back pain with some relief noted (see emar). Bed alarm is on.
--- NOTE | 2019-01-31 07:43 | EKG ---
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1945 Requested By: Emiliano Rausch Order Number: [id number] MD: Dalton Hernandez Measurements Intervals [place] Rate: 86 P: 73 CO: 164 QRS: 160 QRSD: 184 T: 51 QT: 494 QTc: 591 Interpretive Statements Sinus rhythm Left atrial enlargement Nonspecific intraventricular conduction delay Baseline wander in lead(s) V3 Compared to ECG 11/24/2018 22:02:14 No significant change was found Electronically Signed On 01-31-2019 7:43:11 CDT by Dalton Hernandez [email or web address] ��������������������������������������������� <ELECTRONICALLY SIGNED> ���������������������������������������� By: Dalton Hernandez MD, FACC ��������������������������������������������� 01/31/19 0743 1454 1454 Dalton Hernandez MD, [facility] /EPI
[2019-01-31 08:00] VITALS: BP 104/69
[2019-01-31] MEDS ORDERED: AZITHROMYCIN 2250 MG PO ×2 (14:19)
[2019-01-31 15:00] VITALS: BP 103/65
--- NOTE | 2019-01-31 15:33 | 2DMMODE ---
[address] [address] 2 D/M-MODE ECHOCARDIOGRAM Name: LAURA PEÑA Room #: 459-P ADM IN M.R.#: [id number] ������������� Admission: 01/30/19 ������������� Attend Phys: Ulises Fall, Discharge: ��� ������������� ��� Date of : 45 Date of Service: 01/31/19 1533 �� Report #: [id number] �������� ��������������������������������������������[id number] THIS REPORT FOR: //name// APPROVED REPORT Study performed: 01/31/2019 14:58:26 EXAM: Comprehensive 2D, Doppler, and color-flow Echocardiogram Patient Location: Echo lab Room #: [facility] Status: routine BSA: 1.99 HR: 73 bpm BP: 109/49 mmHg Other Information Study Quality: Good Indications ICD: COPD Diabetes Cardiomyopathy Chest Pain Hypertension/HDD 2D Dimensions Ascending Ao: 40.04 (22-36mm) IVC: 20.00 mm Tricuspid Valve TR Peak Braxton.: 3.30 m/s TR Peak Gr.: 43.66 mmHg PA Pressure: 54.00 mmHg Left Ventricle Left ventricle is dilated. There is normal left ventricular wall thickness. Left ventricular ejection fraction is severely decreased. LVEF is 20-25%. Right Ventricle Right ventricle is dilated. Right ventricle is hypokinetic. Device lead is present in the right ventricle. [facility] [address] [place] [address] 2 D/M-MODE ECHOCARDIOGRAM Name: LAURA EPÑA Room #: 459-P ADM IN M.R.#: [id number] ������������� Admission: 01/30/19 ������������� Attend Phys: Ulises Fall, Discharge: ��� ������������� ��� Date of : 45 Date of Service: 01/31/19 1533 �� Report #: [id number] �������� ��������������������������������������������[id number] Left atrium is dilated. Right atrium is dilated. Device lead is present in the right atrium. Aortic Valve The aortic valve is normal in structure. Aortic valve is calcified. There is no aortic valvular stenosis. Mitral Valve The mitral valve is normal in structure. Mild to moderate mitral regurgitation. No evidence of mitral valve stenosis. Tricuspid Valve The tricuspid valve is normal in structure. There is mild tricuspid regurgitation. Estimated PAP55 mmHg. There is moderate pulmonary hypertension. Pulmonic Valve The pulmonary valve is normal in structure. Great Vessels Aortic root is dilated. IVC is dilated and collapses <50% with inspiration. Pericardium There is no pericardial effusion. <Conclusion> Left ventricle is dilated. LVEF is 20-25%. Right ventricle is dilated. Right ventricle is hypokinetic. Device lead is present in the right ventricle. Left atrium is dilated. Right atrium is dilated. Device lead is present in the right atrium. The aortic valve is normal in structure. Aortic valve is calcified. The mitral valve is normal in structure. Mild to moderate mitral regurgitation. The tricuspid valve is normal in structure. There is mild tricuspid regurgitation. Estimated PAP55 mmHg. There is moderate pulmonary hypertension. [facility] [address] [place] [address] 2 D/M-MODE ECHOCARDIOGRAM Name: LAURA PEÑA Room #: 459-P ADM IN M.R.#: [id number] ������������� Admission: 01/30/19 ������������� Attend Phys: Ulises Fall, Discharge: ��� ������������� ��� Date of : 45 Date of Service: 01/31/19 1533 �� Report #: [id number] �������� ��������������������������������������������[id number] The pulmonary valve is normal in structure. There is no pericardial effusion. ��������������������������������������������� <ELECTRONICALLY SIGNED> ���������������������������������������� By: Morgan Farah MD ��������������������������������������������� 01/31/19 1533 [id number] Morgan Farah MD /INF
--- NOTE | 2019-01-31 20:20 | NUR ---
ASSUMED CARE 0700. A/O X4, PAIN MANAGED WITH MEDICATIONS, FALL PRECATIONS IN PLACE, ON 2L NASAL CANULA, UP WITH STAND BY , USES URINAL, NO BM TODAY, CALLS FOR ASSISTANCE.
[2019-01-31 21:52] VITALS: BP 106/65
[2019-02-01 05:47] VITALS: BP 119/68
[2019-02-01 07:24] VITALS: BP 114/71
--- NOTE | 2019-02-01 07:59 | NUR ---
PROGRESS PT A/O X4 DENIES PAIN AT START OF SHIFT, ANTIBIOTICS GIVEN ORDERED PT VOIDS PER URINAL SLEPT MOST OF SHIFT VSS CONTINUE POC.
[2019-02-01 14:45] VITALS: BP 109/62
--- NOTE | 2019-02-01 14:52 | NUR ---
ASSUMED CARE 0700. ALERT X 3, FORGETFULL, [place], IMPULSIVE. REQUIES ASSISTANCE WITH PUREED MEAL AND HONEY THICK LIQUIDS. FREQUENTLY ASKES FOR WATER. PLANS TO DC TO SKILLED. FALL PRECAUTIONS IN PLACE. CALL LIGHT IN REACH. HOURLY ROUNDING WITH STAFF TO ANTICIPATE NEEDS
--- NOTE | 2019-02-01 14:58 | NUR ---
ASSUMED CARE 0700. A/OX4, PAIN MANAGED WITH MEDICATIONS, CONTINENT WITH URINAL USE. COLOSTOMY SELF CARE. UP WITH STAND BY ASSIST WITH NASAL CANULA 2L. TB TEST GIVEN THIS AFTERNOON AND NOTIFIED PHARMACIST TO FOLLOW UP FOR RECHECK. COMPLIANT WITH CARES. ABLE TO MAKE NEEDS KNOWN. FALL PRECAUIONS IN PLACE WITH CALL LIGHT IN REACH.
--- NOTE | 2019-02-01 19:29 | HC ---
[place] [address] CONSULTATION Name: LAURA PEÑA Room #: 459-P ADM IN M.R.#: [id number] Admission: 01/30/19 ������������������ Attend Phys: Ulises Fall MD Discharge: ������������������ Date of : 45 Report #: [id number] THIS REPORT FOR: //name// CC: Ava Fall DATE OF SERVICE: 01/31/2019 PULMONARY CONSULTATION REFERRING PHYSICIAN: Dr. Xavier. REASON FOR REFERRAL: Dyspnea. HISTORY OF PRESENT ILLNESS: The patient is a 73-year-old male who presents to the ED with left-sided chest pain and dyspnea. A pulmonary consultation was requested. The patient is known to the pulmonary service. He is followed longitudinally by Dr. Marcial. He has severe COPD with a baseline FEV1 of 0.83 liter, 37% predicted. He is oxygen dependent, requiring 2 liters of O2. He has a past history of lung cancer diagnosed in 2015 undergoing gamma knife radiation therapy as the patient was a poor surgical candidate. The patient is also followed for sleep apnea, currently on BiPAP on 02/08 cm H2O with 2 liters of O2. He was just seen in the office on 01/26/2019. The patient was doing fairly well until 3 days prior to presentation, he started developing increasing dyspnea. Otherwise, denies any fever, night sweats or chills, chest pain or productive cough. He has left-sided chest pain that was ill defined. It radiates to the left jaw and shoulder. He also complains of left lower quadrant suprapubic pain. CT chest angiogram, abdomen and pelvis was noted, preliminary findings show that it did not show any evidence of pulmonary embolus. PAST MEDICAL HISTORY: As mentioned above including nonischemic cardiomyopathy with ejection fraction 25%, status post ICD placement, past history of ventricular fibrillation arrest, history of pancreatic mass noted on a CT abdomen and pelvis on 01/12/2019 measuring 5.5 x 5.5 x 5.6. The patient had prior CT abdomen that measured 5 x 5 x 4.7. Previous needle biopsy by Dr. Vincent was said to be nondiagnostic. History of chronic back pain, bowel perforation, status post laparotomy, coronary artery disease with past history of chest pain, degenerative arthritis, diabetes mellitus type 2, diabetic gastroparesis, diverticular disease, hypertension, history of GI bleed, history of prostate cancer, status post radiation therapy. [address] [address] CONSULTATION Name: LAURA PEÑA Room #: 459-P ADM IN .R.#: [id number] Admission: 01/30/19 ������������������ Attend Phys: Ulises Fall MD Discharge: ������������������ Date of : 45 Report #: [id number] ALLERGIES: LISINOPRIL RESULTING IN SWELLING. HOME MEDICATIONS: List reviewed, this includes amiodarone 400 mg once a day, aspirin 81 mg once a day, Zithromax 250 mg once a day, budesonide 0.5 mg nebulized twice a day, Coreg 6.25 mg once a day, Plavix 75 mg once a day, DuoNeb 4 times a day and p.r.n., Tradjenta 5 mg once a day, Prilosec 20 mg once a day, oxycodone 10/325 one tablet every 4 hours p.r.n., Protonix 40 mg once a day, Zocor 10 mg once a day, Stiolto 2 puffs daily, Demadex 20 mg once a day, vitamin E supplements. FAMILY HISTORY: Notable for both parents . SOCIAL HISTORY: The patient has smoked for about 40 years 1 pack a day, quit in 2006. He denies any alcohol use. REVIEW OF SYSTEMS: As mentioned above, otherwise, a 10-point system review negative. PHYSICAL EXAMINATION: GENERAL: He is awake, alert, in no distress. VITAL SIGNS: Temperature is 97.9 degrees Fahrenheit, pulse is 74, respiratory rate is 20, blood pressure 100/65 mmHg and saturation 96%. HEENT: Normocephalic, atraumatic. NECK: Supple without any lymphadenopathy or thyromegaly. CHEST: Breath sounds are fair with mild expiratory wheezes. CARDIOVASCULAR: Normal S1, S2. No murmurs or gallop. There is no JVD. There is no carotid bruit. Pulses are 2+/4+ bilaterally. ABDOMEN: Soft, nontender, no organomegaly or masses felt. GENITOURINARY: Deferred. RECTAL: Deferred. EXTREMITIES: Trace edema. No cyanosis or clubbing. NEUROLOGIC: Grossly intact. CT chest angiogram as mentioned above. A 2D echocardiogram showed ejection fraction of 20-25%, right ventricle is hypokinetic, dilated left and right atrium, mild to moderate mitral regurgitation, pulmonary artery pressure measuring 55 mmHg. EKG shows normal sinus rhythm. Troponin normal. CT chest angiogram, abdomen and pelvis showed left upper lobe anterior segment infiltrates, no evidence of pulmonary embolus. CT abdomen and pelvis revealed small infrarenal abdominal aortic aneurysm, left pancreatic neck and head mass, hepatic lesions, gallstones, kidney mass, likely cyst; left adrenal mass, right-sided colostomy. LABORATORY DATA: Electrolytes unremarkable except for creatinine of 1.4. WBC is 9200, platelets are normal. [address] [address] CONSULTATION Name: LAURA PEÑA Room #: 459-P [facility] IN ..#: [id number] Admission: 01/30/19 ������������������ Attend Phys: Ulises Fall MD Discharge: ������������������ Date of : 45 Report #: [id number] IMPRESSION: 1. Dyspnea, atypical chest pain in this 73-year-old male. Etiology probably related to underlying severe chronic obstructive pulmonary disease. Pulmonary embolus has been ruled out, does not appear to be cardiac. Possible respiratory tract infection. 2. Acute on chronic hypoxic respiratory failure. 3. Chronic obstructive pulmonary disease, severe impairment. 4. Possible pneumonia. 5. Obstructive sleep apnea, on BiPAP with O2. 6. Remote history of lung cancer in 2004 undergoing gamma knife therapy. Recent CT shows 4 mm nodule in the left lower lobe. 7. Pancreatic mass, appears to be enlarging over time. Recent biopsy was nondiagnostic, suspect pancreatic cancer. 8. Nonischemic cardiomyopathy, ejection fraction 25%. 9. Hypertension. 10. Remote history of prostate cancer. 11. Acute kidney injury/chronic kidney disease. 12. Chronic back pain, chronic narcotics. RECOMMENDATION: We will recommend bronchodilators, corticosteroids. Wean O2 for saturation 90%. Deep venous thrombosis and gastrointestinal prophylaxis recommended. The patient will need to be followed closely regarding lung nodules. Thank you for this consultation. ��������������������������������������������� <ELECTRONICALLY SIGNED> ���������������������������������������� By: Juan J Summers MD ��������������������������������������������� 02/01/19 1929 1756 0238 MD naun Olmstead
[2019-02-02 07:33] VITALS: BP 109/66
--- NOTE | 2019-02-02 07:51 | NUR ---
pt a/o x 4 up with sba gb and walker. iv antibiotics continue vss, on 2 liters o2 lungs had some nspiratory wheezes, rt treatments continue, voiding qs and colostomy putting on large amount of soft stool, stoma pink moist and protruding bag changed skin surrounding is c/d/i continue poc.
--- NOTE | 2019-02-02 14:52 | NUR ---
Received awake on bed. Due medications given as prescribed, able to swallow tablets without difficutly. On O2 at 2lpm via nasal cannula, on regular nebulizations, on CPAP at night. A+Ox4. On blood sugar monitoring, taken and recorded accordingly, on moderated level sliding scale, given as prescribed. Able to use urinal to pass urine, with colostomy bag- output measured and recorded. Visited by today. With Iv at R AC. Vital signs stable. With pacemaker in situ. Able to sit out on chair. With R Leg edema, leg kept elevated. For Tuberculin skin test reading on 02/03 1400 or 02/04 1400. Pt seen by Dr Milian, to get most recent clinical notes from Dr Diego(Rad [facility]) and Dr Vincent(GI)- US sent fax to both doctors, consent signed by patient for retrieval of files and request sent to their office, a/w reply/documents.
[2019-02-02 15:15] VITALS: BP 105/63
[2019-02-02 17:10] LABS: HISTOPLASMA MYCELIAL-ID Negative (Negative)
--- NOTE | 2019-02-02 18:25 | NUR ---
PT ADMITTED RELATED TO PNEUMONIA/DYS. CM REVIEWED CHART AND SPOKE WI CARE TEAM CM NET WITH PT AT BEDSIDE WITH PT YESTERDAY. HE INDICATED HE LIVES IN A HOUSE WIHT IS WITH 4 STEPS TO ENTER, 5 TO KITCHE, AND 7 TO BEDROOM. PT INDICATED HAS A CANE, FWW, 4WW, O2, NEB, AND BIPAP FOR USE AT HOME. PT HAD BEEN ON SERVICE WITH [facility] IN THAT PAST. PT HOPES TO DC HOME ONCE MEDICALLY STABLE. CM TO FOLLOW INDICATED WITH DC PLANNING.
[2019-02-02 19:07] LABS: HISTOPLASMA MYCELIAL-CF Negative (Neg:<1:2)
[2019-02-02 19:40] VITALS: BP 122/77
--- NOTE | 2019-02-03 01:51 | NUR ---
ASSUMED CARE OF PT AT 1900HRS. PT AOX4 AND CALLS FOR ASSISTANCE NEEDED. FALL PRECAUTION IN PLACE. O2 VIA NC CONTINUED. NO OTHER S/S OF ACUTE DISTRESS. WILL CONTINUE TO MONITOR.
[2019-02-03 04:10] VITALS: BP 120/72
[2019-02-03 05:39] LABS: HEMATOCRIT 35.9 % (42.0-52.0); HEMOGLOBIN 11.8 gm/dL (14.0-18.0); MCH 33.4 pg (26.0-34.0); MCV 101.3 fL (80.0-100.0); RBC 3.54 mil/uL (4.50-6.00); RDW 13.6 % (10.5-14.5); WBC 12.6 thou/uL (4.0-11.0)
[2019-02-03 05:56] LABS: CALCIUM 8.9 mg/dL (8.5-10.1); CREATININE 1.4 mg/dL (0.7-1.3); POTASSIUM 4.6 mmol/L (3.5-5.1)
--- NOTE | 2019-02-03 07:01 | HC ---
[facility] [place] [place] [address] CONSULTATION Name: LAURA PEÑA Room #: 459-P ADM IN M.R.#: [id number] Admission: 01/30/19 ������������������ Attend Phys: Ulises Fall MD Discharge: ������������������ Date of : 45 Report #: [id number] THIS REPORT FOR: //name// CC: Manpreet Choudhury MD PHYSICIAN REQUESTING CONSULT: lUises Fall MD REASON FOR CONSULTATION: Pancreatic mass. 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 HISTORY OF PRESENT ILLNESS: The patient is a 73-year-old -Turkmen male that I had met a number of years ago for anemia. He reports being followed for pancreatic mass for about 7 years. It may have slightly grown. He had a recent endoscopic ultrasound by Dr. Vincent that came back either nondiagnostic or not worse for cancer and he was told fairly clearly he says to not let other doctors mess with it, so to speak unless they talk with him. It sounds like ____ benign or at least a very slow growing abnormality. The patient was admitted to the hospital for left-sided chest pain and dyspnea and a question about possible inflammatory condition. The patient recently had had some slight increase in dyspnea. He had also had some chest discomfort. He has occasional abdominal pain, but not specific. He developed some increase in dyspnea. No fever, no sweats, no chills, no productive cough. He had ill-defined left chest pain, it went maybe to his left jaw and shoulder, also had left lower quadrant discomfort. He had a CT angiogram that did show the pancreatic abnormality, this is the first time I think it has been imaged here and that also did not show any pulmonary emboli. PAST HISTORY: Quite extensive and includes a history of lung cancer in 2014, treated with SBRT/gamma knife as he was felt to be a poor surgical candidate; also history of prostate cancer sometime ago, treated with radiation therapy by Dr. Mir Choudhury also; also a history of nonischemic cardiomyopathy, I believe his EF was around 25%, has an ICD placement; has also a history of V-fib abnormalities; also has a history of chronic back pain; past bowel perforation; past coronary artery disease; degenerative arthritis; diabetes mellitus type 2; [facility] [address] [place] [address] CONSULTATION Name: LAURA PEÑA Room #: 459-P ADM IN M.R.#: [id number] Admission: 01/30/19 ������������������ Attend Phys: Ulises Fall MD Discharge: ������������������ Date of : 45 Report #: [id number] diabetic gastroparesis; diverticular disease; hypertension; history of carpal tunnel; history of chronic kidney injury; obstructive sleep apnea, on BiPAP. SOCIAL HISTORY: Stopped smoking in 2006. Alcohol rarely. Tobacco history is 1 pack a day for 40 years. 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 FAMILY HISTORY: Both parents , no one else with significant cancer recently. CURRENT MEDICATIONS: Include methylprednisolone 62.5 q. 12 hours, ipratropium and albuterol respiratory therapy, isosorbide dinitrate 10 mg t.i.d., hydralazine 10 t.i.d., lidocaine patch daily, linagliptin 5 mg daily, clopidogrel 75 daily, torsemide 20 daily, fluticasone nasal spray 2 sprays daily, amiodarone 300 mg with breakfast, carvedilol 6.25 b.i.d., insulin on a sliding scale, pantoprazole 40 b.i.d., Zosyn 3.375 g q. 8 hours, cyclobenzaprine 5 mg q. 8 hours p.r.n., guaifenesin extended release 600 mg b.i.d. p.r.n., aspirin 81 mg daily, Percocet 1 q. 8 hours p.r.n. LABORATORY DATA: Lab here notable BUN 23, creatinine 1.4 and glucose had been 311. Transaminases in November had been normal range. White count 9.2, hemoglobin 13.3, MCV 102.3 which has been present for at least 5 months, platelets 198. Differential has increased neutrophils. TSH recently 1.1, folate in August 10.1, B12 in November 855. DIAGNOSTIC STUDIES: Imaging done here recently includes ultrasound of abdomen done yesterday to evaluate pancreatic mass, described as showing 5.8 cm solid appearing pancreatic mass concerning for malignancy; renal cysts. The liver was normal without focal lesion. CT ____ and also abdomen and pelvis shows ectatic ascending aorta measuring 4.2 cm, calcifications and plaque in the great vessels without significant stenosis, lingular infiltrate, atelectasis or mass without comparison, region measures 7.3 x 5 cm, pacemaker in place. Heart is enlarged. Mediastinum shows no significant adenopathy. There are noncalcified pleural based left lower lobe calcified nodule measuring 6 x 6 mm, superior segment right lower lobe noncalcified nodule measuring 6 x 5 mm, right medial lung noncalcified nodule measuring 10 mm, infrarenal abdominal aortic aneurysm with focal dilatation at 3 x 3.8 cm. Liver showed a low density posterior right lower lobe subcapsular lesion measuring 17 x 9 mm. Spleen was normal. Left adrenal gland shows nodularity and thickening and is somewhat bilobed mass measuring 2.8 x 1.5 cm. Pancreas shows a large mass in the body of the pancreas, possible ____ 5.4 x 4.2 cm. There is a right kidney mass measuring 2.6 x 2.3 cm, left kidney mass/cyst 2.5 x 2.3, right-sided colostomy. Note that an old CT abdomen from 02/2017 described a cystic structure involving the head of the pancreas measuring 4.7 x 4.5 cm, unchanged from previous exam that had been gradual and large with the cystic lesion since original identification on CT scan from 09/13/2006. [address] [address] CONSULTATION Name: LAURA PEÑA Room #: 459-P ADM IN .R.#: [id number] Admission: 01/30/19 ������������������ Attend Phys: Ulises Fall MD Discharge: ������������������ Date of : 45 Report #: [id number] PHYSICAL EXAMINATION: GENERAL: The patient appears his stated age. VITAL SIGNS: Height is 5 feet 8 inches, 152.4 cm. Weight is 188 pounds or 85.3 kilograms. Blood pressure 109/66, O2 sat 95%, respirations 18, pulse 76, afebrile at 97.6. MOOD: The patient is alert and pleasant and communicative. NEUROLOGIC: Face is symmetrical, moving arms and legs. LYMPHATICS: No enlarged lymph nodes in the supraclavicular, cervical, axillary or inguinal region. ABDOMEN: Slightly obese, nontender. Ostomy present. EXTREMITIES: Without clubbing or cyanosis. There is some trace edema. ASSESSMENT AND PLAN: 1. 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 Hugo Vincent. We will get his records. I have also sent him a text and asked him to call me to discuss. At this time, we would not investigate further until we have additional information and may continue observation. 2. Possible pneumonitis or other infectious process. Antibiotics per Pulmonary and ID. 3. Severe chronic obstructive pulmonary disease with FEV1 of 0.83 and oxygen dependent. Continue his oxygen and aerosols and steroids. 4. History of lung cancer in 2014. No definite recurrence. 5. History of prostate cancer in the past status post radiation therapy, non-recurrent per the patient's report of PSAs. 6. History of sleep apnea, on BiPAP per others. 7. Nonischemic cardiomyopathy, carvedilol and multiple other meds per others. 8. History of coronary artery disease per others. 9. History of arrhythmia and has pacemaker and also amiodarone and other medications. 10. Hypertension per others. 11. Diabetes type 2. Oral agents and insulin and diet per others. 12. Renal insufficiency, creatinine 1.4. Careful use of medications. We will follow with you as we gather more information. ��������������������������������������������� <ELECTRONICALLY SIGNED> ���������������������������������������� By: Adam Awan MD ��������������������������������������������� 02/03/19 0701 0849 1229 Adam Awan MD /nt
[2019-02-03 07:30] VITALS: BP 110/64
--- NOTE | 2019-02-03 15:13 | NUR ---
TOWARDS POC PT A/O X4, VSS, AFEBRILE,PAIN MANAGED BY MEDS. TB SKINTEST CAMEBACK NEGATIVE. COLOSTOMY CARE DONE. WILL CONTINUE TO MONITOR.
[2019-02-03 15:22] VITALS: BP 110/64
[2019-02-03 19:42] VITALS: BP 110/63
--- NOTE | 2019-02-03 22:52 | HC ---
[facility] [place] [address] [place] [address] CONSULTATION Name: LAURA PEÑA Room #: 459-P ADM IN M.R.#: [id number] Admission: 01/30/19 ������������������ Attend Phys: Ulises Fall MD Discharge: ������������������ Date of : 45 Report #: [id number] THIS REPORT FOR: //name// CC: Ava Fall DATE OF SERVICE: 01/31/2019 INFECTIOUS DISEASE CONSULTATION REASON FOR CONSULTATION: I was asked to evaluate concerning pulmonary infiltrate and shortness of breath. HISTORY OF PRESENT ILLNESS: The patient is a 73-year-old with underlying COPD, coronary artery disease with cardiomyopathy and valvular heart disease as well as known pancreatic mass, prostate cancer, status post radiation and lung cancer, status post gamma knife procedure. Presents now with progressive shortness of breath over the last 2 weeks along with acute worsening yesterday, which necessitated his admission. He has had intermittent cough with minimal sputum production. He has chest tightness to the anterior chest without pleuritic chest pain. No hemoptysis or increased sputum production. Last week, he was started on oral antibiotic therapy and prednisone, but has not noticed much relief. No fever, chills, or sweats. No weight loss. No nausea, vomiting, or diarrhea. He has had no rashes or lesions. No increased arthritis symptoms. No adenopathy noted. No report of chemotherapy. Pulmonary nodules have been followed as an outpatient and last saw Dr. Marcial earlier last week. No travel, tuberculosis history, or HIV risks. REVIEW OF SYSTEMS: GENERAL: Marked fatigue. Otherwise, as noted above. HEENT: Without vision changes, hearing changes, or mouth sores. PULMONARY: As above. CARDIOVASCULAR: As above with some increased lower extremity edema. GASTROINTESTINAL: As above. GENITOURINARY: He has noticed gross hematuria yesterday, which resolved. No back or flank pain. No dysuria. MUSCULOSKELETAL: Negative. NEUROLOGIC: Negative. PSYCHIATRIC: Negative. HEMATOLOGIC: Negative. ALLERGIC: Negative. ALLERGIES: LISINOPRIL. MEDICATIONS: As noted on his OCT, now on vancomycin and Zosyn. [facility] [address] [place] [address] CONSULTATION Name: LAURA PEÑA Room #: 459-P [facility] IN M.R.#: [id number] Admission: 01/30/19 ������������������ Attend Phys: Ulises Fall MD Discharge: ������������������ Date of : 45 Report #: [id number] PAST MEDICAL HISTORY: Degenerative arthritis, right knee surgery, left inguinal herniorrhaphy, right carpal tunnel surgery, multiple low back surgeries, left rotator cuff surgery, coronary artery disease, atrial tachycardia status post ablation, mitral regurgitation, permanent pacemaker defibrillator, chronic bronchitis, obstructive sleep apnea, emphysema, anxiety, hypertension, pulmonary hypertension, gastroparesis, diabetes, hyperlipidemia, pancreatic mass, prostate cancer status post radiation, lung cancer status post gamma knife, diverticulosis, lower GI bleeding, diverticulitis with perforation, sigmoid colectomy, and right hemicolectomy, now with colostomy. FAMILY HISTORY: Noncontributory. SOCIAL HISTORY: Past smoker and alcohol use, none currently. PHYSICAL EXAMINATION: VITAL SIGNS: Afebrile and hemodynamically stable. GENERAL: He is sitting up in his chair on 3 liters of oxygen per nasal cannula, in no distress. He was alert, cooperative, and conversant. SKIN: Without rash or decubitus. No palpable adenopathy. HEENT: Eyes, without scleral icterus or conjunctivitis. Mouth with dentures. No lesions. NECK: Supple, no thyromegaly or mass. LUNGS: With basilar crackles mostly on the left. HEART: Regular with 2/6 systolic murmur heard at left sternal border and a 2/6 systolic murmur heard at the apex, without gallop or rub. ABDOMEN: Soft, nontender, no hepatosplenomegaly or mass. Colostomy site was without swelling or erythema. No definite hepatosplenomegaly. He did have some abdominal fullness in the epigastric region. BACK: Nontender with no spinal or CVA tenderness. EXTREMITIES: Without clubbing, cyanosis, had trace edema in his legs below the knee. NEUROLOGIC: Cranial nerves were intact. Strength in upper and lower extremities normal. Sensation was normal. PSYCHIATRIC: Mood was normal. LABORATORY STUDIES: Reviewed with hemoglobin 13, white count 9, and platelet count 198,000. Creatinine 1.4. Urinalysis; 11-20 RBCs and 0-5 WBCs. BNP was 1898. Echocardiogram with 20-25% EF. IMPRESSION: 1. Acute respiratory compromise with CT scan showing pancreatic head mass, emphysema, lingular pulmonary infiltrate, right middle lobe mass, bilateral nodules, left adrenal mass, and liver lesion. I am concerned about metastatic cancer as a main factor causing his presentation. The left lingular infiltrate, possibly postobstructive in nature. [facility] [address] [place] [address] CONSULTATION Name: LAURA PEÑA Room #: 459-P ADM IN .R.#: [id number] Admission: 01/30/19 ������������������ Attend Phys: Ulises Fall MD Discharge: ������������������ Date of : 45 Report #: [id number] 2. Exacerbation of chronic obstructive pulmonary disease also considered. Doubt cardiogenic etiology. 3. Pulmonary nodules. 4. Diabetes. 5. Pulmonary hypertension and chronic obstructive pulmonary disease. 6. Congestive heart failure. 7. Hypertension. 8. Pancreatic mass. RECOMMENDATION: We will continue with antibiotic coverage. Obtain sputum culture if possible. Check urine antigens. May need bronchoscopy for further evaluation. Also, considering pancreatic mass biopsy. I doubt we are dealing with opportunistic infection. However, we will check TB, fungal serologies. ��������������������������������������������� <ELECTRONICALLY SIGNED> ���������������������������������������� By: Fazal Mckeno MD ��������������������������������������������� 02/03/19 2252 [id number] Fazal Mckeon MD /nt
--- NOTE | 2019-02-04 03:46 | NUR ---
ASSUMED CARE OF PT 1900HRS. PT IS AOX4 AND CALLS FOR HELP NEEDED. O2 AT 2L CONTINUED. BT AND ABX CONTINUED. PT WAS ABLE TO SLEEP PART OF THE SHIFT. NO OTHER S/S OF ACUTE DISTRESS. WILL CONTINUE TO MONITOR.
[2019-02-04 03:53] VITALS: BP 114/72
[2019-02-04 05:14] LABS: HEMATOCRIT 35.1 % (42.0-52.0); HEMOGLOBIN 11.3 gm/dL (14.0-18.0); MCH 32.7 pg (26.0-34.0); MCHC 32.2 g/dL (28.0-37.0); MCV 101.6 fL (80.0-100.0); RBC 3.46 mil/uL (4.50-6.00); RDW 13.7 % (10.5-14.5); WBC 14.3 thou/uL (4.0-11.0)
[2019-02-04 05:45] LABS: CALCIUM 8.9 mg/dL (8.5-10.1); CREATININE 1.2 mg/dL (0.7-1.3); POTASSIUM 4.9 mmol/L (3.5-5.1)
[2019-02-04 07:25] VITALS: BP 118/74
[2019-02-04 14:02] VITALS: BP 97/63
--- NOTE | 2019-02-04 16:51 | NUR ---
Received awake on bed. Due medication given as prescribed. A+Ox4. O2 at 2lpm via nasal cannula, on regular breathing treatments. With ICD. With colostomy bag, assisted pt in emptying bag- output measured and recorded accordingly. On blood sugar monitoring- taken and recorded, with insulin SS- given as prescribed. With SL at L FA- patent. no skin issues. Vital signs stable. Falls risk- fall bundle in place. Pt seen by Dr Ron, for possible d/c tomorrow. Assissted pt in ADLs. Able to sit out on chair.
[2019-02-04 17:50] VITALS: BP 116/61
[2019-02-04 19:45] VITALS: BP 130/76
--- NOTE | 2019-02-05 04:41 | NUR ---
PATIENT ALERT AND ORIENTED X4. SITTING IN CHAIR MOST OF THE BEGINNING OF SHIFT. COOPERATIVE WITH CARE. COLOSTOMY CARE DONE WITH WEIGHING STATION OPERATOR. UP WITH SBA. BLOOD SUGAR MONITORED PER ORDER. MEDICATED FOR PAIN PER REQUEST. PATIENT IS WEARING HIS CPAP DURING THE NIGHT MONITORED BY RT. RESTING QUIETLY AT TIME OF NOTE. WILL MONITOR.
[2019-02-05 04:54] LABS: HEMATOCRIT 36.2 % (42.0-52.0); HEMOGLOBIN 11.9 gm/dL (14.0-18.0); MCH 33.2 pg (26.0-34.0); MCHC 32.8 g/dL (28.0-37.0); RBC 3.58 mil/uL (4.50-6.00); RDW 13.5 % (10.5-14.5); WBC 14.5 thou/uL (4.0-11.0)
[2019-02-05 04:55] VITALS: BP 117/72
[2019-02-05 05:05] LABS: CALCIUM 8.6 mg/dL (8.5-10.1); CREATININE 1.3 mg/dL (0.7-1.3); POTASSIUM 4.4 mmol/L (3.5-5.1)
[2019-02-05 08:00] VITALS: BP 105/62
[2019-02-05 12:15] VITALS: BP 103/64
--- NOTE | 2019-02-05 12:16 | NUR ---
PT A&OX4, VSS, DENIES PAIN. PATIENT FEELS HE BREATHES BETTER AND HAS LESS BACK PAIN SITTIG IN RECLINER. APPROX. 1215 PATIENT C/O OF SOA, RESPIRATIONS 28, LUNGS CLEAR. PATIENT STATED HE BLEW HIS NOSE AND THATS WHEN THE SOA STARTED. BREATHING TREATMENT GIVEN, VITALS CHECKED. WILL CONTINUE TO MONITOR
[2019-02-05 15:00] VITALS: BP 105/66
[2019-02-05 19:17] VITALS: BP 108/59
--- NOTE | 2019-02-06 03:33 | NUR ---
ASSUMED CARE AROUND 1900. AXOX4. COLOSTOMY CARE DONE AT THE BEDSIDE TOGETHER WITH THE PT. NO S/S ACUTE DISTRESS NOTED OR REPORTED AT THIS TIME. WILL CONT TO MONITOR FOR ANY CHANGES IN CONDITION.
[2019-02-06 03:49] VITALS: BP 109/63
[2019-02-06 05:15] LABS: CALCIUM 8.7 mg/dL (8.5-10.1); CREATININE 1.3 mg/dL (0.7-1.3); HEMATOCRIT 36.6 % (42.0-52.0); HEMOGLOBIN 11.8 gm/dL (14.0-18.0); MCH 32.8 pg (26.0-34.0); MCHC 32.1 g/dL (28.0-37.0); MCV 102.1 fL (80.0-100.0); POTASSIUM 4.2 mmol/L (3.5-5.1); RBC 3.58 mil/uL (4.50-6.00); RDW 13.8 % (10.5-14.5); WBC 15.5 thou/uL (4.0-11.0)
[2019-02-06 07:48] VITALS: BP 117/63
[2019-02-06] MEDS ORDERED: AMOX TR-K CLV1 EAC3 PO ×2 (12:06)
[2019-02-06] MEDS ORDERED: PREDNISONE 10 M10 MG PO ×2 (12:09)
--- NOTE | 2019-02-06 13:46 | NUR ---
DIS PT HAS BEEN DC'D. PT REFUSED DC. PROVIDER AND CONCRETE HOPPER OPERATOR NOTIFIED. PT APPEALED FOR DC. MEDICARE CASE # [id number].
[2019-02-06 14:20] VITALS: BP 96/60
[2019-02-06 20:45] VITALS: BP 105/68
--- NOTE | 2019-02-07 02:52 | NUR ---
ASSUMED CARE AROUND 1900. AXOX4. COLOSTOMY SELF CARE DONE. NO S/S ACUTE DISTRESS NOTED OR REPORTED AT THIS TIME. WILL CONT TO MONITOR FOR ANY CHANGES IN CONDITION.
[2019-02-07 04:00] VITALS: BP 106/74
[2019-02-07 08:00] VITALS: BP 111/70
--- NOTE | 2019-02-07 09:13 | EKG ---
[address] [address] ELECTROCARDIOGRAM REPORT Name: CASEYLAURA Room #: 459-P ADM IN M.R.#: [id number] ������������������ Admission: 01/30/19 ������������������ Attend Phys: Ulises Fall MD Discharge: ������������������ Date of : 45 Report #: [id number] ����������������������������������������������������������������� [id number] THIS REPORT FOR: //name// [facility] Test Date: 2019-02-06 Test Time: 04:26:01 Pat Name: LAURA PEÑA Department: Room: 459 Gender: M Policy Specialist: [id number] : 1945 Requested By: Anisha Valencia Order Number: [id number] MD: Dalton Hernandez Measurements Intervals [place] Rate: 77 P: 59 NH: 162 QRS: 161 QRSD: 178 T: 47 QT: 490 QTc: 555 Interpretive Statements Sinus rhythm Ventricular premature complex Probable left atrial enlargement Nonspecific intraventricular conduction delay Compared to ECG 01/30/2019 14:54:35 Ventricular premature complex(es) now present Electronically Signed On 02-07-2019 9:13:23 CDT by Dalton Hernandez [email or web address] ��������������������������������������������� <ELECTRONICALLY SIGNED> ���������������������������������������� By: Dalton Hernandez MD, FACC ��������������������������������������������� 02/07/19 0913 0426 0426 Dalton Hernandez MD, [facility] /EPI
--- NOTE | 2019-02-07 09:30 | NUR ---
CM NOTIFIED THAT PT APPEAL HIS DC, CM TEAM NOR HOSPITAL NEVER RECEIVED FAX FROM [employer] REQUEST FOR CLINICAL ON . INFORMATION PASSED ON TO MEDICAL RECORDS ARE FAXING CLINICAL TO , CASE # [id number]. PHONE # , CM INSTRUCTED TO E-MAIL (PROVIDERUPDATE @ [employer]), WHAT FAX NUMBER FOR WEEK AND WEEKEND SO CLINICAL CAN BE SENT AFTER-HOURS [phone]- PELT INSPECTOR AND CM OFFICE [phone]. WILL CONT FOLLOWING NEEDED FOR DC NEEDS.
[2019-02-07 15:00] VITALS: BP 112/69
--- NOTE | 2019-02-07 19:48 | NUR ---
PROGRESSING TOWARDS GOALS. PAIN MANAGED WITH MEDICATION, SMALL CRACKLES IN LLL CONTINUES ON 2L NC. STAND BY ASSIST. SELF CARE WITH COLOSTOMY. POSSIBLE DC TOMORROW. FALL PRECAUTIONS REMAIN IN PLACE. TREATED BS OF 448 WITH 30 UNITS OF INSULIN TOTAL PER DR HINOJOSA.
[2019-02-07 20:16] VITALS: BP 108/61
[2019-02-08 03:30] LABS: HEMOGLOBIN 11.7 gm/dL (14.0-18.0); MCH 33.1 pg (26.0-34.0); MCHC 32.4 g/dL (28.0-37.0); MCV 102.4 fL (80.0-100.0); RBC 3.52 mil/uL (4.50-6.00); RDW 13.4 % (10.5-14.5); WBC 15.6 thou/uL (4.0-11.0)
[2019-02-08 03:43] LABS: CALCIUM 8.7 mg/dL (8.5-10.1); CREATININE 1.2 mg/dL (0.7-1.3); POTASSIUM 4.2 mmol/L (3.5-5.1)
[2019-02-08 07:25] VITALS: BP 112/71
--- NOTE | 2019-02-08 07:39 | NUR ---
PROGRESS PT C/O PAIN AND PAIN MEDS ORDERED Q8 MED REC REVIEWED AND REVISED PER Rupesh HADLEY CENTRIFUGAL WAX MOLDER STATED MED REC NEEDED TO REFLECT HIS ACTUAL HOME DOSE SO THEY COULD ORDER HOME MEDS DOSES. COLOSTOMY CHANGED SEAL CAME OFF AND STOOL WAS LEAKING, REFUSED SHOWER STATED HE WAS TOO TIRED. RT TX'S ORDERED AND PO ANTIBIOTICS GIVEN ORDERED. ACCUCHECKS 272 AND 12 UNITS SSI GIVEN PER PROTOCOL. POSSIBLE DISCHARGE TODAY.
--- NOTE | 2019-02-08 10:11 | NUR ---
cm called [facility] to check on status of appeal dc decision. unable to leave message rt "high call volume"/ [place] recording. case # [id number]
--- NOTE | 2019-02-08 10:28 | NUR ---
Nutrition: screen for LOS. No wt since admit, wt fairly stable past 6 months per prior records. BMI indicates class II morbid obesity. Meds and labs reviewed. Good appetite noted. Pt is appealing discharge. Assess at low nutrition risk.
[2019-02-08] MEDS ORDERED: AUGMENTIN 875-1 EACH PO ×2 (14:00)
[2019-02-08 14:10] VITALS: BP 111/57
[2019-02-08 14:25] VITALS: BP 106/62
--- NOTE | 2019-02-08 17:03 | NUR ---
PT LOST HIS APPEAL. CM NOTIFIED CARE TEAM THAT DISCHARGE WAS UPHELD. PT DISCHARGED HOME THIS DAY WITH [facility]. PT HAS ALL RECOMMENDED DME. PT'S SPOUSE PROVIDED TRANSPORT HOME VIA PERSONAL VEHICLE. NO OTHER CM INTERVETNION INDICATED. CASE CLOSED.
--- NOTE | 2019-02-09 16:08 | NUR ---
received phone call from okby with [facility] requested dc QIO letter of why pt stable for dc and dx. cm faxed progress note and dc sum to [phone].
== END 2019-02-08 16:52 | disposition home health service (06) | DRG 177 ==
LOC: ER 14:53 → 4W 18:28 → EROBS 18:28 → 4W 19:55 → ENTRNSPT 02-08 16:30 → 4W 02-08 16:52
PROVIDERS: Emergency Medicine; Hospitalist; Specialist; ADMIT Internal Medicine
PROC: 5A09357 Assistance with Respiratory Ventilation, Less than 24 Consecutive Hours, Continuous Positive Airway Pressure (ICD-10-PCS; 2019-01-31)
PROC: 5A09357 Assistance with Respiratory Ventilation, Less than 24 Consecutive Hours, Continuous Positive Airway Pressure (ICD-10-PCS; principal; 2019-02-01)
PROC: 5A09357 Assistance with Respiratory Ventilation, Less than 24 Consecutive Hours, Continuous Positive Airway Pressure (ICD-10-PCS; 2019-02-02)
PROC: 5A09357 Assistance with Respiratory Ventilation, Less than 24 Consecutive Hours, Continuous Positive Airway Pressure (ICD-10-PCS; 2019-02-03)
DX: J69.0 Pneumonitis due to inhalation of food and vomit (principal); J96.21 Acute and chronic respiratory failure with hypoxia; I50.43 Acute on chronic combined systolic (congestive) and diastolic (congestive) heart failure; I13.0 Hypertensive heart and chronic kidney disease with heart failure and stage 1 through stage 4 chronic kidney disease, or unspecified chronic kidney disease; N17.9 Acute kidney failure, unspecified; F11.20 Opioid dependence, uncomplicated; I42.8 Other cardiomyopathies; J43.9 Emphysema, unspecified; Y95 Nosocomial condition; K21.9 Gastro-esophageal reflux disease without esophagitis; I25.10 Atherosclerotic heart disease of native coronary artery without angina pectoris; M19.90 Unspecified osteoarthritis, unspecified site; M54.9 Dorsalgia, unspecified; R91.1 Solitary pulmonary nodule; I27.20 Pulmonary hypertension, unspecified; G47.33 Obstructive sleep apnea (adult) (pediatric); F41.9 Anxiety disorder, unspecified; G89.29 Other chronic pain; K86.9 Disease of pancreas, unspecified; E11.22 Type 2 diabetes mellitus with diabetic chronic kidney disease; N18.3 Chronic kidney disease, stage 3 (moderate); E78.5 Hyperlipidemia, unspecified; Z85.46 Personal history of malignant neoplasm of prostate; I25.2 Old myocardial infarction; Z95.0 Presence of cardiac pacemaker; Z92.3 Personal history of irradiation; Z90.49 Acquired absence of other specified parts of digestive tract; Z93.3 Colostomy status; Z85.118 Personal history of other malignant neoplasm of bronchus and lung; Z88.8 Allergy status to other drugs, medicaments and biological substances; Z87.891 Personal history of nicotine dependence; Z82.5 Family history of asthma and other chronic lower respiratory diseases; Z83.6 Family history of other diseases of the respiratory system; Z82.49 Family history of ischemic heart disease and other diseases of the circulatory system; Z83.3 Family history of diabetes mellitus; Z79.899 Other long term (current) drug therapy
CPT/HCPCS: 10040; 10045

== ENCOUNTER 2019-02-09 02:49 | Inpatient (IN) | payer OTHER ==
[~2019-02-09] VITALS: Ht 175.3 cm; Wt 78.9 kg
[2019-02-09] VITALS (7 sets, daily range): BP systolic 106–150; BP diastolic 61–83
--- NOTE | ~2019-02-09 | HC ---
[facility] [place] [address] CONSULTATION Name: LAURA PEÑA Room #: 213-P ADM IN M.R.#: [id number] Admission: 02/09/19 ������������������ Attend Phys: Prem Ron MD Discharge: ������������������ Date of : 45 Report #: [id number] THIS REPORT FOR: //name// CC: Ava Ron DATE OF SERVICE: 02/12/2019 CARDIOLOGY CONSULTATION REASON FOR CONSULTATION: Shortness of breath. HISTORY OF PRESENT ILLNESS: The patient is a 73-year-old well known to me, with a nonischemic cardiomyopathy, nonobstructive CAD, status post prior Biotronik, MRI compatible ICD, who also has COPD, lung cancer, status post gamma knife as well as prostate mass, also has hypertension, diabetes. Most recent echo a few months ago showed EF of 20-25% with moderate pulmonary hypertension and he was recently admitted on 02/09/2019 after being discharged with similar symptoms. He reports progressive exertional dyspnea with activity and at rest. He denies any PND or orthopnea. He does always have some chest pain that is always noncardiac and sharp in nature and not really concerned about. REVIEW OF SYSTEMS: A 12-point review of systems was performed and it was negative other than what I mentioned above. PAST MEDICAL HISTORY: As above. SOCIAL HISTORY: Nonsmoker. FAMILY HISTORY: Noncontributory. ALLERGIES: Reviewed. MEDICATIONS: Have been reviewed. PHYSICAL EXAMINATION: VITAL SIGNS: Temperature is 37.1, pulse 83, respirations 16, saturation 95%, currently on BiPAP, blood pressure 103/62. GENERAL: He is in mild respiratory distress, but able to speak in sentences. He has BiPAP on. HEENT: Oropharynx is clear. NECK: Supple. No thyromegaly or carotid bruits. HEART: Regular rate and rhythm. He has mild JVD. LUNGS: Some bibasilar crackles. ABDOMEN: Soft, nontender, nondistended with no hepatosplenomegaly. EXTREMITIES: There is some trace edema. His pulses are 2+. Extremities are [facility] [address] [place] [address] CON[facility]ATION [facility] Room #: 213-[facility] IN M.R.#: [id number] Admission: 02/09/19 ������������������ Attend Phys: Prem Ron MD Discharge: ������������������ Date of : 45 Report #: [id number]. LABORATORY DATA: White count 13, hemoglobin 10, platelets 150. Blood gas 7.4, pCO2 of 46, pO2 of 75. Coags: INR is 1. Chemistry: Potassium 4, creatinine 1.2. Most recent proBNP was 3000. His most recent troponin was normal. His telemetry shows sinus rhythm. His chest x-ray shows stable ICD position. He has chronic interstitial changes. No effusions. Does not really look like pulmonary edema. CT of the chest shows multiple bilateral infiltrates with some mass-like or nodular appearance, large pancreatic mass, large gallstones, ectatic thoracic aorta, occasional small noncalcified pulmonary nodules. ASSESSMENT AND PLAN: 1. Acute on chronic left ventricular systolic heart failure. 2. Chronic obstructive pulmonary disease. 3. Lung cancer. 4. Pulmonary infiltrates. 5. Hypoxemia. 6. Nonobstructive coronary artery disease. 7. History of ventricular tachycardia and ventricular fibrillation. At this time, his clinical picture is somewhat challenging. He likely has acute on chronic left ventricular systolic heart failure and also has active pulmonary issues including chronic obstructive pulmonary disease and lung cancer with possible pneumonia. At this time, I do not recommend a repeat echo or a stress testing is really required. He has had prior cardiac catheterization, which shows nonobstructive coronary artery disease. I would recommend that we increase his diuretics to see if this helps his symptoms. I will hold his amiodarone for the time being. Perhaps some repeat pulmonary function test with DLCO would be warranted if pulmonary thinks this is appropriate recommendation. We will continue with the carvedilol. I will continue to follow. ��������������������������������������������� ���������������������������������������� By: ��������������������������������������������� [id number] Graham Quezada MD /nt
--- NOTE | ~2019-02-09 | HC ---
[facility] [place] [place] [address] CONSULTATION Name: LAURA PEÑA Room #: 213-P [facility] IN M.R.#: [id number] Admission: 02/09/19 ������������������ Attend Phys: Prem Ron MD Discharge: 02/16/19 ������������������ Date of : 45 Report #: [id number] THIS REPORT FOR: //name// CC: Ava Ron DATE OF SERVICE: 02/16/2019 HISTORY OF PRESENT ILLNESS: The patient is a 73-year-old -Portuguese male, previously known to me from a prior acute inpatient rehabilitation stay back in May 2018. He was readmitted this hospitalization with vnnww-[id number] respiratory failure. He is noted to have congestive heart failure exacerbation. He has possible healthcare-associated pneumonia, underlying chronic obstructive pulmonary disease, hywla-ml-fjqlgrl renal insufficiency. He has noted pulmonary nodule. Infectious Disease is involved as well as Pulmonary Medicine. We are seeing him in rehabilitation medicine consultation. PAST MEDICAL HISTORY: He does have a history of a pancreatic mass. He has the above noted medical comorbidities with history of CHF, COPD, prostate CA, bronchitis, gastroparesis, insulin-dependent diabetes mellitus, GERD, dyslipidemia, multiple MIs, lung cancer, status post radiation. 07/2015, pacemaker defibrillator placed 05/2016, prior subtotal colectomy with colostomy 12/2017, nonischemic cardiomyopathy. ALLERGIES: INCLUDE LISINOPRIL. MEDICATIONS: Please see the full medication listing. HABITS: Former cigarette smoker for approximately 50 years, quit smoking over a year ago. SOCIAL HISTORY: He lives in a house with his , split level, 4 steps in. He used O2 tank premorbidly. He had a front-wheeled walker at home for longer distances. He was on nasal prong O2. REVIEW OF SYSTEMS: He has some complaints of some left facial discomfort that was discussed with Dr. Ron. No current complaints of chest pain, shortness of breath, or abdominal discomfort. He is wondering if he has some issues with his sinuses. PHYSICAL EXAMINATION: GENERAL: A 73-year-old -Portuguese male in no obvious distress. He is alert and oriented. VITAL SIGNS: Last recorded temperature 97, pulse 60, respirations 18, blood pressure 101/47. HEENT: EOMs are full. Facies appeared symmetric. [facility] [address] [place] [address] CONSULTATION Name: LAURA PEÑA Room #: 213-P [facility] IN M.R.#: [id number] Admission: 02/09/19 ������������������ Attend Phys: Prem Ron MD Discharge: 02/16/19 ������������������ Date of : 45 Report #: [id number] NEUROMUSCULOSKELETAL: He has functional range of motion of both upper extremities, strength is grade 4+/5. Lower extremity has functional range of motion, strength is grade 4+/5. DTRs are trace to 1. He does quite well with mobility, ambulating 150 feet with a front-wheeled walker. He is going up and down 4 to 6 stairs standby assistance. He actually has been discharged from OT. ASSESSMENT: A 73-year-old -Portuguese male with the following problem list: 1. Acute on chronic respiratory failure. 2. Congestive heart failure exacerbation. 3. Chronic obstructive pulmonary disease. 4. Acute on chronic renal insufficiency. 5. Pulmonary nodule. 6. Diabetes mellitus. 7. Nonischemic cardiomyopathy. 8. Pancreatic mass. PLAN: The patient is actually at too high level to warrant an acute 5-North inpatient rehabilitation stay. Discussed with Dr. Ron and Dr. Mckeon. We hope that he would be able to return back to the home setting with home health care. Thank you for asking us to assist in this patient's care. ��������������������������������������������� ���������������������������������������� By: ��������������������������������������������� 1329 [id number] Brad He MD /nt
[~2019-02-09 02:49] MED LIST changes: +AMOX TR-K CLV1 EAC3 PO; +LIDOCAINE1 EACH TRANSDERM; +PROMETHAZINE-C473 ML PO
[2019-02-09 05:16] LABS: HEMATOCRIT 37.8 % (42.0-52.0); HEMOGLOBIN 12.4 gm/dL (14.0-18.0); MCH 33.1 pg (26.0-34.0); MCHC 32.7 g/dL (28.0-37.0); MCV 101.3 fL (80.0-100.0); PLATELET COUNT 141 thou/uL (150-400); RBC 3.73 mil/uL (4.50-6.00); RDW 13.9 % (10.5-14.5); WBC 16.6 thou/uL (4.0-11.0)
[2019-02-09 05:20] LABS: ANION GAP 5 mmol/L (7-16); BUN 33 mg/dL (7-18); CALCIUM 9.5 mg/dL (8.5-10.1); CHLORIDE 97 mmol/L (98-107); CO2 38 mmol/L (21-32); CREATININE 1.5 mg/dL (0.7-1.3); GLUCOSE 290 mg/dL (74-106); POTASSIUM 4.6 mmol/L (3.5-5.1); SODIUM 140 mmol/L (136-145)
[2019-02-09 05:28] LABS: TROPONIN-I <0.06 ng/mL (<0.06)
[2019-02-09 05:46] LABS: ABSOLUTE NEUTROPHILS 14.9 thou/uL (1.4-8.2); PLATELET ESTIMATE DECREASED
[2019-02-09 05:47] LABS: MACROCYTES 1+; POIKILOCYTOSIS 1+
[2019-02-09 06:15] LABS: ALBUMIN 2.6 g/dL (3.4-5.0); DIRECT BILIRUBIN 0.3 mg/dL (<0.1-0.3); MAGNESIUM 2.5 mg/dL (1.8-2.4); TOTAL PROTEIN 6.7 g/dL (6.4-8.2)
[2019-02-09 06:17] LABS: PROTIME 10.1 Seconds (9.3-11.4)
--- NOTE | 2019-02-09 07:54 | NUR ---
REC PT AT SHIFT CHANGE FROM ED, PRIOR RECENT ADMISSION/DISCHARGE. A&0X4, ACCOMPANIED BY [employer]. GAVE THEM DRINKS AND LET HIM KNOW HE COULD REST AND WE'D DO HIS ADMISSION HERE IN THE NEXT FEW HOURS. ENCOURAGED BOTH TO USE CALL LIGHT FOR ANY NEEDS. ON 3L 02, SATTING FINE, TURNED DOWN TO HIS USUAL 2L. SET UP ON TELE ALREADY AND STRIP BEING PRINTED. PT HAS COLOSTOMY DISCOVERED UPON HIS ARRIVAL HERE. SOA W/TRANSFER TO ED BED TO OUR BED. NO NEEDS AT THIS IMMEDIATE TIME
--- NOTE | 2019-02-09 17:15 | NUR ---
met with patient who recent dc appealed his dc. dc upheld and patient returned to hospital within 24 hours. Patient lives at home with in split level home. He has home oxygen usu at 2 liters serviced by [facility] in [facility]. Patient has bipap and walker. He plans home with HH. Referral prev to [facility]. He wants to use [facility] again as they never able to initiate care. Updated [facility]. Plan home once stable with HH.
[2019-02-09 23:52] LABS: BE(vivo) 10.3 mmol/L (-2 to +3); HCO3 34.9 mmol/L (22.0-26.0); PCO2 46.1 mmHg (35.0-45.0); PO2 75.3 mmHg (80.0-100.0); pH 7.497 (7.360-7.450)
[2019-02-10 03:53] LABS: ABSOLUTE NEUTROPHILS 14.5 thou/uL (1.4-8.2); BASOPHILS 0.2 % (0.0-2.0); HEMATOCRIT 34.5 % (42.0-52.0); HEMOGLOBIN 11.3 gm/dL (14.0-18.0); LYMPHOCYTES 1.6 % (24.0-44.0); MCH 33.5 pg (26.0-34.0); MCHC 32.7 g/dL (28.0-37.0); MCV 102.7 fL (80.0-100.0); MONOCYTES 3.5 % (1.0-8.0); PLATELET COUNT 136 thou/uL (150-400); POLYS 94.7 % (36.0-66.0); RBC 3.36 mil/uL (4.50-6.00); RDW 13.8 % (10.5-14.5); WBC 15.4 thou/uL (4.0-11.0)
[2019-02-10 03:55] VITALS: BP 108/57
[2019-02-10 04:02] LABS: CALCIUM 8.5 mg/dL (8.5-10.1); CREATININE 1.1 mg/dL (0.7-1.3); MAGNESIUM 2.2 mg/dL (1.8-2.4); POTASSIUM 4.9 mmol/L (3.5-5.1)
--- NOTE | 2019-02-10 07:23 | NUR ---
ASSUME CARE 1900. PT DENIES ANY P[AIN. EPISODE OF SOA NOTED AT NIGHT. BREATHING TREATMENTS GIVEN, ABGs DONE AND PT PLACED ON CPAP FOR THE NIGHT. ASSESSMETN CHARTED. DEQUATE REST NOTED THROUGH THE NIGHT. PROGRESSING WITH POC. PLAN IS TO CONTINUE TX WITH ABX AND STEROIDS. WILL CONTINUE TO MONITOR ANF FOLLOW WIHT POC
--- NOTE | 2019-02-10 07:24 | EKG ---
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: : 1945 Requested By: Lionel Lockett Order Number: [id number] MD: Dalton Hernandez Measurements Intervals [place] Rate: 91 P: 67 NE: 148 QRS: 142 QRSD: 176 T: 60 QT: 456 QTc: 562 Interpretive Statements Sinus rhythm Left atrial enlargement Nonspecific intraventricular conduction delay Compared to ECG 02/06/2019 04:26:01 Ventricular premature complex(es) no longer present Electronically Signed On 02-10-2019 7:24:25 CDT by Dalton Hernandez [email or web address] ��������������������������������������������� <ELECTRONICALLY SIGNED> ���������������������������������������� By: Dalton Hernandez MD, [facility] ��������������������������������������������� 02/10/19 0724 0309 8 Dalton Hernandez MD, [facility] /EPI
[2019-02-10 07:54] VITALS: BP 94/56
--- NOTE | 2019-02-10 10:13 | NUR ---
TOWARDS POC PT A/O X4, VSS, AFEBRILE, PAIN MANAGED BY MEDS. PT/OT ABLE TO WORK WITH HIM. REMAINED IN 2L O2. NO CONCERNS VOICED, WILL CONTINUE TO MONITOR.
[2019-02-10 12:04] VITALS: BP 99/56
[2019-02-10 20:05] VITALS: BP 135/64
[2019-02-11 04:35] VITALS: BP 121/82
--- NOTE | 2019-02-11 04:40 | NUR ---
ASSUME CARE 1900. PT/VITALS STABLE. INTERMITTENT BACK PAIN NOTED. UP WITH STB ASSIST AND TOLERATES ACTIVITY WELL. ASSESSMENT CHARTED. PROGRESSING WELL WITH POC. PLAN IS TO CONTINUE TX WITH STEROIDS AND ABX. ADEQUYAT REST NOTED. WILL CONTINUE TO MONITOR AND FOLLOW WITH POC
[2019-02-11 05:21] LABS: HEMATOCRIT 33.5 % (42.0-52.0); HEMOGLOBIN 10.9 gm/dL (14.0-18.0); MCH 32.9 pg (26.0-34.0); MCHC 32.5 g/dL (28.0-37.0); MCV 101.3 fL (80.0-100.0); RBC 3.31 mil/uL (4.50-6.00); RDW 13.7 % (10.5-14.5); WBC 14.8 thou/uL (4.0-11.0)
[2019-02-11 05:38] LABS: CALCIUM 8.6 mg/dL (8.5-10.1); CREATININE 1.4 mg/dL (0.7-1.3); POTASSIUM 4.3 mmol/L (3.5-5.1)
[2019-02-11 07:15] VITALS: BP 106/59
[2019-02-11 16:10] VITALS: BP 96/58
--- NOTE | 2019-02-11 16:31 | NUR ---
PT ALERT AND ORIENTED X4. AMBULATING IN ROOM WITH STANDBY ASSITANCE. UP TO CHAIR FOR MOST OF THE DAY. WEANED O2 TO 2L/NC (NORMAL HOME DOSE OF OXYGEN). COMPLAINING OF BACK PAIN. PAIN MEDS GIVEN AND REPORTS RELIEF OF PAIN. PROGRESSING TOWARDS GOALS PER PLAN OF CARE. WILL CONTINUE TO MONITOR PATIENT.
[2019-02-11 20:15] VITALS: BP 101/61
--- NOTE | 2019-02-11 23:44 | NUR ---
TRANSFER OF CARE OF PT TO ADRIANA RN. POC DISCUSSED. ALLOWED FOR QUESTIONS.
--- NOTE | 2019-02-12 00:37 | NUR ---
ASSUMED PT CARE 2300. PT RESTING IN BED COMFORTABLY. AGREE WITH PREVIOUS NURSE ASSESSMENT. IV DRESSING C/D/I, NO SIGNS OF INFILTRATION. PT DENIES PAIN, DENIES N/V. CALL LIGHT AND PERSONAL BELONINGS WITHIN REACH, WILL CONTINUE POC UNTIL EOS.
[2019-02-12 04:45] VITALS: BP 137/97
[2019-02-12 06:07] LABS: HEMATOCRIT 32.7 % (42.0-52.0); HEMOGLOBIN 10.5 gm/dL (14.0-18.0); MCHC 32.1 g/dL (28.0-37.0); MCV 102.9 fL (80.0-100.0); RBC 3.18 mil/uL (4.50-6.00); RDW 13.8 % (10.5-14.5); WBC 13.9 thou/uL (4.0-11.0)
[2019-02-12 06:22] LABS: CALCIUM 8.7 mg/dL (8.5-10.1); CREATININE 1.2 mg/dL (0.7-1.3)
[2019-02-12 07:15] VITALS: BP 103/62
[2019-02-12 16:33] VITALS: BP 137/74
--- NOTE | 2019-02-12 17:32 | NUR ---
PT COMPLAINED OF SOA THIS AM. RT TREATMENT AND IV LASIX GIVEN. PRN PAIN MED GIVEN FOR LOWER BACK PAIN. UP IN THE CHAIR. REPORT NOT FEELING WELL TODAY. WILL CONTINUE TO MONITOR.
[2019-02-12 20:30] VITALS: BP 95/63
[2019-02-13 03:54] VITALS: BP 108/63
--- NOTE | 2019-02-13 04:24 | NUR ---
PT A/O X 4.COMPLAIN OF LOWER BACK AND LEFT SHOULDER PAIN.OXYCODONE GIVEN.ON O2 3L NASAL CANNULA, CPAP AT HS.FLUID RESTRICTION ENFORCED. DIURESING WELL.PT EMPTIED HIS OWN COLOSTOMY. PT COMPLAINED OF HEART BURN. MILK GIVEN WHICH HELPED. RESTED WELL THROUGH THE NIGHT. WILL CONTINUE TO MONITOR AND CONTINUE POC.
[2019-02-13 07:10] VITALS: BP 118/76
[2019-02-13 11:19] VITALS: BP 93/53
[2019-02-13 15:44] VITALS: BP 94/46
--- NOTE | 2019-02-13 17:28 | NUR ---
PT ALERT AND ORIENTED. HAD LOW BP MID AFTERNOON. BP MED HELD. UP IN THE CHAIR THIS SHIFT. RT TREATMENT PROVIDED ORDERED. PRN PAIN MED GIVEN WITH PARTIAL RELIEF. WILL CONTINUE TO MONITOR.
[2019-02-13 20:05] VITALS: BP 101/61
[2019-02-14] VITALS (7 sets, daily range): BP systolic 82–110; BP diastolic 37–64
--- NOTE | 2019-02-14 04:45 | NUR ---
ASSESSMENT DOCUMENTED.PT BEEN RESTING IN NO ACUTE DISTRESS..VSS.SR ON MONITOR.PT DENIES PAIN OR ANY DISTRESS AT THIS TIME.WILL CONT TO MONITOR.
[2019-02-14 16:32] LABS: CREATININE 1.5 mg/dL (0.7-1.3); POTASSIUM 4.4 mmol/L (3.5-5.1)
--- NOTE | 2019-02-14 16:54 | NUR ---
AAOX4 PLESANT AND COOPERATVIE. EMPTIES OWN OSTOMY APPLIANCE. WORKED WELL WITH OT AND PT, TOOK SHOWER AND AMBULATED IN HALLS. PAIN MED GIVEN PER REQUEST X1 THIS SHIFT FOR GENERALIZED PAIN RATED AT 6, ASLEEP IN CHAIR 30 MIN AFTER PAIN MED. VOIDS CLEAR YELLOW URINE PER URINAL. B/P IS LOW BUT NON SYMPTOMATIC. COUGH PRODUCTIVE OF THICK BROWNISH SPUTUM. CONTINES TO BE ON FLUID RESTRICTION. BLOOD GLUCOSE LEVELS COVERED WITH LOW DOSE SLIDING SCALE INSULIN.
--- NOTE | 2019-02-15 03:08 | NUR ---
ASSESSMENT DOCUMENTED.PT BEEN RESTING IN NO ACUTE DISTRESS.A/OX4.VSS.PAIN MEDS GIVEN FOR GENERALIZED PAIN WITH RELIEF.DENIES FURTHER NEEDS.CPAP ON WHILE SLEEPING.NO C/O CP OR SOA.POSSIBLE DISCHARGE TODAY.WILL CONT TO MONITOR PER POC.
[2019-02-15 03:59] LABS: CALCIUM 8.5 mg/dL (8.5-10.1); CREATININE 1.1 mg/dL (0.7-1.3)
[2019-02-15 04:52] VITALS: BP 117/64
[2019-02-15 08:00] VITALS: BP 93/55
--- NOTE | 2019-02-15 09:13 | NUR ---
Assess for length of stay. Admitted with SOA. New lung nodules and also has pancreatic mass. Appetite is good, eating >75% per pt. Voices no significant wt changes. Per chart review, wt is up about 14 lb over 3 mo however pt has been diuresing. Low nutrition risk.
--- NOTE | 2019-02-15 13:27 | NUR ---
ASSUMED CARE AT SHIFT CHANGE, ALERT AND ORIENTED X4. C/O TREMORS AND SHAKES AFTER EACH BREATHING TX, AND EXPLAINED TO PATIENT THAT IT'S A SIDE EFFECT OF MEDICATION. VSS AND AFEBRILE. LUNGS REMAINS COARSE AND HE IS COUGHING UP YELLOW THICK SPUTUM. PROGRESSING TOWARD GOALS AND WILL CONTINUE WITH POC.
[2019-02-15 15:23] VITALS: BP 90/59
--- NOTE | 2019-02-15 16:38 | NUR ---
met with patient and discussed skilled post acute care. Gave patient [facility] list for review. Patient reports he is not going to any skilled facility. He has been in multiple skilled and does not like care. Patient reports it was his understanding he could transfer "upstairs" meaning 5N. Referral for 5N eval. Patient adament he wants to dc to 5N. Await eval.
[2019-02-15 20:05] VITALS: BP 87/65
[2019-02-16 00:05] VITALS: BP 101/67
[2019-02-16 04:00] VITALS: BP 90/55
--- NOTE | 2019-02-16 04:16 | NUR ---
PATIENT A/O X 4.COMPLAIN OF THROAT SORENESS.PAIN MEDS GIVEN.VERBALIZED PARTIAL PAIN RELIEF.BP LOW AT THE BEGINNING OF THE SHIFT.ENGINEERING DESIGN SUPERVISOR WAS INFORMED ABOUT LOW BP AND SHE SAID OKAY TO GIVE PAIN MEDS.BP IS BETTER AT MIDNIGHT.COLOSTOMY BAG WAS CHANGED THIS AM. PT EMPTIED COLOSTOMY. RESTED WELL THROUGH THE NIGHT. WILL MONITOR AND CONTINUE POC.
[2019-02-16 08:42] VITALS: BP 94/54
[2019-02-16] MEDS ORDERED: CEFDINIR300 MG PO ×2 (13:57)
[2019-02-16] MEDS ORDERED: SPIRONOLACTONE25 M1 PO ×2 (13:58)
[2019-02-16] MEDS ORDERED: COZAAR 25 MG TA25 M2 PO ×2 (13:58)
[2019-02-16] MEDS ORDERED: DEMADEX20 MG PO ×2 (13:59)
[2019-02-16] MEDS ORDERED: PROMETHAZINE-C473 ML PO ×2 (13:59)
[2019-02-16] MEDS ORDERED: PREDNISONE 10 M10 MG PO ×2 (14:00)
[2019-02-16 14:19] VITALS: BP 101/47
[2019-02-16 14:54] VITALS: BP 101/47
--- NOTE | 2019-02-16 15:00 | NUR ---
5N reports OT s/o and patient not a candidate for 5N. Dr Ron tx patient to home with HH. Patient in agreement with plan. He needs assist with transport home. [facility] at 1630 to transport home with oxygen. Patient in agreement with plan. Updated [facility] of tx to resume HH at tx.
--- NOTE | 2019-02-16 15:16 | NUR ---
PATEINT SEEN BY DR. CAUSEY THIS DATE. PATIENT IS NOT A CANDIDATE FOR 5N/ACUTE REHAB. OT HAD ALREADY SIGNED OFF. ON SITE WASTEWATER SYSTEMS TECHNICIAN INFORMED. THANK YOU FOR THIS REFERRAL.
[2019-02-16 16:07] VITALS: BP 82/52
--- NOTE | 2019-02-16 16:58 | NUR ---
MEDS CALLED IN TO PHARMACY PER PT REQUEST. DIRECT CONVERSATION OF MEDS WITH PHARMACY STAFF AT THIS TIME.
--- NOTE | 2019-02-16 17:06 | NUR ---
PT CARE ASSUMED APPROX 0700. PT ALERT AND ORIENTED X4. DENIES SOA. REPORTS ADEQUATE PAIN MANAGEMENT. VSS. UP WITH STEADY GAIT. PT DISCHARGED AT THIS TIME. DISCHARGE PAPERWORK REVIEWED AND PT DENIES QUESTIONS AND CONCERNS REGARDING POST HOSPITAL CARE, MEDS AND ARRANGEMENTS. MEDS CALLED IN PER PT REQUEST. IV OUT, TELE BOX OFF. MEDICAL TRANSPORTATION ARRIVED APPROX 1700 PT TAKE PT HOME. ALL BELONGINGS IN PT POSSESSION. NO DISTRESS NOTED.
== END 2019-02-16 17:09 | disposition home health service (06) | DRG 291 ==
LOC: ER 02:49 → 2N 06:35 → EROBS 06:35 → 2N 07:25
PROVIDERS: Emergency Medicine; Internal Medicine Cardiovascular Disease; Nurse Practitioner; Nurse Practitioner Acute Care; ADMIT Hospitalist
PROC: 5A09357 Assistance with Respiratory Ventilation, Less than 24 Consecutive Hours, Continuous Positive Airway Pressure (ICD-10-PCS; principal; 2019-02-11)
PROC: 5A09357 Assistance with Respiratory Ventilation, Less than 24 Consecutive Hours, Continuous Positive Airway Pressure (ICD-10-PCS; 2019-02-15)
DX: I13.0 Hypertensive heart and chronic kidney disease with heart failure and stage 1 through stage 4 chronic kidney disease, or unspecified chronic kidney disease (principal); J96.21 Acute and chronic respiratory failure with hypoxia; I50.43 Acute on chronic combined systolic (congestive) and diastolic (congestive) heart failure; I49.01 Ventricular fibrillation; N17.9 Acute kidney failure, unspecified; F11.20 Opioid dependence, uncomplicated; I47.2 Ventricular tachycardia; I42.8 Other cardiomyopathies; I25.10 Atherosclerotic heart disease of native coronary artery without angina pectoris; Z95.0 Presence of cardiac pacemaker; G47.33 Obstructive sleep apnea (adult) (pediatric); J44.9 Chronic obstructive pulmonary disease, unspecified; F41.9 Anxiety disorder, unspecified; E78.5 Hyperlipidemia, unspecified; K21.9 Gastro-esophageal reflux disease without esophagitis; N18.9 Chronic kidney disease, unspecified; K57.90 Diverticulosis of intestine, part unspecified, without perforation or abscess without bleeding; K86.9 Disease of pancreas, unspecified; R91.1 Solitary pulmonary nodule; E11.65 Type 2 diabetes mellitus with hyperglycemia; E11.22 Type 2 diabetes mellitus with diabetic chronic kidney disease; G89.4 Chronic pain syndrome; D63.1 Anemia in chronic kidney disease; I34.0 Nonrheumatic mitral (valve) insufficiency; Z79.82 Long term (current) use of aspirin; Z93.3 Colostomy status; Z79.899 Other long term (current) drug therapy; Z85.46 Personal history of malignant neoplasm of prostate; Z90.49 Acquired absence of other specified parts of digestive tract; Z85.118 Personal history of other malignant neoplasm of bronchus and lung; Z88.8 Allergy status to other drugs, medicaments and biological substances; Z87.891 Personal history of nicotine dependence; Z79.4 Long term (current) use of insulin; I25.2 Old myocardial infarction; Z83.3 Family history of diabetes mellitus; Z82.49 Family history of ischemic heart disease and other diseases of the circulatory system; Z82.5 Family history of asthma and other chronic lower respiratory diseases
CPT/HCPCS: 10081

== ENCOUNTER 2019-02-23 19:09 | Emergency (ER) | payer OTHER ==
[~2019-02-23] VITALS: Ht 172.7 cm; Wt 80.3 kg
[~2019-02-23 19:09] MED LIST changes: +CEFDINIR300 MG PO; +COZAAR 25 MG TA25 M2 PO; +SILDENAFIL20 MG PO; +SPIRONOLACTONE25 M1 PO
[2019-02-23 19:34] LABS: URINE BILIRUBIN NEGATIVE (Negative); URINE BLOOD 3+ (Negative); URINE CLARITY CLEAR; URINE GLUCOSE-RANDOM* 3+ (Negative); URINE KETONES NEGATIVE (Negative); URINE LEUKOCYTES-REFLEX NEGATIVE (Negative); URINE NITRITE-REFLEX NEGATIVE (Negative); URINE PROTEIN (DIPSTICK) 1+ (Negative); URINE SPECIFIC GRAVITY <= 1.005 (1.005-1.035); URINE UROBILINOGEN 0.2 E.U./dl (0.2-1.0)
[2019-02-23 19:35] LABS: URINE COLOR AMBER
[2019-02-23 19:47] LABS: BACTERIA-REFLEX 1-9 Few /HPF (None Seen); CASTS None Seen /LPF (None Seen); CRYSTALS None Seen /LPF (None Seen); SQUAMOUS None Seen /LPF (0-3); URINE RBC >20 Many /HPF (0-2); URINE WBC-REFLEX None Seen /HPF (0-5)
[2019-02-23 19:55] LABS: HEMATOCRIT 30.9 % (42.0-52.0); HEMOGLOBIN 10.1 gm/dL (14.0-18.0); MCH 33.1 pg (26.0-34.0); MCHC 32.7 g/dL (28.0-37.0); MCV 101.2 fL (80.0-100.0); PLATELET COUNT 239 thou/uL (150-400); RBC 3.05 mil/uL (4.50-6.00); RDW 13.6 % (10.5-14.5); WBC 13.5 thou/uL (4.0-11.0)
[2019-02-23 20:17] LABS: CALCIUM 8.9 mg/dL (8.5-10.1); CREATININE 1.6 mg/dL (0.7-1.3); POTASSIUM 5.3 mmol/L (3.5-5.1)
[2019-02-23 20:24] LABS: ABSOLUTE NEUTROPHILS 12.4 thou/uL (1.4-8.2); ANISOCYTOSIS 1+; MACROCYTES 1+
[2019-02-23 20:31] LABS: TOTAL BILIRUBIN 0.4 mg/dL (<0.1-1.0); TOTAL PROTEIN 6.6 g/dL (6.4-8.2)
[2019-02-23] MEDS ORDERED: MAGIC MOUTHWASH SWISH&SPIT (20:57)
[2019-02-23] MEDS ORDERED: NOVOLOG100 UNIT/1 SUBQ ×2 (20:58→20:59)
[2019-02-23] MEDS ORDERED: VALACYCLOVIR1000 MG PO (21:00)
[2019-02-23] MEDS ORDERED: LANTUS100 UNIT/M SUBQ (21:01)
[2019-02-23 21:42] VITALS: BP 99/62
== END 2019-02-23 22:14 ==
LOC: ER 19:09
PROVIDERS: Emergency Medicine
DX: E11.65 Type 2 diabetes mellitus with hyperglycemia (principal); I42.9 Cardiomyopathy, unspecified; J44.9 Chronic obstructive pulmonary disease, unspecified; G47.33 Obstructive sleep apnea (adult) (pediatric); F41.9 Anxiety disorder, unspecified; E11.43 Type 2 diabetes mellitus with diabetic autonomic (poly)neuropathy; K31.84 Gastroparesis; E78.5 Hyperlipidemia, unspecified; K21.9 Gastro-esophageal reflux disease without esophagitis; I25.10 Atherosclerotic heart disease of native coronary artery without angina pectoris; I13.0 Hypertensive heart and chronic kidney disease with heart failure and stage 1 through stage 4 chronic kidney disease, or unspecified chronic kidney disease; N18.9 Chronic kidney disease, unspecified; I50.42 Chronic combined systolic (congestive) and diastolic (congestive) heart failure; Z85.46 Personal history of malignant neoplasm of prostate; Z85.118 Personal history of other malignant neoplasm of bronchus and lung; Z87.891 Personal history of nicotine dependence; Z88.8 Allergy status to other drugs, medicaments and biological substances; Z98.890 Other specified postprocedural states; Z95.0 Presence of cardiac pacemaker

== ENCOUNTER 2019-03-16 12:52 | Inpatient (IN) | payer OTHER ==
[~2019-03-16] VITALS: Ht 172.7 cm; Wt 77.1 kg
[~2019-03-16 12:52] MED LIST changes: +MAGIC MOUTHWASH SWISH&SPIT; +NOVOLOG100 UNIT/1 SUBQ; +VALACYCLOVIR1000 MG PO
[2019-03-16 12:53] VITALS: BP 96/70
[2019-03-16 14:40] LABS: HEMOGLOBIN 9.1 gm/dL (14.0-18.0); MCHC 32.4 g/dL (28.0-37.0); MCV 98.8 fL (80.0-100.0); PLATELET COUNT 309 thou/uL (150-400); RBC 2.83 mil/uL (4.50-6.00); WBC 8.8 thou/uL (4.0-11.0)
[2019-03-16 14:47] LABS: CALCIUM 9.3 mg/dL (8.5-10.1); CREATININE 1.2 mg/dL (0.7-1.3); POTASSIUM 3.8 mmol/L (3.5-5.1)
[2019-03-16 14:53] LABS: ALBUMIN 2.2 g/dL (3.4-5.0); TOTAL BILIRUBIN 0.7 mg/dL (<0.1-1.0); TOTAL PROTEIN 7.8 g/dL (6.4-8.2)
[2019-03-16 14:59] LABS: URINE BILIRUBIN NEGATIVE (Negative); URINE BLOOD 2+ (Negative); URINE CLARITY CLEAR; URINE COLOR YELLOW; URINE GLUCOSE-RANDOM* NEGATIVE (Negative); URINE KETONES NEGATIVE (Negative); URINE LEUKOCYTES-REFLEX NEGATIVE (Negative); URINE NITRITE-REFLEX NEGATIVE (Negative); URINE PROTEIN (DIPSTICK) 1+ (Negative); URINE UROBILINOGEN 0.2 E.U./dl (0.2-1.0)
[2019-03-16 15:08] LABS: BACTERIA-REFLEX 1-9 Few /HPF (None Seen); CASTS None Seen /LPF (None Seen); CRYSTALS None Seen /LPF (None Seen); SQUAMOUS None Seen /LPF (0-3); URINE RBC 3-10 Few /HPF (0-2); URINE WBC-REFLEX 0-5 Rare /HPF (0-5)
[2019-03-16 15:12] LABS: ABSOLUTE NEUTROPHILS 6.8 thou/uL (1.4-8.2)
[2019-03-16] MEDS ORDERED: DEMADEX20 MG PO (21:29)
[2019-03-17 05:50] LABS: HEMATOCRIT 26.1 % (42.0-52.0); HEMOGLOBIN 8.4 gm/dL (14.0-18.0); MCH 31.7 pg (26.0-34.0); MCV 98.8 fL (80.0-100.0); RBC 2.64 mil/uL (4.50-6.00); WBC 8.1 thou/uL (4.0-11.0)
[2019-03-17 06:40] VITALS: BP 104/70
[2019-03-17 06:49] VITALS: BP 104/70
[2019-03-17 08:08] VITALS: BP 109/66
[2019-03-17 15:47] VITALS: BP 124/73
--- NOTE | 2019-03-17 17:22 | NUR ---
PT ADMITTED RELATED TO N/V EPIGASTRIC PAIN. CM REVIEWED CHART AND SPOKE WITH CARE TEAM. CM MET WITH PT AND SPOUSE AT BEDSIDE THIS DAY. PT IS A&O X4. CM ROLE INTRODUCED. THEY INDICATED THEY LIVE IN A HOUSE WITH 3 STEPS TO ENTER TO MAIN LEVEL AND 7 STEPS TO BEDROOM BUT INDICATED THEY HAVE BEDROOM SET UP FOR PT ON MAIN LEVEL. THEY INDICATED THAT THEY HAVE A FWW, CANE, BIPAP, AND HOME O2 FOR USE AT HOME. PT INDICATED HE HAD BEEN SURRENT WITH [facility]. CM NOTIFIED THEM PT IS HERE. THEY INDICATED PLAN WOULD BE FOR PT TO RETURN HOME ONCE MEDICALLY STABLE. CM TO FOLLOW INDICATED WITH DC PLANNING.
[2019-03-17 19:50] VITALS: BP 111/62
--- NOTE | 2019-03-17 20:11 | NUR ---
PT ARRIVED TO ROOM FROM ED AT 0800. ADMISSION ASSESSMENT COMPLETED. C/O ABD PAIN 8/10 - PAIN MEDS GIVEN ORDERED. DENIES N/V. COLOSTOMY IN PLACE. [address], CHRONIC HOME O2 USE. SLEEP APNEA/CPAP USE AT NIGHT, PHYSICIAN NOTIFIED FOR CPAP ORDERS X2 TIMES - NO REPONSE BY END OF SHIFT. MEDICAL RECORD REQUESTS SENT. FAMILY AT BEDSIDE THIS EVENING. ACHS, NO INSULIN GIVEN PER SLIDING SCALE. NOT MUCH APPETITE OR INTAKE NOTED. END OF SHIFT.
[2019-03-18 04:05] VITALS: BP 109/61
--- NOTE | 2019-03-18 04:40 | NUR ---
ASSUMED PT CARE 1899. PT ALERT ADN ORIENTED. REASSESSMENT COMPLETE, VSS. IV DRESSING C/D/I. REPORTS PAIN, SEE EMAR. REPORTED SOME NAUSEA WITH BROTH. DENIES VOMITING. [address], ON CONTINOUS PULSE OX. CALL LIGHT ADN PERSONAL BELONIGNS WITHIN REACH. WILL CONTINUE POC UNTIL EOS.
[2019-03-18 05:18] LABS: HEMATOCRIT 25.4 % (42.0-52.0); HEMOGLOBIN 8.3 gm/dL (14.0-18.0); MCH 32.5 pg (26.0-34.0); MCHC 32.6 g/dL (28.0-37.0); MCV 99.8 fL (80.0-100.0); RBC 2.54 mil/uL (4.50-6.00); RDW 14.7 % (10.5-14.5); WBC 9.5 thou/uL (4.0-11.0)
[2019-03-18 05:27] LABS: CALCIUM 8.2 mg/dL (8.5-10.1); CREATININE 0.9 mg/dL (0.7-1.3); POTASSIUM 3.4 mmol/L (3.5-5.1)
[2019-03-18 07:51] VITALS: BP 97/58
--- NOTE | 2019-03-18 16:01 | NUR ---
ASSUMED CARE OF PT AT 0700. ASSESSMENT CHARTED. DROWSY AND RESTING, BUT EASILY AROUSABLE. ORIENTED X4. C/O 02/23 ABD PAIN, IV PAIN MEDS GIVEN ORDERED. CLEARS DIET - NOT ABLE TO EAT MUCH WITHOUT NAUSEA, REFUSED ANTINAUSEA MEDS, NO EMESIS, VERY POOR APPETITE. MONITORING TEMPERATURES CLOSELY, LOW GRADE TEMP NOTED. ACHS, NO INSULIN GIVEN PER SLIDING SCALE. PT IN BED MOST OF THE DAY, URINATING VIA URINAL AT BS. WILL CONTINUE TO MONITOR.
[2019-03-18 16:27] VITALS: BP 121/65
--- NOTE | 2019-03-18 17:01 | NUR ---
CARE TEAM INDIATED THAT PT WILL BE HERE OVER THE WEEKEND. CM TO FOLLOW INDICATED WITH DC PLANNING.
[2019-03-18 21:00] VITALS: BP 112/68
[2019-03-18 23:55] VITALS: BP 112/72
[2019-03-19 03:05] VITALS: BP 99/65
[2019-03-19 05:14] LABS: HEMATOCRIT 24.2 % (42.0-52.0); HEMOGLOBIN 7.9 gm/dL (14.0-18.0); MCH 32.3 pg (26.0-34.0); MCHC 32.7 g/dL (28.0-37.0); MCV 98.5 fL (80.0-100.0); PLATELET COUNT 252 thou/uL (150-400); RBC 2.45 mil/uL (4.50-6.00); RDW 14.7 % (10.5-14.5); WBC 7.3 thou/uL (4.0-11.0)
[2019-03-19 05:21] LABS: CALCIUM 8.3 mg/dL (8.5-10.1); CREATININE 0.8 mg/dL (0.7-1.3); POTASSIUM 3.3 mmol/L (3.5-5.1)
[2019-03-19 06:19] LABS: ABSOLUTE NEUTROPHILS 5.3 thou/uL (1.4-8.2); ANISOCYTOSIS 1+; POLYCHROMASIA OCCASIONAL
--- NOTE | 2019-03-19 06:32 | NUR ---
PATIENT ALERT AND ORIENTED X4. C/O MED GIVEN. ACCUCHECK WAS 140. TEMP WAS NORMAL THIS SHIFT. AT BEDSIDE. SLEPT MOST OF THE NIGHT.
[2019-03-19 08:10] VITALS: BP 83/57
[2019-03-19 15:14] LABS: HEMATOCRIT 26.4 % (42.0-52.0); HEMOGLOBIN 8.4 gm/dL (14.0-18.0); MCH 31.6 pg (26.0-34.0); MCHC 31.8 g/dL (28.0-37.0); MCV 99.3 fL (80.0-100.0); PLATELET COUNT 269 thou/uL (150-400); RBC 2.66 mil/uL (4.50-6.00)
[2019-03-19 15:39] LABS: ABSOLUTE NEUTROPHILS 5.3 thou/uL (1.4-8.2); PLATELET ESTIMATE NORMAL
[2019-03-19 16:15] VITALS: BP 98/61
[2019-03-19 20:40] VITALS: BP 131/74
[2019-03-20 03:25] VITALS: BP 104/60
[2019-03-20 05:13] LABS: HEMATOCRIT 21.4 % (42.0-52.0); HEMOGLOBIN 6.8 gm/dL (14.0-18.0); MCH 31.2 pg (26.0-34.0); MCHC 31.9 g/dL (28.0-37.0); MCV 97.8 fL (80.0-100.0); PLATELET COUNT 191 thou/uL (150-400); RBC 2.19 mil/uL (4.50-6.00); RDW 15.3 % (10.5-14.5); WBC 6.2 thou/uL (4.0-11.0)
[2019-03-20 05:20] LABS: CALCIUM 8.1 mg/dL (8.5-10.1); CREATININE 0.8 mg/dL (0.7-1.3); POTASSIUM 3.4 mmol/L (3.5-5.1)
--- NOTE | 2019-03-20 05:40 | NUR ---
A/O, calm and pleasant; colostomy bag emptied; cpap during sleeping time, tolerated well. VSS, afebrile.
[2019-03-20 05:51] LABS: ANISOCYTOSIS 1+; PLATELET ESTIMATE NORMAL; POIKILOCYTOSIS 1+
[2019-03-20 07:34] VITALS: BP 114/69
[2019-03-20 15:56] LABS: HEMATOCRIT 27.1 % (42.0-52.0); HEMOGLOBIN 8.6 gm/dL (14.0-18.0); MCH 31.4 pg (26.0-34.0); MCHC 31.8 g/dL (28.0-37.0); MCV 98.6 fL (80.0-100.0); RBC 2.75 mil/uL (4.50-6.00); RDW 15.1 % (10.5-14.5); WBC 5.6 thou/uL (4.0-11.0)
[2019-03-20 15:58] LABS: PLATELET COUNT 278 thou/uL (150-400)
[2019-03-20 16:18] LABS: ABSOLUTE NEUTROPHILS 4.1 thou/uL (1.4-8.2); ANISOCYTOSIS 1+
[2019-03-20 16:20] LABS: HYPOCHROMASIA SLIGHT
--- NOTE | 2019-03-20 16:46 | NUR ---
PT STATES FEELS SOME BETTER SINCE THIS AM. TAKING PAIN MEDS FARTHER APART. DR. JACOME INCREASED DIET TO FULL LIQUIDS. COLOSTOMY W/ WATERY STOOL. SCANT AMT AIR IN BAG. PT UP W/ WALKER W/ CONTACT GUARD. SAT UP MOST OF AFTERNOON.
[2019-03-20 17:34] VITALS: BP 106/65
[2019-03-20 20:28] VITALS: BP 127/80
[2019-03-21 05:01] VITALS: BP 142/76
[2019-03-21 06:53] LABS: CALCIUM 8.4 mg/dL (8.5-10.1); CREATININE 0.9 mg/dL (0.7-1.3); POTASSIUM 3.8 mmol/L (3.5-5.1)
--- NOTE | 2019-03-21 07:05 | HC ---
[facility] [place] [place] [address] CONSULTATION Name: LAURA PEÑA Room #: 431-P ADM IN M.R.#: [id number] Admission: 03/16/19 Attend Phys: Isaias Fernandez MD Discharge: Date of : 45 Report #: [id number] THIS REPORT FOR: //name// CC: Isaias Summers MD REQUESTING PHYSICIANS: Isaias Fernandez MD. REASON FOR CONSULTATION: Questionable masses. HISTORY OF PRESENT ILLNESS: The patient is a very pleasant 74-year-old -Mac[place] male who was admitted to the hospital with 3-4 day history of abdominal pain in the lower left of midline quadrant below his umbilicus. He actually had a fever to 102.9 last night. He has a decreased appetite. He does have occasional headache. No swallowing trouble. No reflux. Maybe a little short of air from feeling tired. No new arm or leg swelling. No skin rash. No blood in the urine or stool. Does have an ostomy. Here, he was found to have a CAT scan that raised a question of developing left lung mass that may be new compared about 2 months ago. Also, questioned in compared to 2 years ago with enlarging pancreatic head mass and note that I talked with Dr. Hugo Garland last time he had done several EUS's and was thought this was very, very consistent with a pancreatic cystadenoma and a benign process and then also the questionable development of a pelvic mass, thought sort of a fluid collection, partial small bowel obstruction, thickened bowel wall process. There were no liver abnormalities or specific known metastasis. PAST MEDICAL HISTORY: Notable for the history of lung cancer in 2014, treated with SBRT gamma knife, also history of prostate cancer treated with radiation therapy with Dr. Mir Choudhury, history of nonischemic cardiomyopathy when EF around 25% with an AICD placement, history of VFib in the past, history of chronic back pain, history of past bowel perforation with colostomy bag, history of past coronary artery disease, degenerative arthritis, diabetes type 2, gastroparesis, diverticular disease, chronic kidney disease, sleep apnea. 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 Stopped smoking in 2006. Rare alcohol, no street drugs. FAMILY HISTORY: Both parents . No specific cancer issues. [facility] [address] [place] [address] CONSULTATION Name: LAURA PEÑA Room #: 431-P [facility] IN .R.#: [id number] Admission: 03/16/19 Attend Phys: Isaias Fernandez MD Discharge: Date of : 45 Report #: [id number] MEDICATIONS: At this time, currently include ciprofloxacin b.i.d., metronidazole q.8, albuterol respiratory therapy q.4, morphine sulfate p.r.n., oxycodone p.r.n., insulin on a sliding scale. He had been on multiple other medications at home. PHYSICAL EXAMINATION: GENERAL: The patient appears his stated age. VITAL SIGNS: Height is, I believe, 5 feet 8, which is incorrectly reported as 8 feet 8, weight is about 170 pounds, blood pressure is 97/50, O2 sat 96%, respirations 18, pulse 97, temperature 98.4. MOOD: He is pleasant. NEUROLOGIC: Face is symmetrical, moving arms and legs. LUNGS: Symmetric without rhonchi, rales or wheezes. HEART: Appears regular rate. LYMPHATICS: No enlarged lymph nodes. CHEST: Notable for AICD. ABDOMEN: Has ostomy bag, lower right quadrant, slightly tender, protuberant. No definite masses. EXTREMITIES: Without clubbing or cyanosis. LABORATORY DATA: As mentioned, is notable for BUN of 7, creatinine 0.9. Liver functions normal including total bilirubin of 0.7. Albumin low at 2.2. White count is 9.5, hemoglobin 8.3, MCV 99.8, platelets 267. Differential nonacute. ASSESSMENT AND PLAN: 1. Pancreatic mass, slowly enlarging, but is over 2 years. I had previously personally talked to Dr. Hugo Garland, thought this was a pancreatic cystadenoma. I will defer to Gastrointestinal whether there is increase in size over 2 years or is it consistent or inconsistent with that entity. 2. Lung "mass," suspicious that this is inflammatory given at least my impression there was not much there 2 months ago. We will be curious to see what Pulmonary thinks about this. If truly mass, we will need to evaluate and consider biopsy or bronchoscopy once the patient is more stable. 3. Small bowel mass, unclear whether this is related to a bowel obstruction or enteritis or fluid collection, especially given the abdominal pain and fever. Agree with Cipro and metronidazole and follow clinically. If not improving, may need to consider biopsy or surgery or reimaging in 2 months. 4. History of lung cancer treated in 2014 with SBRT, not known to be recurrent, but at risk. 5. Fever at 102.9. I suspect gastrointestinal process. Continue with antibiotics. 6. Chronic obstructive pulmonary disease. Aerosols per others. 7. Diabetes. Sliding scale insulin. 8. Hypertension. Medications per others. 9. Coronary artery disease and pacemaker. Automatic implantable cardioverter-defibrillator per others. [facility] [address] [place] [address] CONSULTATION Name: LAURA PEÑA Room #: 431-P ADM IN M.R.#: [id number] Admission: 03/16/19 Attend Phys: Isaias Fernandez MD Discharge: Date of : 45 Report #: [id number] 10. Low ejection fraction of 25%. Careful medications. 11. Sleep apnea history. Defer whether continuous positive airway pressure as needed per others. We will be available and follow. <ELECTRONICALLY SIGNED> By: Adam Awan MD 03/21/19 0705 0819 1111 Adam Awan MD /nt
--- NOTE | 2019-03-21 08:05 | NUR ---
PT LYING IN BED. VOIDING PER URINAL. DENIES PAIN. RESTING COMFORTABLY. NO NEEDS VOICED. CALL LIGHT WITHIN REACH. WILL CONTINUE TO PROVIDE FREQUENT OBSERVATION.
[2019-03-21 08:18] VITALS: BP 125/82
[2019-03-21 16:27] VITALS: BP 118/62
--- NOTE | 2019-03-21 16:31 | NUR ---
ASSUMED CARE OF PT AT 0700. ASSESSMENT CHARTED. A&O,X4. C/O ABD PAIN 03/26, PAIN MEDS GIVEN ORDERED. BETTER APPETITE NOTED, DENIES N/V. UP IN CHAIR TODAY. 2 L NC AT BASELINE, LABORED BREATHING NOTED, BREATHING TX Q4H. MAKING COLOSTOMY INTACT. MAKING SLOW PROGRESS TOWARDS GOAL. WILL CONTINUE TO MONITOR.
[2019-03-21 19:48] VITALS: BP 119/62
[2019-03-22 05:01] VITALS: BP 134/93
--- NOTE | 2019-03-22 05:05 | NUR ---
PATIENT ALERT AND ORIENTED X4. SITS UP IN CHAIR MOST OF TIME. C/O PAIN, MED GIVEN. ACCUCHECK WAS 292, RECEIVED 6 UNITS LISPRO INSULIN. SLEPT MOST OF NIGHT.
--- NOTE | 2019-03-22 06:35 | NUR ---
PATIENT C/O IV HURTING AND ARM SWOLLEN. L ARM SLIGHTLY SWOLLEN AND TENDER BUT STILL SOFT. IV REMOVED AND HEAT APPLIED.
[2019-03-22 08:26] VITALS: BP 114/67
--- NOTE | 2019-03-22 17:11 | NUR ---
PT A&OX4, AMBULATES WITH STAND BY ASSIST. VASC TEAM PLACED NEW IV IN R FA INFUSING FLUIDS W/O COMPS. COLOSTOMY INTACT. CT OF ABD COMPLETE. C/O ABD PAIN TODAY IV MORPHINE GIVEN. DENIES N/V. WILL CONT POC.
[2019-03-22 17:23] VITALS: BP 119/80
[2019-03-22 19:57] VITALS: BP 111/78
[2019-03-23 04:43] VITALS: BP 123/83
--- NOTE | 2019-03-23 05:53 | NUR ---
ASSUMED CARE OF PT @1900 PT A&OX4 WITH C/O PAIN IN ABD. PAIN MEDS GIVEN SEE EMAR. FALL PREC IN PLACE. PT USES URINAL AT BEDSIDE AND ON 3L OF O2. POC DONE AND INSULIN GIVEN FOR HIGH BLOOD SUGAR, WILL CONTINUE TO MONITOR TILL EOS
[2019-03-23 05:55] LABS: HEMATOCRIT 24.4 % (42.0-52.0); HEMOGLOBIN 7.8 gm/dL (14.0-18.0); MCH 32.1 pg (26.0-34.0); MCV 100.1 fL (80.0-100.0); PLATELET COUNT 278 thou/uL (150-400); RBC 2.44 mil/uL (4.50-6.00); RDW 16.1 % (10.5-14.5)
[2019-03-23 06:03] LABS: CALCIUM 8.9 mg/dL (8.5-10.1); POTASSIUM 4.5 mmol/L (3.5-5.1); TOTAL BILIRUBIN 0.2 mg/dL (<0.1-1.0); TOTAL PROTEIN 6.2 g/dL (6.4-8.2)
[2019-03-23 07:09] VITALS: BP 108/74
[2019-03-23 08:43] LABS: ABSOLUTE NEUTROPHILS 12.8 thou/uL (1.4-8.2); METAMYELOCYTES 2 %; NUCLEATED RBCS 4 /100WBC; PLATELET ESTIMATE NORMAL
[2019-03-23 15:44] VITALS: BP 120/74
--- NOTE | 2019-03-23 16:05 | NUR ---
[facility] updated. Surgery, ONC and hospitalist discussing plan of care. Likely dc to home soon with hh. Will follow.
--- NOTE | 2019-03-23 18:32 | NUR ---
PT A&OX4, IV INTACT IN R FA INFUSING FLUIDS W/O COMPS. CONSULT PLACED FOR IR TO BIOPSY OF PELVIC MASS. PT TOLERATING FULL LIQUID DIET, HAS NOT REQUESTED PAIN MED TODAY. COLOSTOMY INTACT. WILL CONT POC.
[2019-03-23 19:25] VITALS: BP 103/59
[2019-03-24] VITALS (8 sets, daily range): BP systolic 113–116; BP diastolic 67–79
--- NOTE | 2019-03-24 03:47 | NUR ---
ASSUMED CARE OF PT @1900. PT A&O X4 AT THIS SHIFT. WITH C/O PAIN, PAIN MEDS GIVEN FOR MANAGEMENT SEE EMAR. COLOSTOMY BACK INTACT. FLUIDS INFUSING AND PT USES URINAL AT BEDSIDE FOR THE NIGHT. INSULIN GIVEN FOR BLOOD SUGAR CONTROL. POC DONE AND FALL PREC IN PLACE WILL CONTINUE TO MONITOR TILL EOS
[2019-03-24] MEDS ORDERED: CIPRO250 M1 PO (08:58)
[2019-03-24] MEDS ORDERED: METRONIDAZOLE500 M4 PO (08:58)
--- NOTE | 2019-03-24 10:03 | NUR ---
PT'S IV ACSESS DCD. PT IS DISCARGING THIS AM. TOOK AM MEDS . COLOSTOMY EMPTIED BY PATIENT. PT W/O PAIN AT PRESENT
--- NOTE | 2019-03-24 13:13 | NUR ---
DISCHARGE PAPERS GONE OVER SIGNED AND COPY IN CHART. ALL BELONGINGS PACKED AND WILL BE SENT WITH PATIENT. TO BRING CLOTHES UP FOR PATIENT TO WEAR HOME.
--- NOTE | 2019-03-24 14:27 | NUR ---
notified [facility] of dc & to resume hh orders. notified dr stacy and edel THAT PT WAS ALREADY ON SERVICE WITH HH & TO RESUME HH ORDERS IN DC SUMMARY.
== END 2019-03-24 13:35 | disposition home health service (06) | DRG 388 ==
LOC: ER 12:52 → 4E 17:32 → EROBS 17:32 → 4E 03-17 07:24 → ENTRNSPT 03-24 13:10 → EDTRNSPT 03-24 13:11 → EDTRNSPTSTS 03-24 13:14 → 4E 03-24 13:35
PROVIDERS: Internal Medicine Pulmonary Disease; Pediatrics; Physician Assistant; ADMIT Hospitalist
PROC: 5A09357 Assistance with Respiratory Ventilation, Less than 24 Consecutive Hours, Continuous Positive Airway Pressure (ICD-10-PCS; principal; 2019-03-18)
PROC: 5A09357 Assistance with Respiratory Ventilation, Less than 24 Consecutive Hours, Continuous Positive Airway Pressure (ICD-10-PCS; 2019-03-19)
PROC: 5A09357 Assistance with Respiratory Ventilation, Less than 24 Consecutive Hours, Continuous Positive Airway Pressure (ICD-10-PCS; 2019-03-20)
PROC: 5A09357 Assistance with Respiratory Ventilation, Less than 24 Consecutive Hours, Continuous Positive Airway Pressure (ICD-10-PCS; 2019-03-23)
PROC: 5A09357 Assistance with Respiratory Ventilation, Less than 24 Consecutive Hours, Continuous Positive Airway Pressure (ICD-10-PCS; 2019-03-24)
DX: K56.600 Partial intestinal obstruction, unspecified as to cause (principal); J96.21 Acute and chronic respiratory failure with hypoxia; K57.92 Diverticulitis of intestine, part unspecified, without perforation or abscess without bleeding; C34.90 Malignant neoplasm of unspecified part of unspecified bronchus or lung; I50.42 Chronic combined systolic (congestive) and diastolic (congestive) heart failure; I47.1 Supraventricular tachycardia; F11.20 Opioid dependence, uncomplicated; D68.59 Other primary thrombophilia; I13.0 Hypertensive heart and chronic kidney disease with heart failure and stage 1 through stage 4 chronic kidney disease, or unspecified chronic kidney disease; L02.91 Cutaneous abscess, unspecified; K57.90 Diverticulosis of intestine, part unspecified, without perforation or abscess without bleeding; N18.9 Chronic kidney disease, unspecified; I25.10 Atherosclerotic heart disease of native coronary artery without angina pectoris; J44.9 Chronic obstructive pulmonary disease, unspecified; F41.9 Anxiety disorder, unspecified; E78.5 Hyperlipidemia, unspecified; K21.9 Gastro-esophageal reflux disease without esophagitis; D64.9 Anemia, unspecified; K86.9 Disease of pancreas, unspecified; R19.00 Intra-abdominal and pelvic swelling, mass and lump, unspecified site; G89.29 Other chronic pain; M54.9 Dorsalgia, unspecified; M19.90 Unspecified osteoarthritis, unspecified site; I25.5 Ischemic cardiomyopathy; I34.0 Nonrheumatic mitral (valve) insufficiency; I71.4 Abdominal aortic aneurysm, without rupture; E11.43 Type 2 diabetes mellitus with diabetic autonomic (poly)neuropathy; E11.22 Type 2 diabetes mellitus with diabetic chronic kidney disease; K31.84 Gastroparesis; K52.9 Noninfective gastroenteritis and colitis, unspecified; Z85.118 Personal history of other malignant neoplasm of bronchus and lung; Z85.46 Personal history of malignant neoplasm of prostate; Z95.0 Presence of cardiac pacemaker; Z90.49 Acquired absence of other specified parts of digestive tract; Z93.3 Colostomy status; Z88.8 Allergy status to other drugs, medicaments and biological substances; Z87.891 Personal history of nicotine dependence; Z82.5 Family history of asthma and other chronic lower respiratory diseases; Z83.6 Family history of other diseases of the respiratory system; Z83.3 Family history of diabetes mellitus; Z79.899 Other long term (current) drug therapy
CPT/HCPCS: 10084

== ENCOUNTER 2019-04-10 14:59 | Emergency (ER) | payer OTHER ==
[~2019-04-10] VITALS: Ht 172.7 cm; Wt 78.9 kg
[~2019-04-10 14:59] MED LIST changes: +CIPRO250 M1 PO; +METRONIDAZOLE500 M4 PO
[2019-04-10 15:34] LABS: ABSOLUTE NEUTROPHILS 5.8 thou/uL (1.4-8.2); BASOPHILS 0.7 % (0.0-2.0); EOSINOPHILS 1.3 % (0.0-3.0); HEMATOCRIT 29.1 % (42.0-52.0); HEMOGLOBIN 9.7 gm/dL (14.0-18.0); LYMPHOCYTES 11.4 % (24.0-44.0); MCH 33.4 pg (26.0-34.0); MCHC 33.3 g/dL (28.0-37.0); MCV 100.3 fL (80.0-100.0); MONOCYTES 11.2 % (1.0-8.0); PLATELET COUNT 211 thou/uL (150-400); POLYS 75.4 % (36.0-66.0); RDW 17.8 % (10.5-14.5); WBC 7.7 thou/uL (4.0-11.0)
[2019-04-10 15:40] LABS: ANION GAP 7 mmol/L (7-16); BUN 12 mg/dL (7-18); CALCIUM 8.8 mg/dL (8.5-10.1); CHLORIDE 99 mmol/L (98-107); CO2 31 mmol/L (21-32); CREATININE 1.1 mg/dL (0.7-1.3); GLUCOSE 241 mg/dL (74-106); POTASSIUM 3.7 mmol/L (3.5-5.1); SODIUM 137 mmol/L (136-145)
[2019-04-10 15:50] LABS: ALBUMIN 2.5 g/dL (3.4-5.0); MAGNESIUM 1.1 mg/dL (1.8-2.4); SGOT 11 U/L (15-37); SGPT 9 U/L (30-65); TOTAL BILIRUBIN 0.4 mg/dL (<0.1-1.0); TOTAL PROTEIN 7.1 g/dL (6.4-8.2); TROPONIN-I <0.06 ng/mL (<0.06)
[2019-04-10] MEDS ORDERED: MAG-OXIDE400 MG PO (17:09)
[2019-04-10 18:31] VITALS: BP 94/59
--- NOTE | 2019-04-11 07:55 | EKG ---
[place] [address] [facility] [place] [address] ELECTROCARDIOGRAM REPORT Name: LAURA PEÑA Room #: 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: TREV : 1945 Requested By: Fazal Claros Order Number: [id number] MD: Dalton Hernandez Measurements Intervals [place] Rate: 94 P: 70 IA: 168 QRS: 50 QRSD: 129 T: 132 QT: 400 QTc: 501 Interpretive Statements Sinus rhythm Nonspecific intraventricular conduction delay Nonspecific ST and T wave abnormality Compared to ECG 02/17/2019 12:59:50 Nonspecific change in the ST and T-wave segments Sinus tachycardia no longer present Right-axis deviation no longer present Electronically Signed On 04-11-2019 7:55:18 CDT by Dalton Hernandez [email or web address] <ELECTRONICALLY SIGNED> By: Dalton Hernandez MD, [facility] 04/11/19 0755 [id number] 1508 Dalton Hernandez MD, [facility] /EPI
== END 2019-04-10 18:31 | disposition home or self-care (01) ==
LOC: ER 14:59
PROVIDERS: Emergency Medicine
DX: R10.30 Lower abdominal pain, unspecified (principal); R07.89 Other chest pain; D64.9 Anemia, unspecified; E83.42 Hypomagnesemia; E11.9 Type 2 diabetes mellitus without complications; I25.10 Atherosclerotic heart disease of native coronary artery without angina pectoris; J44.9 Chronic obstructive pulmonary disease, unspecified; F41.9 Anxiety disorder, unspecified; E78.5 Hyperlipidemia, unspecified; K21.9 Gastro-esophageal reflux disease without esophagitis; N18.9 Chronic kidney disease, unspecified; I12.9 Hypertensive chronic kidney disease with stage 1 through stage 4 chronic kidney disease, or unspecified chronic kidney disease; Z85.46 Personal history of malignant neoplasm of prostate; Z85.118 Personal history of other malignant neoplasm of bronchus and lung; Z95.5 Presence of coronary angioplasty implant and graft; Z90.49 Acquired absence of other specified parts of digestive tract; Z88.8 Allergy status to other drugs, medicaments and biological substances; Z87.891 Personal history of nicotine dependence

== ENCOUNTER 2019-05-06 18:13 | Inpatient (IN) | payer OTHER ==
[~2019-05-06] VITALS: Ht 172.7 cm; Wt 81.4 kg
[~2019-05-06 18:13] MED LIST changes: +MAG-OXIDE400 MG PO
[2019-05-06 18:14] VITALS: BP 87/61
[2019-05-06] MEDS ORDERED: TRADJENTA5 MG ×2 (18:39→18:45)
[2019-05-06] MEDS ORDERED: FLOMAX0.4 MG PO (18:40)
[2019-05-06] MEDS ORDERED: ASA81BEC PO (18:40)
[2019-05-06] MEDS ORDERED: LIDOCAINE1 EACH TOP (18:42)
[2019-05-06] MEDS ORDERED: PREDNISONE 10 M10 MG PO (18:42)
[2019-05-06] MEDS ORDERED: MAGOX 400400 MG PO (18:42)
[2019-05-06] MEDS ORDERED: LIPITOR40 MG PO (18:42)
[2019-05-06] MEDS ORDERED: PROMETHAZINE-C473 ML PO (18:42)
[2019-05-06 18:44] LABS: ABSOLUTE NEUTROPHILS 4.9 thou/uL (1.4-8.2); BASOPHILS 0.8 % (0.0-2.0); EOSINOPHILS 2.1 % (0.0-3.0); HEMATOCRIT 29.5 % (42.0-52.0); HEMOGLOBIN 9.5 gm/dL (14.0-18.0); LYMPHOCYTES 16.4 % (24.0-44.0); MCH 31.6 pg (26.0-34.0); MCHC 32.1 g/dL (28.0-37.0); MCV 98.6 fL (80.0-100.0); MONOCYTES 11.7 % (1.0-8.0); PLATELET COUNT 226 thou/uL (150-400); RBC 2.99 mil/uL (4.50-6.00); RDW 16.2 % (10.5-14.5); WBC 7.1 thou/uL (4.0-11.0)
[2019-05-06 18:47] LABS: ANION GAP 7 mmol/L (7-16); BUN 20 mg/dL (7-18); CALCIUM 9.4 mg/dL (8.5-10.1); CHLORIDE 103 mmol/L (98-107); CO2 33 mmol/L (21-32); CREATININE 1.4 mg/dL (0.7-1.3); GLUCOSE 194 mg/dL (74-106); SODIUM 143 mmol/L (136-145)
[2019-05-06 18:57] LABS: ALBUMIN 2.9 g/dL (3.4-5.0); DIRECT BILIRUBIN 0.1 mg/dL (<0.1-0.3); LIPASE 84 U/L (73-393); SGOT 23 U/L (15-37); SGPT 24 U/L (30-65); TOTAL BILIRUBIN 0.3 mg/dL (<0.1-1.0); TOTAL PROTEIN 7.9 g/dL (6.4-8.2); TROPONIN-I <0.06 ng/mL (<0.06)
[2019-05-06 21:03] LABS: URINE BILIRUBIN NEGATIVE (Negative); URINE BLOOD 3+ (Negative); URINE CLARITY CLEAR; URINE COLOR YELLOW; URINE GLUCOSE-RANDOM* NEGATIVE (Negative); URINE KETONES NEGATIVE (Negative); URINE LEUKOCYTES NEGATIVE (Negative); URINE NITRITE NEGATIVE (Negative); URINE PROTEIN (DIPSTICK) NEGATIVE (Negative); URINE SPECIFIC GRAVITY <= 1.005 (1.005-1.035); URINE UROBILINOGEN 0.2 E.U./dl (0.2-1.0)
[2019-05-06 21:30] LABS: CASTS None Seen /LPF (None Seen); CRYSTALS None Seen /LPF (None Seen); SQUAMOUS None Seen /LPF (0-3); URINE WBC 0-5 Rare /HPF (0-5)
[2019-05-06 21:31] LABS: BACTERIA 1-9 Few /HPF (None Seen)
[2019-05-06] MEDS ORDERED: PERCOCET 10-321 EACH PO (21:33)
[2019-05-06 21:57] VITALS: BP 93/67
[2019-05-07] VITALS (9 sets, daily range): BP systolic 91–147; BP diastolic 57–80
[2019-05-07 05:16] LABS: CALCIUM 9.6 mg/dL (8.5-10.1); CREATININE 1.4 mg/dL (0.7-1.3); POTASSIUM 3.9 mmol/L (3.5-5.1)
[2019-05-07 05:18] LABS: HEMATOCRIT 31.1 % (42.0-52.0); HEMOGLOBIN 9.8 gm/dL (14.0-18.0); MCH 31.7 pg (26.0-34.0); MCHC 31.6 g/dL (28.0-37.0); MCV 100.4 fL (80.0-100.0); RBC 3.1 mil/uL (4.50-6.00); RDW 16.7 % (10.5-14.5); WBC 6.8 thou/uL (4.0-11.0)
--- NOTE | 2019-05-07 05:55 | NUR ---
PT ADMITTED FROM ED TO ROOM 217. A&O X4 ABLE TO MAKE NEEDS KNOWN. PT STATES HAS CHRONIC BACK PAIN. PT ON 3L PER NC CPAP AT HOME. HX OF STENTS. . PT HAS A PACEMAKER. PT HAS A COLOSTOMY BAG. ACCU CHECKS [facility]. PT WAS SEEN BY [facility] AFTER ADMISSION TO THE FLOOR. PT [employer] PT HAS A SCHEDULED APPOINTMENT WITH WITH DR GREENBERG ON THURSDAY IN [facility]. PT STATES USES [facility] FOR AMBULATION AT HOME. SOFT BPS
--- NOTE | 2019-05-07 07:51 | NUR ---
PT COLOSTOMY BAG HAS A WHOLE SEALED WITH A TEGARDEM. NEW COLOSTOMY BAG REQUESTED FROM [facility]
--- NOTE | 2019-05-07 11:54 | EKG ---
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 : 1945 Requested By: Mika Will Order Number: [id number] MD: Dalton Hernandez Measurements Intervals [place] Rate: 97 P: 63 SC: 163 QRS: 40 QRSD: 143 T: 124 QT: 380 QTc: 483 Interpretive Statements Sinus rhythm Nonspecific intraventricular conduction delay Nonspecific ST and T wave abnormality Compared to ECG 04/10/2019 15:08:00 No significant change was found Electronically Signed On 05-07-2019 11:54:34 CDT by Dalton Hernandez [email or web address] ��������������������������������������������� <ELECTRONICALLY SIGNED> ���������������������������������������� By: Dalton Hernandez MD, [facility] ��������������������������������������������� 05/07/19 1154 1815 1815 Dalton Hernandez MD, [facility] /EPI
--- NOTE | 2019-05-07 16:30 | NUR ---
ASESSMENT CHARTED - MEDS PER MAR - GIVEN PRECOCET FOR CO'S OF BACK PAIN X 1 WITH RELIEF - PT SLEEPING IN CHAIR. DEJA DIET AND FLUIDS. UP IN THE CHAIR FOR THE DAY - AMBULATED WITH PHYS THERAPY - USE OF ROLLER WALKER - SOB WITH ACTIVITY. PT VOIDING DARK [place] URINE- IV FLUIDS CONT - WHEN THIS LITER COMPLETED TO DE D/C'D. SEEN BY DOCTOR JESSE THIS AM - ACCUCHECKS CHARTED - COVERED PER SSI. NO CO'S AT THE PRESENT TIME .
[2019-05-08 00:15] VITALS: BP 116/79
[2019-05-08 04:45] VITALS: BP 110/78
[2019-05-08 05:22] LABS: CALCIUM 9.1 mg/dL (8.5-10.1); CREATININE 1.1 mg/dL (0.7-1.3)
[2019-05-08 07:33] VITALS: BP 97/61
[2019-05-08 11:26] VITALS: BP 101/67
[2019-05-08] MEDS ORDERED: IPRAT-ALBUT 0.5-3 ML INH (11:42)
[2019-05-08] MEDS ORDERED: PREDNISONE 10 M10 MG PO (11:42)
[2019-05-08] MEDS ORDERED: MUCINEX600 MG PO (11:42)
[2019-05-08 13:39] VITALS: BP 101/67
--- NOTE | 2019-05-08 15:32 | NUR ---
ASSESSMENT CHARTED - MEDS PER OCT - GIVEN OXY X 1 DOSE FOR CO'S OF BACK PAIN WITH MOD RELEIF. DEJA DIET AND FLUIDS. NO CO'S OF NASUEA. UP TO THE CHAIR - SOB WITH EXERTION. PT HOME THIS AFTERNOON- INSTRUCTION RE HME MEDS/ CARE AND FOLLOW UP GIVEN TO PATIENT - STATED UNDERSTNING ON INSTRUCTION GIVEN. IV AND MONITOR REMOVED PRIOR TO D/C. PT LEFT UNIT VIA WHEEL CHAIR - HOME VIA PVT VHICLE ACCOMPANIED BY . NO CO'S AT TIME OF D/C.
--- NOTE | 2019-05-09 13:54 | NUR ---
PT DISCHARGED TO HOME WITH HH YESTERDAY TUESDAY 05/08 FAXED REFERRAL TO [facility] SPOKE WITH RED IN INTAKE THEY RECEIVED REFERRAL AND CAN ACCEPT PT AT DISCHARGE. FAXED DC ORDERS/SUMMARY ALSO THEY WILL NOTIFY PT TIME OF VISITS.
[2019-05-09] MEDS ORDERED: PLAVIX 75 MG TA75 M1 PO (17:36)
[2019-05-09] MEDS ORDERED: PROTONIX40 M1 PO (17:37)
[2019-05-09] MEDS ORDERED: COREG6.25 MG PO (17:38)
[2019-05-09] MEDS ORDERED: DEMADEX20 MG PO (17:39)
== END 2019-05-08 15:30 | disposition home health service (06) | DRG 189 ==
LOC: ER 18:13 → EROBS 23:40 → 2N 05-07 01:13
PROVIDERS: Internal Medicine Pulmonary Disease; Nurse Practitioner; ADMIT Internal Medicine
PROC: 5A09357 Assistance with Respiratory Ventilation, Less than 24 Consecutive Hours, Continuous Positive Airway Pressure (ICD-10-PCS; principal; 2019-05-07)
PROC: 5A09357 Assistance with Respiratory Ventilation, Less than 24 Consecutive Hours, Continuous Positive Airway Pressure (ICD-10-PCS; 2019-05-08)
DX: J96.21 Acute and chronic respiratory failure with hypoxia (principal); I50.42 Chronic combined systolic (congestive) and diastolic (congestive) heart failure; N39.0 Urinary tract infection, site not specified; I47.1 Supraventricular tachycardia; F11.20 Opioid dependence, uncomplicated; D68.59 Other primary thrombophilia; I13.0 Hypertensive heart and chronic kidney disease with heart failure and stage 1 through stage 4 chronic kidney disease, or unspecified chronic kidney disease; I25.10 Atherosclerotic heart disease of native coronary artery without angina pectoris; J44.9 Chronic obstructive pulmonary disease, unspecified; G47.33 Obstructive sleep apnea (adult) (pediatric); F41.9 Anxiety disorder, unspecified; E78.5 Hyperlipidemia, unspecified; K86.9 Disease of pancreas, unspecified; G89.29 Other chronic pain; I34.0 Nonrheumatic mitral (valve) insufficiency; I25.5 Ischemic cardiomyopathy; J98.4 Other disorders of lung; E11.22 Type 2 diabetes mellitus with diabetic chronic kidney disease; I73.9 Peripheral vascular disease, unspecified; N18.9 Chronic kidney disease, unspecified; K57.90 Diverticulosis of intestine, part unspecified, without perforation or abscess without bleeding; R10.9 Unspecified abdominal pain; K21.9 Gastro-esophageal reflux disease without esophagitis; Z85.46 Personal history of malignant neoplasm of prostate; Z85.118 Personal history of other malignant neoplasm of bronchus and lung; Z90.49 Acquired absence of other specified parts of digestive tract; Z93.3 Colostomy status; Z88.8 Allergy status to other drugs, medicaments and biological substances; Z87.891 Personal history of nicotine dependence; Z93.2 Ileostomy status; Z82.5 Family history of asthma and other chronic lower respiratory diseases; Z83.3 Family history of diabetes mellitus; Z82.49 Family history of ischemic heart disease and other diseases of the circulatory system
CPT/HCPCS: 10081

== ENCOUNTER 2019-05-09 11:40 | Inpatient (IN) | payer OTHER ==
[~2019-05-09] VITALS: Ht 172.7 cm; Wt 81.2 kg
[~2019-05-09 11:40] MED LIST changes: +ASA81BEC PO; +FLOMAX0.4 MG PO; +IPRAT-ALBUT 0.5-3 ML INH; +LIDOCAINE1 EACH TOP; +LIPITOR40 MG PO; +MAGOX 400400 MG PO; +TRADJENTA5 MG
[2019-05-09 11:41] VITALS: BP 100/62
[2019-05-09 12:27] LABS: ABSOLUTE NEUTROPHILS 6.1 thou/uL (1.4-8.2); BASOPHILS 0.3 % (0.0-2.0); EOSINOPHILS 1.2 % (0.0-3.0); HEMATOCRIT 29.8 % (42.0-52.0); HEMOGLOBIN 9.7 gm/dL (14.0-18.0); LYMPHOCYTES 6.8 % (24.0-44.0); MCH 32.4 pg (26.0-34.0); MCHC 32.7 g/dL (28.0-37.0); MCV 99.1 fL (80.0-100.0); MONOCYTES 8.2 % (1.0-8.0); PLATELET COUNT 195 thou/uL (150-400); POLYS 83.5 % (36.0-66.0); RDW 15.9 % (10.5-14.5); WBC 7.3 thou/uL (4.0-11.0)
[2019-05-09 12:33] LABS: BE(vivo) 3.5 mmol/L (-2 to +3); HCO3 30.3 mmol/L (22.0-26.0); PCO2 58.6 mmHg (35.0-45.0); PO2 80.1 mmHg (80.0-100.0); pH 7.332 (7.360-7.450); sO2 94.8 % (92.0-98.0)
[2019-05-09 12:36] LABS: ANION GAP 2 mmol/L (7-16); BUN 13 mg/dL (7-18); CALCIUM 9.6 mg/dL (8.5-10.1); CHLORIDE 103 mmol/L (98-107); CO2 35 mmol/L (21-32); GLUCOSE 189 mg/dL (74-106); POTASSIUM 4.8 mmol/L (3.5-5.1)
[2019-05-09 12:39] LABS: SODIUM 140 mmol/L (136-145)
[2019-05-09 12:47] LABS: ALBUMIN 2.7 g/dL (3.4-5.0); SGOT 35 U/L (15-37); SGPT 36 U/L (30-65); TOTAL BILIRUBIN 0.4 mg/dL (<0.1-1.0); TOTAL PROTEIN 7.8 g/dL (6.4-8.2); TROPONIN-I <0.06 ng/mL (<0.06)
[2019-05-09 16:03] LABS: BE(vivo) 2.3 mmol/L (-2 to +3); HCO3 29.1 mmol/L (22.0-26.0); PCO2 57.3 mmHg (35.0-45.0); PO2 67.2 mmHg (80.0-100.0); pH 7.324 (7.360-7.450); sO2 91.6 % (92.0-98.0)
[2019-05-09 16:58] VITALS: BP 116/72
[2019-05-09 17:14] VITALS: BP 112/70; BP 116/75
[2019-05-09] MEDS ORDERED: PLAVIX 75 MG TA75 M1 PO (17:36)
[2019-05-09] MEDS ORDERED: PROTONIX40 M1 PO (17:37)
[2019-05-09] MEDS ORDERED: COREG6.25 MG PO (17:38)
[2019-05-09] MEDS ORDERED: DEMADEX20 MG PO (17:39)
[2019-05-09 19:32] VITALS: BP 127/89
[2019-05-09 23:56] VITALS: BP 113/74
--- NOTE | 2019-05-10 02:18 | NUR ---
ASSUMED CARE OF PATIENT AT 1900. VSS, AFEBRILE, DENIES PAIN. IS SOA WITH EXERTION. STATES HE IS HAVING A BIOPSY DONE LATER THIS WEEK, REFUSES LOVENOX BECAUSE OF THIS. GOOD URINE OUTPUT WELL STOOL FROM COLOSTOMY. NO OTHER CONCERNS AT THIS TIME. WORKING TOWARDS POC GOALS.
[2019-05-10 03:39] VITALS: BP 123/87
[2019-05-10 08:00] VITALS: BP 105/70
--- NOTE | 2019-05-10 09:22 | NUR ---
OSTOMY CARE requested assist w/ pouch changed, pt states he forgot to bring supplies to [facility], pouch on since 05/05, needing change today, new pouch rj 2 piece system convex precut 02/21' applied, stoma pink viable budded, peristomal skin intact, loose brown stool noted, supplies placed at , cooperative w/ care, bellstaff informed of care. will cont to follow prn
[2019-05-10 11:25] VITALS: BP 102/61
--- NOTE | 2019-05-10 13:35 | NUR ---
INITIAL ASSESSMENT: Pt evaluated for d/c planning needs. Reviewed chart and spoke with nurse and pt. Pt is alert and oriented. Pt lives in house with spouse and was independent with ADL's prior to admission to the hospital. Pt has oxygen and BiPAP from [employer], walker and cane. Pt is currently on service with [facility]. Pt said he was given information for mold remediation at home, but did not follow-up. Pt plans on calling the [employer] on return home. Called [facility] to inform them of pt's admission to the hospital. Will remain available to assist as needed.
[2019-05-10 13:38] VITALS: BP 102/61
[2019-05-10 15:15] VITALS: BP 102/57
--- NOTE | 2019-05-10 15:55 | NUR ---
BEGAN CARE AT 0700, PT IN BED. COMPLAINED OF PAIN LOCATED IN CHEST, LOWER ABDOMEN, LOWER BACK, AND JAW, ALL OF WHICH WERE RELIEVED WITH PAIN MEDICATION. CRACKLES AUSCULTATED IN LEFT LOWER LUNG AND CONTINUES TO HAVE DYSPNEA ON EXERTION. PRODUCTIVE COUGH WITH FROTHY YELLOW SPUTUM. UP IN CHAIR FOR SEVERAL HOURS WITH AT BEDSIDE. MAINTAINED O2 SAT GREATER THAN 95% ON 3L NC THROUGHOUT THE DAY
--- NOTE | 2019-05-10 16:04 | NUR ---
I have reviewed the student's documentation.
--- NOTE | 2019-05-10 17:40 | NUR ---
ASSUMED CARE OF PATIENT AT 0700. PATIENT RECIEVIED IV ANTIBIOTICS TODAY WELL PAIN MEDICATION FOR BACK PAIN. PATIENT IS NEARING BASELINE RESPIRATORY STATUS WITH PLAN FOR REHAB FOLLOWING DISCHARGE. PATIENT CURRENTLY ON 3L NC.
[2019-05-10 19:46] VITALS: BP 93/62
[2019-05-11 04:10] VITALS: BP 98/60
--- NOTE | 2019-05-11 04:27 | NUR ---
PT MAKING PROGRESS TOWARDS GOALS. ON O2 AT 3L PER NC. WORE CPAP OVERNIGHT. HAS DENIED ANY SOA WHILE AT REST. HAS DENIED ANY NEEDS OVERNIGHT.
[2019-05-11 05:51] LABS: HEMATOCRIT 26.8 % (42.0-52.0); HEMOGLOBIN 8.6 gm/dL (14.0-18.0); MCH 31.9 pg (26.0-34.0); MCHC 32.2 g/dL (28.0-37.0); MCV 99.3 fL (80.0-100.0); RBC 2.7 mil/uL (4.50-6.00); RDW 15.9 % (10.5-14.5); WBC 8.2 thou/uL (4.0-11.0)
[2019-05-11 06:03] LABS: CALCIUM 9.2 mg/dL (8.5-10.1); CREATININE 1.3 mg/dL (0.7-1.3); POTASSIUM 5.2 mmol/L (3.5-5.1)
--- NOTE | 2019-05-11 07:51 | EKG ---
[address] [address] ELECTROCARDIOGRAM REPORT Name: LAURA PEÑA Room #: 353-P ADM IN M.R.#: [id number] Admission: 05/09/19 Attend Phys: Natalya Conde MD Discharge: Date of : 45 Report #: [id number] THIS REPORT FOR: //name// [facility] ED Test Date: 2019-05-09 Test Time: 11:52:18 Pat Name: LAURA PEÑA Department: Room: [facility] Gender: M Nozzleman: kf : 1945 Requested By: Emiliano Rausch Order Number: [id number] MD: Graham Quezada Measurements Intervals [place] Rate: 97 P: 69 SC: 163 QRS: 14 QRSD: 144 T: 91 QT: 373 QTc: 474 Interpretive Statements Sinus rhythm Probable left atrial enlargement Nonspecific intraventricular conduction delay Borderline abnrm T, anterolateral leads Compared to ECG 05/06/2019 18:15:00 ST (T wave) deviation no longer present Electronically Signed On 05-11-2019 7:51:29 CDT by Graham Quezada [email or web address] <ELECTRONICALLY SIGNED> By: Graham Quezada MD 05/11/19 0751 1152 1152 Graham Quezada MD /EPI
[2019-05-11 08:00] VITALS: BP 98/64
--- NOTE | 2019-05-11 14:05 | NUR ---
SW reviewed chart and spoke with nursing and attending physician. Pt to have bronch and needle biopsy today per pulm. Plan is for pt to return home when medically stable. Pt was on service with [facility] for home health and about ready to start outpatient pulmonary rehab. STEPHANIA is following to assist as needed with discharge planning.
[2019-05-11 15:00] VITALS: BP 124/74
--- NOTE | 2019-05-11 17:25 | NUR ---
ASSUMED PATIENT CARE AT 0700. A/O X4. PLEASANT. NO SOB NOTED ON 3L/NC. PATIENT NEEDS OFF ASPIRIN 5 DAYS TO HAVE BIOPSY. DR MOLINA NOTIFIED. SLOWLY TOWARDS POC GOALS.
[2019-05-11 19:35] VITALS: BP 121/86
--- NOTE | 2019-05-12 05:24 | NUR ---
ASSUMED CARE AT 1900. PT C/O CHRONIC LOW BACK PAIN, HAS ASKED FOR PAIN MEDS x2 OVERNIGHT. REPORTS SOB AND IS EASILY WINDED WITH ANY EXERTION, EVEN SITTING UP ON THE SIDE OF THE BED; SATS HAVE BEEN 97% OR HIGHER ON 3L O2 OR CPAP OVERNIGHT. HAS BEEN SR-ST ON TELE, HR 80'S TO LOW 100'S. HELD LOVENOX AT HS IN CASE LUNG BIOPSY COULD BE DONE TODAY. NO OTHER CONCERNS, WILL CONTINUE TO MONITOR.
[2019-05-12 06:09] LABS: ALBUMIN 2.7 g/dL (3.4-5.0); CALCIUM 8.8 mg/dL (8.5-10.1); CREATININE 1.2 mg/dL (0.7-1.3); PHOSPHORUS 2.7 mg/dL (2.5-4.9); POTASSIUM 5.4 mmol/L (3.5-5.1)
[2019-05-12 07:36] VITALS: BP 110/70
--- NOTE | 2019-05-12 10:47 | NUR ---
DISCAHRGE PLANNING. PATIENT IS CURRENT WITH [facility]. PLAN IS FOR PATIENT TO RETURN TO HOME WITH [facility]. CLINICAL INFORMATION FAXED TO [facility] INTAKE, VERIFIED RECEIVED. FOLLOWING TO ASSIST.
--- NOTE | 2019-05-12 13:33 | NUR ---
SW reviewed chart and spoke with nursing and attending physician. Pt must be off aspirin for 5 days prior to bx. No weekend discharge planned. SW met with pt at bedside to provide update and discuss discharge plan. Pt confirms plan to return home and resume HH services with [facility]. wedding planner to fax referral to [facility] for review. SW is following to assist as needed with discharge planning.
[2019-05-12 14:59] VITALS: BP 107/72
--- NOTE | 2019-05-12 18:07 | NUR ---
Patient must be off of aspirin for 5 days prior to biopsy. Aspirin was held today- day 1 no aspirin. 3L O2 with pulse ox holding in the 90s. BGS greater than 250 x3 today. Appetite good, and son visit this afternoon. Patient is slowly working towards POC goals.
[2019-05-12 20:07] VITALS: BP 122/72
[2019-05-13 03:26] VITALS: BP 98/72
--- NOTE | 2019-05-13 05:26 | NUR ---
ASSUMED CARE AT 1900. PT C/O CHEST TIGHTNESS/HEAVINESS ALONG WITH CHRONIC BACK PAIN; STATES THIS PAIN HAS BEEN WORSE SINCE A BREATHING TREATMENT DURING THE DAY WHEN HE HAD TO COUGH A LOT BUT WAS UNABLE TO CLEAR ANY SECRETIONS. LUNG SOUNDS WERE WET AND CONGESTED; OBTAINED ORDER TO RESUME PT'S TORSEMIDE, GAVE FIRST DOSE AT HS, HAS URINATED LARGE AMOUNT OF LIGHT URINE OVERNIGHT. GAVE PAIN MEDS x2 OVERNIGHT. PT REPORTED HAVING MORE BACK PAIN AND FEELING MORE SOB OVERNIGHT FROM NEEDING TO SIT UP TO URINATE FREQUENTLY. ABOUT 0400, WHEN SITTING UP TO URINATE, BIPAP HOSE BECAME DISCONNECTED, AND PT BECAME VERY WINDED QUICKLY; AFTER RECONNECTING AND GIVING PAIN MEDS, PT ASKED FOR RT TREATMENT. NO OTHER CONCERNS, WILL CONTINUE TO MONITOR.
[2019-05-13 07:46] VITALS: BP 109/74
--- NOTE | 2019-05-13 08:27 | NUR ---
OSTOMY CARE; pt requested pouch change, on x 4 days, new appliance jr 2 piece system 7/8'convex precut applied, peristomal skin intact, stoma pink viable budded w/ loose brown stool noted, cooperative w/ care, supplies at bs,will cont to follow, staff nurse midwife informed of care
[2019-05-13 11:11] LABS: GLOBULIN TOTAL 3.8 g/dL (2.2-3.9); M-SPIKE Not Observed g/dL (Not Observed)
--- NOTE | 2019-05-13 12:19 | NUR ---
SW reviewed chart and spoke with attending physician. Pt to have biopsy next week. No weekend discharge planned. STEPHANIA left voice message for Arlen in intake at [facility] to provide update. Anticipated discharge home with will be next week. STEPHANIA is following to assist as needed with discharge planning.
[2019-05-13 15:11] VITALS: BP 94/57
--- NOTE | 2019-05-13 18:09 | NUR ---
ASSUMED CARE OF PATIENT AT 0700. PATIENT RECIEVED ANTIBIOTICS INTRAVENOUSLY. PT WORKED WITH PT, 1 ASSIST, VOICED NO COMPLAINT, VITALS STABLE, AWAITING BIOSPY ON THURSDAY.
[2019-05-13 19:54] VITALS: BP 99/66
[2019-05-13 20:00] VITALS: BP 127/69
--- NOTE | 2019-05-13 23:00 | NUR ---
ASSUMED PATIENT CARE. PATIENT AWAKE, ALERT AND ORIENTED. ON CPAP MACHINE. ANTIBIOTICS INFUSING.
[2019-05-14 04:00] VITALS: BP 120/83
--- NOTE | 2019-05-14 04:08 | NUR ---
Patient making slow progress towards out come goals. Oxygenation optimal with 3L/NC when awake and CPAP at night, tolerated well. Vital signs and rhytym stable. High fall risks, fall precations in place.
--- NOTE | 2019-05-14 07:21 | NUR ---
TRANDFERED CARE OF PATIENT AT 2300. PATIENT IS RESTING COMFORTABLY IN BED. WCM. PATIENT IS PROGRESSING TO GOALS.
[2019-05-14 08:09] VITALS: BP 112/79
--- NOTE | 2019-05-14 11:05 | NUR ---
PATIENT CARE ASSUMED, ASSESSMENT CHARTED, VSS, ALERT AND ORIENTED X 4, C/O NON CARDIAC CHEST PAIN L SIDE, TYLENOL GIVEN, WILL CONTINUE TO MONITOR
[2019-05-14 16:33] VITALS: BP 99/54
[2019-05-14 19:24] VITALS: BP 113/74
[2019-05-15 04:01] VITALS: BP 99/71
--- NOTE | 2019-05-15 04:30 | NUR ---
Patient slowly progressing towards outcome goals. Oxygenation optimal with 3L/NC and now BIPAP while sleeping. high fall risks, fall precautions in placem calls out appropriately for needs. Vital signs and rhythm stable.
[2019-05-15 07:19] VITALS: BP 117/76
[2019-05-15 15:51] VITALS: BP 105/63
--- NOTE | 2019-05-15 18:27 | NUR ---
PATIENT PLANS TO HAVE LUNG BIOPSY TOMORROW...WILL BE NPO AFTER MIDNIGHT...CONSENT SIGNED...
[2019-05-15 20:36] VITALS: BP 111/70
[2019-05-16 04:00] VITALS: BP 111/81
[2019-05-16 07:36] VITALS: BP 106/73
[2019-05-16 09:07] LABS: INR 1.1; PROTIME 11.5 Seconds (9.3-11.4)
[2019-05-16] MEDS ORDERED: PREDNISONE 10 M10 MG PO (09:23)
[2019-05-16] MEDS ORDERED: AUGMENTIN 875-1 EACH PO (09:26)
[2019-05-16 09:55] VITALS: BP 102/61
[2019-05-16 10:07] VITALS: BP 102/61
[2019-05-16 10:32] VITALS: BP 102/61
--- NOTE | 2019-05-16 10:38 | NUR ---
Patient discharging today, dp will send dc papers to [facility].
--- NOTE | 2019-05-16 10:58 | NUR ---
PT WILL BE DISCHARGDE TO HOME WITH HOME HEALTH WITH PT/SWS...FOLLOW UP WITH GI AND PULM...RX GIVEN..
[2019-05-16 11:42] VITALS: BP 102/61
== END 2019-05-16 11:43 | disposition home health service (06) | DRG 193 ==
LOC: ER 11:40 → EROBS 15:56 → 3W 15:56 → ENTRNSPT 05-16 11:31 → EDTRNSPTSTS 05-16 11:33 → 3W 05-16 11:43
PROVIDERS: Emergency Medicine; Hospitalist; Internal Medicine Pulmonary Disease; Radiology Vascular & Interventional Radiology; ADMIT Internal Medicine
PROC: 5A09357 Assistance with Respiratory Ventilation, Less than 24 Consecutive Hours, Continuous Positive Airway Pressure (ICD-10-PCS; principal; 2019-05-11)
PROC: 5A09357 Assistance with Respiratory Ventilation, Less than 24 Consecutive Hours, Continuous Positive Airway Pressure (ICD-10-PCS; 2019-05-12)
PROC: 5A09357 Assistance with Respiratory Ventilation, Less than 24 Consecutive Hours, Continuous Positive Airway Pressure (ICD-10-PCS; 2019-05-13)
PROC: 5A09357 Assistance with Respiratory Ventilation, Less than 24 Consecutive Hours, Continuous Positive Airway Pressure (ICD-10-PCS; 2019-05-14)
PROC: 5A09357 Assistance with Respiratory Ventilation, Less than 24 Consecutive Hours, Continuous Positive Airway Pressure (ICD-10-PCS; 2019-05-15)
PROC: 5A09357 Assistance with Respiratory Ventilation, Less than 24 Consecutive Hours, Continuous Positive Airway Pressure (ICD-10-PCS; 2019-05-16)
DX: J15.9 Unspecified bacterial pneumonia (principal); J96.21 Acute and chronic respiratory failure with hypoxia; I13.0 Hypertensive heart and chronic kidney disease with heart failure and stage 1 through stage 4 chronic kidney disease, or unspecified chronic kidney disease; I42.9 Cardiomyopathy, unspecified; I50.42 Chronic combined systolic (congestive) and diastolic (congestive) heart failure; D68.59 Other primary thrombophilia; I50.22 Chronic systolic (congestive) heart failure; J44.9 Chronic obstructive pulmonary disease, unspecified; N18.9 Chronic kidney disease, unspecified; E11.22 Type 2 diabetes mellitus with diabetic chronic kidney disease; I50.9 Heart failure, unspecified; K21.9 Gastro-esophageal reflux disease without esophagitis; I25.10 Atherosclerotic heart disease of native coronary artery without angina pectoris; G47.33 Obstructive sleep apnea (adult) (pediatric); F41.9 Anxiety disorder, unspecified; E11.43 Type 2 diabetes mellitus with diabetic autonomic (poly)neuropathy; K31.84 Gastroparesis; E78.5 Hyperlipidemia, unspecified; K57.90 Diverticulosis of intestine, part unspecified, without perforation or abscess without bleeding; J98.4 Other disorders of lung; K86.9 Disease of pancreas, unspecified; R16.0 Hepatomegaly, not elsewhere classified; I25.5 Ischemic cardiomyopathy; R00.0 Tachycardia, unspecified; G89.29 Other chronic pain; I34.0 Nonrheumatic mitral (valve) insufficiency; Z99.81 Dependence on supplemental oxygen; Z85.46 Personal history of malignant neoplasm of prostate; Z88.8 Allergy status to other drugs, medicaments and biological substances; Z85.118 Personal history of other malignant neoplasm of bronchus and lung; Z90.49 Acquired absence of other specified parts of digestive tract; Z87.891 Personal history of nicotine dependence; Z93.3 Colostomy status; Z87.01 Personal history of pneumonia (recurrent); Z79.899 Other long term (current) drug therapy; Z83.3 Family history of diabetes mellitus; Z82.49 Family history of ischemic heart disease and other diseases of the circulatory system; Z82.5 Family history of asthma and other chronic lower respiratory diseases; Z84.89 Family history of other specified conditions; Z95.810 Presence of automatic (implantable) cardiac defibrillator
CPT/HCPCS: 10879

== ENCOUNTER → 2019-06-01 | Outpatient (CLI) | payer OTHER ==
[~2019-06-01] MED LIST changes: +PROTONIX40 M1 PO
== END ==
LOC: RAD 10:11
DX: J44.9 Chronic obstructive pulmonary disease, unspecified (principal); J98.4 Other disorders of lung; Z88.8 Allergy status to other drugs, medicaments and biological substances